=== PATIENT | male | born 1960 | race Caucasian/White ===

== ENCOUNTER 2022-07-11 04:51 | Inpatient (IN) ==
[2022-07-11] MEDS ORDERED: SODIUM CHLORIDE 0.9% 1000ML 1,000 ML IV SCH (05:15)
--- NOTE | 2022-07-11 05:26 | Emergency Department Note ---
History of Present Illness General Chief complaint: Weakness Stated complaint: BARLEY WALK, WEAK, SICK Time Seen by Provider: 07/11/22 05:01 Source: patient and family Mode of arrival: wheelchair Limitations: no limitations History of Present Illness Provider complaint: weak, "illness" Maximum Pain Intensity: 7 This is a 62-year-old male presents emergency department due to concern for incr eased weakness. Patient presents with family at bedside who helps with history. Family states he started getting sick several days ago. They did perform a home COVID test which was negative. Patient states he began with a cough and then developed fevers and body aches. He states he also had some accompanying diarrhea. He states he had increased pain in the right foot that felt similar to when he gets attacks of gout. He states he has not noticed any swelling or redness. Patient denies any vomiting although states he has not had much of an appetite but is trying to stay hydrated with fluids. He denies chest pain, trouble breathing, or abdominal pain. Patient is anticoagulated due to prior history of valve replacement back in 2015. states that they saw their PCP on the and were started on Tamiflu. She states she believes he has had 3 doses of Tamiflu. Patient brought back to A3 from triage after being found to be hypotensive. Home Medications Medication Instructions Recorded Confirmed Type atorvastatin 80 mg tablet 80 mg PO DAILY #0 tabs 11/07/15 07/11/22 History aspirin 81 mg tablet,delayed 81 mg PO DAILY ##0 01/01/16 07/11/22 History release amoxicillin 500 mg capsule 2,000 mg PO USEASDIRECTD PRN 30-60 07/20/20 07/11/22 History min prior to dental proc colchicine 0.6 mg tablet 0.6 mg PO BID 07/20/20 07/11/22 History lisinopril 5 mg tablet 10 mg PO DAILY 07/20/20 07/11/22 History metoprolol tartrate 25 mg tablet 25 mg PO BID 11/03/20 07/11/22 History warfarin 5 mg tablet 5 mg PO UD 11/03/20 07/11/22 History allopurinol 300 mg tablet 300 mg PO QAM 07/11/22 07/11/22 History oseltamivir 75 mg capsule 75 mg PO BID 07/11/22 07/11/22 History prednisone 20 mg tablet 20 mg PO DAILY 07/11/22 07/11/22 History Allergies Allergy/AdvReac Type Severity Reaction Status Date / Time No Known Allergies Allergy Mild Verified 11/03/20 08:59 Past Med/Surg History Medical History CAD (coronary artery disease) Gout History of tobacco abuse HLD (hyperlipidemia) Thoracic aortic aneurysm (TAA) Surgical History Hx of inguinal hernia repair S/P aortic valve replacement with prosthetic valve Family History Mother Hypertension Other Diabetes Stroke Social History Smoking Status: Current every day smoker Tobacco Type: Cigarettes Hx Alcohol Use: Yes Alcohol type: beer Hx Substance Use: No Preferred Language: Jamaican Communication Ability: Effective Employment Legal Assistant Required: No Beliefs That Will Affect Care: None Current Living Situation: Spouse Feels Safe at Home: Yes Assistive Devices: Denture - Lower and Glasses Review of Systems A total of 10 systems reviewed and were otherwise negative All systems reviewed & are unremarkable except as noted in HPI & below Physical Exam Vital Signs Vital Signs - 24 hr 07/11/22 04:54 07/11/22 05:27 07/11/22 05:45 Temperature 36.3 C L Temperature Source Temporal Artery Scan Pulse Rate 85 Pulse Rate [Apical] 83 Pulse Rate from SpO2 Sensor Respiratory Rate 22 16 16 Respiratory Effort / Characteristics Non-Labored Spontaneous Respiratory Depth Normal Respiratory Pattern Regular Blood Pressure 67/48 L Blood Pressure [Left Arm] 84/61 L Blood Pressure Mean 54 Blood Pressure Mean [Left Arm] 68 Pulse Oximetry 93 98 Oxygen Delivery Method Room Air Room Air Sepsis Recent Fever Within 48 Hours Yes Sepsis New/Unexplained Change in Mental Status No Sepsis Action Taken by Nursing Physician Notified 07/11/22 05:20 07/11/22 05:22 07/11/22 05:30 Temperature Temperature Source Pulse Rate 84 83 Pulse Rate [Apical] Pulse Rate from SpO2 Sensor 84 85 83 Respiratory Rate 20 20 Respiratory Effort / Characteristics Respiratory Depth Respiratory Pattern Blood Pressure 91/57 L 89/60 L Blood Pressure [Left Arm] Blood Pressure Mean 68 69 Blood Pressure Mean [Left Arm] Pulse Oximetry 99 97 100 Oxygen Delivery Method Sepsis Recent Fever Within 48 Hours Sepsis New/Unexplained Change in Mental Status Sepsis Action Taken by Nursing 07/11/22 05:45 07/11/22 06:05 07/11/22 06:06 Temperature Temperature Source Pulse Rate 83 83 83 Pulse Rate [Apical] Pulse Rate from SpO2 Sensor 83 83 85 Respiratory Rate 21 23 22 Respiratory Effort / Characteristics Respiratory Depth Respiratory Pattern Blood Pressure 84/61 L Blood Pressure [Left Arm] Blood Pressure Mean 68 Blood Pressure Mean [Left Arm] Pulse Oximetry 99 96 94 Oxygen Delivery Method Sepsis Recent Fever Within 48 Hours Sepsis New/Unexplained Change in Mental Status Sepsis Action Taken by Nursing 07/11/22 06:06 07/11/22 06:09 07/11/22 06:25 Temperature Temperature Source Pulse Rate 83 82 Pulse Rate [Apical] Pulse Rate from SpO2 Sensor 83 82 Respiratory Rate 24 22 Respiratory Effort / Characteristics Respiratory Depth Respiratory Pattern Blood Pressure 88/54 L 92/57 L 85/68 L Blood Pressure [Left Arm] Blood Pressure Mean 65 68 73 Blood Pressure Mean [Left Arm] Pulse Oximetry 98 98 Oxygen Delivery Method Sepsis Recent Fever Within 48 Hours Sepsis New/Unexplained Change in Mental Status Sepsis Action Taken by Nursing 07/11/22 06:30 07/11/22 06:45 07/11/22 07:00 Temperature Temperature Source Pulse Rate 82 81 82 Pulse Rate [Apical] Pulse Rate from SpO2 Sensor 82 82 82 Respiratory Rate 22 22 31 H Respiratory Effort / Characteristics Respiratory Depth Respiratory Pattern Blood Pressure 98/64 L 107/64 96/69 L Blood Pressure [Left Arm] Blood Pressure Mean 75 78 78 Blood Pressure Mean [Left Arm] Pulse Oximetry 97 98 98 Oxygen Delivery Method Sepsis Recent Fever Within 48 Hours Sepsis New/Unexplained Change in Mental Status Sepsis Action Taken by Nursing 07/11/22 07:15 07/11/22 07:30 07/11/22 07:42 Temperature Temperature Source Pulse Rate 81 81 Pulse Rate [Apical] Pulse Rate from SpO2 Sensor Respiratory Rate 20 18 Respiratory Effort / Characteristics Respiratory Depth Respiratory Pattern Blood Pressure 102/62 100/59 L Blood Pressure [Left Arm] Blood Pressure Mean 75 72 Blood Pressure Mean [Left Arm] Pulse Oximetry 98 97 100 Oxygen Delivery Method Room Air Room Air Room Air Sepsis Recent Fever Within 48 Hours Sepsis New/Unexplained Change in Mental Status Sepsis Action Taken by Nursing 07/11/22 07:47 07/11/22 08:00 07/11/22 08:08 Temperature Temperature Source Pulse Rate 82 82 83 Pulse Rate [Apical] Pulse Rate from SpO2 Sensor Respiratory Rate 24 20 24 Respiratory Effort / Characteristics Respiratory Depth Respiratory Pattern Blood Pressure 90/60 L 89/56 L 88/53 L Blood Pressure [Left Arm] Blood Pressure Mean 70 67 64 Blood Pressure Mean [Left Arm] Pulse Oximetry 96 95 96 Oxygen Delivery Method Room Air Room Air Room Air Sepsis Recent Fever Within 48 Hours Sepsis New/Unexplained Change in Mental Status Sepsis Action Taken by Nursing 07/11/22 08:12 07/11/22 08:15 Temperature Temperature Source Pulse Rate 83 83 Pulse Rate [Apical] Pulse Rate from SpO2 Sensor Respiratory Rate 20 19 Respiratory Effort / Characteristics Respiratory Depth Respiratory Pattern Blood Pressure 90/55 L 89/65 L Blood Pressure [Left Arm] Blood Pressure Mean 66 73 Blood Pressure Mean [Left Arm] Pulse Oximetry 98 95 Oxygen Delivery Method Room Air Room Air Sepsis Recent Fever Within 48 Hours Sepsis New/Unexplained Change in Mental Status Sepsis Action Taken by Nursing GENERAL: alert, ill appearing, well nourished, no distress, non-toxic EYE EXAM: normal conjunctiva, PERRL and EOM's grossly intact OROPHARYNX: no exudate, no erythema, lips, buccal mucosa, and tongue normal and mucous membranes are dry NECK: supple, no nuchal rigidity, no adenopathy, non-tender LUNGS: Clear to auscultation. Normal chest wall mechanics, no w/r/r HEART: no murmurs, S1 normal and S2 normal, well-healed vertical midline sternotomy scar ABDOMEN: abdomen soft, non-tender, normo-active bowel sounds, no masses, no rebound or guarding. BACK: Back is symmetrical on inspection and there is no deformity, no midline tenderness, no CVA tenderness. SKIN: no rashes and no bruising UPPER EXTREMITIES: upper extremities are grossly normal. FROM, nml pulses b/l. LOWER EXTREMITIES: No pitting edema. FROM, nml pulses b/l. NEURO EXAM: Normal sensorium, cranial nerves II-XII grossly intact, normal speech, no gross weakness of arms, no gross weakness of legs. Gross sensation intact. Course Course 05: Pt updated on POC BMP results. 0610: Blood pressure improved, MAP greater than 65, patient more alert. First liter of IV fluids still infusing. 0735: Patient continues improved. He did complete 2 L of IV fluids and order was changed for maintenance. IV magnesium still infusing. Patient does appear better and is holding blood pressures. He denies any current pain. 0805: Updated at bedside. 0812: Hospitalist now at bedside. 0832: Patient's blood pressure had briefly dropped and he was off IV fluids as additional medications and orders were being changed and started. LR was started on the patient and his pressure began to improve again. Bedside echo performed by myself showed trace pericardial effusion, no obvious wall motion abnormality, unable to fully visualize mitral valve to measure EPSS. Administered Medications Discontinued Medications Atorvastatin Calcium (Atorvastatin 40 Mg Tab) 80 mg PO NOW STA Stop: 07/11/22 22:13 Last Admin: 07/11/22 23:55 Dose: 80 mg Documented By: HERNAN Sodium Chloride (Nss 1000ml) 1,000 mls @ 999 mls/hr IV .Q1H1M [facility] Stop: 07/11/22 06:15 Last Infusion: 07/11/22 07:12 Dose: 0 mls/hr Documented By: Admin: 07/11/22 05:30 Dose: 999 mls/hr Documented By: BELA Sodium Chloride (Nss 1000ml) 1,000 mls @ 999 mls/hr IV .Q1H1M ONE Stop: 07/11/22 07:00 Last Infusion: 07/11/22 07:33 Dose: 0 mls/hr Documented By: Admin: 07/11/22 06:22 Dose: 999 mls/hr Documented By: BELA Magnesium Sulfate/Dextrose (Magnesium Sulfate / D5w) 1 gm in 100 mls @ 100 mls/hr IV Q1H [facility] Stop: 07/11/22 07:59 Last Infusion: 07/11/22 08:37 Dose: 0 mls/hr Documented By: [email or web address] Admin: 07/11/22 07:26 Dose: 100 mls/hr Documented By: Infusion: 07/11/22 07:26 Dose: 0 mls/hr Documented By: Admin: 07/11/22 06:22 Dose: 100 mls/hr Documented By: BELA Lactated Ringer's (Lr) 1,000 mls @ 150 mls/hr IV .Q6H40M [facility] Stop: 08/10/22 07:44 Last Infusion: 07/12/22 09:58 Dose: 0 mls/hr Documented By: Admin: 07/12/22 08:58 Dose: Not Given Documented By: Admin: 07/12/22 08:58 Dose: Not Given Documented By: Infusion: 07/11/22 21:32 Dose: 0 mls/hr Documented By: Infusion: 07/11/22 18:18 Dose: 100 mls/hr Documented By: [id number] Admin: 07/11/22 17:10 Dose: 150 mls/hr Documented By: [id number] Infusion: 07/11/22 14:30 Dose: 150 mls/hr Documented By: [id number] Admin: 07/11/22 07:49 Dose: 150 mls/hr Documented By: TRISTIN Cefepime HCl (Maxipime) 2,000 mg in 20 mls @ 5 mls/min IV NOW STA; Protocol Stop: 07/11/22 07:58 Last Admin: 07/11/22 08:44 Dose: 5 mls/min Documented By: TRISTIN Vancomycin HCl 2,250 mg/ (Sodium Chloride) 545 mls @ 200 mls/hr IV NOW ONE Stop: 07/11/22 10:38 Last Admin: 07/11/22 08:38 Dose: 200 mls/hr Documented By: TRISTIN Lactated Ringer's (Lr) 1,000 mls @ 999 mls/hr IV .Q1H1M [facility] Stop: 07/11/22 09:45 Last Infusion: 07/11/22 12:34 Dose: 0 mls/hr Documented By: [id number] Admin: 07/11/22 11:22 Dose: 999 mls/hr Documented By: [id number] Potassium Chloride (K Paul / Wtr) 10 meq in 100 mls @ 100 mls/hr IV Q1H [facility] Stop: 07/11/22 12:59 Last Infusion: 07/11/22 14:44 Dose: 0 mls/hr Documented By: [id number] Admin: 07/11/22 13:40 Dose: 100 mls/hr Documented By: [email or web address] Infusion: 07/11/22 13:34 Dose: 100 mls/hr Documented By: Admin: 07/11/22 12:34 Dose: 100 mls/hr Documented By: [id number] Infusion: 07/11/22 12:24 Dose: 100 mls/hr Documented By: [id number] Admin: 07/11/22 11:24 Dose: 100 mls/hr Documented By: [id number] Cefepime HCl 1,000 mg/ Syringe 10 mls @ 5 mls/min IV Q12H [facility]; Protocol Stop: 07/13/22 20:59 Last Admin: 07/11/22 20:58 Dose: 5 mls/min Documented By: Y Metronidazole (Flagyl) 500 mg in 100 mls @ 100 mls/hr IV Q8H [facility] Stop: 07/21/22 11:59 Last Infusion: 07/12/22 05:29 Dose: 0 mls/hr Documented By: Admin: 07/12/22 04:26 Dose: 100 mls/hr Documented By: Y Infusion: 07/11/22 21:31 Dose: 0 mls/hr Documented By: Y Admin: 07/11/22 19:52 Dose: 100 mls/hr Documented By: Y Infusion: 07/11/22 15:44 Dose: 0 mls/hr Documented By: [id number] Admin: 07/11/22 14:42 Dose: 100 mls/hr Documented By: [id number] Sodium Chloride (Nss 1000ml) 1,000 mls @ 75 mls/hr IV .[id number] [facility] Stop: 08/10/22 19:59 Last Infusion: 07/12/22 10:01 Dose: 75 mls/hr Documented By: Admin: 07/12/22 06:46 Dose: 100 mls/hr Documented By: Infusion: 07/12/22 06:46 Dose: 100 mls/hr Documented By: Admin: 07/11/22 21:33 Dose: 100 mls/hr Documented By: Y Potassium Chloride (K Paul / Wtr) 10 meq in 100 mls @ 100 mls/hr IV Q1H [facility] Stop: 07/11/22 21:59 Last Infusion: 07/12/22 00:17 Dose: 0 mls/hr Documented By: Admin: 07/11/22 21:43 Dose: 100 mls/hr Documented By: Infusion: 07/11/22 21:40 Dose: 100 mls/hr Documented By: Admin: 07/11/22 20:40 Dose: 100 mls/hr Documented By: BPY Heparin Sodium/Dextrose (Heparin Sodium/Dextrose) 25,000 units in 500 mls @ 33 mls/hr IV .[id number] [facility]; Protocol Stop: 08/10/22 21:29 Last Titration: 07/12/22 07:00 Dose: 0 units/hr, 0 mls/hr Documented By: WRS Co-signed By: GPF Titration: 07/12/22 01:26 Dose: 0 units/hr, 0 mls/hr Documented By: BPY Co-signed By: CF Admin: 07/11/22 22:03 Dose: 1,650 units/hr, 33 mls/hr Documented By: BPY Co-signed By: LAURA Norepinephrine Bitartrate (Levophed/D5w) 4 mg in 250 mls @ 20.288 mls/hr IV .[id number] [facility]; Protocol Stop: 08/10/22 22:44 Last Titration: 07/12/22 14:57 Dose: 0.05 mcg/kg/min, 20.3 mls/hr Documented By: Admin: 07/12/22 10:18 Dose: 0.07 mcg/kg/min, 28.4 mls/hr Documented By: WRS Co-signed By: GPF Titration: 07/12/22 10:18 Dose: 0.07 mcg/kg/min, 28.4 mls/hr Documented By: WRS Co-signed By: GPF Titration: 07/12/22 07:05 Dose: 0.07 mcg/kg/min, 28.4 mls/hr Documented By: WRS Co-signed By: BPY Titration: 07/12/22 06:16 Dose: 0.07 mcg/kg/min, 28.4 mls/hr Documented By: Admin: 07/11/22 23:46 Dose: 0.05 mcg/kg/min, 20.3 mls/hr Documented By: BPY Co-signed By: MYLA Magnesium Sulfate/Dextrose (Magnesium Sulfate / D5w) 1 gm in 100 mls @ 50 mls/hr IV Q2H [facility] Stop: 07/12/22 04:59 Last Infusion: 07/12/22 04:49 Dose: 0 mls/hr Documented By: Admin: 07/12/22 02:44 Dose: 50 mls/hr Documented By: Infusion: 07/12/22 02:44 Dose: 50 mls/hr Documented By: Admin: 07/12/22 01:05 Dose: 50 mls/hr Documented By: HERNAN Magnesium Sulfate/Dextrose (Magnesium Sulfate / D5w) 1 gm in 100 mls @ 50 mls/hr IV Q2H [facility] Stop: 07/12/22 10:59 Last Admin: 07/12/22 10:57 Dose: Not Given Documented By: Infusion: 07/12/22 10:56 Dose: 0 mls/hr Documented By: Admin: 07/12/22 08:49 Dose: 50 mls/hr Documented By: Infusion: 07/12/22 08:46 Dose: 50 mls/hr Documented By: Admin: 07/12/22 06:46 Dose: 50 mls/hr Documented By: Infusion: 07/12/22 06:46 Dose: 50 mls/hr Documented By: Admin: 07/12/22 04:50 Dose: 50 mls/hr Documented By: HERNAN Potassium Chloride (K Paul / Wtr) 10 meq in 100 mls @ 100 mls/hr IV Q1H [facility] Stop: 07/12/22 05:59 Last Infusion: 07/12/22 06:20 Dose: 0 mls/hr Documented By: Admin: 07/12/22 05:20 Dose: 100 mls/hr Documented By: Infusion: 07/12/22 05:18 Dose: 100 mls/hr Documented By: Admin: 07/12/22 04:18 Dose: 100 mls/hr Documented By: HERNAN Ceftriaxone Sodium 2,000 mg/ (Dextrose) 70 mls @ 140 mls/hr IV Q24H [facility]; Protocol Stop: 08/23/22 08:29 Last Infusion: 07/12/22 09:58 Dose: 0 mls/hr Documented By: Admin: 07/12/22 09:26 Dose: 140 mls/hr Documented By: ASHLEY Magnesium Sulfate/Dextrose (Magnesium Sulfate / D5w) 1 gm in 100 mls @ 50 mls/hr IV ONE ONE Stop: 07/12/22 11:57 Last Admin: 07/12/22 10:57 Dose: Not Given Documented By: ASHLEY Ondansetron HCl (Ondansetron Inj 2 Mg/Ml 2 Ml Vial) 4 mg IV Q4H PRN PRN Reason: Nausea And Vomiting Stop: 08/10/22 10:47 Last Admin: 07/12/22 17:04 Dose: 4 mg Documented By: Admin: 07/12/22 16:55 Dose: 4 mg Documented By: AM Sodium Bicarbonate (Sodium Bicarb 8.4% Inj 50 Meq/50 Ml Syr) 50 meq IV NOW STA Stop: 07/12/22 08:17 Last Admin: 07/12/22 08:50 Dose: 50 meq Documented By: ASHLEY Warfarin Sodium (Warfarin Sod 5 Mg Tab) 5 mg PO DAILY@1600 [facility] Stop: 08/10/22 15:59 Last Admin: 07/11/22 17:10 Dose: 5 mg Documented By: [id number] Critical Care Time Critical Care Time: Yes Total Critical Care Time: 69 Critical care of 69 min performed to assess and manage high likelihood of life- threatening hypotension, involving labs and imaging performed with assessment to evaluate hypotension diagnosis with frequent reassessment. This time includes bedside time, treatment discussions with patient/family/consultants, documentation time and excludes procedure time. Medical Decision Making Differential Diagnosis Differential Diagnosis includes but is not limited to dehydration, stroke, anemia, hypoglycemia, hyponatremia, hypernatremia, urinary tract infection, pneumonia, bronchitis, sepsis, gastroenteritis, additional abdominal pathology, metabolic abnormalities and infections. Medical Records Attestation: I reviewed the patient's medical records. Home Medications Current Medication List: was personally reviewed by me Laboratory Data Attestation: I reviewed the patient's lab results. Result diagrams: 07/12/22 02:35 07/12/22 08:35 Lab Results 07/11/22 07/11/22 07/11/22 Range/Units 05:10 05:10 05:10 WBC 13.14 H (4.8-10.8) K/ul RBC 4.51 L (4.63-6.08) M/uL Hgb 14.3 (14.0-18.0) g/dl POC Hgb (14.0-18.0) g/dl Hct 40.8 (40.1-51.0) % POC Hct (42-52) % MCV 90.5 (80.0-100.0) fL MCH 31.7 (25.0-34.0) pg MCHC 35.0 (32.0-36.0) g/dL RDW Std Deviation 43.1 (36.4-46.3) fL RDW Coeff of Jere 13.0 (11.5-14.5) % Plt Count 52 L (130-400) K/uL MPV 12.8 H (9.4-12.4) fL Immature Gran % (Auto) 0.8 % Neut % (Auto) 87.5 % Lymph % (Auto) 1.5 % [place] % (Auto) 9.1 % Eos % (Auto) 0.5 % Baso % (Auto) 0.6 % Neut # (Auto) 11.51 H (1.4-6.5) K/uL Lymph # (Auto) 0.20 L (1.2-3.4) K/uL [place] # (Auto) 1.19 H (0.24-0.82) K/uL Eos # (Auto) 0.06 (0-0.50) K/uL Baso # (Auto) 0.08 (0-0.2) K/uL Immature Gran # (Auto) 0.10 H (0.00-0.02) K/uL Toxic Vacuolation 1+ PT (9.0-12.0) Seconds INR (0.9-1.1) POC Sodium (135-144) mmol/L Sodium 126 L (136-145) mmol/L POC Potassium (3.3-5.0) mmol/L Potassium 3.6 (3.5-5.1) mmol/L POC Chloride (101-112) mmol/L Chloride 92 L (98-107) mmol/L Carbon Dioxide 17 L (21-32) mmol/L POC Total CO2 (24-31) mmol/L Anion Gap 17 H (3-11) POC Anion Gap (16-25) mmol/L POC BUN (7-18) mg/dl BUN 43 H (6-23) mg/dl Creatinine 3.78 H (0.6-1.4) mg/dl POC Creatinine (0.6-1.3) mg/dl Est Cr Clr Drug Dosing Not Reportable Est GFR ( Amer) 18.6 ml/min Est GFR (Non-Af Amer) 16.1 ml/min BUN/Creatinine Ratio 11.4 (10-20) Glucose 123 H (70-99(Fasting)) mg/dl POC Glucose (other) (70-99) mg/dl Osmolality (280-300) mOsm/kg Lactate (0.4-2.0) mmol/L Calcium 8.6 (8.5-10.1) mg/dl POC Ioniz Calcium [place] (1.12-1.32) mmol/l Phosphorus (2.5-4.9) mg/dl Magnesium 1.5 L (1.7-2.4) mg/dl Total Bilirubin 0.9 (0.2-1.0) mg/dl Direct Bilirubin 0.4 H (0-0.2) mg/dl AST 127 H (13-39) U/L ALT 76 H (7-52) U/L Alkaline Phosphatase 95 (34-104) U/L Troponin I High Sens 503.5 H* (0-20) pg/ml Total Protein 6.9 (6.0-8.3) gm/dl Albumin 3.5 (3.4-5.0) gm/dl Procalcitonin 20.79 H (0-0.5) ng/ml Adenovirus (PCR) (NotDetected) B. pertussis DNA (PCR) (NotDetected) B.parapertussis DNA PCR (NotDetected) Lyme Disease IgG Ab (Negative) Lyme Disease IgM Ab (Negative) C. pneumoniae DNA (PCR) (NotDetected) Coronavirus OC43 (PCR) (NotDetected) Coronavirus HKU1 (PCR) (NotDetected) Coronavirus 229E (PCR) (NotDetected) SARS-CoV-2 (PCR) (NotDetected) Coronavirus NL63 (PCR) (NotDetected) Human Metapneumovir PCR (NotDetected) Influenza Type A (PCR) (NotDetected) Influenza Type B (PCR) (NotDetected) M. pneumoniae (PCR) (NotDetected) Parainfluenza 1 (PCR) (NotDetected) Parainfluenza 2 (PCR) (NotDetected) Parainfluenza 3 (PCR) (NotDetected) Parainfluenza 4 (PCR) (NotDetected) RSV (PCR) (NotDetected) Entero/Rhino (PCR) (NotDetected) Streptococcus sp PCR (NotDetected) Bld Cult ID Panel PCR (NotDetected) 07/11/22 07/11/22 07/11/22 Range/Units 05:10 05:10 05:10 WBC (4.8-10.8) K/ul RBC (4.63-6.08) M/uL Hgb (14.0-18.0) g/dl POC Hgb (14.0-18.0) g/dl Hct (40.1-51.0) % POC Hct (42-52) % MCV (80.0-100.0) fL MCH (25.0-34.0) pg MCHC (32.0-36.0) g/dL RDW Std Deviation (36.4-46.3) fL RDW Coeff of Jere (11.5-14.5) % Plt Count (130-400) K/uL MPV (9.4-12.4) fL Immature Gran % (Auto) % Neut % (Auto) % Lymph % (Auto) % [place] % (Auto) % Eos % (Auto) % Baso % (Auto) % Neut # (Auto) (1.4-6.5) K/uL Lymph # (Auto) (1.2-3.4) K/uL [place] # (Auto) (0.24-0.82) K/uL Eos # (Auto) (0-0.50) K/uL Baso # (Auto) (0-0.2) K/uL Immature Gran # (Auto) (0.00-0.02) K/uL Toxic Vacuolation PT 18.2 H (9.0-12.0) Seconds INR 1.8 H (0.9-1.1) POC Sodium (135-144) mmol/L Sodium (136-145) mmol/L POC Potassium (3.3-5.0) mmol/L Potassium (3.5-5.1) mmol/L POC Chloride (101-112) mmol/L Chloride (98-107) mmol/L Carbon Dioxide (21-32) mmol/L POC Total CO2 (24-31) mmol/L Anion Gap (3-11) POC Anion Gap (16-25) mmol/L POC BUN (7-18) mg/dl BUN (6-23) mg/dl Creatinine (0.6-1.4) mg/dl POC Creatinine (0.6-1.3) mg/dl Est Cr Clr Drug Dosing Est GFR ( Amer) ml/min Est GFR (Non-Af Amer) ml/min BUN/Creatinine Ratio (10-20) Glucose (70-99(Fasting)) mg/dl POC Glucose (other) (70-99) mg/dl Osmolality 280 (280-300) mOsm/kg Lactate (0.4-2.0) mmol/L Calcium (8.5-10.1) mg/dl POC Ioniz Calcium [place] (1.12-1.32) mmol/l Phosphorus 4.7 (2.5-4.9) mg/dl Magnesium (1.7-2.4) mg/dl Total Bilirubin (0.2-1.0) mg/dl Direct Bilirubin (0-0.2) mg/dl AST (13-39) U/L ALT (7-52) U/L Alkaline Phosphatase (34-104) U/L Troponin I High Sens (0-20) pg/ml Total Protein (6.0-8.3) gm/dl Albumin (3.4-5.0) gm/dl Procalcitonin (0-0.5) ng/ml Adenovirus (PCR) (NotDetected) B. pertussis DNA (PCR) (NotDetected) B.parapertussis DNA PCR (NotDetected) Lyme Disease IgG Ab (Negative) Lyme Disease IgM Ab (Negative) C. pneumoniae DNA (PCR) (NotDetected) Coronavirus OC43 (PCR) (NotDetected) Coronavirus HKU1 (PCR) (NotDetected) Coronavirus 229E (PCR) (NotDetected) SARS-CoV-2 (PCR) (NotDetected) Coronavirus NL63 (PCR) (NotDetected) Human Metapneumovir PCR (NotDetected) Influenza Type A (PCR) (NotDetected) Influenza Type B (PCR) (NotDetected) M. pneumoniae (PCR) (NotDetected) Parainfluenza 1 (PCR) (NotDetected) Parainfluenza 2 (PCR) (NotDetected) Parainfluenza 3 (PCR) (NotDetected) Parainfluenza 4 (PCR) (NotDetected) RSV (PCR) (NotDetected) Entero/Rhino (PCR) (NotDetected) Streptococcus sp PCR (NotDetected) Bld Cult ID Panel PCR (NotDetected) 07/11/22 07/11/22 07/11/22 Range/Units 05:10 05:15 05:44 WBC (4.8-10.8) K/ul RBC (4.63-6.08) M/uL Hgb (14.0-18.0) g/dl POC Hgb 15.3 (14.0-18.0) g/dl Hct (40.1-51.0) % POC Hct 45 (42-52) % MCV (80.0-100.0) fL MCH (25.0-34.0) pg MCHC (32.0-36.0) g/dL RDW Std Deviation (36.4-46.3) fL RDW Coeff of Jere (11.5-14.5) % Plt Count (130-400) K/uL MPV (9.4-12.4) fL Immature Gran % (Auto) % Neut % (Auto) % Lymph % (Auto) % [place] % (Auto) % Eos % (Auto) % Baso % (Auto) % Neut # (Auto) (1.4-6.5) K/uL Lymph # (Auto) (1.2-3.4) K/uL [place] # (Auto) (0.24-0.82) K/uL Eos # (Auto) (0-0.50) K/uL Baso # (Auto) (0-0.2) K/uL Immature Gran # (Auto) (0.00-0.02) K/uL Toxic Vacuolation PT (9.0-12.0) Seconds INR (0.9-1.1) POC Sodium 125 L (135-144) mmol/L Sodium (136-145) mmol/L POC Potassium 3.5 (3.3-5.0) mmol/L Potassium (3.5-5.1) mmol/L POC Chloride 95 L (101-112) mmol/L Chloride (98-107) mmol/L Carbon Dioxide (21-32) mmol/L POC Total CO2 17 L (24-31) mmol/L Anion Gap (3-11) POC Anion Gap 17.0 (16-25) mmol/L POC BUN 41 H (7-18) mg/dl BUN (6-23) mg/dl Creatinine (0.6-1.4) mg/dl POC Creatinine 4.4 H (0.6-1.3) mg/dl Est Cr Clr Drug Dosing Est GFR ( Amer) ml/min Est GFR (Non-Af Amer) ml/min BUN/Creatinine Ratio (10-20) Glucose (70-99(Fasting)) mg/dl POC Glucose (other) 128 H (70-99) mg/dl Osmolality (280-300) mOsm/kg Lactate (0.4-2.0) mmol/L Calcium (8.5-10.1) mg/dl POC Ioniz Calcium [place] 1.01 L (1.12-1.32) mmol/l Phosphorus (2.5-4.9) mg/dl Magnesium (1.7-2.4) mg/dl Total Bilirubin (0.2-1.0) mg/dl Direct Bilirubin (0-0.2) mg/dl AST (13-39) U/L ALT (7-52) U/L Alkaline Phosphatase (34-104) U/L Troponin I High Sens (0-20) pg/ml Total Protein (6.0-8.3) gm/dl Albumin (3.4-5.0) gm/dl Procalcitonin (0-0.5) ng/ml Adenovirus (PCR) (NotDetected) B. pertussis DNA (PCR) (NotDetected) B.parapertussis DNA PCR (NotDetected) Lyme Disease IgG Ab Negative (Negative) Lyme Disease IgM Ab Negative (Negative) C. pneumoniae DNA (PCR) (NotDetected) Coronavirus OC43 (PCR) (NotDetected) Coronavirus HKU1 (PCR) (NotDetected) Coronavirus 229E (PCR) (NotDetected) SARS-CoV-2 (PCR) (NotDetected) Coronavirus NL63 (PCR) (NotDetected) Human Metapneumovir PCR (NotDetected) Influenza Type A (PCR) (NotDetected) Influenza Type B (PCR) (NotDetected) M. pneumoniae (PCR) (NotDetected) Parainfluenza 1 (PCR) (NotDetected) Parainfluenza 2 (PCR) (NotDetected) Parainfluenza 3 (PCR) (NotDetected) Parainfluenza 4 (PCR) (NotDetected) RSV (PCR) (NotDetected) Entero/Rhino (PCR) (NotDetected) Streptococcus sp PCR DETECTED A (NotDetected) Bld Cult ID Panel PCR See PCR Comment (NotDetected) 07/11/22 07/11/22 07/11/22 Range/Units 05:45 06:17 06:56 WBC (4.8-10.8) K/ul RBC (4.63-6.08) M/uL Hgb (14.0-18.0) g/dl POC Hgb (14.0-18.0) g/dl Hct (40.1-51.0) % POC Hct (42-52) % MCV (80.0-100.0) fL MCH (25.0-34.0) pg MCHC (32.0-36.0) g/dL RDW Std Deviation (36.4-46.3) fL RDW Coeff of Jere (11.5-14.5) % Plt Count (130-400) K/uL MPV (9.4-12.4) fL Immature Gran % (Auto) % Neut % (Auto) % Lymph % (Auto) % [place] % (Auto) % Eos % (Auto) % Baso % (Auto) % Neut # (Auto) (1.4-6.5) K/uL Lymph # (Auto) (1.2-3.4) K/uL [place] # (Auto) (0.24-0.82) K/uL Eos # (Auto) (0-0.50) K/uL Baso # (Auto) (0-0.2) K/uL Immature Gran # (Auto) (0.00-0.02) K/uL Toxic Vacuolation PT (9.0-12.0) Seconds INR (0.9-1.1) POC Sodium (135-144) mmol/L Sodium 127 L (136-145) mmol/L POC Potassium (3.3-5.0) mmol/L Potassium 3.4 L (3.5-5.1) mmol/L POC Chloride (101-112) mmol/L Chloride 96 L (98-107) mmol/L Carbon Dioxide 16 L (21-32) mmol/L POC Total CO2 (24-31) mmol/L Anion Gap 15 H (3-11) POC Anion Gap (16-25) mmol/L POC BUN (7-18) mg/dl BUN 45 H (6-23) mg/dl Creatinine 3.68 H (0.6-1.4) mg/dl POC Creatinine (0.6-1.3) mg/dl Est Cr Clr Drug Dosing 26.9 Est GFR ( Amer) 19.3 ml/min Est GFR (Non-Af Amer) 16.6 ml/min BUN/Creatinine Ratio 12.2 (10-20) Glucose 125 H (70-99(Fasting)) mg/dl POC Glucose (other) (70-99) mg/dl Osmolality (280-300) mOsm/kg Lactate 2.7 H* (0.4-2.0) mmol/L Calcium 7.4 L (8.5-10.1) mg/dl POC Ioniz Calcium [place] (1.12-1.32) mmol/l Phosphorus (2.5-4.9) mg/dl Magnesium (1.7-2.4) mg/dl Total Bilirubin (0.2-1.0) mg/dl Direct Bilirubin (0-0.2) mg/dl AST (13-39) U/L ALT (7-52) U/L Alkaline Phosphatase (34-104) U/L Troponin I High Sens (0-20) pg/ml Total Protein (6.0-8.3) gm/dl Albumin (3.4-5.0) gm/dl Procalcitonin (0-0.5) ng/ml Adenovirus (PCR) Not Detected (NotDetected) B. pertussis DNA (PCR) Not Detected (NotDetected) B.parapertussis DNA PCR Not Detected (NotDetected) Lyme Disease IgG Ab (Negative) Lyme Disease IgM Ab (Negative) C. pneumoniae DNA (PCR) Not Detected (NotDetected) Coronavirus OC43 (PCR) Not Detected (NotDetected) Coronavirus HKU1 (PCR) Not Detected (NotDetected) Coronavirus 229E (PCR) Not Detected (NotDetected) SARS-CoV-2 (PCR) Not Detected (NotDetected) Coronavirus NL63 (PCR) Not Detected (NotDetected) Human Metapneumovir PCR Not Detected (NotDetected) Influenza Type A (PCR) Not Detected (NotDetected) Influenza Type B (PCR) Not Detected (NotDetected) M. pneumoniae (PCR) Not Detected (NotDetected) Parainfluenza 1 (PCR) Not Detected (NotDetected) Parainfluenza 2 (PCR) Not Detected (NotDetected) Parainfluenza 3 (PCR) Not Detected (NotDetected) Parainfluenza 4 (PCR) Not Detected (NotDetected) RSV (PCR) Not Detected (NotDetected) Entero/Rhino (PCR) Not Detected (NotDetected) Streptococcus sp PCR (NotDetected) Bld Cult ID Panel PCR (NotDetected) 07/11/22 Range/Units 08:06 WBC (4.8-10.8) K/ul RBC (4.63-6.08) M/uL Hgb (14.0-18.0) g/dl POC Hgb (14.0-18.0) g/dl Hct (40.1-51.0) % POC Hct (42-52) % MCV (80.0-100.0) fL MCH (25.0-34.0) pg MCHC (32.0-36.0) g/dL RDW Std Deviation (36.4-46.3) fL RDW Coeff of Jere (11.5-14.5) % Plt Count (130-400) K/uL MPV (9.4-12.4) fL Immature Gran % (Auto) % Neut % (Auto) % Lymph % (Auto) % [place] % (Auto) % Eos % (Auto) % Baso % (Auto) % Neut # (Auto) (1.4-6.5) K/uL Lymph # (Auto) (1.2-3.4) K/uL [place] # (Auto) (0.24-0.82) K/uL Eos # (Auto) (0-0.50) K/uL Baso # (Auto) (0-0.2) K/uL Immature Gran # (Auto) (0.00-0.02) K/uL Toxic Vacuolation PT (9.0-12.0) Seconds INR (0.9-1.1) POC Sodium (135-144) mmol/L Sodium (136-145) mmol/L POC Potassium (3.3-5.0) mmol/L Potassium (3.5-5.1) mmol/L POC Chloride (101-112) mmol/L Chloride (98-107) mmol/L Carbon Dioxide (21-32) mmol/L POC Total CO2 (24-31) mmol/L Anion Gap (3-11) POC Anion Gap (16-25) mmol/L POC BUN (7-18) mg/dl BUN (6-23) mg/dl Creatinine (0.6-1.4) mg/dl POC Creatinine (0.6-1.3) mg/dl Est Cr Clr Drug Dosing Est GFR ( Amer) ml/min Est GFR (Non-Af Amer) ml/min BUN/Creatinine Ratio (10-20) Glucose (70-99(Fasting)) mg/dl POC Glucose (other) (70-99) mg/dl Osmolality (280-300) mOsm/kg Lactate 2.4 H* (0.4-2.0) mmol/L Calcium (8.5-10.1) mg/dl POC Ioniz Calcium [place] (1.12-1.32) mmol/l Phosphorus (2.5-4.9) mg/dl Magnesium (1.7-2.4) mg/dl Total Bilirubin (0.2-1.0) mg/dl Direct Bilirubin (0-0.2) mg/dl AST (13-39) U/L ALT (7-52) U/L Alkaline Phosphatase (34-104) U/L Troponin I High Sens (0-20) pg/ml Total Protein (6.0-8.3) gm/dl Albumin (3.4-5.0) gm/dl Procalcitonin (0-0.5) ng/ml Adenovirus (PCR) (NotDetected) B. pertussis DNA (PCR) (NotDetected) B.parapertussis DNA PCR (NotDetected) Lyme Disease IgG Ab (Negative) Lyme Disease IgM Ab (Negative) C. pneumoniae DNA (PCR) (NotDetected) Coronavirus OC43 (PCR) (NotDetected) Coronavirus HKU1 (PCR) (NotDetected) Coronavirus 229E (PCR) (NotDetected) SARS-CoV-2 (PCR) (NotDetected) Coronavirus NL63 (PCR) (NotDetected) Human Metapneumovir PCR (NotDetected) Influenza Type A (PCR) (NotDetected) Influenza Type B (PCR) (NotDetected) M. pneumoniae (PCR) (NotDetected) Parainfluenza 1 (PCR) (NotDetected) Parainfluenza 2 (PCR) (NotDetected) Parainfluenza 3 (PCR) (NotDetected) Parainfluenza 4 (PCR) (NotDetected) RSV (PCR) (NotDetected) Entero/Rhino (PCR) (NotDetected) Streptococcus sp PCR (NotDetected) Bld Cult ID Panel PCR (NotDetected) Imaging Data My Impression: X-ray: I interpreted the following studies. Chest: A single view study of the chest was reviewed and was negative for cardiomegaly, focal infiltrate, effusion, pulmonary edema, or wide mediastinum. Midline sternotomy wires noted. Radiologist's Impression: Chest X-Ray 07/11/22 05:16 XR chest 1V portable CLINICAL HISTORY: Sepsis COMPARISON STUDY: Chest radiograph November 03, 2020. FINDINGS: Lung volumes are normal. Lungs are clear. There is no pneumothorax or pleural effusion. Cardiomegaly is unchanged. There is no evidence for pulmonary edema. There are median sternotomy wires. IMPRESSION: No acute cardiopulmonary findings. Stable cardiomegaly. ACT 112: Negative or not required by law. Electronically signed by: Washington Galindo M.D. 07/11/2022 6:47 AM Abdomen/Pelvis CT 07/11/22 05:[address] WITHOUT CONTRAST CT DOSE: 2002.89 mGy.cm HISTORY: Acute fever with generalized abdominal pain and diarrhea fever, diarrhea TECHNIQUE: Multiaxial CT images of the abdomen and pelvis were performed without contrast. A dose lowering technique was utilized adhering to the principles of ALARA. COMPARISON STUDY: Chest CT 07/16/2011 FINDINGS: Cardiomegaly with prior median sternotomy. Extensive [place] coronary artery calcifications are present. Calcified mediastinal lymph nodes. Subsegmental bibasilar atelectasis versus scarring. Limited exam secondary to upper extremity positioning, respiratory motion artifact and lack of contrast. Calcified granuloma of the spleen. Mild generalized pancreatic atrophy. Unremarkable right adrenal gland. Stable complex left adrenal gland nodule with punctate calcifications, 2.5 cm. Based on stability, this is likely benign. Unremarkable gallbladder. Hepatic steatosis. No hepatic mass identified. There are a few scattered punctate nonobstructing calculi noted within the kidneys. No ureteral calculi or hydronephrosis identified. Prostamegaly. Urinary bladder wall thickening with partial distention. Atherosclerosis of the aorta without aneurysm. No lymphadenopathy identified. No bowel obstruction or bowel wall thickening identified. Normal appendix. No ascites or mesenteric inflammation. Unremarkable soft tissues. Degenerative cassandra nges of the shoulders and spine. No acute fracture. IMPRESSION: 1. No acute intra-abdominal or intrapelvic abnormality identified. 2. No bowel obstruction or bowel wall thickening. Normal appendix. 3. Punctate nonobstructing bilateral nephrolithiasis. 4. Additional findings as above. ACT 112: Negative or not required by law. The above report was generated using voice recognition software. It may contain grammatical, syntax or spelling errors. Electronically signed by: Daniel Nicole M.D. 07/11/2022 7:[address] 07/11/22 05:28 CT OF THE HEAD WITHOUT CONTRAST CLINICAL HISTORY: Intermittent confusion. COMPARISON STUDY: No previous studies for comparison. TECHNIQUE: Helical axial images of the head were obtained without IV contrast. Automated exposure control was utilized for the study. A dose lowering technique was utilized adhering to the principles of ALARA. FINDINGS: No acute intracranial hemorrhage, midline shift or mass effect is present. White matter hypodensities favor small vessel disease. The ventricular system is unremarkable. The basal cisterns are patent. No extra-axial co llections are present. There are no findings to suggest acute dural sinus thrombosis or acute territorial infarct. No significant calvarial abnormalities are present. There is minimal sinus mucosal thickening. IMPRESSION: No acute intracranial findings. ACT 112: Negative or not required by law. Electronically signed by: Washington Galindo M.D. 07/11/2022 6:30 AM ECG Data Attestation: I personally reviewed and interpreted this ECG as follows: Indication: + weakness Rate (beats per minute): 83 Rhythm: + normal sinus ECG Intervals/blocks: + First degree AV block, + Right Bundle branch block and + Prolonged QT ECG [place]: + Left axis deviation ECG ST segments: + Nonspecific ST abnormalities Comparison ECG Date: from (11/03/2020) MDM Narrative An order was placed for continuous cardiac monitoring. The monitor shows a rate of _78_ with __normal sinus_ rhythm. This is an ill appearing 62 yo male who presents to the ER with concern for weakness and recent flu like symptoms including diarrhea. Patient had been started on tamiflu by PCP. Patient found to be hypotensive and IVF started with improvement. He did appear clinically dehydration on exam. POC BMP revealed new JESSIE. No significant hyperkalemia. No hx of renal dysfunction. No tachycardia noted despite hypotension, likely from concurrent use of beta boby. No fever noted on exam. CXR unremarkable. Labs sent, cultures and biofire sent also. Patient continued to respond to IVF. BP would drift down when IVF stopped. He did receive 3 L IVF while in the ER in addition to mag and antibiotics. Antibiotics discussed with hospitalist after biofire resulted negative. Mild leukocytosis noted. His recent flu like symptoms may have been a manifestation of his JESSIE. CT head and CT abd/pelvis without any acute pathology or obvious etiology of JESSIE. Bedside echo performed when hospitalist at bedside due to elevated troponin. Initially EKG with prolonged intervals so IV mag started, repeat EKG showed improvement. IV mag may have contributed to some hypotension additionally. Trace pericardial effusion noted. Initially elevated trop thought to be from JESSIE. Fide/myocarditis also considered due to complaint of flu like symptoms recently. Prior echo with reassuring EF given prior valve replacement and complications several years ago. Patient anticoagulated. INR pending at time of discussion with hospitalist. Given JESSIE, CT angio PE not performed and discussed formal echo needed. Given thrombocytopenia, continued anticoagulation will need to be carefully considere d. No bleeding reported be patient and none noted on exam - likely reactive from infection. Unclear source of infection at time of discussion with hospitalist. Impression & Plan Hypotension, Dehydration, Generalized weakness, Elevated troponin, Acute kidney injury, Thrombocytopenia Discharge Plan Visit Data Chief Complaint: Weakness Stated Complaint: BARLEY WALK, WEAK, SICK ED Provider: Che Márquez Discharge Problem: Hypotension, Dehydration, Generalized weakness, Elevated troponin, Acute kidney injury, Thrombocytopenia Patient Disposition: Admitted As Inpatient Discharge Instructions Interventions: ED Discharge Assessment Last Done: 07/11/22 10:28
[2022-07-11 05:27] LABS: iSTAT Creatinine 4.4 mg/dl (0.6-1.3); iSTAT Hemoglobin 15.3 g/dl (14.0-18.0); iSTAT Ionized Calcium 1.01 mmol/l (1.12-1.32); iSTAT Potassium 3.5 mmol/L (3.3-5.0)
[2022-07-11 05:56] LABS: Alanine Aminotransferase 76 U/L (7-52); Albumin Level 3.5 gm/dl (3.4-5.0); Alkaline Phosphatase 95 U/L (34-104); Anion Gap 17 (3-11); Aspartate Aminotransferase 127 U/L (13-39); BUN Creatinine Ratio 11.4 (10-20); Bilirubin Direct 0.4 mg/dl (0-0.2); Bilirubin,Total 0.9 mg/dl (0.2-1.0); Blood Urea Nitrogen 43 mg/dl (6-23); Calcium 8.6 mg/dl (8.5-10.1); Carbon Dioxide 17 mmol/L (21-32); Chloride 92 mmol/L (98-107); Est GFR (African American) 18.6 ml/min; Est GFR (Non-African American) 16.1 ml/min; Glucose 123 mg/dl (70-99(Fasting)); Magnesium 1.5 mg/dl (1.7-2.4); Potassium 3.6 mmol/L (3.5-5.1); Sodium 126 mmol/L (136-145); Total Protein 6.9 gm/dl (6.0-8.3)
[2022-07-11] MEDS ORDERED: SODIUM CHLORIDE 0.9% 1000ML 1,000 ML IV ONE (06:00)
[2022-07-11 06:05] LABS: Troponin I High Sensitivity 503.5 pg/ml (0-20)
[2022-07-11] MEDS: MAGNESIUM SULFATE / D5W 1 GM/100 ML BAG IV SCH ×2 (06:22→07:26)
--- NOTE | 2022-07-11 06:31 | CT Scan Report ---
CT OF THE HEAD WITHOUT CONTRAST CLINICAL HISTORY: Intermittent confusion. COMPARISON STUDY: No previous studies for comparison. TECHNIQUE: Helical axial images of the head were obtained without IV contrast. Automated exposure con trol was utilized for the study. A dose lowering technique was utilized adhering to the principles o f ALARA. FINDINGS: No acute intracranial hemorrhage, midline shift or mass effect is present. White matter hyp odensities favor small vessel disease. The ventricular system is unremarkable. The basal cisterns are patent. No extra-axial collections are present. There are no findings to suggest acute dural sinus t hrombosis or acute territorial infarct. No significant calvarial abnormalities are present. There is minimal sinus mucosal thickening. IMPRESSION: No acute intracranial findings. ACT 112: Negative or not required by law. Electronically signed by: Washington Galindo M.D. 07/11/2022 6:30 AM
--- NOTE | 2022-07-11 06:48 | XRay Report ---
XR chest 1V portable CLINICAL HISTORY: Sepsis COMPARISON STUDY: Chest radiograph November 03, 2020. FINDINGS: Lung volumes are normal. Lungs are clear. There is no pneumothorax or pleural effusion. Car diomegaly is unchanged. There is no evidence for pulmonary edema. There are median sternotomy wires. IMPRESSION: No acute cardiopulmonary findings. Stable cardiomegaly. ACT 112: Negative or not required by law. Electronically signed by: Washington Galindo M.D. 07/11/2022 6:47 AM
[2022-07-11 06:50] LABS: Hematocrit (blood only) 40.8 % (40.1-51.0); Hemoglobin 14.3 g/dl (14.0-18.0); Mean Corpuscular Hemoglobin 31.7 pg (25.0-34.0); Mean Corpuscular Volume 90.5 fL (80.0-100.0); Mean Platelet Volume 12.8 fL (9.4-12.4); Platelet Count 52 K/uL (130-400); RDW Standard Deviation 43.1 fL (36.4-46.3); Red Blood Count 4.51 M/uL (4.63-6.08); White Blood Count 13.14 K/ul (4.8-10.8)
[2022-07-11 07:14] LABS: Basophils # (auto) 0.08 K/uL (0-0.2); Basophils % (auto) 0.6 %; Eosinophils # (auto) 0.06 K/uL (0-0.50); Eosinophils % (auto) 0.5 %; Immature Granulocytes % (auto) 0.8 %; Lymphocytes % (auto) 1.5 %; Monocytes # (auto) 1.19 K/uL (0.24-0.82); Monocytes % (auto) 9.1 %; Neutrophils # (auto) 11.51 K/uL (1.4-6.5); Neutrophils % (auto) 87.5 %; Toxic Vacuolation 1+
--- NOTE | 2022-07-11 07:21 | CT Scan Report ---
ABDOMEN AND PELVIS CT WITHOUT CONTRAST CT DOSE: 2002.89 mGy.cm HISTORY: Acute fever with generalized abdominal pain and diarrhea fever, diarrhea TECHNIQUE: Multiaxial CT images of the abdomen and pelvis were performed without contrast. A dose lo wering technique was utilized adhering to the principles of ALARA. COMPARISON STUDY: Chest CT 07/16/2011 FINDINGS: Cardiomegaly with prior median sternotomy. Extensive [place] coronary artery calcifications are present. Calcified mediastinal lymph nodes. Subsegmental bibasilar atelectasis versus scarring. L imited exam secondary to upper extremity positioning, respiratory motion artifact and lack of contras t. Calcified granuloma of the spleen. Mild generalized pancreatic atrophy. Unremarkable right adrenal gl and. Stable complex left adrenal gland nodule with punctate calcifications, 2.5 cm. Based on stabilit y, this is likely benign. Unremarkable gallbladder. Hepatic steatosis. No hepatic mass identified. There are a few scattered punctate nonobstructing calculi noted within the kidneys. No ureteral calcu li or hydronephrosis identified. Prostamegaly. Urinary bladder wall thickening with partial distentio n. Atherosclerosis of the aorta without aneurysm. No lymphadenopathy identified. No bowel obstruction or bowel wall thickening identified. Normal appendix. No ascites or mesenteric i nflammation. Unremarkable soft tissues. Degenerative changes of the shoulders and spine. No acute fra cture. IMPRESSION: 1. No acute intra-abdominal or intrapelvic abnormality identified. 2. No bowel obstruction or bowel wall thickening. Normal appendix. 3. Punctate nonobstructing bilateral nephrolithiasis. 4. Additional findings as above. ACT 112: Negative or not required by law. The above report was generated using voice recognition software. It may contain grammatical, syntax o r spelling errors. Electronically signed by: Daniel Nicole M.D. 07/11/2022 7:19 AM
[2022-07-11 07:26] LABS: Adenovirus PCR Not Detected (NotDetected); Bordetella parapertussis PCR Not Detected (NotDetected); Bordetella pertussis PCR Not Detected (NotDetected); Chlamydia pneumoniae PCR Not Detected (NotDetected); Coronavirus 229E PCR Not Detected (NotDetected); Coronavirus CoV-2 (COVID19)PCR Not Detected (NotDetected); Coronavirus HKU1 PCR Not Detected (NotDetected); Coronavirus NL63 PCR Not Detected (NotDetected); Coronavirus OC43PCR Not Detected (NotDetected); Human Metapneumovirus PCR Not Detected (NotDetected); Influenza A PCR Not Detected (NotDetected); Influenza B PCR Not Detected (NotDetected); Mycoplasma pneumoniae PCR Not Detected (NotDetected); Parainfluenza Virus 1 PCR Not Detected (NotDetected); Parainfluenza Virus 2 PCR Not Detected (NotDetected); Parainfluenza Virus 3 PCR Not Detected (NotDetected); Parainfluenza Virus 4 PCR Not Detected (NotDetected); Respiratory Syncytial VirusPCR Not Detected (NotDetected); Rhinovirus/Enterovirus PCR Not Detected (NotDetected)
[2022-07-11] MEDS: LACTATED RINGER'S 1,000 ML IV SCH ×2 (07:49→17:10)
[2022-07-11] MEDS ORDERED: CEFEPIME 2,000 MG/20 ML VIAL IV STA (07:55)
[2022-07-11] MEDS ORDERED: VANCOMYCIN HCL 2,250 MG in SODIUM CHLORIDE 0.9% 500 ML IV ONE (07:55)
[2022-07-11] MEDS ORDERED: VANCOMYCIN CONSULT ACTIVE PRN ×2 (07:55→10:48)
[2022-07-11 07:56] LABS: INR 1.8 (0.9-1.1); Prothrombin Time 18.2 Seconds (9.0-12.0)
[2022-07-11 08:04] LABS: BUN Creatinine Ratio 12.2 (10-20); Calcium 7.4 mg/dl (8.5-10.1); Creatinine Clr Calc Pharmacy 26.9 ml/min; Est GFR (African American) 19.3 ml/min; Est GFR (Non-African American) 16.6 ml/min; Potassium 3.4 mmol/L (3.5-5.1)
[2022-07-11] MEDS ORDERED: LACTATED RINGER'S 1,000 ML IV SCH (08:45)
--- NOTE | 2022-07-11 09:51 | Critical Care Consultation ---
Date of Consultation July 11, 2022 Assessment & Plan (1) Sepsis: Reason Critically Ill: 62 yo M with PMH TAA, HTN, HLD, gout, aortic valve replacement with prosthesis, paroxysmal atrial fibrillation after valve replacement currently on anticoagulation, admitted to ICU due to sepsis with JESSIE. NEURO- CAM ICU: NEGATIVE Sedation: None Analgesia: None Mentating at baseline CARDIAC - -Hypotension -BP 80s-90s / 50s-60s on admission, secondary to sepsis -Improving with fluid resuscitation to 100s/60s -Will start Levophed if stall in improvement with fluids -History of aortic valve s/p prosthetic replacement and postoperative atrial fibrillation -Currently sinus rhythm, rate-controlled at time of evaluation -EKG earlier with accelerated junctional rhythm -Pt on warfarin, INR 1.8 on admission- subtherapeutic -Echocardiogram- EF 65-70, mobile echodensity about bioprosthetic aortic valve, may represent vegetation vs retained suture- consider MICHAEL for further evaluation -Holding warfarin given thrombocytopenia -Continue metoprolol tartrate 25 mg BID -BNP pending -Elevated troponin with history of coronary artery disease -Troponin 500 on admission, EKG without acute ST change -Continue metoprolol, atorvastatin -Holding aspirin given thrombocytopenia -Likely demand ischemia, trend to peak RESPIRATORY -Currently saturating well on RA, no respiratory issues at present GI - Clear liquid diet, advance as tolerated Transaminitis -AST 127, ALT 76 on admission -Likely reactive, trend CMP RENAL/ELECTROLYTES - -JESSIE -BUN 45, Cr 3.7 -Likely pre-renal azotemia/volume depletion -Urine studies ordered- Cr, electrolytes -Holding home lisinopril in setting of JESSIE -Continue fluid repletion, LR 150 cc/hr -Anion gap metabolic acidosis -AG 15, CO2 16, lactate 2.4. Likely due to sepsis -Continue fluid repletion and treatment of underlying sepsis -Check VBG -Electrolyte derangements -Hyponatremia 127 -Hypomagnesemia 1.5, repleted in ED -Hypokalemia 3.4, repleted in ED -ICU electrolyte repletion per protocol -Trend CMP, Mg, Phos - -Stanton catheter placement ordered -Strict I's and O's ENDO - -No history of diabetes or thyroid disorder -A1C pending -ICU hyperglycemia protocol HEME - -Hgb stable at 14.3, continue to monitor -Thrombocytopenia -Plts 52, likely secondary to sepsis -PT 18.2, INR 1.8, D-dimer pending -Trend CBC ID - -Sepsis -WBC 13, lactate 2.4, procalcitonin 21- likely bacterial source, unknown at present -CXR, CTAP, head CT unremarkable. RVP negative. -F/u UA, UCx pending, BCx pending -Order MRSA nares -Continue vancomycin, cefepime empirically pending BCx results -Trend CBC, lactate + procalcitonin LINES/IV ACCESS - -PIV intact DVT PROPHYLAXIS - -Holding chemoprophylaxis due to thrombocytopenia -SCDs Thank you for allowing us to be part of this patient's care. Please refer to Dr. Rincon's documentation for any further recommendations. (2) Hypotension: (3) Generalized weakness: (4) Elevated troponin: (5) Acute kidney injury: (6) S/P aortic valve replacement with prosthetic valve: (7) Dehydration: Supervising Physician Co-Signing Physician Notes Dr. Davis Was the resident-physician during care of patient. I separately evaluated patient for head portions of the history and the exam. I was present during the critical portion of medical decision making, and I discussed the case with the resident. I generally agree with the findings and plan except for any additions/exceptions noted. 62-year-old male past medical history of aortic valve replacement, hypertension, dyslipidemia, gout, A. fib on warfarin presented to hospital with complaints of lethargy hypertension and generalized weakness In the ER patient was found to be hypotensive, with acute renal failure and lactic acidosis Patient had gotten 2 L in the ER and he was still hypotensive thus ICU was consulted for further management At the time of examinations patient's systolic blood pressure was in the 100s with MAP in the high 60s. He complained of generalized weakness. No nausea or vomiting. He has been complaining of diarrhea since last 4 days. He was not having any oral uptake fearing that he whenever he eats he has to go to the bathroom. Positive chills. Has not been urinating well since last 3 days. Complains of mild dysuria. No headache right now. Patient was also in the room to help with interrogation getting history Constitutional: No acute distress HEENT: EOMI, PERRLA Respiratory system: Good air entry bilaterally, no wheeze, no rhonchi minimal crackles bilateral lower lobes CVS: S1-S2 positive, no murmurs or gallops, distant heart sounds Abdomen: Soft, nontender, nondistended, positive bowel sounds x4 Extremities: +2 pulses bilaterally radialis/ dorsalis pedis, no cyanosis, +1 pitting edema bilateral lower extremity, right anterior lateral lower hong redness, nontender Neuro: Awake alert oriented x3 Psych: Normal mood and affect G/U: Positive Stanton --Prophylaxis VTE: Warfarin and compression boots with GI: Protonix Lines: Peripheral Diet: Clear liquids, advance as tolerated to cardiorenal Plan: Strict in and out Blood culture with urine culture. POCUS did not show any B-lines anteriorly or posteriorly. No pleural effusion. Good ejection fraction. Okay to give more fluids if need be Continue with 125 mill an hour of LR. Rapid bio fire negative for everything. Hypokalemia being replaced. Stool culture. Patient has not been on any antibiotics. Possibility of C. difficile is low EKG does not show any significant change compared to before. Patient does have incomplete right bundle branch block. Transaminitis is most likely from hypertension. Subtherapeutic INR. Resume 5 mg of warfarin today. Follow PT/INR tomorrow Compression boots I have personally spent 57 minutes of critical care time in the direct management of this patient. This is a life/limb threatening event. This includes time spent evaluating patient, direct bedside care, chart review, placing orders, interpretation of diagnostic studies, discussion with consultants, patient, and/or family members regarding treatment decisions, as well as other required patient management activities. This time is exclusive of all separately billable procedures, and teaching time and separate from and in addition to any other critical care service time. History of Present Illness Reason for Consultation: Sepsis with JESSIE, hypotension Requesting Physician: Che Márquez DO Attending Physician: Che Márquez DO History of Present Illness 62 yo M with PMH TAA, CAD, gout, HTN, HLD, aortic valve replacement with prosthesis, paroxysmal atrial fibrillation after valve replacement currently on anticoagulation, admitted to ICU due to sepsis with JESSIE. Pt states he first began feeling ill on evening of 07/07. He began experiencing dry cough and symptoms evolved to include subjective fever, chills, myalgias, fatigue, reduced appetite and watery diarrhea. Home COVID test was negative. Den ied chest pain, dyspnea, dysuria, abdominal pain. He did see his PCP on 07/09 for these symptoms and received Tamiflu without significant improvement in symptoms. In ER, pt was noted to be hypotensive 80s-90s / 50s-60s. Labs significant for WBC 13, Plts 52, INR 1.8, Na 127, K 3.4, CO2 16, AG 15, BUN 45, Cr 3.7, lactate 2.7, Mg 1.5, procalcitonin 21, troponin 500. CXR, CTAP, head CT all unremarkab le. Received 1L bolus x3 (2 NSS, 1 LR) and started on continuous IVF LR. Also received 1 dose of cefepime and started on vancomycin. Also received magnesium replacement. On evaluation, pt endorses continued fatigue and feeling unwell. Symptoms have not particularly improved or worsened. No new symptoms, denies chest pain, dyspnea, dysuria, abdominal pain. Allergies Allergy/AdvReac Type Severity Reaction Status Date / Time No Known Allergies Allergy Mild Verified 11/03/20 08:59 Home Medications Medication Instructions Recorded Confirmed Type atorvastatin 80 mg tablet 80 mg PO DAILY #0 tabs 11/07/15 07/11/22 History aspirin 81 mg tablet,delayed 81 mg PO DAILY ##0 01/01/16 07/11/22 History release amoxicillin 500 mg capsule 2,000 mg PO USEASDIRECTD PRN 30-60 07/20/20 07/11/22 History min prior to dental proc colchicine 0.6 mg tablet 0.6 mg PO BID 07/20/20 07/11/22 History lisinopril 5 mg tablet 10 mg PO DAILY 07/20/20 07/11/22 History metoprolol tartrate 25 mg tablet 25 mg PO BID 11/03/20 07/11/22 History warfarin 5 mg tablet 5 mg PO UD 11/03/20 07/11/22 History allopurinol 300 mg tablet 300 mg PO QAM 07/11/22 07/11/22 History oseltamivir 75 mg capsule 75 mg PO BID 07/11/22 07/11/22 History prednisone 20 mg tablet 20 mg PO DAILY 07/11/22 07/11/22 History Patient History Medical History (Updated 07/11/22 @ 09:43 by Natalia Davis MD) CAD (coronary artery disease) Gout History of tobacco abuse HLD (hyperlipidemia) Thoracic aortic aneurysm (TAA) Surgical History (Updated 07/11/22 @ 09:12 by Kayla Larson PA-C) Hx of inguinal hernia repair S/P aortic valve replacement with prosthetic valve Family History (Updated 07/11/22 @ 09:12 by Kayla Larson PA-C) Mother Hypertension Other Diabetes Stroke Social History Smoking Status: Current every day smoker Tobacco Type: Cigarettes Hx Alcohol Use: Yes Alcohol type: beer Hx Substance Use: No Preferred Language: Burmese Current Living Situation: Spouse Feels Safe at Home: Yes Assistive Devices: None Review of Systems Review of Systems: Per HPI Physical Exam Physical Exam: GENERAL - Appears stated age, uncomfortable, fatigued. Obese. SKIN - No rashes or ecchymoses, mottling. HEAD - NC/AT. EYES - PERRL with EOMI b/l. Anicteric sclerae NOSE - Midline. No epistaxis or purulent drainage. Septum midline without deviation. MOUTH/OROPHARYNX - Dry mucous membranes NECK - supple, FROM, no anterior/posterior cervical lymphadenopathy, no thyromegaly, no nuchal rigidity. LUNGS - Chest wall rise and fall symmetric without accessory muscle use or intercostal retractions. CTAB of all lung [place]. No wheezes, rales, or rhonchi appreciated. CARDIAC - RRR with S1/S2. No murmurs appreciated ABDOMEN - Soft, nontender, nondistended. Normal bowel sounds. No guarding or rebound. No hepatosplenomegaly or ascites. EXTREMITIES - No clubbing or peripheral cyanosis. No peripheral edema present. Cold LEs b/l, distal pulses of LE intact b/l. 5/5 strength of UE/LE b/l NEUROLOGIC - Cranial nerves II through XII grossly intact. No focal motor deficits. Sensation intact to light touch throughout. PSYCH - A&Ox3 and cooperates fully with examiner Results & Data Results & Data ([facility]) Vital Signs (Past 12 Hours) Vital Signs Temp Pulse Pulse Resp BP BP Pulse Ox 07/11/22 08:45 85 22 105/59 L 98 07/11/22 08:30 84 22 95/60 L 99 07/11/22 08:15 83 19 89/65 L 95 07/11/22 08:12 83 20 90/55 L 98 07/11/22 08:08 83 24 88/53 L 96 07/11/22 08:00 82 20 89/56 L 95 07/11/22 07:47 82 24 90/60 L 96 07/11/22 07:42 100 07/11/22 07:30 81 18 100/59 L 97 07/11/22 07:15 81 20 102/62 98 07/11/22 07:00 82 31 H 96/69 L 98 07/11/22 06:45 81 22 107/64 98 07/11/22 06:30 82 22 98/64 L 97 07/11/22 06:25 82 22 85/68 L 98 07/11/22 06:09 83 24 92/57 L 98 07/11/22 06:06 88/54 L 07/11/22 06:06 83 22 94 07/11/22 06:05 83 23 96 07/11/22 05:45 83 21 84/61 L 99 07/11/22 05:30 83 20 89/60 L 100 07/11/22 05:22 84 20 91/57 L 97 07/11/22 05:20 99 07/11/22 05:45 83 16 84/61 L 98 07/11/22 05:27 85 16 93 07/11/22 04:54 36.3 C L 22 67/48 L O2 Del Method 07/11/22 08:45 Room Air 07/11/22 08:30 Room Air 07/11/22 08:15 Room Air 07/11/22 08:12 Room Air 07/11/22 08:08 Room Air 07/11/22 08:00 Room Air 07/11/22 07:47 Room Air 07/11/22 07:42 Room Air 07/11/22 07:30 Room Air 07/11/22 07:15 Room Air 07/11/22 07:00 07/11/22 06:45 07/11/22 06:30 07/11/22 06:25 07/11/22 06:09 07/11/22 06:06 07/11/22 06:06 07/11/22 06:05 07/11/22 05:45 07/11/22 05:30 07/11/22 05:22 07/11/22 05:20 07/11/22 05:45 Room Air 07/11/22 05:27 Room Air 07/11/22 04:54 Resident Activity Tracking Resident Involvement: Resident Care Provided Care Provided: Adult Hospital Medicine
[2022-07-11] MEDS ORDERED: VANCOMYCIN HCL 2,750 MG in SODIUM CHLORIDE 0.9% 500 ML IV ONE (10:48)
[2022-07-11] MEDS ORDERED: ACETAMINOPHEN 325 MG TAB PO PRN (10:48)
[2022-07-11] MEDS ORDERED: CEFEPIME 1,000 MG in SYRINGE 0 ML IV SCH ×2 (10:48→21:00)
--- NOTE | 2022-07-11 11:19 | Billing Data ---
Date of Service July 11, 2022 Coding Level of Care Code Critical Care 1st 30-74 mins Time Spent (min) 57
--- NOTE | 2022-07-11 11:22 | Procedure Note ---
Procedure Note Date of Service July 11, 2022 Note Bedside Ultrasound: Lung: Right:-a lines anteriorly and posteriorly, no pleural effusion Left:-A lines anteriorly and posteriorly, no pleural effusion Heart: Good ejection fraction, mild pericardial effusion, RVOT mildly enlarged, Abdomen: No ascites, no hydronephrosis bilaterally. Urinary bladder compressed Please note the above document was generated using voice recognition software. It may contain grammatical, syntax or spelling errors.Any formal questions or concerns about the content, text or information contained within the body of this dictation should be directly addressed to the provider for clarification. Coding CPT Codes Pulmonary/Thoracic - Pulmonary and Thoracic: 11583 US, Chest, real time with imaging documentation ([id number]) [facility] Procedure Codes (Charges) Pulmonary/Thoracic Procedure 1: Pulmonary and Thoracic: 76244 US, Chest, real time with imaging documentation
[2022-07-11] MEDS: POTASSIUM CHLORIDE / WTR 10 MEQ/100 ML PLCT IV SCH ×5 (11:24→21:43)
[2022-07-11 11:34] LABS: Appearance Urine Cloudy (Clear); Bilirubin Urine 1+ (Negative); Blood Urine 3+ (Negative); Glucose Urine UA Trace (Negative); Ketones Urine Trace (Negative); Leukocyte Esterase Urine Negative (Negative); Nitrite Urine Negative (Negative); Protein Urine 3+ (Negative); Specific Gravity Urine >= 1.030 (1.000-1.030); Urobilinogen Urine Negative (Negative)
[2022-07-11 11:36] LABS: Color Urine Dark Yellow
--- NOTE | 2022-07-11 11:37 | Electrocardiogram Report ---
Test Reason : Blood Pressure : / mmHG Vent. Rate : 083 BPM Atrial Rate : 097 BPM P-R Int : 000 ms QRS Dur : 130 ms QT Int : 432 ms P-R-T Axes : 000 -04 048 degrees QTc Int : 507 ms Poor data quality, interpretation may be adversely affected Possible atrial flutter Right bundle branch block Inferior infarct , age undetermined Abnormal ECG When compared with ECG of 03-NOV-2020 08:10, Wide QRS rhythm has replaced Sinus rhythm Confirmed by Benton Lambert ([id number]) on 07/11/2022 11:36:50 AM Referred By: REFERRED SELF Confirmed By:Leo Lambert
[2022-07-11 11:43] LABS: Epithelial Cell Urine 20-30 /lpf (0-5)
[2022-07-11 11:44] LABS: Bacteria Urine 2+ (Negative); WBC Urine >30 /hpf (0-5)
[2022-07-11 12:22] LABS: Calcium 7.4 mg/dl (8.5-10.1); Creatinine Clr Calc Pharmacy 25.8 ml/min; Est GFR (African American) 18.4 ml/min; Est GFR (Non-African American) 15.8 ml/min; Potassium 3.5 mmol/L (3.5-5.1)
[2022-07-11 12:22] LABS: Creatinine Urine Random 236.1 mg/dl; Urine Potassium 54.6 mmol/L
[2022-07-11 12:30] LABS: Troponin I High Sensitivity 580.7 pg/ml (0-20)
--- NOTE | 2022-07-11 12:32 | Cardiology Consultation ---
Date of Consultation July 11, 2022 Assessment & Plan (1) Sepsis: (2) S/P aortic valve replacement with prosthetic valve: (3) Acute kidney injury: (4) Thrombocytopenia: (5) Elevated troponin: Plan 62-year-old patient admitted with sepsis syndrome. Source not well defined at this time. I have ordered additional Lyme's antibody test with Western blot confirmation for completeness. Viral serologies are negative. Cultures pending. Continue empiric antibiotic coverage. 2D transthoracic echocardiogram demonstrates a mobile echodensity which may be consistent with patient's history of retained suture with associated thrombus, diagnosed via transesophageal echocardiogram in 2019. Vegetation must be considered in setting of severe sepsis. The mild aortic valve regurgitation is unchanged when compared to his most recent echocardiogram in November 2021. A transesophageal echocardiogram will be considered as hospital course progresses and results of culture become available. Chronically anticoagulated due to history of intracardiac thrombus associated with retained suture. Agree with holding anticoagulation due to acute thrombocytopenia. Continue IV hydration, broad spectrum antibiotics, and supportive care as per critical care medicine. History of Present Illness Reason for Consultation: Aortic valve replacement, hypotension. Requesting Physician: Roxi Larson PA-C Attending Physician: Angel Silva MD History of Present Illness 62-year-old male admitted with weakness, lethargy, fever and chills. Evaluated by primary care nearly 1 week ago and treated with Tamiflu. Describes progressive weakness and diffuse body aches currently. Viral panel negative. Denies any urinary frequency, urgency, or dysuria. No recent cellulitis or skin breakdown. Denies sick contacts. Currently resting, however, appears uncomfortable. Able to move all extremities although this induces joint discomfort. Denies any recent tick exposure or rash. 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 Allergies Allergy/AdvReac Type Severity Reaction Status Date / Time No Known Allergies Allergy Mild Verified 11/03/20 08:59 Home Medications Medication Instructions Recorded Confirmed Type atorvastatin 80 mg tablet 80 mg PO DAILY #0 tabs 11/07/15 07/11/22 History aspirin 81 mg tablet,delayed 81 mg PO DAILY ##0 01/01/16 07/11/22 History release amoxicillin 500 mg capsule 2,000 mg PO USEASDIRECTD PRN 30-60 07/20/20 07/11/22 History min prior to dental proc colchicine 0.6 mg tablet 0.6 mg PO BID 07/20/20 07/11/22 History lisinopril 5 mg tablet 10 mg PO DAILY 07/20/20 07/11/22 History metoprolol tartrate 25 mg tablet 25 mg PO BID 11/03/20 07/11/22 History warfarin 5 mg tablet 5 mg PO UD 11/03/20 07/11/22 History allopurinol 300 mg tablet 300 mg PO QAM 07/11/22 07/11/22 History oseltamivir 75 mg capsule 75 mg PO BID 07/11/22 07/11/22 History prednisone 20 mg tablet 20 mg PO DAILY 07/11/22 07/11/22 History Patient History Medical History CAD (coronary artery disease) Gout History of tobacco abuse HLD (hyperlipidemia) Thoracic aortic aneurysm (TAA) Surgical History Hx of inguinal hernia repair S/P aortic valve replacement with prosthetic valve Family History Mother Hypertension Other Diabetes Stroke Social History Smoking Status: Current every day smoker Tobacco Type: Cigarettes Hx Alcohol Use: Yes Alcohol type: beer Hx Substance Use: No Preferred Language: Tajik Communication Ability: Effective 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 Beliefs That Will Affect Care: None Current Living Situation: Spouse Other Information That Helps Us Care for You: No Feels Safe at Home: Yes Safety Concerns: Feels Safe At This Time Assistive Devices: Denture - Lower and Glasses Review of Systems Review of Systems: All systems reviewed & are unremarkable except as noted in Subjective Physical Exam Constitutional: well nourished and + ill appearing Respiratory: normal respiratory effort; no respiratory distress, no labored breathing and no retractions Auscultation: no crackles, no rales, no rhonchi and no wheezes Cardiovascular: Rate/Rhythm: regular rate and regular rhythm Heart Sounds: normal S1, normal S2 and + murmur (1/6 systolic ejection murmur heard best at the right second intercostal spa) Vessels: radial pulses present; no JVD Extremities: no edema Gastrointestinal (Abdomen): Inspection/Auscultation: abdomen normal to inspection and normal bowel sounds; abdomen not distended Percussion/Palpation: abdomen soft; abdomen nontender, no guarding and abdomen not rigid Neurologic: moves all extremities Results & Data ([facility]) Vital Signs (Past 12 Hours) Vital Signs Temp Pulse Pulse Resp BP BP Pulse Ox 07/11/22 10:48 07/11/22 10:48 36.9 C 92 H 26 H 104/65 97 07/11/22 11:15 99 H 26 H 97 07/11/22 11:15 116/67 07/11/22 11:00 100 H 24 97 07/11/22 11:00 123/67 07/11/22 10:45 98 H 24 100 07/11/22 10:45 111/74 07/11/22 10:30 95 H 27 H 100 07/11/22 10:30 117/65 07/11/22 10:28 102/67 07/11/22 10:28 94 H 23 98 07/11/22 10:21 104/65 07/11/22 10:21 92 H 19 07/11/22 10:20 92 H 21 07/11/22 10:00 87 22 111/63 100 07/11/22 09:30 86 22 97/61 L 99 07/11/22 09:15 86 24 103/68 99 07/11/22 09:00 18 101/62 99 07/11/22 08:45 85 22 105/59 L 98 07/11/22 08:30 84 22 95/60 L 99 07/11/22 08:15 83 19 89/65 L 95 07/11/22 08:12 83 20 90/55 L 98 07/11/22 08:08 83 24 88/53 L 96 07/11/22 08:00 82 20 89/56 L 95 07/11/22 07:47 82 24 90/60 L 96 07/11/22 07:42 100 07/11/22 07:30 81 18 100/59 L 97 07/11/22 07:15 81 20 102/62 98 07/11/22 07:00 82 31 H 96/69 L 98 07/11/22 06:45 81 22 107/64 98 07/11/22 06:30 82 22 98/64 L 97 07/11/22 06:25 82 22 85/68 L 98 07/11/22 06:09 83 24 92/57 L 98 07/11/22 06:06 88/54 L 07/11/22 06:06 83 22 94 07/11/22 06:05 83 23 96 07/11/22 05:45 83 21 84/61 L 99 07/11/22 05:30 83 20 89/60 L 100 07/11/22 05:22 84 20 91/57 L 97 07/11/22 05:20 99 07/11/22 05:45 83 16 84/61 L 98 07/11/22 05:27 85 16 93 07/11/22 04:54 36.3 C L 22 67/48 L O2 Del Method 07/11/22 10:48 Room Air 07/11/22 10:48 Room Air 07/11/22 11:15 07/11/22 11:15 07/11/22 11:00 07/11/22 11:00 07/11/22 10:45 07/11/22 10:45 07/11/22 10:30 07/11/22 10:30 07/11/22 10:28 07/11/22 10:28 07/11/22 10:21 07/11/22 10:21 07/11/22 10:20 07/11/22 10:00 Room Air 07/11/22 09:30 Room Air 07/11/22 09:15 Room Air 07/11/22 09:00 Room Air 07/11/22 08:45 Room Air 07/11/22 08:30 Room Air 07/11/22 08:15 Room Air 07/11/22 08:12 Room Air 07/11/22 08:08 Room Air 07/11/22 08:00 Room Air 07/11/22 07:47 Room Air 07/11/22 07:42 Room Air 07/11/22 07:30 Room Air 07/11/22 07:15 Room Air 07/11/22 07:00 07/11/22 06:45 07/11/22 06:30 07/11/22 06:25 07/11/22 06:09 07/11/22 06:06 07/11/22 06:06 07/11/22 06:05 07/11/22 05:45 07/11/22 05:30 07/11/22 05:22 07/11/22 05:20 07/11/22 05:45 Room Air 07/11/22 05:27 Room Air 07/11/22 04:54 Laboratory Results Cardiac Enzymes 07/11/22 07/11/22 Range/Units 05:10 10:00 AST 127 H (13-39) U/L Troponin I High Sens 503.5 H* (0-20) pg/ml B-Natriuretic Peptide 435 H (0-100) pg/ml Coagulation 07/11/22 07/11/22 Range/Units 05:10 10:00 PT 18.2 H (9.0-12.0) Seconds B-Natriuretic Peptide 435 H (0-100) pg/ml CBC 07/11/22 Range/Units 05:10 WBC 13.14 H (4.8-10.8) K/ul RBC 4.51 L (4.63-6.08) M/uL Hgb 14.3 (14.0-18.0) g/dl Hct 40.8 (40.1-51.0) % Plt Count 52 L (130-400) K/uL Neut # (Auto) 11.51 H (1.4-6.5) K/uL Lymph # (Auto) 0.20 L (1.2-3.4) K/uL [place] # (Auto) 1.19 H (0.24-0.82) K/uL Eos # (Auto) 0.06 (0-0.50) K/uL Baso # (Auto) 0.08 (0-0.2) K/uL Comprehensive Metabolic Panel 07/11/22 07/11/22 07/11/22 Range/Units 05:10 06:56 11:21 Sodium 126 L 127 L 128 L (136-145) mmol/L Potassium 3.6 3.4 L 3.5 (3.5-5.1) mmol/L Chloride 92 L 96 L 98 (98-107) mmol/L Carbon Dioxide 17 L 16 L 14 L (21-32) mmol/L BUN 43 H 45 H 46 H (6-23) mg/dl Creatinine 3.78 H 3.68 H 3.83 H (0.6-1.4) mg/dl Glucose 123 H 125 H 109 H (70-99(Fasting)) mg/dl Calcium 8.6 7.4 L 7.4 L (8.5-10.1) mg/dl Direct Bilirubin 0.4 H (0-0.2) mg/dl AST 127 H (13-39) U/L ALT 76 H (7-52) U/L Alkaline Phosphatase 95 (34-104) U/L Total Protein 6.9 (6.0-8.3) gm/dl Albumin 3.5 (3.4-5.0) gm/dl Intake and Output 07/10/22 07/11/22 07/11/22 22:59 06:59 14:59 Intake Total 2200 / 2200 Balance 2200 / 2200 Intake: IV 2200 / 2200 Magnesium Sulfate / D5w 1 gm In 200 / 200 100 ml @ 100 mls/hr IV Q1H CELESTINO Rx#:[id number] Sodium Chloride 0.9% 1000ML 1, 2000 / 2000 000 ml @ 999 mls/hr IV .Q1H1M ONE Rx#:[id number] Other: Weight 109 kg 108.2 kg Weight Measurement Method Built in [facility] Built in [facility] Patient Weight 07/12/22 06:59 Weight 108.2 kg Diagnostic Findings 2D echocardiogram [facility] 11/2021: Normal LV chamber size with mild concentric LVH. Normal LV systolic function without regional wall motion abnormality, EF 60-65%. Grade I diastolic dysfunction. There is an aortic valve bioprosthetic present. The aortic valve prosthesis systolic gradients are normal for this type prosthesis. Mild intravalvular aortic regurgitation is present. Mild mitral regurgitation. Mild tricuspid regurgitation.
--- NOTE | 2022-07-11 13:27 | Pharmacy Report ---
Pharmacy PK ABX Note - Date of Service July 11, 2022 - Assessment and Plan Assessment Nik is a 62 year old M receiving Cefepime IV and a loading dose of IV vanco for empiric treatment of sepsis. Blood cultures are still pending. Unstable renal function. Day # 1 of antimicrobial therapy. Plan Vancomycin * Loading dose: 2250 mg IV x 1 * Random level ordered for: 07/11/22 due to potential for change in renal function * Will dose Vancomycin based on level Pharmacy will continue to follow and will adjust dose/frequency as necessary. Thank you. Pharmacy has transitioned to AUC monitoring for vancomycin. AUC/CHASE is the preferred PK/PD target and is associated with decreased risk of nephrotoxicity compared to traditional trough targets.
[2022-07-11 14:00] LABS: Lyme Ab IgG w/WB Rflx Negative (Negative); Lyme Ab IgM w/WB Rflx Negative (Negative)
--- NOTE | 2022-07-11 14:21 | History & Physical Report ---
Date of Service July 11, 2022 Assessment & Plan (1) Sepsis associated hypotension: (2) Acute kidney injury: (3) Generalized weakness: (4) Elevated liver enzymes: Plan: Presents from home with 4 days of fever, generalized weakness. Given empiric Tamiflu and prednisone by PCP Hypotensive on presentation; did not respond to 2 L of fluid admitted to ICU Leukocytosis present Creatinine elevated to 3.78 on admission Lactate2.8, down to 2.4 after fluid resuscitation Plan; Admitted to ICU for closer monitoring. Blood pressure on the lower side; slightly improved with aggressive fluid resuscitation -Continue Ancef and Vanco; we will follow-up on urine and blood culture -JESSIE likely secondary to sepsis/hypotension; no hydronephrosis on CT, CK mildly elevated. Urine electrolytes pending. Nephrology consulted for comanagement -GI bio fire ordered for diarrhea -Monitor LFTs daily; transaminitis likely related to hypotension. (5) Demand ischemia: (6) S/P aortic valve replacement with prosthetic valve: Plan: History of aortic valve replacement in 2016 Echo shows EF of 65- 70%; ovale echodensity in the area of bioprosthetic aortic valve sewing ring. High-sensitivity troponin 500s Cardiology on board; did not recommend proceeding with MICHAEL today as patient is acutely ill. Recommended to call continue IV hydration and supportive care (7) Thrombocytopenia: Plan: Likely due to sepsis Platelets 52; monitor for any signs of bleeding. Anticoagulation as per cardiology (8) Hyponatremia: (9) Hypomagnesemia: Plan: Likely hypovolemic hyponatremia Magnesium is 1.5; likely due to diarrhea Currently on IV isotonic fluids; will monitor BMP daily. Replete electrolytes Plan Chronic issue; Hypertensionhold lisinopril and metoprolol for now given low blood pressure and JESSIE Hyperlipidemia- Lipitor on hold given transaminitis Allopurinol on hold for now DVT on warfarin Full code updated at bedside Admission and Anticipated Discharge Date Admission Date: July 11, 2022 History of Present Illness Chief Complaint: Fever for 4 days Generalized weakness for 4 days Diarrhea for 4 days Primary Care Provider: Thomas Mcclain MD Past medical history of aortic valve replacement with bioprosthetic valve on Coumadin since 2016, hypertension, hyperlipidemia Patient reports fever with chills since last Thursday when he returned back from work. He had generalized weakness associated with fever. Saw his primary care doctor; was given Tamiflu for suspicion of influenza. He was also given short course of prednisone; has not picked up the medication yet He also reports watery diarrhea; no blood or mucus seen. Reports that his urine output has decreased since last 3 days. He also has dizziness while standing up. No complaint of chest pain, shortness of breath or palpitation. No complaint of abdominal pain or dysuria. On presentation to the ED, he was hypotensive; afebrile and was saturating well in room air. Labs were significant for leukocytosis, thrombocytopenia, JESSIE, lactic acidosis, hypomagnesemia, transaminitis and JESSIE. CT abdomen/pelvis did not show any acute abnormality; punctuate nonobstructive bilateral nephrolithiasis was reported. Chest x-ray did not show any infiltrate. CT head was negative for any acute abnormality. Patient received 2 L of IV fluids in the ED; was hypotensive despite fluid resuscitation. Critical care was consulted; patient was admitted to ICU for further care. Allergies Allergy/AdvReac Type Severity Reaction Status Date / Time No Known Allergies Allergy Mild Verified 11/03/20 08:59 Home Medications Medication Instructions Recorded Confirmed Type atorvastatin 80 mg tablet 80 mg PO DAILY #0 tabs 11/07/15 07/11/22 History aspirin 81 mg tablet,delayed 81 mg PO DAILY ##0 01/01/16 07/11/22 History release amoxicillin 500 mg capsule 2,000 mg PO USEASDIRECTD PRN 30-60 07/20/20 07/11/22 History min prior to dental proc colchicine 0.6 mg tablet 0.6 mg PO BID 07/20/20 07/11/22 History lisinopril 5 mg tablet 10 mg PO DAILY 07/20/20 07/11/22 History metoprolol tartrate 25 mg tablet 25 mg PO BID 11/03/20 07/11/22 History warfarin 5 mg tablet 5 mg PO UD 11/03/20 07/11/22 History allopurinol 300 mg tablet 300 mg PO QAM 07/11/22 07/11/22 History oseltamivir 75 mg capsule 75 mg PO BID 07/11/22 07/11/22 History prednisone 20 mg tablet 20 mg PO DAILY 07/11/22 07/11/22 History Past Med/Surg History Medical History CAD (coronary artery disease) Gout History of tobacco abuse HLD (hyperlipidemia) Thoracic aortic aneurysm (TAA) Surgical History Hx of inguinal hernia repair S/P aortic valve replacement with prosthetic valve Family History Mother Hypertension Other Diabetes Stroke Social History Smoking Status: Current every day smoker Tobacco Type: Cigarettes Hx Alcohol Use: Yes Alcohol type: beer Hx Substance Use: No Preferred Language: Bangladeshi Communication Ability: Effective 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 Beliefs That Will Affect Care: None Current Living Situation: Spouse Other Information That Helps Us Care for You: No Feels Safe at Home: Yes Safety Concerns: Feels Safe At This Time Assistive Devices: Denture - Lower and Glasses Review of Systems Review of Systems: All systems reviewed & are unremarkable except as noted in Subjective Physical Exam Physical Exam: Constitutional: Lethargic but able to have conversation Respiratory: Bilateral vesicular breath sound Cardiovascular: RRR, no murmur, no edema Vessels: no JVD or carotid bruit Chest: normal inspection of chest Abdomen: normal bowel sounds, soft, nontender, no hepatosplenomegaly Musculoskeletal: no cyanosis or clubbing, extremities motor strength 5/5 Skin: no rashes, warm and dry normal turgor Neurologic: PERRL, EOMI, accommodation nl, no face palsy, no dysarthria CN's II- XI intact bilaterally and moves all extremities Psychiatric: A+Ox3, euthymic affect : deferred Results & Data Results & Data ([facility]) Vital Signs (Past 12 Hours) Vital Signs Temp Pulse Pulse Resp BP BP Pulse Ox 07/11/22 12:30 97 H 26 H 99 07/11/22 12:30 109/69 07/11/22 12:15 97 H 25 H 98 07/11/22 12:15 105/66 07/11/22 12:00 97 H 27 H 97 07/11/22 12:00 113/68 07/11/22 11:45 98 H 26 H 96 07/11/22 11:45 110/67 07/11/22 11:30 98 H 24 96 07/11/22 11:30 112/68 07/11/22 10:48 07/11/22 10:48 36.9 C 92 H 26 H 104/65 97 07/11/22 11:15 99 H 26 H 97 07/11/22 11:15 116/67 07/11/22 11:00 100 H 24 97 07/11/22 11:00 123/67 07/11/22 10:45 98 H 24 100 07/11/22 10:45 111/74 07/11/22 10:30 95 H 27 H 100 07/11/22 10:30 117/65 07/11/22 10:28 102/67 07/11/22 10:28 94 H 23 98 07/11/22 10:21 104/65 07/11/22 10:21 92 H 19 07/11/22 10:20 92 H 21 07/11/22 10:00 87 22 111/63 100 07/11/22 09:30 86 22 97/61 L 99 07/11/22 09:15 86 24 103/68 99 07/11/22 09:00 18 101/62 99 07/11/22 08:45 85 22 105/59 L 98 07/11/22 08:30 84 22 95/60 L 99 07/11/22 08:15 83 19 89/65 L 95 07/11/22 08:12 83 20 90/55 L 98 07/11/22 08:08 83 24 88/53 L 96 07/11/22 08:00 82 20 89/56 L 95 07/11/22 07:47 82 24 90/60 L 96 07/11/22 07:42 100 07/11/22 07:30 81 18 100/59 L 97 07/11/22 07:15 81 20 102/62 98 07/11/22 07:00 82 31 H 96/69 L 98 07/11/22 06:45 81 22 107/64 98 07/11/22 06:30 82 22 98/64 L 97 07/11/22 06:25 82 22 85/68 L 98 07/11/22 06:09 83 24 92/57 L 98 07/11/22 06:06 88/54 L 07/11/22 06:06 83 22 94 07/11/22 06:05 83 23 96 07/11/22 05:45 83 21 84/61 L 99 07/11/22 05:30 83 20 89/60 L 100 07/11/22 05:22 84 20 91/57 L 97 07/11/22 05:20 99 07/11/22 05:45 83 16 84/61 L 98 07/11/22 05:27 85 16 93 07/11/22 04:54 36.3 C L 22 67/48 L O2 Del Method 07/11/22 12:30 Room Air 07/11/22 12:30 07/11/22 12:15 07/11/22 12:15 07/11/22 12:00 07/11/22 12:00 07/11/22 11:45 07/11/22 11:45 07/11/22 11:30 07/11/22 11:30 07/11/22 10:48 Room Air 07/11/22 10:48 Room Air 07/11/22 11:15 07/11/22 11:15 07/11/22 11:00 07/11/22 11:00 07/11/22 10:45 07/11/22 10:45 07/11/22 10:30 07/11/22 10:30 07/11/22 10:28 07/11/22 10:28 07/11/22 10:21 07/11/22 10:21 07/11/22 10:20 07/11/22 10:00 Room Air 07/11/22 09:30 Room Air 07/11/22 09:15 Room Air 07/11/22 09:00 Room Air 07/11/22 08:45 Room Air 07/11/22 08:30 Room Air 07/11/22 08:15 Room Air 07/11/22 08:12 Room Air 07/11/22 08:08 Room Air 07/11/22 08:00 Room Air 07/11/22 07:47 Room Air 07/11/22 07:42 Room Air 07/11/22 07:30 Room Air 07/11/22 07:15 Room Air 07/11/22 07:00 07/11/22 06:45 07/11/22 06:30 07/11/22 06:25 07/11/22 06:09 07/11/22 06:06 07/11/22 06:06 07/11/22 06:05 07/11/22 05:45 07/11/22 05:30 07/11/22 05:22 07/11/22 05:20 07/11/22 05:45 Room Air 07/11/22 05:27 Room Air 07/11/22 04:54 Laboratory Results Laboratory Results WBC 13.14 K/ul (4.8-10.8) H 07/11/22 05:10 RBC 4.51 M/uL (4.63-6.08) L 07/11/22 05:10 Hgb 14.3 g/dl (14.0-18.0) 07/11/22 05:10 POC Hgb 15.3 g/dl (14.0-18.0) 07/11/22 05:15 Hct 40.8 % (40.1-51.0) 07/11/22 05:10 POC Hct 45 % (42-52) 07/11/22 05:15 MCV 90.5 fL (80.0-100.0) 07/11/22 05:10 MCH 31.7 pg (25.0-34.0) 07/11/22 05:10 MCHC 35.0 g/dL (32.0-36.0) 07/11/22 05:10 RDW Std Deviation 43.1 fL (36.4-46.3) 07/11/22 05:10 RDW Coeff of Jere 13.0 % (11.5-14.5) 07/11/22 05:10 Plt Count 52 K/uL (130-400) L 07/11/22 05:10 MPV 12.8 fL (9.4-12.4) H 07/11/22 05:10 Immature Gran % (Auto) 0.8 % 07/11/22 05:10 Neut % (Auto) 87.5 % 07/11/22 05:10 Lymph % (Auto) 1.5 % 07/11/22 05:10 [place] % (Auto) 9.1 % 07/11/22 05:10 Eos % (Auto) 0.5 % 07/11/22 05:10 Baso % (Auto) 0.6 % 07/11/22 05:10 Neut # (Auto) 11.51 K/uL (1.4-6.5) H 07/11/22 05:10 Lymph # (Auto) 0.20 K/uL (1.2-3.4) L 07/11/22 05:10 [place] # (Auto) 1.19 K/uL (0.24-0.82) H 07/11/22 05:10 Eos # (Auto) 0.06 K/uL (0-0.50) 07/11/22 05:10 Baso # (Auto) 0.08 K/uL (0-0.2) 07/11/22 05:10 Immature Gran # (Auto) 0.10 K/uL (0.00-0.02) H 07/11/22 05:10 Toxic Vacuolation 1+ 07/11/22 05:10 PT 18.2 Seconds (9.0-12.0) H 07/11/22 05:10 INR 1.8 (0.9-1.1) H 07/11/22 05:10 POC Sodium 125 mmol/L (135-144) L 07/11/22 05:15 Sodium 128 mmol/L (136-145) L 07/11/22 11:21 POC Potassium 3.5 mmol/L (3.3-5.0) 07/11/22 05:15 Potassium 3.5 mmol/L (3.5-5.1) 07/11/22 11:21 POC Chloride 95 mmol/L (101-112) L 07/11/22 05:15 Chloride 98 mmol/L (98-107) 07/11/22 11:21 Carbon Dioxide 14 mmol/L (21-32) L 07/11/22 11:21 POC Total CO2 17 mmol/L (24-31) L 07/11/22 05:15 Anion Gap 16 (3-11) H 07/11/22 11:21 POC Anion Gap 17.0 mmol/L (16-25) 07/11/22 05:15 POC BUN 41 mg/dl (7-18) H 07/11/22 05:15 BUN 46 mg/dl (6-23) H 07/11/22 11:21 Creatinine 3.83 mg/dl (0.6-1.4) H 07/11/22 11:21 POC Creatinine 4.4 mg/dl (0.6-1.3) H 07/11/22 05:15 Est Cr Clr Drug Dosing 25.8 ml/min 07/11/22 11:21 Est GFR ( Amer) 18.4 ml/min 07/11/22 11:21 Est GFR (Non-Af Amer) 15.8 ml/min 07/11/22 11:21 BUN/Creatinine Ratio 12.0 (10-20) 07/11/22 11:21 Glucose 109 mg/dl (70-99(Fasting)) H 07/11/22 11:21 POC Glucose (other) 128 mg/dl (70-99) H 07/11/22 05:15 Osmolality 280 mOsm/kg (280-300) 07/11/22 05:10 Lactate 2.4 mmol/L (0.4-2.0) H* 07/11/22 08:06 Calcium 7.4 mg/dl (8.5-10.1) L 07/11/22 11:21 POC Ioniz Calcium [place] 1.01 mmol/l (1.12-1.32) L 07/11/22 05:15 Phosphorus 4.7 mg/dl (2.5-4.9) 07/11/22 05:10 Magnesium 1.5 mg/dl (1.7-2.4) L 07/11/22 05:10 Total Bilirubin 0.9 mg/dl (0.2-1.0) 07/11/22 05:10 Direct Bilirubin 0.4 mg/dl (0-0.2) H 07/11/22 05:10 AST 127 U/L (13-39) H 07/11/22 05:10 ALT 76 U/L (7-52) H 07/11/22 05:10 Alkaline Phosphatase 95 U/L (34-104) 07/11/22 05:10 Total Creatine Kinase 355 U/L (30-223) H 07/11/22 11:21 Troponin I High Sens 580.7 pg/ml (0-20) H* 07/11/22 11:21 B-Natriuretic Peptide 435 pg/ml (0-100) H 07/11/22 10:00 Total Protein 6.9 gm/dl (6.0-8.3) 07/11/22 05:10 Albumin 3.5 gm/dl (3.4-5.0) 07/11/22 05:10 Procalcitonin 20.79 ng/ml (0-0.5) H 07/11/22 05:10 Urine Color Dark Yellow 07/11/22 10:57 Urine Appearance Cloudy (Clear) A 07/11/22 10:57 Urine pH 5.0 (4.5-7.5) 07/11/22 10:57 Ur Specific [place] >= 1.030 (1.000-1.030) 07/11/22 10:57 Urine Protein 3+ (Negative) H 07/11/22 10:57 Urine Glucose (UA) Trace (Negative) H 07/11/22 10:57 Urine Ketones Trace (Negative) H 07/11/22 10:57 Urine Blood 3+ (Negative) H 07/11/22 10:57 Urine Nitrite Negative (Negative) 07/11/22 10:57 Urine Bilirubin 1+ (Negative) H 07/11/22 10:57 Urine Urobilinogen Negative (Negative) 07/11/22 10:57 Ur Leukocyte Esterase Negative (Negative) 07/11/22 10:57 Urine RBC 5-10 /hpf (0-4) H 07/11/22 10:57 Urine WBC >30 /hpf (0-5) H 07/11/22 10:57 Ur Epithelial Cells 20-30 /lpf (0-5) H 07/11/22 10:57 Urine Bacteria 2+ (Negative) H 07/11/22 10:57 Hyaline Casts 10-30 /lpf (0-5) H 07/11/22 10:57 Granular Casts 5-10 /lpf (0) H 07/11/22 10:57 Urine Osmolality 326 mOsm/kg (500-800) L 07/11/22 10:57 Ur Random Creatinine 236.1 mg/dl 07/11/22 10:57 Ur Random Sodium Cancelled 07/11/22 10:57 Ur Random Potassium Cancelled 07/11/22 10:57 Ur Random Chloride Cancelled 07/11/22 10:57 Urine Sodium 27 mmol/L 07/11/22 10:57 Urine Potassium 54.6 mmol/L 07/11/22 10:57 Urine Chloride 18 mmol/L 07/11/22 10:57 Adenovirus (PCR) Not Detected (NotDetected) 07/11/22 05:45 B. pertussis DNA (PCR) Not Detected (NotDetected) 07/11/22 05:45 B.parapertussis DNA PCR Not Detected (NotDetected) 07/11/22 05:45 Lyme Disease IgG Ab Negative (Negative) 07/11/22 05:10 Lyme Disease IgM Ab Negative (Negative) 07/11/22 05:10 C. pneumoniae DNA (PCR) Not Detected (NotDetected) 07/11/22 05:45 Coronavirus OC43 (PCR) Not Detected (NotDetected) 07/11/22 05:45 Coronavirus HKU1 (PCR) Not Detected (NotDetected) 07/11/22 05:45 Coronavirus 229E (PCR) Not Detected (NotDetected) 07/11/22 05:45 SARS-CoV-2 (PCR) Not Detected (NotDetected) 07/11/22 05:45 Coronavirus NL63 (PCR) Not Detected (NotDetected) 07/11/22 05:45 Human Metapneumovir PCR Not Detected (NotDetected) 07/11/22 05:45 Influenza Type A (PCR) Not Detected (NotDetected) 07/11/22 05:45 Influenza Type B (PCR) Not Detected (NotDetected) 07/11/22 05:45 M. pneumoniae (PCR) Not Detected (NotDetected) 07/11/22 05:45 Parainfluenza 1 (PCR) Not Detected (NotDetected) 07/11/22 05:45 Parainfluenza 2 (PCR) Not Detected (NotDetected) 07/11/22 05:45 Parainfluenza 3 (PCR) Not Detected (NotDetected) 07/11/22 05:45 Parainfluenza 4 (PCR) Not Detected (NotDetected) 07/11/22 05:45 RSV (PCR) Not Detected (NotDetected) 07/11/22 05:45 Entero/Rhino (PCR) Not Detected (NotDetected) 07/11/22 05:45 Streptococcus sp PCR DETECTED (NotDetected) A 07/11/22 05:44 Bld Cult ID Panel PCR See PCR Comment (NotDetected) 07/11/22 05:44 Impressions Chest X-Ray 07/11/22 05:16 XR chest 1V portable CLINICAL HISTORY: Sepsis COMPARISON STUDY: Chest radiograph November 03, 2020. FINDINGS: Lung volumes are normal. Lungs are clear. There is no pneumothorax or pleural effusion. Cardiomegaly is unchanged. There is no evidence for pulmonary edema. There are median sternotomy wires. IMPRESSION: No acute cardiopulmonary findings. Stable cardiomegaly. ACT 112: Negative or not required by law. Electronically signed by: Washington Galindo M.D. 07/11/2022 6:47 AM Abdomen/Pelvis CT 07/11/22 05:[address] WITHOUT CONTRAST CT DOSE: 2002.89 mGy.cm HISTORY: Acute fever with generalized abdominal pain and diarrhea fever, diarrhea TECHNIQUE: Multiaxial CT images of the abdomen and pelvis were performed without contrast. A dose lowering technique was utilized adhering to the principles of ALARA. COMPARISON STUDY: Chest CT 07/16/2011 FINDINGS: Cardiomegaly with prior median sternotomy. Extensive [employer] coronary artery calcifications are present. Calcified mediastinal lymph nodes. Subsegmental bibasilar atelectasis versus scarring. Limited exam secondary to upper extremity positioning, respiratory motion artifact and lack of contrast. Calcified granuloma of the spleen. Mild generalized pancreatic atrophy. Unremarkable right adrenal gland. Stable complex left adrenal gland nodule with punctate calcifications, 2.5 cm. Based on stability, this is likely benign. Unre markable gallbladder. Hepatic steatosis. No hepatic mass identified. There are a few scattered punctate nonobstructing calculi noted within the kidneys. No ureteral calculi or hydronephrosis identified. Prostamegaly. Urinary bladder wall thickening with partial distention. Atherosclerosis of the aorta without aneurysm. No lymphadenopathy identified. No bowel obstruction or bowel wall thickening identified. Normal appendix. No ascites or mesenteric inflammation. Unremarkable soft tissues. Degenerative changes of the shoulders and spine. No acute fracture. IMPRESSION: 1. No acute intra-abdominal or intrapelvic abnormality identified. 2. No bowel obstruction or bowel wall thickening. Normal appendix. 3. Punctate nonobstructing bilateral nephrolithiasis. 4. Additional findings as above. ACT 112: Negative or not required by law. The above report was generated using voice recognition software. It may contain grammatical, syntax or spelling errors. Electronically signed by: Daniel Nicole M.D. 07/11/2022 7:[address] 07/11/22 05:28 CT OF THE HEAD WITHOUT CONTRAST CLINICAL HISTORY: Intermittent confusion. COMPARISON STUDY: No previous studies for comparison. TECHNIQUE: Helical axial images of the head were obtained without IV contrast. Automated exposure control was utilized for the study. A dose lowering technique was utilized adhering to the principles of ALARA. FINDINGS: No acute intracranial hemorrhage, midline shift or mass effect is present. White matter hypodensities favor small vessel disease. The ventricular system is unremarkable. The basal cisterns are patent. No extra-axial collections are present. There are no findings to suggest acute dural sinus thrombosis or acute territorial infarct. No significant calvarial abnormalities are present. There is minimal sinus mucosal thickening. IMPRESSION: No acute intracranial findings. ACT 112: Negative or not required by law. Electronically signed by: Washington Galindo M.D. 07/11/2022 6:30 AM Code Status & VTE Plan VTE Prophylaxis Plan VTE Prophylaxis will be ordered: Yes
[2022-07-11 14:22] LABS: A calco-baum cmplx NotReported Not Detected (NotDetected); Bact fragilis Not Reported Not Detected (NotDetected); C auris Not Reported Not Detected (NotDetected); Calbicans Not Reported Not Detected (NotDetected); Candida glabrata Not Reported Not Detected (NotDetected); Candida krusei Not Reported Not Detected (NotDetected); Cneoformans/gatti Not Reported Not Detected (NotDetected); Cparapsilosis Not Reported Not Detected (NotDetected); Ctropicalis Not Reported Not Detected (NotDetected); E cloacae compx Not Reported Not Detected (NotDetected); Efaecalis Not Reported Not Detected (NotDetected); Efaecium Not Reported Not Detected (NotDetected); Enterobacterales Not Reported Not Detected (NotDetected); Escherichia coli Not Reported Not Detected (NotDetected); H influenzae Not Reported Not Detected (NotDetected); K aerogenes Not Reported Not Detected (NotDetected); Koxytoca Not Reported Not Detected (NotDetected); Kpneumoniae grp Not Reported Not Detected (NotDetected); Lmonocyt Not Reported Not Detected (NotDetected); N meningitidis Not Reported Not Detected (NotDetected); P aeruginosa Not Reported Not Detected (NotDetected); Proteus spp Not Reported Not Detected (NotDetected); Salmonella spp Not Reported Not Detected (NotDetected); Smarcescens Not Reported Not Detected (NotDetected); Staph lugdunensis Not Reported Not Detected (NotDetected); Staph spp. Not Reported Not Detected (NotDetected); Staphaureus Not Reported Not Detected (NotDetected); Staphepi Not Reported Not Detected (NotDetected); Stenmaltophilia Not Reported Not Detected (NotDetected); Strep agal(GrpB) Not Reported Not Detected (NotDetected); Strep pneum Not Reported Not Detected (NotDetected); Strep pyog (GrpA) Not Reported Not Detected (NotDetected); Strep spp Not Reported DETECTED (NotDetected)
[2022-07-11 14:26] LABS: Streptococcus spp DETECTED (NotDetected)
[2022-07-11] MEDS: metroNIDAZOLE 500 MG/100 ML BAG IV SCH ×2 (14:42→19:52)
[2022-07-11] MEDS ORDERED: WARFARIN SOD 5 MG TAB PO SCH (16:00)
[2022-07-11 17:25] LABS: BUN Creatinine Ratio 12.2 (10-20); Calcium 7.5 mg/dl (8.5-10.1); Est GFR (African American) 16.9 ml/min; Est GFR (Non-African American) 14.5 ml/min; Potassium 3.5 mmol/L (3.5-5.1)
--- NOTE | 2022-07-11 18:09 | Nephrology Consultation ---
Date of Consultation July 11, 2022 Assessment & Plan (1) Acute kidney injury: nonoliguric stage 3 JESSIE w/ presenting creatinine 3.8, up to 4.1 now. Baseline creatinine 0.9 as of 06/12/22. UA c/w ATN; however could also have GN > such as immune complex mediated from Strep infection or Libman Sacks; interstitial nephritis or other processes related to medications also possible. BP improving > not volume overloaded. chemistries notable for hyponatremia, mild hypokalemia, AGMA. he did have colchicine and advil prior to admission -f/u pending cxs -agree w/ LR current rate -recommend K riders 2 x 10 mEq IV and so ordered -bmp q 6-8 hrs > order in for 2200 -strict I/O -as much as possible dose vancomycin by level -C3, C4, ANCA, RODNEY, anti ds DNA, anti GBM, tylenol level, uric acid, repeat CBC, urine prot/creat ordered for 2200 -low threshold for ABG -no indication at this time for dialysis or renal bx but cannot rule out need (2) Streptococcemia: related possibly to dental procedure pt reports shortly before . MICHAEL when stabilized; on cefepime and flagyl currently; also had 2.2 gm vancomycin >> consider ceftriaxone/vanco pending speciation but defer to critical care/primary -w/ ? facial droop on exam > stroke alert called as I write this consultation -repeat cxs per primary service (3) Hyponatremia: normoosmolar hyponatremia w/ ketonuria > continue isotonic IVF and treat acidemia -goal sNa approx 130-132 by AM or at least maintain in current range History of Present Illness Reason for Consultation: JESSIE Requesting Physician: Dr Silva Attending Physician: Angel Silva MD History of Present Illness 62 y/o M whom I'm asked to see for JESSIE was admitted today to ICU w/ streptococcemia after presenting with 4 days of fever, generalized weakness, diarrhea. His presenting creatinine was 3.8 (up to 4.1 twelve hrs later/most recently); baseline creatinine is 0.9 as recently as 06/12/2022 and no al buminuria on that date. he saw his PCP 07/08 via telehealth for abrupt 07/07 onset of extreme fatigue, diffuse body aches, F to 102. he had negative covid testing and did not respond to tamiflu course; was also rx'd prednisone. 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 He takes lisinopril 10 mg daily, metoprolol 25 mg bid, prn colchicine 0.6 mg bid as OP. Admission w/u remarkable for Streptococcemia by [employer] and admission blood cxs 11/11 w/ GPC chains; pt afebrile since presentation. TTE done today shows mobile echodensity presumably retained suture/thrombus though vegetation cannot be excluded. MICHAEL planned when pt stable. he had 2.3 gm vancomycin and is currently on cefepime and flagyl Admission serum sodium 126 (125 at 1700 today), C02 17 (11 at 1700 today); lactate 2.4 and procal 21. Plts 52K. Admission UA as below. He is 4.8L positive since admission and has made 225 mL urine. he is on RA. Currently on LR at 100 mL/hr w/ SBP improved from 90s > 100s. Further questioning reveals that the pt had an aborted root canal a few days before [facility] in [place]. He also had a R ankle gout attack 2-3 days prior to admission and was taking advil and colchicine to manage this. Allergies Allergy/AdvReac Type Severity Reaction Status Date / Time No Known Allergies Allergy Mild Verified 11/03/20 08:59 Home Medications Medication Instructions Recorded Confirmed Type atorvastatin 80 mg tablet 80 mg PO DAILY #0 tabs 11/07/15 07/11/22 History aspirin 81 mg tablet,delayed 81 mg PO DAILY ##0 01/01/16 07/11/22 History release amoxicillin 500 mg capsule 2,000 mg PO USEASDIRECTD PRN 30-60 07/20/20 07/11/22 History min prior to dental proc colchicine 0.6 mg tablet 0.6 mg PO BID 07/20/20 07/11/22 History lisinopril 5 mg tablet 10 mg PO DAILY 07/20/20 07/11/22 History metoprolol tartrate 25 mg tablet 25 mg PO BID 11/03/20 07/11/22 History warfarin 5 mg tablet 5 mg PO UD 11/03/20 07/11/22 History allopurinol 300 mg tablet 300 mg PO QAM 07/11/22 07/11/22 History oseltamivir 75 mg capsule 75 mg PO BID 07/11/22 07/11/22 History prednisone 20 mg tablet 20 mg PO DAILY 07/11/22 07/11/22 History Patient History Medical History CAD (coronary artery disease) Gout History of tobacco abuse HLD (hyperlipidemia) Thoracic aortic aneurysm (TAA) Surgical History Hx of inguinal hernia repair S/P aortic valve replacement with prosthetic valve Family History Mother Hypertension Other Diabetes Stroke Social History Smoking Status: Current every day smoker Tobacco Type: Cigarettes Hx Alcohol Use: Yes Alcohol type: beer Hx Substance Use: No Preferred Language: Romanian Communication Ability: Effective Marketing Programs Specialist Required: No Beliefs That Will Affect Care: None Current Living Situation: Spouse Other Information That Helps Us Care for You: No Feels Safe at Home: Yes Safety Concerns: Feels Safe At This Time Assistive Devices: Denture - Lower and Glasses Review of Systems Review of Systems: All systems reviewed & are unremarkable except as noted in HPI & below Physical Exam Constitutional: well developed, well nourished and cooperative; no acute distress Eyes: EOM intact bilaterally ENMT: Ears: no external ear abnormality Nose: no external nose abnormality Mouth: + dry oral mucous membranes (very) Neck: no nuchal rigidity Respiratory: normal respiratory effort Auscultation: + diminished lung sounds Cardiovascular: Rate/Rhythm: regular rate and regular rhythm Extremities: no edema Gastrointestinal (Abdomen): Inspection/Auscultation: normal bowel sounds Percussion/Palpation: abdomen soft; abdomen nontender Musculoskeletal: Extremities: strength 5/5 throughout (patel, yet marked generalized weakness) Skin: no rashes, warm and dry Neurologic: patel, fluent speech, no tremor; ? L mouth droop Psychiatric: Orientation: oriented x 3 Speech: normal rate/rhythm/volume of speech (slight psychomotor delay) Insight: good insight (slightly diminished) Judgement: good judgement (slightly diminished) Genitourinary: goldberg w/ ample mota urine Results & Data ([facility]) Vital Signs (Past 12 Hours) Vital Signs Temp Pulse Pulse Resp BP BP Pulse Ox 07/11/22 16:15 92 H 28 H 07/11/22 16:15 108/60 07/11/22 16:00 91 H 25 H 07/11/22 16:00 99/60 L 07/11/22 15:45 91 H 27 H 07/11/22 15:45 96/57 L 07/11/22 15:30 91 H 27 H 07/11/22 15:30 97/54 L 07/11/22 15:15 94 H 28 H 07/11/22 15:15 105/62 07/11/22 15:00 93 H 27 H 07/11/22 15:00 102/57 L 07/11/22 14:45 96 H 28 H 07/11/22 14:45 119/64 07/11/22 14:30 95 H 26 H 07/11/22 14:30 102/69 07/11/22 14:15 97 H 28 H 07/11/22 14:15 105/71 07/11/22 14:00 97 H 28 H 95 07/11/22 14:00 111/69 07/11/22 13:45 96 H 29 H 97 07/11/22 13:45 96/61 L 07/11/22 13:30 97 H 28 H 98 07/11/22 13:30 109/60 07/11/22 13:15 97 H 26 H 100 07/11/22 13:15 110/61 07/11/22 13:00 98 H 30 H 98 07/11/22 13:00 109/65 07/11/22 12:45 96 H 24 99 07/11/22 12:45 108/65 07/11/22 12:30 97 H 26 H 99 07/11/22 12:30 109/69 07/11/22 12:15 97 H 25 H 98 07/11/22 12:15 105/66 07/11/22 12:00 97 H 27 H 97 07/11/22 12:00 113/68 07/11/22 11:45 98 H 26 H 96 07/11/22 11:45 110/67 07/11/22 11:30 98 H 24 96 07/11/22 11:30 112/68 07/11/22 10:48 07/11/22 10:48 36.9 C 92 H 26 H 104/65 97 07/11/22 11:15 99 H 26 H 97 07/11/22 11:15 116/67 07/11/22 11:00 100 H 24 97 07/11/22 11:00 123/67 07/11/22 10:45 98 H 24 100 07/11/22 10:45 111/74 07/11/22 10:30 95 H 27 H 100 07/11/22 10:30 117/65 07/11/22 10:28 102/67 07/11/22 10:28 94 H 23 98 07/11/22 10:21 104/65 07/11/22 10:21 92 H 19 07/11/22 10:20 92 H 21 07/11/22 10:00 87 22 111/63 100 07/11/22 09:30 86 22 97/61 L 99 07/11/22 09:15 86 24 103/68 99 07/11/22 09:00 18 101/62 99 07/11/22 08:45 85 22 105/59 L 98 07/11/22 08:30 84 22 95/60 L 99 07/11/22 08:15 83 19 89/65 L 95 07/11/22 08:12 83 20 90/55 L 98 07/11/22 08:08 83 24 88/53 L 96 07/11/22 08:00 82 20 89/56 L 95 07/11/22 07:47 82 24 90/60 L 96 07/11/22 07:42 100 07/11/22 07:30 81 18 100/59 L 97 07/11/22 07:15 81 20 102/62 98 07/11/22 07:00 82 31 H 96/69 L 98 07/11/22 06:45 81 22 107/64 98 07/11/22 06:30 82 22 98/64 L 97 07/11/22 06:25 82 22 85/68 L 98 07/11/22 06:09 83 24 92/57 L 98 07/11/22 06:06 88/54 L 07/11/22 06:06 83 22 94 07/11/22 06:05 83 23 96 O2 Del Method 07/11/22 16:15 07/11/22 16:15 07/11/22 16:00 07/11/22 16:00 07/11/22 15:45 07/11/22 15:45 07/11/22 15:30 07/11/22 15:30 07/11/22 15:15 07/11/22 15:15 07/11/22 15:00 07/11/22 15:00 07/11/22 14:45 07/11/22 14:45 07/11/22 14:30 07/11/22 14:30 07/11/22 14:15 07/11/22 14:15 07/11/22 14:00 07/11/22 14:00 07/11/22 13:45 07/11/22 13:45 07/11/22 13:30 07/11/22 13:30 07/11/22 13:15 07/11/22 13:15 07/11/22 13:00 07/11/22 13:00 07/11/22 12:45 07/11/22 12:45 07/11/22 12:30 Room Air 07/11/22 12:30 07/11/22 12:15 07/11/22 12:15 07/11/22 12:00 07/11/22 12:00 07/11/22 11:45 07/11/22 11:45 07/11/22 11:30 07/11/22 11:30 07/11/22 10:48 Room Air 07/11/22 10:48 Room Air 07/11/22 11:15 07/11/22 11:15 07/11/22 11:00 07/11/22 11:00 07/11/22 10:45 07/11/22 10:45 07/11/22 10:30 07/11/22 10:30 07/11/22 10:28 07/11/22 10:28 07/11/22 10:21 07/11/22 10:21 07/11/22 10:20 07/11/22 10:00 Room Air 07/11/22 09:30 Room Air 07/11/22 09:15 Room Air 07/11/22 09:00 Room Air 07/11/22 08:45 Room Air 07/11/22 08:30 Room Air 07/11/22 08:15 Room Air 07/11/22 08:12 Room Air 07/11/22 08:08 Room Air 07/11/22 08:00 Room Air 07/11/22 07:47 Room Air 07/11/22 07:42 Room Air 07/11/22 07:30 Room Air 07/11/22 07:15 Room Air 07/11/22 07:00 07/11/22 06:45 07/11/22 06:30 07/11/22 06:25 07/11/22 06:09 07/11/22 06:06 07/11/22 06:06 07/11/22 06:05 Laboratory Results 07/11/22 05:10 07/11/22 16:53 UA: s.g. > 1030 dark yellow cloudy urine 3+ protein/blood, trace ketones, glucose; 1+ bilirubin; > 30 WBC; 5-10 granular casts; 20-30 ur epi's; 2+ bacteria; no LE; no nitrites Blood cxs 4/4 GPC chains; biofire as above Diagnostic Findings CT a/p non con FINDINGS: Cardiomegaly with prior median sternotomy. Extensive [place] coronary artery calcifications are present. Calcified mediastinal lymph nodes. Subsegmental bibasilar atelectasis versus scarring. Limited exam secondary to upper extremity positioning, respiratory motion artifact and lack of contrast. Calcified granuloma of the spleen. Mild generalized pancreatic atrophy. Unremarkable right adrenal gland. Stable complex left adrenal gland nodule with punctate calcifications, 2.5 cm. Based on stability, this is likely benign. Unremarkable gallbladder. Hepatic steatosis. No hepatic mass identified. There are a few scattered punctate nonobstructing calculi noted within the kidneys. No ureteral calculi or hydronephrosis identified. Prostamegaly. Urinary bladder wall thickening with partial distention. Atherosclerosis of the aorta without aneurysm. No lymphadenopathy identified. No bowel obstruction or bowel wall thickening identified. Normal appendix. No ascites or mesenteric inflammation. Unremarkable soft tissues. Degenerative changes of the shoulders and spine. No acute fracture. IMPRESSION: 1. No acute intra-abdominal or intrapelvic abnormality identified. 2. No bowel obstruction or bowel wall thickening. Normal appendix. 3. Punctate nonobstructing bilateral nephrolithiasis. 4. Additional findings as above. head CT no acute i-c findings CXR no acute CP ff
[2022-07-11 18:51] LABS: Adenovirus F 40/41 PCR Not Detected (NotDetected); Astrovirus PCR Not Detected (NotDetected); Campylobacter PCR Not Detected (NotDetected); Cryptosporidium PCR Not Detected (NotDetected); Cyclospora cayetanensis PCR Not Detected (NotDetected); Entamoeba histolytica PCR Not Detected (NotDetected); Enteroaggregative E.coli(EAEC) Not Detected (NotDetected); Enteropathogenic E.coli (EPEC) Not Detected (NotDetected); Enterotoxigenic E.coli (ETEC) Not Detected (NotDetected); Giardia lamblia PCR Not Detected (NotDetected); Norovirus GI/GII PCR Not Detected (NotDetected); Plesiomonas shigelloides PCR Not Detected (NotDetected); Rotavirus A PCR Not Detected (NotDetected); Salmonella PCR Not Detected (NotDetected); Sapovirus PCR Not Detected (NotDetected); Shiga-like Toxin E.coli (STEC) Not Detected (NotDetected); Shigella/Enteroinvasive E.coli Not Detected (NotDetected); Vibrio cholerae PCR Not Detected (NotDetected); Vibrio species PCR Not Detected (NotDetected); Yersinia enterocolitica PCR Not Detected (NotDetected)
--- NOTE | 2022-07-11 20:20 | CT Scan Report ---
CT head/brain wo con CLINICAL HISTORY: L sided facial droop Technique: Contiguous axial CT images of the head were acquired from the base of the skull to the nba krish without intravenous contrast administration. Images were viewed in brain, subdural and [facility]. Automated dose lowering techniques and/or adjustment according to patient size were utilized for this exam. Comparison: Comparison is made to CT head 07/11/2022 Findings: The ventricles, basal cisterns, and cerebral sulci are normal. There is no acute intracranial hemorrh age or evidence of acute territorial infarction. Neither mass effect, shift of the midline structures , nor abnormal extra-axial fluid collections are shown. Imaged portions of the paranasal sinuses and mastoid air cells are clear. The orbits appear normal. There are no acute fractures of the calvaria or scalp swelling. Impression: No acute intracranial hemorrhage, no evidence of acute territorial infarction or other acute intracra nial disease process. ACT 112: Negative or not required by law. Electronically signed by: Kev Childress M.D. 07/11/2022 8:19 PM
[2022-07-11] MEDS ORDERED: Heparin IV Adult Wt-Based Standard *NO* Bolus Protocol IV SCH (21:14)
[2022-07-11] MEDS ORDERED: HEPARIN SODIUM/DEXTROSE 25,000 UNITS/500 ML BAG IV SCH (21:30)
[2022-07-11] MEDS: SODIUM CHLORIDE 0.9% 1000ML 1,000 ML IV SCH (21:33)
--- NOTE | 2022-07-11 22:11 | Communication Note ---
Date of Service: July 11, 2022 Was notified by the patient's nurse shortly after shift change that the patient was now having left-sided facial droop, dysarthria, and right-sided weakness in the upper and lower extremity. I did evaluate the patient and confirmed neurological changes. He remains hemodynamically stable and alert and oriented. Code stroke was then called. CT head report was negative for acute intracranial findings, although small left frontal subcortical hypodensity seen by [facility] teleneurology (unsure if this is old or new). Patient was evaluated by [facility] telemetry neurologist who recommended increasing blood pressure and will start on levo to maintain maps greater than 90. Give 80 mg atorvastatin. Patient would not be candidate for tPA given anticoagulation on Coumadin. Could not obtain CTA head and neck due to JESSIE. Recommendation for MRI, MRA head and neck no contrast and will follow up. We will continue with current medical management for sepsis, etc. CRITICAL CARE TIME - I have personally spent 40 minutes of critical care time in the direct management of this patient. This is a life/limb threatening event. This includes time spent evaluating patient, direct bedside care, chart review, placing orders, interpretation of diagnostic studies, discussion with consultants, patient, and family members, as well as other required patient management activities. This time is exclusive of all separately billable procedures, and teaching time and separate from and in addition to any other critical care service time. Coding Level of Care Code Critical Care sarthak ross'shannon 30 min
[2022-07-11] MEDS ORDERED: ATORVASTATIN 40 MG TAB PO STA (22:12)
[2022-07-11 22:19] LABS: Prothrombin Time 30.2 Seconds (9.0-12.0)
[2022-07-11 22:20] LABS: Partial Thromboplastin Time 54.7 Seconds (21.0-31.0)
[2022-07-11 22:22] LABS: Hematocrit (blood only) 29.7 % (40.1-51.0); Hemoglobin 10.9 g/dl (14.0-18.0); Mean Corpuscular Hemoglobin 32.2 pg (25.0-34.0); Mean Corpuscular Hgb Conc 36.7 g/dL (32.0-36.0); Mean Corpuscular Volume 87.9 fL (80.0-100.0); Mean Platelet Volume 12.9 fL (9.4-12.4); Platelet Count 36 K/uL (130-400); RDW Coefficient of Variation 13.2 % (11.5-14.5); Red Blood Count 3.38 M/uL (4.63-6.08)
[2022-07-11] MEDS ORDERED: STAT IV Infusion **Titration per Protocol STA (22:36)
[2022-07-11 22:43] LABS: Basophils # (auto) 0.02 K/uL (0-0.2); Basophils % (auto) 0.3 %; Dohle Bodies 2+; Echinocytes 1+; Eosinophils # (auto) 0.01 K/uL (0-0.50); Eosinophils % (auto) 0.1 %; Immature Granulocytes % (auto) 2.6 %; Lymphocytes # (auto) 0.19 K/uL (1.2-3.4); Lymphocytes % (auto) 2.5 %; Monocytes # (auto) 0.97 K/uL (0.24-0.82); Monocytes % (auto) 12.6 %; Neutrophils # (auto) 6.31 K/uL (1.4-6.5); Neutrophils % (auto) 81.9 %; Platelet Estimate Decreased (Normal); Toxic Granulation 1+; Toxic Vacuolation 1+
[2022-07-11] MEDS: NOREPINEPHRINE/D5W 4 MG/250 ML PLCT IV SCH (23:46)
--- NOTE | 2022-07-11 23:47 | Magnetic Resonance Report ---
MRI OF THE BRAIN WITHOUT IV CONTRAST CLINICAL HISTORY: Left facial droop. Right-sided weakness. COMPARISON STUDY: CT of the brain dated 07/11/2022. TECHNIQUE: MRI of the brain was performed utilizing various T1 and T2-weighted sequences in the axial , sagittal, and coronal planes. IV contrast was not administered for this examination. FINDINGS: Brain parenchyma: There are numerous foci of restricted diffusion seen in both cerebellar hemispheres , and throughout both intracranial hemispheres. The largest foci are present in left occipital lobe. The appearance is consistent with numerous acute or subacute infarcts, distribution suggests an embol ic phenomenon. There is no hemorrhage or midline shift. There is age-related involutional change noti ng mild to moderate subcortical and periventricular microangiopathic disease. No extra-axial fluid co llection is seen. The cerebellar tonsils are normal in configuration. Ventricles, sulci, and cisterns: Prominent secondary to involutional change. Pituitary and sella: Partially empty sella is incidentally noted. Intracranial vasculature: Normal flow voids are maintained at the skull base. Orbits: The bony orbits are grossly intact. Orbital contents are normal in appearance. Sinuses and mastoids: Clear. Calvarium: Unremarkable. Cervical cord: Partially visualized cervical spinal cord is normal in morphology and signal intensity . IMPRESSION: 1. There are numerous small foci of restricted diffusion seen throughout both cerebral hemispheres as well as the cerebellum consistent with acute to subacute infarcts. The distribution suggests an embo lic phenomenon. 2. There is no hemorrhage or midline shift. ACT 112: Negative or not required by law. Electronically signed by: Bryon Bautista M.D. 07/11/2022 11:45 PM
--- NOTE | 2022-07-12 00:29 | Magnetic Resonance Report ---
MR ANGIOGRAM OF THE BRAIN CLINICAL HISTORY: Change in mental status. Stroke. COMPARISON STUDY: MRI of the brain performed concurrently on 07/11/2022. TECHNIQUE: 3-D [id number] MR angiography of the intracranial circulation is performed. 3-D tumble views are created and assessed. IV contrast was not administered for this examination. The examinati on is significantly degraded by motion artifact. FINDINGS: The internal carotid arteries are patent bilaterally, as are the anterior and middle cerebr al arteries. The vertebrobasilar system and posterior cerebral arteries are patent. The vertebral art eries are codominant. There is no aneurysm, high-grade stenosis, or focal vessel cutoff seen througho ut the intracranial circulation. IMPRESSION: There is no evidence of large vessel occlusion or high-grade stenosis noting a motion com promised examination. ACT 112: Negative or not required by law. Electronically signed by: Bryon Bautista M.D. 07/12/2022 12:28 AM
--- NOTE | 2022-07-12 00:34 | Magnetic Resonance Report ---
MR ANGIOGRAM OF THE NECK WITHOUT IV CONTRAST CLINICAL HISTORY: Change in mental status. Stroke. COMPARISON STUDY: No priors. TECHNIQUE: Axial 2-D and 3-D [id number] MR angiography of the neck is performed. 3-D reformats ar e created and assessed. IV contrast was not administered for this examination. All measurements were calculated based on NASCET criteria. FINDINGS: Visualized portions of the thoracic aorta are normal in caliber. The aortic arch demonstrat es standard 3-vessel anatomy. The subclavian arteries are widely patent bilaterally. The right common carotid artery is widely patent, as are the right internal and external carotid arteries. The left c ommon carotid artery is widely patent, as are the left internal and external carotid arteries. The ve rtebral arteries are patent and codominant. The visualized intracranial vessels at the skull base baljeet ear patent. IMPRESSION: Unremarkable unenhanced MR angiogram of the neck. ACT 112: Negative or not required by law. Electronically signed by: Bryon Bautista M.D. 07/12/2022 12:31 AM
[2022-07-12] MEDS: MAGNESIUM SULFATE / D5W 1 GM/100 ML BAG IV SCH ×6 (01:05→10:57)
[2022-07-12 02:46] LABS: Hematocrit (blood only) 32.1 % (40.1-51.0); Hemoglobin 11.5 g/dl (14.0-18.0); Mean Corpuscular Hemoglobin 31.9 pg (25.0-34.0); Mean Corpuscular Hgb Conc 35.8 g/dL (32.0-36.0); Mean Corpuscular Volume 89.2 fL (80.0-100.0); RDW Coefficient of Variation 13.1 % (11.5-14.5); RDW Standard Deviation 43.2 fL (36.4-46.3); White Blood Count 9.28 K/ul (4.8-10.8)
[2022-07-12 02:59] LABS: INR 2.9 (0.9-1.1); Prothrombin Time 29.3 Seconds (9.0-12.0)
[2022-07-12 03:10] LABS: Mean Platelet Volume 13.6 fL (9.4-12.4); Platelet Count 45 K/uL (130-400)
[2022-07-12 03:25] LABS: Albumin Level 2.7 gm/dl (3.4-5.0); BUN Creatinine Ratio 13.4 (10-20); Bilirubin Direct 1.1 mg/dl (0-0.2); Bilirubin,Total 1.8 mg/dl (0.2-1.0); Calcium 7.5 mg/dl (8.5-10.1); Creatinine Clr Calc Pharmacy 23.3 ml/min; Est GFR (African American) 16.2 ml/min; Magnesium 1.8 mg/dl (1.7-2.4); Potassium 3.7 mmol/L (3.5-5.1); Total Protein 5.5 gm/dl (6.0-8.3)
[2022-07-12 03:27] LABS: Chol HDL Ratio 51.3 (0-5); Cholesterol 154 mg/dl (0-200); HDL Cholesterol 3 mg/dl; Phosphorus 4.2 mg/dl (2.5-4.9); Triglycerides 772 mg/dl (0-150)
[2022-07-12] MEDS: POTASSIUM CHLORIDE / WTR 10 MEQ/100 ML PLCT IV SCH ×2 (04:18→05:20)
[2022-07-12] MEDS: metroNIDAZOLE 500 MG/100 ML BAG IV SCH (04:26)
[2022-07-12 04:59] LABS: Troponin I High Sensitivity 1029.4 pg/ml (0-20)
[2022-07-12 05:08] LABS: HCO3 VBG 13 mmol/L; Oxygen Saturation VBG 68.4 %; PCO2 VBG 27 mmHg (38-50); PO2 VBG 41 mmHg; pH VBG 7.29 (7.36-7.41)
[2022-07-12] MEDS: SODIUM CHLORIDE 0.9% 1000ML 1,000 ML IV SCH (06:46)
--- NOTE | 2022-07-12 07:54 | Critical Care Progress Note ---
Date of Service July 12, 2022 Assessment & Plan (1) Sepsis: (2) Hypotension: (3) Generalized weakness: (4) Elevated troponin: (5) Acute kidney injury: (6) S/P aortic valve replacement with prosthetic valve: (7) Dehydration: Plan Reason Critically Ill: 62 yo M with PMH TAA, HTN, HLD, gout, aortic valve replacement with prosthesis, paroxysmal atrial fibrillation after valve replacement currently on anticoagulation, admitted to ICU due to sepsis with JESSIE. NEURO- CAM ICU: NEGATIVE Sedation: None Analgesia: None -- Acute embolic stroke appreciated on MRI 07/11/2022 Neurology has been consulted. Recommending to keep MAP around 90 Atorvastatin 80 mg Aspirin on hold because of thrombocytopenia CARDIAC - -History of aortic valve s/p prosthetic replacement and postoperative atrial fibrillation -Currently sinus rhythm, rate-controlled at time of evaluation -EKG earlier with accelerated junctional rhythm -Echocardiogram- EF 65-70, mobile echodensity about bioprosthetic aortic valve, may represent vegetation vs retained suture -Elevated troponin with history of coronary artery disease - EKG without acute ST change, likely type II DC, continue to monitor -Continue atorvastatin -Holding aspirin given thrombocytopenia - S/p Hypotension -Responded to fluids RESPIRATORY -Currently saturating well on RA, no respiratory issues at present GI - Transaminitis with bilirubinemia -Likely from shock -Continue to monitor RENAL/ELECTROLYTES - -Acute renal failure -Baseline creatinine 1 -Likely pre-renal azotemia/volume depletion, septic emboli with renal infarct also possibility -Avoid nephrotoxic medication, monitor BUNs/creatinine -Anion gap metabolic acidosis -Likely from elevated BUN and JESSIE, VBG 07/12/2022 pH 7.31 -Continue fluid repletion and treatment of underlying sepsis -Hyponatremia with hypochloremia -ICU electrolyte repletion per protocol -Trend CMP, Mg, Phos - -Stanton catheter placement ordered -Strict I's and O's ENDO - -ICU hyperglycemia protocol HEME - -Thrombocytopenia -Likely secondary to sepsis ID - -Sepsis with gram-positive bacteremia -CXR, CTAP, head CT unremarkable -UA shows +3 bacteria, no leukocyte esterase -Nasal MRSA negative --Stool culture was negative --Prophylaxis VTE: IPC's GI: Protonix Lines: Peripheral Diet: Clear liquids, advance as tolerated to cardiorenal Plan: In/out: Positive 4.6 L, urine output 700 mL Given the embolic phenomena of acute stroke along with gram-positive blood culture, possibility of endocarditis very high. Will discuss with cardiology to have MICHAEL done Given stool culture being negative. Will DC Flagyl. Streptococcus in the blood. We will change cefepime to Rocephin with endocarditis dose. Continue with vancomycin till we have sensitivities back Patient unfortunately is not making good urine. Still in early ATN picture. Saturating well on room air. CMP is pending from today. We will get it done stat to make sure potassium and electrolytes are within normal limit Patient to have repeat CT head on 12 PM today Given amp of bicarb. We will decrease the rate of IV fluids Case was discussed with cardiology, nephrology as well as neurology I have personally spent 48 minutes of critical care time in the direct management of this patient. This is a life/limb threatening event. This includes time spent evaluating patient, direct bedside care, chart review, placing orders, interpretation of diagnostic studies, discussion with consultants, patient, and/or family members regarding treatment decisions, as we ll as other required patient management activities. This time is exclusive of all separately billable procedures, and teaching time and separate from and in addition to any other critical care service time. Admission and Anticipated Discharge Date Admission Date: July 11, 2022 Subjective Patient seen and examined at bedside. No acute distress Overnight patient had left facial droop following which he had CT head which was negative MRI showed multiple infarcts bilaterally On-call neurology requested MAP to be around 90. At the time of examination his map was 99. He was on Levophed 0.07 He was able to answer all the questions appropriately He is able to move bilateral extremities left is little weaker than the right Denied any headache, no nausea, no vomiting No chest pain, no shortness of breath Review of Systems Review of Systems: All systems reviewed & are unremarkable except as noted in Subjective Physical Exam Physical Exam: Constitutional: No acute distress HEENT: EOMI, PERRLA Respiratory system: Good air entry bilaterally, no wheeze, no rhonchi, mild crackles bilateral lower lobes CVS: S1-S2 positive, no murmurs or gallops, distant heart sounds Abdomen: Soft, nontender, nondistended, positive bowel sounds x4 Extremities: +2 pulses bilaterally radialis/ dorsalis pedis, no cyanosis, +1 pitting edema bilateral lower extremity, right anterior lateral lower hong redness, nontender Neuro: Awake alert oriented x3, left-sided facial droop, generalized weakness, weaker bilingual social worker of the left arm Psych: Normal mood and affect G/U: Positive Stanton Skin: no rashes, warm and dry Lymphatic: no cervical or axillary lymphadenopathy Results & Data Results & Data ([facility]) Vital Signs (Past 12 Hours) Vital Signs Temp Pulse Resp BP Pulse Ox Pulse Ox O2 Del Method 07/12/22 06:16 130/68 07/12/22 06:16 77 21 100 07/12/22 06:00 79 24 99 07/12/22 06:00 129/67 07/12/22 05:00 131/66 07/12/22 05:00 78 28 H 100 07/12/22 05:16 100 07/12/22 05:16 77 07/12/22 04:30 77 17 100 07/12/22 04:15 78 22 100 07/12/22 04:00 77 20 100 07/12/22 04:00 127/62 07/12/22 03:45 79 21 99 Room Air 07/12/22 03:30 77 19 100 07/12/22 03:15 78 23 100 07/12/22 03:06 78 25 H 100 07/12/22 03:06 134/75 07/12/22 03:00 78 21 98 07/12/22 02:45 79 21 100 07/12/22 02:30 78 21 96 07/12/22 02:15 80 21 99 07/12/22 02:00 79 22 100 Room Air 07/12/22 02:00 136/72 07/12/22 01:45 81 25 H 99 07/12/22 01:30 79 25 H 100 07/12/22 01:15 80 23 100 07/12/22 01:00 79 21 100 07/12/22 01:00 147/80 H 07/12/22 00:45 79 22 100 07/12/22 00:45 147/85 H 07/12/22 00:30 80 26 H 07/12/22 00:30 147/73 H 07/12/22 00:15 81 27 H 100 07/12/22 00:15 145/63 H 07/12/22 00:00 78 19 100 Room Air 07/12/22 00:00 145/72 H 07/11/22 23:45 79 22 99 07/11/22 23:45 125/62 07/11/22 23:44 130/69 07/11/22 23:44 79 24 99 07/11/22 23:43 100 07/12/22 00:58 37.2 C 07/12/22 00:00 79 07/11/22 22:00 81 27 H 100 07/11/22 22:00 109/55 L 07/11/22 21:46 80 22 97 07/11/22 21:46 104/53 L 07/11/22 21:30 109/63 07/11/22 21:30 81 23 99 07/11/22 21:15 109/67 07/11/22 21:15 83 23 99 07/11/22 21:00 81 21 99 07/11/22 21:00 108/62 07/11/22 20:45 109/61 07/11/22 20:45 81 27 H 99 07/11/22 20:30 106/60 07/11/22 20:30 81 21 100 07/11/22 20:18 104/61 07/11/22 20:18 82 23 97 07/11/22 20:00 83 27 H 99 07/11/22 20:00 111/67 07/11/22 22:36 Room Air 07/11/22 22:33 36.9 C O2 Del Method 07/12/22 06:16 07/12/22 06:16 07/12/22 06:00 07/12/22 06:00 07/12/22 05:00 07/12/22 05:00 07/12/22 05:16 Room Air 07/12/22 05:16 07/12/22 04:30 07/12/22 04:15 07/12/22 04:00 07/12/22 04:00 07/12/22 03:45 07/12/22 03:30 07/12/22 03:15 07/12/22 03:06 07/12/22 03:06 07/12/22 03:00 07/12/22 02:45 07/12/22 02:30 07/12/22 02:15 07/12/22 02:00 07/12/22 02:00 07/12/22 01:45 07/12/22 01:30 07/12/22 01:15 07/12/22 01:00 07/12/22 01:00 07/12/22 00:45 07/12/22 00:45 07/12/22 00:30 07/12/22 00:30 07/12/22 00:15 07/12/22 00:15 07/12/22 00:00 07/12/22 00:00 07/11/22 23:45 07/11/22 23:45 07/11/22 23:44 07/11/22 23:44 07/11/22 23:43 07/12/22 00:58 07/12/22 00:00 07/11/22 22:00 07/11/22 22:00 07/11/22 21:46 07/11/22 21:46 07/11/22 21:30 07/11/22 21:30 07/11/22 21:15 07/11/22 21:15 07/11/22 21:00 07/11/22 21:00 07/11/22 20:45 07/11/22 20:45 07/11/22 20:30 07/11/22 20:30 07/11/22 20:18 07/11/22 20:18 07/11/22 20:00 07/11/22 20:00 07/11/22 22:36 07/11/22 22:33 Diagnostic Findings 07/12/22 02:35 07/12/22 02:35 Coding Level of Care Code Critical Care 1st 30-74 mins Diagnoses Sepsis A41.9 Hypotension I95.9 Generalized weakness R53.1 Elevated troponin R77.8 Acute kidney injury N17.9 S/P aortic valve replacement with prosthetic valve Z95.2 Dehydration E86.0 Time Spent (min) 48
[2022-07-12] MEDS ORDERED: SODIUM BICARB 8.4% INJ 50 MEQ/50 ML SYR IV STA (08:16)
[2022-07-12] MEDS ORDERED: cefTRIAXone SODIUM 2,000 MG in DEXTROSE 5% 50 ML IV SCH ×2 (08:30→08:45)
--- NOTE | 2022-07-12 08:37 | Nephrology Progress Note ---
Date of Service July 12, 2022 Assessment & Plan Admission and Anticipated Discharge Date Admission Date: July 11, 2022 Subjective Assessment & Plan (1) Acute kidney injury: nonoliguric stage 3 JESSIE w/ presenting creatinine 3.8 and still rising slowly. Baseline creatinine 0.9 as of 06/12/22. ARF is from classic ATN in the setting Of sepsis, Bacteremia. -f/u pending cxs Lower the fluid rate to avoid pulm edema - -strict I/O -as much as possible dose vancomycin by level --no indication at this time for dialysis at this time. (2) Streptococcemia: related possibly to dental procedure pt reports shortly before . MICHAEL when stabilized; on cefepime and flagyl currently; also had 2.2 gm vancomycin >> consider ceftriaxone/vanco pending speciation but defer to critical care /primary -w/ ? facial droop on exam > stroke alert called as I write this consultation -repeat cxs per primary service (3) Hyponatremia: normoosmolar hyponatremia w/ ketonuria > continue isotonic IVF and treat acidemia -goal sNa approx 130-132 by AM or at least maintain in current range S--Still in iCU. On iv fluids. Making urine. Physical Exam Constitutional: well developed, well nourished and cooperative; no acute distress Eyes: EOM intact bilaterally ENMT: Ears: no external ear abnormality Nose: no external nose abnormality Mouth: + dry oral mucous membranes (very) Neck: no nuchal rigidity Respiratory: normal respiratory effort Auscultation: + diminished lung sounds Cardiovascular: Rate/Rhythm: regular rate and regular rhythm Extremities: no edema Gastrointestinal (Abdomen): Inspection/Auscultation: normal bowel sounds Percussion/Palpation: abdomen soft; abdomen nontender Musculoskeletal: Extremities: strength 5/5 throughout (patel, yet marked generalized weakness) Skin: no rashes, warm and dry Neurologic: patel, fluent speech, no tremor; ? L mouth droop Psychiatric: Orientation: oriented x 3 Speech: normal rate/rhythm/volume of speech (slight psychomotor delay) Insight: good insight (slightly diminished) Judgement: good judgement (slightly diminished) Genitourinary: goldberg w/ ample mota urine Results & Data ([facility]) Vital Signs (Past 12 Hours) Vital Signs Temp Pulse Resp BP Pulse Ox Pulse Ox O2 Del Method 07/12/22 06:16 130/68 07/12/22 06:16 77 21 100 07/12/22 06:00 79 24 99 07/12/22 06:00 129/67 07/12/22 05:00 131/66 07/12/22 05:00 78 28 H 100 07/12/22 05:16 100 07/12/22 05:16 77 07/12/22 04:30 77 17 100 07/12/22 04:15 78 22 100 07/12/22 04:00 77 20 100 07/12/22 04:00 127/62 07/12/22 03:45 79 21 99 Room Air 07/12/22 03:30 77 19 100 07/12/22 03:15 78 23 100 07/12/22 03:06 78 25 H 100 07/12/22 03:06 134/75 07/12/22 03:00 78 21 98 07/12/22 02:45 79 21 100 07/12/22 02:30 78 21 96 07/12/22 02:15 80 21 99 07/12/22 02:00 79 22 100 Room Air 07/12/22 02:00 136/72 07/12/22 01:45 81 25 H 99 07/12/22 01:30 79 25 H 100 07/12/22 01:15 80 23 100 07/12/22 01:00 79 21 100 07/12/22 01:00 147/80 H 07/12/22 00:45 79 22 100 07/12/22 00:45 147/85 H 07/12/22 00:30 80 26 H 07/12/22 00:30 147/73 H 07/12/22 00:15 81 27 H 100 07/12/22 00:15 145/63 H 07/12/22 00:00 78 19 100 Room Air 07/12/22 00:00 145/72 H 07/11/22 23:45 79 22 99 07/11/22 23:45 125/62 07/11/22 23:44 130/69 07/11/22 23:44 79 24 99 07/11/22 23:43 100 07/12/22 00:58 37.2 C 07/12/22 00:00 79 07/11/22 22:00 81 27 H 100 07/11/22 22:00 109/55 L 07/11/22 21:46 80 22 97 07/11/22 21:46 104/53 L 07/11/22 21:30 109/63 07/11/22 21:30 81 23 99 07/11/22 21:15 109/67 07/11/22 21:15 83 23 99 07/11/22 21:00 81 21 99 07/11/22 21:00 108/62 07/11/22 20:45 109/61 07/11/22 20:45 81 27 H 99 07/11/22 22:36 Room Air 07/11/22 22:33 36.9 C O2 Del Method 07/12/22 06:16 07/12/22 06:16 07/12/22 06:00 07/12/22 06:00 07/12/22 05:00 07/12/22 05:00 07/12/22 05:16 Room Air 07/12/22 05:16 07/12/22 04:30 07/12/22 04:15 07/12/22 04:00 07/12/22 04:00 07/12/22 03:45 07/12/22 03:30 07/12/22 03:15 07/12/22 03:06 07/12/22 03:06 07/12/22 03:00 07/12/22 02:45 07/12/22 02:30 07/12/22 02:15 07/12/22 02:00 07/12/22 02:00 07/12/22 01:45 07/12/22 01:30 07/12/22 01:15 07/12/22 01:00 07/12/22 01:00 07/12/22 00:45 07/12/22 00:45 07/12/22 00:30 07/12/22 00:30 07/12/22 00:15 07/12/22 00:15 07/12/22 00:00 07/12/22 00:00 07/11/22 23:45 07/11/22 23:45 07/11/22 23:44 07/11/22 23:44 07/11/22 23:43 07/12/22 00:58 07/12/22 00:00 07/11/22 22:00 07/11/22 22:00 07/11/22 21:46 07/11/22 21:46 07/11/22 21:30 07/11/22 21:30 07/11/22 21:15 07/11/22 21:15 07/11/22 21:00 07/11/22 21:00 07/11/22 20:45 07/11/22 20:45 07/11/22 22:36 07/11/22 22:33
[2022-07-12] MEDS: LACTATED RINGER'S 1,000 ML IV SCH (08:58)
[2022-07-12 09:09] LABS: Albumin Globulin Ratio 0.9 (0.9-2); Albumin Level 2.6 gm/dl (3.4-5.0); BUN Creatinine Ratio 13.6 (10-20); Bilirubin,Total 1.7 mg/dl (0.2-1.0); Calcium 7.7 mg/dl (8.5-10.1); Creatinine Clr Calc Pharmacy 22.5 ml/min; Est GFR (African American) 15.5 ml/min; Est GFR (Non-African American) 13.4 ml/min; Potassium 3.5 mmol/L (3.5-5.1); Total Protein 5.6 gm/dl (6.0-8.3)
[2022-07-12 09:13] LABS: Base Excess VBG -11.5 mEq/L; HCO3 VBG 13 mmol/L; Oxygen Saturation VBG < 60.0 %; PCO2 VBG 26 mmHg (38-50); PO2 VBG 34 mmHg; pH VBG 7.31 (7.36-7.41)
--- NOTE | 2022-07-12 09:14 | Neurology Consultation ---
Date of Consultation July 12, 2022 Assessment & Plan (1) Embolic stroke: (2) Sepsis: (3) S/P aortic valve replacement with prosthetic valve: Plan Multifocal cardioembolic stroke, left greater than right cerebellar hemisphere, left greater than right occipital lobe, bilateral frontoparietal lobes. It is difficult to assess the full extent of patient's neurologic deficits in the context of his critical illness complicated by lethargy and inattentiveness. However, he is diffusely weak and likely has bilateral corticospinal deficit/weakness on examination, left greater than right. He does have an obvious left lower facial droop and his left shut off worker strength is weaker than the right. Although he does have a multifocal left greater than right left occipital lobe infarct, I do not appreciate a gross visual field deficit with bedside confrontation testing this morning. (He will need an outpatient visual field evaluation.) Further, although he does have a left greater than right multifocal cerebellar infarct, I am not able to evaluate for ataxia or incoordination in the context of his generalized diffuse weakness related to the bilateral frontoparietal multifocal infarcts. Patient's multifocal embolic infarcts occur in the context of a complicated cardiac history as described in the HPI. Recent echocardiogram revealed a mobile echodensity in the area of the bioprosthetic aortic valve sewing ring which has been reported previously, potentially related to retained suture although vegetation not excluded. There was no mention of intracardiac thrombus or other gross pathology on the recent echocardiogram. He has been seen by cardiology and a follow-up transesophageal echocardiogram will be considered depending on patient's medical status going forward. His anticoagulation and aspirin has been held in light of thrombocytopenia. Lipitor has been continued. He is on IV antibiotics for management of sepsis. Continue current medical care including treatment for sepsis, acute kidney injury. Would resume daily low-dose aspirin and warfarin when stable from a medical and cardiovascular standpoint. As above, transesophageal echocardiogram to be completed when patient further stabilizes medically and would be helpful to further exclude endocarditis. History of Present Illness Reason for Consultation: stroke Requesting Physician: LISA Singh Attending Physician: Angel Silva MD History of Present Illness The patient is a 62-year-old male who presented to the emergency department yesterday with a complaint of progressive weakness which has been present for several days with associated cough, fevers, and body aches. He has a complex cardiovascular history including [place] bioprosthetic AVR in November 2015, postoperative atrial fibrillation without recurrence, ascending thoracic aneurysm repair, intracardiac thrombus adherent to retained AVR suture. He has been admitted to the intensive care unit with sepsis and has been found to have multifocal embolic appearing acute ischemic infarcts on brain MRI. I did independently review these images. There are acute ischemic infarcts within the left cerebellum, minimally so for the right cerebellum, left occipital lobe greater than right, and bilateral frontoparietal lobes. Overall distribution suggestive of an embolic event. MR angiography of the head and neck negative for significant vascular lesion. An echocardiogram revealed a mobile echodensit y in the area of the bioprosthetic aortic valve sewing ring potentially consistent with previously reported retained suture. Vegetation may not be completely excluded. ECGs have revealed PVCs, possible atrial flutter. He has been seen by cardiology. Transesophageal echocardiogram to be considered although patient currently medically unstable for this procedure. His anticoagulation has been held due to acute thrombocytopenia. He has been seen by nephrology as well for acute kidney injury. Patient's sepsis is related to gram-positive bacteremia. The patient is modestly lethargic this morning. He is aware of generalized weakness, left greater than right. He is somewhat slow to answer questions and exhibits reduced attention. He is an unreliable historian at this time. Allergies Allergy/AdvReac Type Severity Reaction Status Date / Time No Known Allergies Allergy Mild Verified 11/03/20 08:59 Home Medications Medication Instructions Recorded Confirmed Type atorvastatin 80 mg tablet 80 mg PO DAILY #0 tabs 11/07/15 07/11/22 History aspirin 81 mg tablet,delayed 81 mg PO DAILY ##0 01/01/16 07/11/22 History release amoxicillin 500 mg capsule 2,000 mg PO USEASDIRECTD PRN 30-60 07/20/20 07/11/22 History min prior to dental proc colchicine 0.6 mg tablet 0.6 mg PO BID 07/20/20 07/11/22 History lisinopril 5 mg tablet 10 mg PO DAILY 07/20/20 07/11/22 History metoprolol tartrate 25 mg tablet 25 mg PO BID 11/03/20 07/11/22 History warfarin 5 mg tablet 5 mg PO UD 11/03/20 07/11/22 History allopurinol 300 mg tablet 300 mg PO QAM 07/11/22 07/11/22 History oseltamivir 75 mg capsule 75 mg PO BID 07/11/22 07/11/22 History prednisone 20 mg tablet 20 mg PO DAILY 07/11/22 07/11/22 History Patient History Medical History CAD (coronary artery disease) Gout History of tobacco abuse HLD (hyperlipidemia) Thoracic aortic aneurysm (TAA) Surgical History Hx of inguinal hernia repair S/P aortic valve replacement with prosthetic valve Family History Mother Hypertension Other Diabetes Stroke Social History Smoking Status: Current every day smoker Tobacco Type: Cigarettes Hx Alcohol Use: Yes Alcohol type: beer Hx Substance Use: No Preferred Language: Pashto Communication Ability: Effective Sports Intern Required: No Beliefs That Will Affect Care: None Current Living Situation: Spouse Other Information That Helps Us Care for You: No Feels Safe at Home: Yes Safety Concerns: Feels Safe At This Time Assistive Devices: Denture - Lower and Glasses Review of Systems Review of Systems: Other (Unreliable due to reduced attentiveness.) All systems reviewed and are unremarkable except as noted in subjective. Exam (Neuro) Constitutional: + ill appearing and + lethargic Cardiovascular: Vessels: normal carotid upstroke; no carotid bruit Neurologic: Oriented to:: Person and Place; negative Time Memory: Remote Intact; negative Short Term Intact Attention: negative Span Intact or Concentration Intact Speech Fluency: negative Dysarthria or Dysfluency Speech Aphasia: negative Aphasia Fund of Knowledge: Vocabulary; negative Current Events or Past History Cranial Nerves: Normal II, III, IV, , V, VIII, IX, X, XI and XII; Abnorm VII (Left lower facial droop noted) Motor Strength: negative Normal Lower Extremities or Normal Upper Extremities Motor Tone: Normal Lower Extremities and Normal Upper Extremities Muscle Bulk/Involuntary Movements: No Involuntary Movements; negative Muscle Atrophy Sensation: Light Touch Intact, Pain/Temperature Intact, Vibration Intact and Proprioception Intact Coordination: Finger-Nose Abnormal and Heel-Ty Abnormal Deep Tendon Reflexes: Rt Triceps: 2+, Lt Triceps: 2+, Rt Biceps: 2+, Lt Biceps: 2+, Rt Brachioradialis: 2+, Lt Brachioradialis: 2+, Rt Patellar: 2+, Lt Patellar: 2+, Rt Ankle: 1+ and Lt Ankle: 1+ Special Tests: Babinski Present (Plantar responses withdrawal) Details: Diffuse weakness noted, unable to lift limbs out of bed against gravity, bilateral, left greater than right. Gait cannot be tested. Direct ophthalmoscopic examination cannot be tested due to poor patient cooperation. Results & Data ([facility]) Vital Signs (Past 12 Hours) Vital Signs Temp Pulse Resp BP Pulse Ox Pulse Ox O2 Del Method 07/12/22 06:16 130/68 07/12/22 06:16 77 21 100 07/12/22 06:00 79 24 99 07/12/22 06:00 129/67 07/12/22 05:00 131/66 07/12/22 05:00 78 28 H 100 07/12/22 05:16 100 07/12/22 05:16 77 07/12/22 04:30 77 17 100 07/12/22 04:15 78 22 100 07/12/22 04:00 77 20 100 07/12/22 04:00 127/62 07/12/22 03:45 79 21 99 Room Air 07/12/22 03:30 77 19 100 07/12/22 03:15 78 23 100 07/12/22 03:06 78 25 H 100 07/12/22 03:06 134/75 07/12/22 03:00 78 21 98 07/12/22 02:45 79 21 100 07/12/22 02:30 78 21 96 07/12/22 02:15 80 21 99 07/12/22 02:00 79 22 100 Room Air 07/12/22 02:00 136/72 07/12/22 01:45 81 25 H 99 07/12/22 01:30 79 25 H 100 07/12/22 01:15 80 23 100 07/12/22 01:00 79 21 100 07/12/22 01:00 147/80 H 07/12/22 00:45 79 22 100 07/12/22 00:45 147/85 H 07/12/22 00:30 80 26 H 07/12/22 00:30 147/73 H 07/12/22 00:15 81 27 H 100 07/12/22 00:15 145/63 H 07/12/22 00:00 78 19 100 Room Air 07/12/22 00:00 145/72 H 07/11/22 23:45 79 22 99 07/11/22 23:45 125/62 07/11/22 23:44 130/69 07/11/22 23:44 79 24 99 07/11/22 23:43 100 07/12/22 00:58 37.2 C 07/12/22 00:00 79 07/11/22 22:00 81 27 H 100 07/11/22 22:00 109/55 L 07/11/22 21:46 80 22 97 07/11/22 21:46 104/53 L 07/11/22 21:30 109/63 07/11/22 21:30 81 23 99 07/11/22 21:15 109/67 07/11/22 21:15 83 23 99 07/11/22 21:00 81 21 99 07/11/22 21:00 108/62 07/11/22 20:45 109/61 07/11/22 20:45 81 27 H 99 07/11/22 22:36 Room Air 07/11/22 22:33 36.9 C O2 Del Method 07/12/22 06:16 07/12/22 06:16 07/12/22 06:00 07/12/22 06:00 07/12/22 05:00 07/12/22 05:00 07/12/22 05:16 Room Air 07/12/22 05:16 07/12/22 04:30 07/12/22 04:15 07/12/22 04:00 07/12/22 04:00 07/12/22 03:45 07/12/22 03:30 07/12/22 03:15 07/12/22 03:06 07/12/22 03:06 07/12/22 03:00 07/12/22 02:45 07/12/22 02:30 07/12/22 02:15 07/12/22 02:00 07/12/22 02:00 07/12/22 01:45 07/12/22 01:30 07/12/22 01:15 07/12/22 01:00 07/12/22 01:00 07/12/22 00:45 07/12/22 00:45 07/12/22 00:30 07/12/22 00:30 07/12/22 00:15 07/12/22 00:15 07/12/22 00:00 07/12/22 00:00 07/11/22 23:45 07/11/22 23:45 07/11/22 23:44 07/11/22 23:44 07/11/22 23:43 07/12/22 00:58 07/12/22 00:00 07/11/22 22:00 07/11/22 22:00 07/11/22 21:46 07/11/22 21:46 07/11/22 21:30 07/11/22 21:30 07/11/22 21:15 07/11/22 21:15 07/11/22 21:00 07/11/22 21:00 07/11/22 20:45 07/11/22 20:45 07/11/22 22:36 07/11/22 22:33 Laboratory Results WBC 9.28, hemoglobin 11.5, hematocrit 32.1, platelet count 45, sodium 125, potassium 3.5, BUN 50, creatinine 4.11, glucose 99, troponin 1029, triglycerides 772, cholesterol 154 Diagnostic Findings MRI of the brain, MRA of the head and neck as described in the history of present illness. ECG and echocardiography as described in the history of present illness. PG Care Time/CCT Total # of Minutes Spent Total Time Spent with Patient: Total time spent is greater than 50% in coordination of care (as documented) at patient's floor/unit and/or counseling patient: Coding Level of Care Code 99346 Initial Inpt Care Lvl 3 Diagnoses Embolic stroke I63.9 Sepsis A41.9 S/P aortic valve replacement with prosthetic valve Z95.2
[2022-07-12] MEDS ORDERED: MAGNESIUM SULFATE / D5W 1 GM/100 ML BAG IV ONE (09:58)
[2022-07-12] MEDS ORDERED: Nursing to Pharmacy Communication SCH (10:00)
[2022-07-12] MEDS: NOREPINEPHRINE/D5W 4 MG/250 ML PLCT IV SCH (10:18)
[2022-07-12 10:32] LABS: Estimated Average Glucose 126 mg/dl
--- NOTE | 2022-07-12 11:20 | Cardiology Progress Note ---
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 Embolic stroke overnight Cultures growing probable streptococcus. notes untreated possible dental abscess in the past 2 weeks with 2 dental visits Patient's hemodynamics are improving however renal function remains impaired. Discussed findings in detail with patient and . Prosthetic valve on initial imaging appears competent with possible vegetation noted. Patient with indications for valve replacement especially in light of acute embolic phenomena. Noted not likely to be immediate but will warrant tertiary care evaluation, CV surgery evaluation. Patient is responding to treatment for sepsis hemodynamically but renal function still impaired MICHAEL indicated but not emergent Recommendations: Continue current therapies. We will make arrangements for tert iary transfer to [facility] (Dr. Meyers accepting) Begin tapering Levophed Admission and Anticipated Discharge Date Admission Date: July 11, 2022 Subjective Patient seen and examined, chart, medications, telemetry reviewed. Events of prior evening observed. Patient developed acute neurologic worsening with left-sided weakness and facial droop. MRI reflect probable embolic stroke with multiple foci bilateral cerebrum, no large vessel occlusion Low-dose Levophed added to increase MAP for potential neurologic benefit. Hemodynamically patient is improving renal function slow to respond. He is making urine and is afebrile Mildly lethargic with mild dysarthria but answering questions appropriately Rhythm A. fib flutter with controlled ventricular rate Review of Systems Review of Systems: All systems reviewed & are unremarkable except as noted in Subjective Physical Exam Constitutional: well nourished; no acute distress ENMT: Left facial droop Neck: trachea midline, no thyromegaly Respiratory: normal respiratory effort; no respiratory distress, no labored breathing and no retractions Auscultation: no crackles, no rales, no rhonchi and no wheezes Cardiovascular: Rate/Rhythm: regular rate Heart Sounds: normal S1, normal S2 and + murmur (1/6 systolic ejection murmur heard best at the right second intercostal spa) Vessels: radial pulses present; no JVD Extremities: no edema Gastrointestinal (Abdomen): Inspection/Auscultation: abdomen normal to inspection and normal bowel sounds; abdomen not distended Percussion/ Palpation: abdomen soft; abdomen nontender, no guarding and abdomen not rigid Neurologic: Left-sided weakness with left facial droop and mild dysarthria Results & Data ([facility]) Vital Signs (Past 12 Hours) Vital Signs Temp Pulse Resp BP Pulse Ox Pulse Ox O2 Del Method 07/12/22 06:16 130/68 07/12/22 06:16 77 21 100 07/12/22 06:00 79 24 99 07/12/22 06:00 129/67 07/12/22 05:00 131/66 07/12/22 05:00 78 28 H 100 07/12/22 05:16 100 07/12/22 05:16 77 07/12/22 04:30 77 17 100 07/12/22 04:15 78 22 100 07/12/22 04:00 77 20 100 07/12/22 04:00 127/62 07/12/22 03:45 79 21 99 Room Air 07/12/22 03:30 77 19 100 07/12/22 03:15 78 23 100 07/12/22 03:06 78 25 H 100 07/12/22 03:06 134/75 07/12/22 03:00 78 21 98 07/12/22 02:45 79 21 100 07/12/22 02:30 78 21 96 07/12/22 02:15 80 21 99 07/12/22 02:00 79 22 100 Room Air 07/12/22 02:00 136/72 07/12/22 01:45 81 25 H 99 07/12/22 01:30 79 25 H 100 07/12/22 01:15 80 23 100 07/12/22 01:00 79 21 100 07/12/22 01:00 147/80 H 07/12/22 00:45 79 22 100 07/12/22 00:45 147/85 H 07/12/22 00:30 80 26 H 07/12/22 00:30 147/73 H 07/12/22 00:15 81 27 H 100 07/12/22 00:15 145/63 H 07/12/22 00:00 78 19 100 Room Air 07/12/22 00:00 145/72 H 07/11/22 23:45 79 22 99 07/11/22 23:45 125/62 07/11/22 23:44 130/69 07/11/22 23:44 79 24 99 07/11/22 23:43 100 07/12/22 00:58 37.2 C 07/12/22 00:00 79 O2 Del Method 07/12/22 06:16 07/12/22 06:16 07/12/22 06:00 07/12/22 06:00 07/12/22 05:00 07/12/22 05:00 07/12/22 05:16 Room Air 07/12/22 05:16 07/12/22 04:30 07/12/22 04:15 07/12/22 04:00 07/12/22 04:00 07/12/22 03:45 07/12/22 03:30 07/12/22 03:15 07/12/22 03:06 07/12/22 03:06 07/12/22 03:00 07/12/22 02:45 07/12/22 02:30 07/12/22 02:15 07/12/22 02:00 07/12/22 02:00 07/12/22 01:45 07/12/22 01:30 07/12/22 01:15 07/12/22 01:00 07/12/22 01:00 07/12/22 00:45 07/12/22 00:45 07/12/22 00:30 07/12/22 00:30 07/12/22 00:15 07/12/22 00:15 07/12/22 00:00 07/12/22 00:00 07/11/22 23:45 07/11/22 23:45 07/11/22 23:44 07/11/22 23:44 07/11/22 23:43 07/12/22 00:58 07/12/22 00:00 Laboratory Results Laboratory Results - last 24 hr 07/11/22 07/11/22 07/11/22 05:10 05:44 10:57 WBC RBC Hgb Hct MCV MCH MCHC RDW Std Deviation RDW Coeff of Jere Plt Count MPV Immature Gran % (Auto) Neut % (Auto) Lymph % (Auto) [place] % (Auto) Eos % (Auto) Baso % (Auto) Neut # (Auto) Lymph # (Auto) [place] # (Auto) Eos # (Auto) Baso # (Auto) Immature Gran # (Auto) Toxic Granulation Toxic Vacuolation Dohle Bodies Platelet Estimate Echinocytes PT INR APTT PTT Ratio VBG pH VBG pCO2 VBG pO2 VBG HCO3 VBG O2 Saturation VBG Base Excess Sodium Potassium Chloride Carbon Dioxide Anion Gap BUN Creatinine Est Cr Clr Drug Dosing Est GFR ( Amer) Est GFR (Non-Af Amer) BUN/Creatinine Ratio Glucose POC Glucose Estimat Average Glucose Hemoglobin A1c Osmolality Lactate Calcium Phosphorus Magnesium Total Bilirubin Direct Bilirubin AST ALT Alkaline Phosphatase Lactate Dehydrogenase Total Creatine Kinase Troponin I High Sens Total Protein Albumin Globulin Albumin/Globulin Ratio Triglycerides Cholesterol LDL Cholesterol, Calc VLDL Cholesterol, Calc HDL Cholesterol Cholesterol/HDL Ratio Lipase Urine Color Urine Appearance Urine pH Ur Specific [place] Urine Protein Urine Glucose (UA) Urine Ketones Urine Blood Urine Nitrite Urine Bilirubin Urine Urobilinogen Ur Leukocyte Esterase Urine RBC Urine WBC Ur Epithelial Cells Urine Bacteria Hyaline Casts Granular Casts Urine Osmolality 326 L Ur Random Creatinine Ur Random Sodium Ur Random Potassium Ur Random Chloride Ur Random Uric Acid Urine Sodium Urine Potassium Urine Chloride Nasal Screen MRSA (PCR) Stl C. cayetanensis PCR Stool Rotavirus A PCR Stl Adenov F 40/41 PCR Stool Astrovirus (PCR) Stool Campylobacter PCR Stool Cryptosporidium PCR Stl E.coli Shiga Tox PCR Stl Enterotoxigenic E PCR Stool EPEC (PCR) Stool EAEC (PCR) Stl E. histolytica PCR Stool Giardia Lamblia PCR Stool Salmonella PCR Stool Sapovirus (PCR) Stl P. shigelloides PCR Stl Shigella/EIEC PCR St Y.enterocolitica PCR Stool Vibrio (PCR) Stl Vibrio cholerae PCR Stl Norovirus GI/GII PCR Random Vancomycin Acetaminophen RODNEY Screen ANCA Double Strand DNA Ab Complement C3 Complement C4 Anaplasma Smear Babesia Smear Babesia microti DNA PCR Lyme Disease IgG Ab Negative Lyme Disease IgM Ab Negative Hepatitis C Ab (EIA) Hep C Ab Signal/Cutoff Streptococcus sp PCR DETECTED A Bld Cult ID Panel PCR See PCR Comment 07/11/22 07/11/22 07/11/22 10:57 10:57 10:57 WBC RBC Hgb Hct MCV MCH MCHC RDW Std Deviation RDW Coeff of Jere Plt Count MPV Immature Gran % (Auto) Neut % (Auto) Lymph % (Auto) [place] % (Auto) Eos % (Auto) Baso % (Auto) Neut # (Auto) Lymph # (Auto) [place] # (Auto) Eos # (Auto) Baso # (Auto) Immature Gran # (Auto) Toxic Granulation Toxic Vacuolation Dohle Bodies Platelet Estimate Echinocytes PT INR APTT PTT Ratio VBG pH VBG pCO2 VBG pO2 VBG HCO3 VBG O2 Saturation VBG Base Excess Sodium Potassium Chloride Carbon Dioxide Anion Gap BUN Creatinine Est Cr Clr Drug Dosing Est GFR ( Amer) Est GFR (Non-Af Amer) BUN/Creatinine Ratio Glucose POC Glucose Estimat Average Glucose Hemoglobin A1c Osmolality Lactate Calcium Phosphorus Magnesium Total Bilirubin Direct Bilirubin AST ALT Alkaline Phosphatase Lactate Dehydrogenase Total Creatine Kinase Troponin I High Sens Total Protein Albumin Globulin Albumin/Globulin Ratio Triglycerides Cholesterol LDL Cholesterol, Calc VLDL Cholesterol, Calc HDL Cholesterol Cholesterol/HDL Ratio Lipase Urine Color Dark Yellow Urine Appearance Cloudy A Urine pH 5.0 Ur Specific [place] >= 1.030 Urine Protein 3+ H Urine Glucose (UA) Trace H Urine Ketones Trace H Urine Blood 3+ H Urine Nitrite Negative Urine Bilirubin 1+ H Urine Urobilinogen Negative Ur Leukocyte Esterase Negative Urine RBC 5-10 H Urine WBC >30 H Ur Epithelial Cells 20-30 H Urine Bacteria 2+ H Hyaline Casts 10-30 H Granular Casts 5-10 H Urine Osmolality Ur Random Creatinine 236.1 Ur Random Sodium Cancelled Ur Random Potassium Cancelled Ur Random Chloride Cancelled Ur Random Uric Acid Urine Sodium 27 Urine Potassium 54.6 Urine Chloride 18 Nasal Screen MRSA (PCR) Stl C. cayetanensis PCR Stool Rotavirus A PCR Stl Adenov F 40/41 PCR Stool Astrovirus (PCR) Stool Campylobacter PCR Stool Cryptosporidium PCR Stl E.coli Shiga Tox PCR Stl Enterotoxigenic E PCR Stool EPEC (PCR) Stool EAEC (PCR) Stl E. histolytica PCR Stool Giardia Lamblia PCR Stool Salmonella PCR Stool Sapovirus (PCR) Stl P. shigelloides PCR Stl Shigella/EIEC PCR St Y.enterocolitica PCR Stool Vibrio (PCR) Stl Vibrio cholerae PCR Stl Norovirus GI/GII PCR Random Vancomycin Acetaminophen RODNEY Screen ANCA Double Strand DNA Ab Complement C3 Complement C4 Anaplasma Smear Babesia Smear Babesia microti DNA PCR Lyme Disease IgG Ab Lyme Disease IgM Ab Hepatitis C Ab (EIA) Hep C Ab Signal/Cutoff Streptococcus sp PCR Bld Cult ID Panel PCR 07/11/22 07/11/22 07/11/22 10:57 11:21 16:53 WBC RBC Hgb Hct MCV MCH MCHC RDW Std Deviation RDW Coeff of Jere Plt Count MPV Immature Gran % (Auto) Neut % (Auto) Lymph % (Auto) [place] % (Auto) Eos % (Auto) Baso % (Auto) Neut # (Auto) Lymph # (Auto) [place] # (Auto) Eos # (Auto) Baso # (Auto) Immature Gran # (Auto) Toxic Granulation Toxic Vacuolation Dohle Bodies Platelet Estimate Echinocytes PT INR APTT PTT Ratio VBG pH VBG pCO2 VBG pO2 VBG HCO3 VBG O2 Saturation VBG Base Excess Sodium 128 L 125 L Potassium 3.5 3.5 Chloride 98 97 L Carbon Dioxide 14 L 11 L Anion Gap 16 H 17 H BUN 46 H 50 H Creatinine 3.83 H 4.11 H Est Cr Clr Drug Dosing 25.8 24.0 Est GFR ( Amer) 18.4 16.9 Est GFR (Non-Af Amer) 15.8 14.5 BUN/Creatinine Ratio 12.0 12.2 Glucose 109 H 99 POC Glucose Estimat Average Glucose Hemoglobin A1c Osmolality Lactate Calcium 7.4 L 7.5 L Phosphorus Magnesium Total Bilirubin Direct Bilirubin AST ALT Alkaline Phosphatase Lactate Dehydrogenase Total Creatine Kinase 355 H Troponin I High Sens 580.7 H* Total Protein Albumin Globulin Albumin/Globulin Ratio Triglycerides Cholesterol LDL Cholesterol, Calc VLDL Cholesterol, Calc HDL Cholesterol Cholesterol/HDL Ratio Lipase Urine Color Urine Appearance Urine pH Ur Specific [place] Urine Protein Urine Glucose (UA) Urine Ketones Urine Blood Urine Nitrite Urine Bilirubin Urine Urobilinogen Ur Leukocyte Esterase Urine RBC Urine WBC Ur Epithelial Cells Urine Bacteria Hyaline Casts Granular Casts Urine Osmolality Ur Random Creatinine Ur Random Sodium Ur Random Potassium Ur Random Chloride Ur Random Uric Acid Pending Urine Sodium Urine Potassium Urine Chloride Nasal Screen MRSA (PCR) Stl C. cayetanensis PCR Stool Rotavirus A PCR Stl Adenov F 40/41 PCR Stool Astrovirus (PCR) Stool Campylobacter PCR Stool Cryptosporidium PCR Stl E.coli Shiga Tox PCR Stl Enterotoxigenic E PCR Stool EPEC (PCR) Stool EAEC (PCR) Stl E. histolytica PCR Stool Giardia Lamblia PCR Stool Salmonella PCR Stool Sapovirus (PCR) Stl P. shigelloides PCR Stl Shigella/EIEC PCR St Y.enterocolitica PCR Stool Vibrio (PCR) Stl Vibrio cholerae PCR Stl Norovirus GI/GII PCR Random Vancomycin Acetaminophen RODNEY Screen ANCA Double Strand DNA Ab Complement C3 Complement C4 Anaplasma Smear Babesia Smear Babesia microti DNA PCR Lyme Disease IgG Ab Lyme Disease IgM Ab Hepatitis C Ab (EIA) Hep C Ab Signal/Cutoff Streptococcus sp PCR Bld Cult ID Panel PCR 07/11/22 07/11/22 07/11/22 16:53 16:53 16:58 WBC RBC Hgb Hct MCV MCH MCHC RDW Std Deviation RDW Coeff of Jere Plt Count MPV Immature Gran % (Auto) Neut % (Auto) Lymph % (Auto) [place] % (Auto) Eos % (Auto) Baso % (Auto) Neut # (Auto) Lymph # (Auto) [place] # (Auto) Eos # (Auto) Baso # (Auto) Immature Gran # (Auto) Toxic Granulation Toxic Vacuolation Dohle Bodies Platelet Estimate Echinocytes PT INR APTT PTT Ratio VBG pH VBG pCO2 VBG pO2 VBG HCO3 VBG O2 Saturation VBG Base Excess Sodium Potassium Chloride Carbon Dioxide Anion Gap BUN Creatinine Est Cr Clr Drug Dosing Est GFR ( Amer) Est GFR (Non-Af Amer) BUN/Creatinine Ratio Glucose POC Glucose Estimat Average Glucose Hemoglobin A1c Osmolality Lactate Calcium Phosphorus Magnesium Total Bilirubin Direct Bilirubin AST ALT Alkaline Phosphatase Lactate Dehydrogenase Total Creatine Kinase Troponin I High Sens 840.9 H* D Total Protein Albumin Globulin Albumin/Globulin Ratio Triglycerides Cholesterol LDL Cholesterol, Calc VLDL Cholesterol, Calc HDL Cholesterol Cholesterol/HDL Ratio Lipase Urine Color Urine Appearance Urine pH Ur Specific [place] Urine Protein Urine Glucose (UA) Urine Ketones Urine Blood Urine Nitrite Urine Bilirubin Urine Urobilinogen Ur Leukocyte Esterase Urine RBC Urine WBC Ur Epithelial Cells Urine Bacteria Hyaline Casts Granular Casts Urine Osmolality Ur Random Creatinine Ur Random Sodium Ur Random Potassium Ur Random Chloride Ur Random Uric Acid Urine Sodium Urine Potassium Urine Chloride Nasal Screen MRSA (PCR) Stl C. cayetanensis PCR Not Detected Stool Rotavirus A PCR Not Detected Stl Adenov F 40/41 PCR Not Detected Stool Astrovirus (PCR) Not Detected Stool Campylobacter PCR Not Detected Stool Cryptosporidium PCR Not Detected Stl E.coli Shiga Tox PCR Not Detected Stl Enterotoxigenic E PCR Not Detected Stool EPEC (PCR) Not Detected Stool EAEC (PCR) Not Detected Stl E. histolytica PCR Not Detected Stool Giardia Lamblia PCR Not Detected Stool Salmonella PCR Not Detected Stool Sapovirus (PCR) Not Detected Stl P. shigelloides PCR Not Detected Stl Shigella/EIEC PCR Not Detected St Y.enterocolitica PCR Not Detected Stool Vibrio (PCR) Not Detected Stl Vibrio cholerae PCR Not Detected Stl Norovirus GI/GII PCR Not Detected Random Vancomycin Acetaminophen RODNEY Screen ANCA Double Strand DNA Ab Complement C3 Complement C4 Anaplasma Smear Babesia Smear Babesia microti DNA PCR Pending Lyme Disease IgG Ab Lyme Disease IgM Ab Hepatitis C Ab (EIA) Hep C Ab Signal/Cutoff Streptococcus sp PCR Bld Cult ID Panel PCR 07/11/22 07/11/22 07/11/22 16:58 17:14 18:28 WBC RBC Hgb Hct MCV MCH MCHC RDW Std Deviation RDW Coeff of Jere Plt Count MPV Immature Gran % (Auto) Neut % (Auto) Lymph % (Auto) [place] % (Auto) Eos % (Auto) Baso % (Auto) Neut # (Auto) Lymph # (Auto) [place] # (Auto) Eos # (Auto) Baso # (Auto) Immature Gran # (Auto) Toxic Granulation Toxic Vacuolation Dohle Bodies Platelet Estimate Echinocytes PT INR APTT PTT Ratio VBG pH VBG pCO2 VBG pO2 VBG HCO3 VBG O2 Saturation VBG Base Excess Sodium Potassium Chloride Carbon Dioxide Anion Gap BUN Creatinine Est Cr Clr Drug Dosing Est GFR ( Amer) Est GFR (Non-Af Amer) BUN/Creatinine Ratio Glucose POC Glucose 105 H Estimat Average Glucose Hemoglobin A1c Osmolality Lactate Calcium Phosphorus Magnesium Total Bilirubin Direct Bilirubin AST ALT Alkaline Phosphatase Lactate Dehydrogenase Total Creatine Kinase Troponin I High Sens Total Protein Albumin Globulin Albumin/Globulin Ratio Triglycerides Cholesterol LDL Cholesterol, Calc VLDL Cholesterol, Calc HDL Cholesterol Cholesterol/HDL Ratio Lipase Urine Color Urine Appearance Urine pH Ur Specific [place] Urine Protein Urine Glucose (UA) Urine Ketones Urine Blood Urine Nitrite Urine Bilirubin Urine Urobilinogen Ur Leukocyte Esterase Urine RBC Urine WBC Ur Epithelial Cells Urine Bacteria Hyaline Casts Granular Casts Urine Osmolality Ur Random Creatinine Ur Random Sodium Ur Random Potassium Ur Random Chloride Ur Random Uric Acid Urine Sodium Urine Potassium Urine Chloride Nasal Screen MRSA (PCR) Stl C. cayetanensis PCR Stool Rotavirus A PCR Stl Adenov F 40/41 PCR Stool Astrovirus (PCR) Stool Campylobacter PCR Stool Cryptosporidium PCR Stl E.coli Shiga Tox PCR Stl Enterotoxigenic E PCR Stool EPEC (PCR) Stool EAEC (PCR) Stl E. histolytica PCR Stool Giardia Lamblia PCR Stool Salmonella PCR Stool Sapovirus (PCR) Stl P. shigelloides PCR Stl Shigella/EIEC PCR St Y.enterocolitica PCR Stool Vibrio (PCR) Stl Vibrio cholerae PCR Stl Norovirus GI/GII PCR Random Vancomycin 20.9 H Acetaminophen RODNEY Screen ANCA Double Strand DNA Ab Complement C3 Complement C4 Anaplasma Smear See Comment Babesia Smear See Comment Babesia microti DNA PCR Lyme Disease IgG Ab Lyme Disease IgM Ab Hepatitis C Ab (EIA) Hep C Ab Signal/Cutoff Streptococcus sp PCR Bld Cult ID Panel PCR 07/11/22 07/11/22 07/11/22 19:58 21:39 21:39 WBC 7.70 RBC 3.38 L Hgb 10.9 L D Hct 29.7 L MCV 87.9 MCH 32.2 MCHC 36.7 H RDW Std Deviation 43.0 RDW Coeff of Jere 13.2 Plt Count 36 L MPV 12.9 H Immature Gran % (Auto) 2.6 Neut % (Auto) 81.9 Lymph % (Auto) 2.5 [place] % (Auto) 12.6 Eos % (Auto) 0.1 Baso % (Auto) 0.3 Neut # (Auto) 6.31 Lymph # (Auto) 0.19 L [place] # (Auto) 0.97 H Eos # (Auto) 0.01 Baso # (Auto) 0.02 Immature Gran # (Auto) 0.20 H Toxic Granulation 1+ Toxic Vacuolation 1+ Dohle Bodies 2+ Platelet Estimate Decreased L Echinocytes 1+ PT INR APTT PTT Ratio VBG pH VBG pCO2 VBG pO2 VBG HCO3 VBG O2 Saturation VBG Base Excess Sodium Potassium Chloride Carbon Dioxide Anion Gap BUN Creatinine Est Cr Clr Drug Dosing Est GFR ( Amer) Est GFR (Non-Af Amer) BUN/Creatinine Ratio Glucose POC Glucose 99 Estimat Average Glucose Hemoglobin A1c Osmolality Lactate Calcium Phosphorus Magnesium Total Bilirubin Direct Bilirubin AST ALT Alkaline Phosphatase Lactate Dehydrogenase Total Creatine Kinase Troponin I High Sens 992.7 H* Total Protein Albumin Globulin Albumin/Globulin Ratio Triglycerides Cholesterol LDL Cholesterol, Calc VLDL Cholesterol, Calc HDL Cholesterol Cholesterol/HDL Ratio Lipase Urine Color Urine Appearance Urine pH Ur Specific [place] Urine Protein Urine Glucose (UA) Urine Ketones Urine Blood Urine Nitrite Urine Bilirubin Urine Urobilinogen Ur Leukocyte Esterase Urine RBC Urine WBC Ur Epithelial Cells Urine Bacteria Hyaline Casts Granular Casts Urine Osmolality Ur Random Creatinine Ur Random Sodium Ur Random Potassium Ur Random Chloride Ur Random Uric Acid Urine Sodium Urine Potassium Urine Chloride Nasal Screen MRSA (PCR) Stl C. cayetanensis PCR Stool Rotavirus A PCR Stl Adenov F 40/ PCR Stool Astrovirus (PCR) Stool Campylobacter PCR Stool Cryptosporidium PCR Stl E.coli Shiga Tox PCR Stl Enterotoxigenic E PCR Stool EPEC (PCR) Stool EAEC (PCR) Stl E. histolytica PCR Stool Giardia Lamblia PCR Stool Salmonella PCR Stool Sapovirus (PCR) Stl P. shigelloides PCR Stl Shigella/EIEC PCR St Y.enterocolitica PCR Stool Vibrio (PCR) Stl Vibrio cholerae PCR Stl Norovirus GI/GII PCR Random Vancomycin Acetaminophen RODNEY Screen ANCA Double Strand DNA Ab Complement C3 Complement C4 Anaplasma Smear Babesia Smear Babesia microti DNA PCR Lyme Disease IgG Ab Lyme Disease IgM Ab Hepatitis C Ab (EIA) Hep C Ab Signal/Cutoff Streptococcus sp PCR Bld Cult ID Panel PCR 07/11/22 07/11/22 07/11/22 21:39 21:39 21:39 WBC RBC Hgb Hct MCV MCH MCHC RDW Std Deviation RDW Coeff of Jere Plt Count MPV Immature Gran % (Auto) Neut % (Auto) Lymph % (Auto) [place] % (Auto) Eos % (Auto) Baso % (Auto) Neut # (Auto) Lymph # (Auto) [place] # (Auto) Eos # (Auto) Baso # (Auto) Immature Gran # (Auto) Toxic Granulation Toxic Vacuolation Dohle Bodies Platelet Estimate Echinocytes PT INR APTT PTT Ratio VBG pH VBG pCO2 VBG pO2 VBG HCO3 VBG O2 Saturation VBG Base Excess Sodium Cancelled Potassium Cancelled Chloride Cancelled Carbon Dioxide Cancelled Anion Gap Cancelled BUN Cancelled Creatinine Cancelled Est Cr Clr Drug Dosing Cancelled Est GFR ( Amer) Cancelled Est GFR (Non-Af Amer) Cancelled BUN/Creatinine Ratio Cancelled Glucose Cancelled POC Glucose Estimat Average Glucose Hemoglobin A1c Osmolality Lactate Calcium Cancelled Phosphorus Magnesium Total Bilirubin Cancelled Direct Bilirubin Cancelled AST Cancelled ALT Cancelled Alkaline Phosphatase Cancelled Lactate Dehydrogenase 321 H Total Creatine Kinase Troponin I High Sens Total Protein Cancelled Albumin Cancelled Globulin Albumin/Globulin Ratio Triglycerides Cholesterol LDL Cholesterol, Calc VLDL Cholesterol, Calc HDL Cholesterol Cholesterol/HDL Ratio Lipase Urine Color Urine Appearance Urine pH Ur Specific [place] Urine Protein Urine Glucose (UA) Urine Ketones Urine Blood Urine Nitrite Urine Bilirubin Urine Urobilinogen Ur Leukocyte Esterase Urine RBC Urine WBC Ur Epithelial Cells Urine Bacteria Hyaline Casts Granular Casts Urine Osmolality Ur Random Creatinine Ur Random Sodium Ur Random Potassium Ur Random Chloride Ur Random Uric Acid Urine Sodium Urine Potassium Urine Chloride Nasal Screen MRSA (PCR) Stl C. cayetanensis PCR Stool Rotavirus A PCR Stl Adenov F 40/ PCR Stool Astrovirus (PCR) Stool Campylobacter PCR Stool Cryptosporidium PCR Stl E.coli Shiga Tox PCR Stl Enterotoxigenic E PCR Stool EPEC (PCR) Stool EAEC (PCR) Stl E. histolytica PCR Stool Giardia Lamblia PCR Stool Salmonella PCR Stool Sapovirus (PCR) Stl P. shigelloides PCR Stl Shigella/EIEC PCR St Y.enterocolitica PCR Stool Vibrio (PCR) Stl Vibrio cholerae PCR Stl Norovirus GI/GII PCR Random Vancomycin Acetaminophen < 3 L RODNEY Screen ANCA Double Strand DNA Ab Complement C3 Complement C4 Anaplasma Smear Babesia Smear Babesia microti DNA PCR Lyme Disease IgG Ab Lyme Disease IgM Ab Hepatitis C Ab (EIA) Hep C Ab Signal/Cutoff Streptococcus sp PCR Bld Cult ID Panel PCR 07/11/22 07/11/22 07/11/22 21:39 21:39 21:39 WBC RBC Hgb Hct MCV MCH MCHC RDW Std Deviation RDW Coeff of Jere Plt Count MPV Immature Gran % (Auto) Neut % (Auto) Lymph % (Auto) [place] % (Auto) Eos % (Auto) Baso % (Auto) Neut # (Auto) Lymph # (Auto) [place] # (Auto) Eos # (Auto) Baso # (Auto) Immature Gran # (Auto) Toxic Granulation Toxic Vacuolation Dohle Bodies Platelet Estimate Echinocytes PT INR APTT PTT Ratio VBG pH VBG pCO2 VBG pO2 VBG HCO3 VBG O2 Saturation VBG Base Excess Sodium Cancelled Potassium Cancelled Chloride Cancelled Carbon Dioxide Cancelled Anion Gap Cancelled BUN Cancelled Creatinine Cancelled Est Cr Clr Drug Dosing Cancelled Est GFR ( Amer) Cancelled Est GFR (Non-Af Amer) Cancelled BUN/Creatinine Ratio Cancelled Glucose Cancelled POC Glucose Estimat Average Glucose Hemoglobin A1c Osmolality Lactate Calcium Cancelled Phosphorus Magnesium Cancelled Total Bilirubin Cancelled Direct Bilirubin Cancelled AST Cancelled ALT Cancelled Alkaline Phosphatase Cancelled Lactate Dehydrogenase Total Creatine Kinase Troponin I High Sens Total Protein Cancelled Albumin Cancelled Globulin Albumin/Globulin Ratio Triglycerides Cholesterol LDL Cholesterol, Calc VLDL Cholesterol, Calc HDL Cholesterol Cholesterol/HDL Ratio Lipase Urine Color Urine Appearance Urine pH Ur Specific [place] Urine Protein Urine Glucose (UA) Urine Ketones Urine Blood Urine Nitrite Urine Bilirubin Urine Urobilinogen Ur Leukocyte Esterase Urine RBC Urine WBC Ur Epithelial Cells Urine Bacteria Hyaline Casts Granular Casts Urine Osmolality Ur Random Creatinine Ur Random Sodium Ur Random Potassium Ur Random Chloride Ur Random Uric Acid Urine Sodium Urine Potassium Urine Chloride Nasal Screen MRSA (PCR) Stl C. cayetanensis PCR Stool Rotavirus A PCR Stl Adenov F PCR Stool Astrovirus (PCR) Stool Campylobacter PCR Stool Cryptosporidium PCR Stl E.coli Shiga Tox PCR Stl Enterotoxigenic E PCR Stool EPEC (PCR) Stool EAEC (PCR) Stl E. histolytica PCR Stool Giardia Lamblia PCR Stool Salmonella PCR Stool Sapovirus (PCR) Stl P. shigelloides PCR Stl Shigella/EIEC PCR St Y.enterocolitica PCR Stool Vibrio (PCR) Stl Vibrio cholerae PCR Stl Norovirus GI/GII PCR Random Vancomycin Acetaminophen RODNEY Screen Pending ANCA Pending Double Strand DNA Ab Pending Complement C3 Pending Complement C4 Pending Anaplasma Smear Babesia Smear Babesia microti DNA PCR Lyme Disease IgG Ab Lyme Disease IgM Ab Hepatitis C Ab (EIA) Hep C Ab Signal/Cutoff Streptococcus sp PCR Bld Cult ID Panel PCR 07/11/22 07/12/22 07/12/22 21:40 00:41 02:35 WBC RBC Hgb Hct MCV MCH MCHC RDW Std Deviation RDW Coeff of Jere Plt Count MPV Immature Gran % (Auto) Neut % (Auto) Lymph % (Auto) [place] % (Auto) Eos % (Auto) Baso % (Auto) Neut # (Auto) Lymph # (Auto) [place] # (Auto) Eos # (Auto) Baso # (Auto) Immature Gran # (Auto) Toxic Granulation Toxic Vacuolation Dohle Bodies Platelet Estimate Echinocytes PT 30.2 H INR 3.0 H APTT 54.7 H* PTT Ratio 2.0 VBG pH VBG pCO2 VBG pO2 VBG HCO3 VBG O2 Saturation VBG Base Excess Sodium Cancelled Potassium Cancelled Chloride Cancelled Carbon Dioxide Cancelled Anion Gap Cancelled BUN Cancelled Creatinine Cancelled Est Cr Clr Drug Dosing Cancelled Est GFR ( Amer) Cancelled Est GFR (Non-Af Amer) Cancelled BUN/Creatinine Ratio Cancelled Glucose Cancelled POC Glucose 94 Estimat Average Glucose Hemoglobin A1c Osmolality Lactate Calcium Cancelled Phosphorus 4.2 Magnesium Cancelled Total Bilirubin Cancelled Direct Bilirubin AST Cancelled ALT Cancelled Alkaline Phosphatase Cancelled Lactate Dehydrogenase Total Creatine Kinase Troponin I High Sens Total Protein Cancelled Albumin Cancelled Globulin Cancelled Albumin/Globulin Ratio Cancelled Triglycerides 772 H Cholesterol 154 LDL Cholesterol, Calc TNP VLDL Cholesterol, Calc TNP HDL Cholesterol 3 Cholesterol/HDL Ratio 51.3 H Lipase Urine Color Urine Appearance Urine pH Ur Specific Eugene Urine Protein Urine Glucose (UA) Urine Ketones Urine Blood Urine Nitrite Urine Bilirubin Urine Urobilinogen Ur Leukocyte Esterase Urine RBC Urine WBC Ur Epithelial Cells Urine Bacteria Hyaline Casts Granular Casts Urine Osmolality Ur Random Creatinine Ur Random Sodium Ur Random Potassium Ur Random Chloride Ur Random Uric Acid Urine Sodium Urine Potassium Urine Chloride Nasal Screen MRSA (PCR) Stl C. cayetanensis PCR Stool Rotavirus A PCR Stl Adenov F 40/41 PCR Stool Astrovirus (PCR) Stool Campylobacter PCR Stool Cryptosporidium PCR Stl E.coli Shiga Tox PCR Stl Enterotoxigenic E PCR Stool EPEC (PCR) Stool EAEC (PCR) Stl E. histolytica PCR Stool Giardia Lamblia PCR Stool Salmonella PCR Stool Sapovirus (PCR) Stl P. shigelloides PCR Stl Shigella/EIEC PCR St Y.enterocolitica PCR Stool Vibrio (PCR) Stl Vibrio cholerae PCR Stl Norovirus GI/GII PCR Random Vancomycin Acetaminophen RODNEY Screen ANCA Double Strand DNA Ab Complement C3 Complement C4 Anaplasma Smear Babesia Smear Babesia microti DNA PCR Lyme Disease IgG Ab Lyme Disease IgM Ab Hepatitis C Ab (EIA) Hep C Ab Signal/Cutoff Streptococcus sp PCR Bld Cult ID Panel PCR 07/12/22 07/12/22 07/12/22 02:35 02:35 02:35 WBC 9.28 RBC 3.60 L Hgb 11.5 L Hct 32.1 L MCV 89.2 MCH 31.9 MCHC 35.8 RDW Std Deviation 43.2 RDW Coeff of Jere 13.1 Plt Count 45 L MPV 13.6 H Immature Gran % (Auto) Neut % (Auto) Lymph % (Auto) [place] % (Auto) Eos % (Auto) Baso % (Auto) Neut # (Auto) Lymph # (Auto) [place] # (Auto) Eos # (Auto) Baso # (Auto) Immature Gran # (Auto) Toxic Granulation Toxic Vacuolation Dohle Bodies Platelet Estimate Echinocytes PT 29.3 H INR 2.9 H APTT PTT Ratio VBG pH VBG pCO2 VBG pO2 VBG HCO3 VBG O2 Saturation VBG Base Excess Sodium 125 L Potassium 3.7 Chloride 97 L Carbon Dioxide 12 L Anion Gap 16 H BUN 57 H Creatinine 4.25 H Est Cr Clr Drug Dosing 23.3 Est GFR ( Amer) 16.2 Est GFR (Non-Af Amer) 14.0 BUN/Creatinine Ratio 13.4 Glucose 111 H POC Glucose Estimat Average Glucose Hemoglobin A1c Osmolality Lactate Calcium 7.5 L Phosphorus Magnesium 1.8 Total Bilirubin 1.8 H D Direct Bilirubin 1.1 H AST 260 H ALT 143 H Alkaline Phosphatase 82 Lactate Dehydrogenase Total Creatine Kinase Troponin I High Sens Total Protein 5.5 L D Albumin 2.7 L Globulin Albumin/Globulin Ratio Triglycerides Cholesterol LDL Cholesterol, Calc VLDL Cholesterol, Calc HDL Cholesterol Cholesterol/HDL Ratio Lipase Urine Color Urine Appearance Urine pH Ur Specific Eugene Urine Protein Urine Glucose (UA) Urine Ketones Urine Blood Urine Nitrite Urine Bilirubin Urine Urobilinogen Ur Leukocyte Esterase Urine RBC Urine WBC Ur Epithelial Cells Urine Bacteria Hyaline Casts Granular Casts Urine Osmolality Ur Random Creatinine Ur Random Sodium Ur Random Potassium Ur Random Chloride Ur Random Uric Acid Urine Sodium Urine Potassium Urine Chloride Nasal Screen MRSA (PCR) Stl C. cayetanensis PCR Stool Rotavirus A PCR Stl Adenov F 40/41 PCR Stool Astrovirus (PCR) Stool Campylobacter PCR Stool Cryptosporidium PCR Stl E.coli Shiga Tox PCR Stl Enterotoxigenic E PCR Stool EPEC (PCR) Stool EAEC (PCR) Stl E. histolytica PCR Stool Giardia Lamblia PCR Stool Salmonella PCR Stool Sapovirus (PCR) Stl P. shigelloides PCR Stl Shigella/EIEC PCR St Y.enterocolitica PCR Stool Vibrio (PCR) Stl Vibrio cholerae PCR Stl Norovirus GI/GII PCR Random Vancomycin Acetaminophen RODNEY Screen ANCA Double Strand DNA Ab Complement C3 Complement C4 Anaplasma Smear Babesia Smear Babesia microti DNA PCR Lyme Disease IgG Ab Lyme Disease IgM Ab Hepatitis C Ab (EIA) Hep C Ab Signal/Cutoff Streptococcus sp PCR Bld Cult ID Panel PCR 07/12/22 07/12/22 07/12/22 02:35 02:35 02:35 WBC RBC Hgb Hct MCV MCH MCHC RDW Std Deviation RDW Coeff of Jere Plt Count MPV Immature Gran % (Auto) Neut % (Auto) Lymph % (Auto) [place] % (Auto) Eos % (Auto) Baso % (Auto) Neut # (Auto) Lymph # (Auto) [place] # (Auto) Eos # (Auto) Baso # (Auto) Immature Gran # (Auto) Toxic Granulation Toxic Vacuolation Dohle Bodies Platelet Estimate Echinocytes PT INR APTT PTT Ratio VBG pH VBG pCO2 VBG pO2 VBG HCO3 VBG O2 Saturation VBG Base Excess Sodium Potassium Chloride Carbon Dioxide Anion Gap BUN Creatinine Est Cr Clr Drug Dosing Est GFR ( Amer) Est GFR (Non-Af Amer) BUN/Creatinine Ratio Glucose POC Glucose Estimat Average Glucose 126 Hemoglobin A1c 6.0 H Osmolality Lactate Calcium Phosphorus Magnesium Total Bilirubin Direct Bilirubin AST ALT Alkaline Phosphatase Lactate Dehydrogenase Total Creatine Kinase Troponin I High Sens Total Protein Albumin Globulin Albumin/Globulin Ratio Triglycerides Cholesterol LDL Cholesterol, Calc VLDL Cholesterol, Calc HDL Cholesterol Cholesterol/HDL Ratio Lipase Urine Color Urine Appearance Urine pH Ur Specific [place] Urine Protein Urine Glucose (UA) Urine Ketones Urine Blood Urine Nitrite Urine Bilirubin Urine Urobilinogen Ur Leukocyte Esterase Urine RBC Urine WBC Ur Epithelial Cells Urine Bacteria Hyaline Casts Granular Casts Urine Osmolality Ur Random Creatinine Ur Random Sodium Ur Random Potassium Ur Random Chloride Ur Random Uric Acid Urine Sodium Urine Potassium Urine Chloride Nasal Screen MRSA (PCR) Stl C. cayetanensis PCR Stool Rotavirus A PCR Stl Adenov F 40/41 PCR Stool Astrovirus (PCR) Stool Campylobacter PCR Stool Cryptosporidium PCR Stl E.coli Shiga Tox PCR Stl Enterotoxigenic E PCR Stool EPEC (PCR) Stool EAEC (PCR) Stl E. histolytica PCR Stool Giardia Lamblia PCR Stool Salmonella PCR Stool Sapovirus (PCR) Stl P. shigelloides PCR Stl Shigella/EIEC PCR St Y.enterocolitica PCR Stool Vibrio (PCR) Stl Vibrio cholerae PCR Stl Norovirus GI/GII PCR Random Vancomycin 15.6 Acetaminophen RODNEY Screen ANCA Double Strand DNA Ab Complement C3 Complement C4 Anaplasma Smear Babesia Smear Babesia microti DNA PCR Lyme Disease IgG Ab Lyme Disease IgM Ab Hepatitis C Ab (EIA) Pending Hep C Ab Signal/Cutoff Pending Streptococcus sp PCR Bld Cult ID Panel PCR 07/12/22 07/12/22 07/12/22 02:35 04:45 04:45 WBC RBC Hgb Hct MCV MCH MCHC RDW Std Deviation RDW Coeff of Jere Plt Count MPV Immature Gran % (Auto) Neut % (Auto) Lymph % (Auto) [place] % (Auto) Eos % (Auto) Baso % (Auto) Neut # (Auto) Lymph # (Auto) [place] # (Auto) Eos # (Auto) Baso # (Auto) Immature Gran # (Auto) Toxic Granulation Toxic Vacuolation Dohle Bodies Platelet Estimate Echinocytes PT INR APTT PTT Ratio VBG pH 7.29 L VBG pCO2 27 L VBG pO2 41 VBG HCO3 13 VBG O2 Saturation 68.4 VBG Base Excess -12.0 Sodium Potassium Chloride Carbon Dioxide Anion Gap BUN Creatinine Est Cr Clr Drug Dosing Est GFR ( Amer) Est GFR (Non-Af Amer) BUN/Creatinine Ratio Glucose POC Glucose Estimat Average Glucose Hemoglobin A1c Osmolality Lactate 2.4 H* Calcium Phosphorus Magnesium Total Bilirubin Direct Bilirubin AST ALT Alkaline Phosphatase Lactate Dehydrogenase Total Creatine Kinase Troponin I High Sens 1029.4 H* Total Protein Albumin Globulin Albumin/Globulin Ratio Triglycerides Cholesterol LDL Cholesterol, Calc VLDL Cholesterol, Calc HDL Cholesterol Cholesterol/HDL Ratio Lipase 18 Urine Color Urine Appearance Urine pH Ur Specific [place] Urine Protein Urine Glucose (UA) Urine Ketones Urine Blood Urine Nitrite Urine Bilirubin Urine Urobilinogen Ur Leukocyte Esterase Urine RBC Urine WBC Ur Epithelial Cells Urine Bacteria Hyaline Casts Granular Casts Urine Osmolality Ur Random Creatinine Ur Random Sodium Ur Random Potassium Ur Random Chloride Ur Random Uric Acid Urine Sodium Urine Potassium Urine Chloride Nasal Screen MRSA (PCR) Stl C. cayetanensis PCR Stool Rotavirus A PCR Stl Adenov F 40/41 PCR Stool Astrovirus (PCR) Stool Campylobacter PCR Stool Cryptosporidium PCR Stl E.coli Shiga Tox PCR Stl Enterotoxigenic E PCR Stool EPEC (PCR) Stool EAEC (PCR) Stl E. histolytica PCR Stool Giardia Lamblia PCR Stool Salmonella PCR Stool Sapovirus (PCR) Stl P. shigelloides PCR Stl Shigella/EIEC PCR St Y.enterocolitica PCR Stool Vibrio (PCR) Stl Vibrio cholerae PCR Stl Norovirus GI/GII PCR Random Vancomycin Acetaminophen RODNEY Screen ANCA Double Strand DNA Ab Complement C3 Complement C4 Anaplasma Smear Babesia Smear Babesia microti DNA PCR Lyme Disease IgG Ab Lyme Disease IgM Ab Hepatitis C Ab (EIA) Hep C Ab Signal/Cutoff Streptococcus sp PCR Bld Cult ID Panel PCR 07/12/22 07/12/22 07/12/22 06:10 08:35 08:35 WBC RBC Hgb Hct MCV MCH MCHC RDW Std Deviation RDW Coeff of Jere Plt Count MPV Immature Gran % (Auto) Neut % (Auto) Lymph % (Auto) [place] % (Auto) Eos % (Auto) Baso % (Auto) Neut # (Auto) Lymph # (Auto) [place] # (Auto) Eos # (Auto) Baso # (Auto) Immature Gran # (Auto) Toxic Granulation Toxic Vacuolation Dohle Bodies Platelet Estimate Echinocytes PT INR APTT PTT Ratio VBG pH VBG pCO2 VBG pO2 VBG HCO3 VBG O2 Saturation VBG Base Excess Sodium 125 L Potassium 3.5 Chloride 98 Carbon Dioxide 13 L Anion Gap 14 H BUN 60 H Creatinine 4.41 H Est Cr Clr Drug Dosing 22.5 Est GFR ( Amer) 15.5 Est GFR (Non-Af Amer) 13.4 BUN/Creatinine Ratio 13.6 Glucose 122 H POC Glucose 141 H Estimat Average Glucose Hemoglobin A1c Osmolality Pending Lactate Calcium 7.7 L Phosphorus Magnesium Total Bilirubin 1.7 H Direct Bilirubin AST 235 H ALT 134 H Alkaline Phosphatase 88 Lactate Dehydrogenase Total Creatine Kinase Troponin I High Sens Total Protein 5.6 L Albumin 2.6 L Globulin 3.0 Albumin/Globulin Ratio 0.9 Triglycerides Cholesterol LDL Cholesterol, Calc VLDL Cholesterol, Calc HDL Cholesterol Cholesterol/HDL Ratio Lipase Urine Color Urine Appearance Urine pH Ur Specific [place] Urine Protein Urine Glucose (UA) Urine Ketones Urine Blood Urine Nitrite Urine Bilirubin Urine Urobilinogen Ur Leukocyte Esterase Urine RBC Urine WBC Ur Epithelial Cells Urine Bacteria Hyaline Casts Granular Casts Urine Osmolality Ur Random Creatinine Ur Random Sodium Ur Random Potassium Ur Random Chloride Ur Random Uric Acid Urine Sodium Urine Potassium Urine Chloride Nasal Screen MRSA (PCR) Stl C. cayetanensis PCR Stool Rotavirus A PCR Stl Adenov F 40/41 PCR Stool Astrovirus (PCR) Stool Campylobacter PCR Stool Cryptosporidium PCR Stl E.coli Shiga Tox PCR Stl Enterotoxigenic E PCR Stool EPEC (PCR) Stool EAEC (PCR) Stl E. histolytica PCR Stool Giardia Lamblia PCR Stool Salmonella PCR Stool Sapovirus (PCR) Stl P. shigelloides PCR Stl Shigella/EIEC PCR St Y.enterocolitica PCR Stool Vibrio (PCR) Stl Vibrio cholerae PCR Stl Norovirus GI/GII PCR Random Vancomycin Acetaminophen RODNEY Screen ANCA Double Strand DNA Ab Complement C3 Complement C4 Anaplasma Smear Babesia Smear Babesia microti DNA PCR Lyme Disease IgG Ab Lyme Disease IgM Ab Hepatitis C Ab (EIA) Hep C Ab Signal/Cutoff Streptococcus sp PCR Bld Cult ID Panel PCR 07/12/22 07/12/22 07/12/22 08:55 10:25 Unknown WBC RBC Hgb Hct MCV MCH MCHC RDW Std Deviation RDW Coeff of Jere Plt Count MPV Immature Gran % (Auto) Neut % (Auto) Lymph % (Auto) [place] % (Auto) Eos % (Auto) Baso % (Auto) Neut # (Auto) Lymph # (Auto) [place] # (Auto) Eos # (Auto) Baso # (Auto) Immature Gran # (Auto) Toxic Granulation Toxic Vacuolation Dohle Bodies Platelet Estimate Echinocytes PT INR APTT PTT Ratio VBG pH 7.31 L VBG pCO2 26 L VBG pO2 34 VBG HCO3 13 VBG O2 Saturation < 60.0 VBG Base Excess -11.5 Sodium Potassium Chloride Carbon Dioxide Anion Gap BUN Creatinine Est Cr Clr Drug Dosing Est GFR ( Amer) Est GFR (Non-Af Amer) BUN/Creatinine Ratio Glucose POC Glucose Estimat Average Glucose Hemoglobin A1c Osmolality Lactate Calcium Phosphorus Magnesium Total Bilirubin Direct Bilirubin AST ALT Alkaline Phosphatase Lactate Dehydrogenase Total Creatine Kinase Troponin I High Sens Total Protein Albumin Globulin Albumin/Globulin Ratio Triglycerides Cholesterol LDL Cholesterol, Calc VLDL Cholesterol, Calc HDL Cholesterol Cholesterol/HDL Ratio Lipase Urine Color Urine Appearance Urine pH Ur Specific [place] Urine Protein Urine Glucose (UA) Urine Ketones Urine Blood Urine Nitrite Urine Bilirubin Urine Urobilinogen Ur Leukocyte Esterase Urine RBC Urine WBC Ur Epithelial Cells Urine Bacteria Hyaline Casts Granular Casts Urine Osmolality Ur Random Creatinine Ur Random Sodium Ur Random Potassium Ur Random Chloride Ur Random Uric Acid Urine Sodium Urine Potassium Urine Chloride Nasal Screen MRSA (PCR) Pending Negative Stl C. cayetanensis PCR Stool Rotavirus A PCR Stl Adenov F 40/41 PCR Stool Astrovirus (PCR) Stool Campylobacter PCR Stool Cryptosporidium PCR Stl E.coli Shiga Tox PCR Stl Enterotoxigenic E PCR Stool EPEC (PCR) Stool EAEC (PCR) Stl E. histolytica PCR Stool Giardia Lamblia PCR Stool Salmonella PCR Stool Sapovirus (PCR) Stl P. shigelloides PCR Stl Shigella/EIEC PCR St Y.enterocolitica PCR Stool Vibrio (PCR) Stl Vibrio cholerae PCR Stl Norovirus GI/GII PCR Random Vancomycin Acetaminophen RODNEY Screen ANCA Double Strand DNA Ab Complement C3 Complement C4 Anaplasma Smear Babesia Smear Babesia microti DNA PCR Lyme Disease IgG Ab Lyme Disease IgM Ab Hepatitis C Ab (EIA) Hep C Ab Signal/Cutoff Streptococcus sp PCR Bld Cult ID Panel PCR
--- NOTE | 2022-07-12 12:35 | Discharge Summary ---
Date of Service July 12, 2022 Admission HPI Per Admitting Provider Past medical history of aortic valve replacement with bioprosthetic valve on Coumadin since 2016, hypertension, hyperlipidemia Patient reports fever with chills since last Thursday when he returned back from work. He had generalized weakness associated with fever. Saw his primary care doctor; was given Tamiflu for suspicion of influenza. He was also given short course of prednisone; has not picked up the medication yet He also reports watery diarrhea; no blood or mucus seen. Reports that his urine output has decreased since last 3 days. He also has dizziness while standing up. No complaint of chest pain, shortness of breath or palpitation. No complaint of abdominal pain or dysuria. On presentation to the ED, he was hypotensive; afebrile and was saturating well in room air. Labs were significant for leukocytosis, thrombocytopenia, JESSIE, lactic acidosis, hypomagnesemia, transaminitis and JESSIE. CT abdomen/pelvis did not show any acute abnormality; punctuate nonobstructive bilateral nephrolithiasis was reported. Chest x-ray did not show any infiltrate. CT head was negative for any acute abnormality. Patient received 2 L of IV fluids in the ED; was hypotensive despite fluid resuscitation. Critical care was consulted; patient was admitted to ICU for further care. Admission Exam Per Admitting Provider Constitutional: Lethargic but able to have conversation Respiratory: Bilateral vesicular breath sound Cardiovascular: RRR, no murmur, no edema Vessels: no JVD or carotid bruit Chest: normal inspection of chest Abdomen: normal bowel sounds, soft, nontender, no hepatosplenomegaly Musculoskeletal: no cyanosis or clubbing, extremities motor strength 5/5 Skin: no rashes, warm and dry normal turgor Neurologic: PERRL, EOMI, accommodation nl, no face palsy, no dysarthria CN's II- XI intact bilaterally and moves all extremities Psychiatric: A+Ox3, euthymic affect : deferred Principal Diagnosis Bacteremia Embolic stroke Possible infective endocarditis Acute kidney injury Thrombocytopenia Discharge Exam Constitutional: Awake; lethargic. Respiratory: Bilateral vesicular breath sound Cardiovascular: RRR, no murmur, no edema Vessels: no JVD or carotid bruit Chest: normal inspection of chest Abdomen: normal bowel sounds, soft, nontender, no hepatosplenomegaly Musculoskeletal: no cyanosis or clubbing, extremities motor strength 5/5 Skin: no rashes, warm and dry normal turgor Neurologic: Left-sided facial droop. 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 Psychiatric: A+Ox3, euthymic affect : deferred Discharge Data Allergies Allergy/AdvReac Type Severity Reaction Status Date / Time No Known Allergies Allergy Mild Verified 11/03/20 08:59 Consultations 07/11/22 08:42 Consult Hospice Office Coordinator Routine 07/11/22 08:43 Consult Nephrology Routine 07/11/22 08:44 Consult Cardiology Routine 07/11/22 08:56 ED Decision to Admit Stat 07/12/22 00:40 Consult Neurology Routine Ordered Studies 07/11/22 05:28 CT abd pelvis wo con Stat CT head/brain wo con Stat 07/11/22 08:43 US point of care ultrasound Urgent 07/11/22 19:50 CT head/brain wo con Stat 07/11/22 19:52 MRI Brain [MR brain wo con] Stat 07/11/22 22:18 MR angio neck wo con Stat MRI Angio Brain [MR angio head wo con] Stat 07/12/22 12:00 CT head/brain wo con Stat Hospital Course (1) Sepsis associated hypotension: (2) Acute kidney injury: (3) Generalized weakness: (4) Elevated liver enzymes: (5) Demand ischemia: (6) S/P aortic valve replacement with prosthetic valve: (7) Thrombocytopenia: (8) Hyponatremia: (9) Hypomagnesemia: Plan Patient is a 62-year-old male with past medical history of aortic valve replacement on warfarin, hypertension who presented from home with 4 days of fever, generalized weakness. On presentation to the ED, patient was hypotensive; other vitals were stable. His lactate was elevated 2.7. He was found to have acute kidney injury, elevated liver enzymes, hyponatremia, thrombocytopenia, hypomagnesemia and elevated troponin. He received 2 L of NS in the ED; continued to be hypotensive. He also received cefepime and vancomycin. He was then admitted to ICU for further care. His blood culture were positive for gram-positive cocci in chains. One of the blood culture was identified to be group G beta Streptococcus. On the night of July 11, patient was found to have left-sided facial weakness and left-sided arm weakness. Stroke alert was called. MRI brain showed numerous small foci of ischemic stroke; suggestive of embolic phenomena. Patient was started on Levophed to maintain MAP of greater than 85 mm Hg given his stroke as per recommendation by neurology. Transthoracic echo was done; EF of 65 to 70% was seen. A possible mobile echodensity in the area of bioprosthetic valve seen ring was seen. Cardiology was consulted given patient's history of bioprosthetic valve, echo findings and ischemic stroke. Patient to be transferred to [facility] under Dr. Meyers given his complex medical condition and possible cardiothoracic evaluation. Her was updated at the bedside and is in agreement. Total Time Total Time Spent Total Time Spent (In Minutes): 45 Total Time Includes: Examination of the Patient, Discharge Planning, Medication Reconciliation, Communication With Other Providers and Other Discharge Plan Discharge Items Reason For Visit: SEPSIS Discharge Diagnosis: Bacteremia Possible infective endocarditis Embolic stroke Acute kidney injury History of bioprosthetic valve on warfarin Activity: Resume your previous activity Non-emergency contact: Primary Care Provider Call non-emergency contact if: you have any medication questions Follow-up/Referrals: Thomas Mcclain MD [Primary Care Provider] - Diet: Regular Addtl Attending Provider Instructions: Current Inpatient Medications Acetaminophen (Acetaminophen 325 Mg Tab) 650 mg PO Q4H PRN PRN Reason: Moderate Pain Stop: 08/10/22 10:47 Atorvastatin Calcium (Atorvastatin 40 Mg Tab) 80 mg PO QAM [facility] Stop: 08/12/22 08:59 Sodium Chloride (Nss 1000ml) 1,000 mls @ 75 mls/hr IV .[id number] [facility] Stop: 08/10/22 19:59 Last Infusion: 07/12/22 10:01 Dose: 75 mls/hr Norepinephrine Bitartrate (Levophed/D5w) 4 mg in 250 mls @ 20.288 mls/hr IV .[id number] [facility]; Protocol Stop: 08/10/22 22:44 Last Admin: 07/12/22 10:18 Dose: 0.07 mcg/kg/min, 28.4 mls/hr Ceftriaxone Sodium 2,000 mg/ (Dextrose) 70 mls @ 140 mls/hr IV Q24H [facility]; Protocol Stop: 08/23/22 08:29 Last Infusion: 07/12/22 09:58 Dose: Infused Ondansetron HCl (Ondansetron Inj 2 Mg/Ml 2 Ml Vial) 4 mg IV Q4H PRN PRN Reason: Nausea And Vomiting Stop: 08/10/22 10:47 Pending Studies at Discharge: No Stand-Alone Forms: My [facility] Skilled Items Patient informed of condition?: Yes DNR: No Discharge Level of Care: Other Communicable Disease: No Discharge Prognosis: Deteriorating Lines: Peripheral IV Urinary Catheter: Yes Medications and DC Order Prescriptions: Continued atorvastatin 80 mg Tablet 80 mg PO DAILY Qty: 0 aspirin [Aspirin Low-Strength] 81 mg Tablet,Delayed Release (Dr/Ec) 81 mg PO DAILY Qty: 0 amoxicillin 500 mg Capsule 2,000 mg PO USEASDIRECTD PRN (Reason: 30-60 min prior to dental proc) lisinopril 5 mg Tablet 10 mg PO DAILY colchicine 0.6 mg Tablet 0.6 mg PO BID allopurinol 300 mg tablet 300 mg PO QAM prednisone 20 mg tablet 20 mg PO DAILY Rx Instructions: Take taper as directed for 6 day course 2 tabs for 2 days, 1.5 tabs for 2 days, and 1 tab for 2 days then stop. oseltamivir 75 mg capsule 75 mg PO BID Rx Instructions: Take for 5 days metoprolol tartrate 25 mg tablet 25 mg PO BID warfarin 5 mg tablet 5 mg PO UD Rx Instructions: PT TAKE 5MG ON MON AND FRI TAKES 7.5MG OTHER DAYS Admission Data Admit Date/Time: 07/11/22 08:41 Attending Provider: Angel Silva Admit Provider: Angel Silva Primary Care Provider: Thomas Mcclain Other Providers: Jess Rincon ; Sayda Garcia ; Chauncey Maki ; Angel Silva ; Robbie Maldonado Emile ; Dori Valera ; Margarito Coulter ; Dori Deal ; Lenny Soriano ; Eduardo Robles ; Lyssa Calderon ; Margarito Martinez
--- NOTE | 2022-07-12 13:16 | CT Scan Report ---
CT SCAN OF THE BRAIN WITHOUT IV CONTRAST CLINICAL HISTORY: Follow-up stroke. COMPARISON STUDY: CT and MRI of the brain dated 07/11/2022. TECHNIQUE: Unenhanced axial CT scan of the brain is performed from the vertex to the skull base. A d ose lowering technique was utilized adhering to the principles of ALARA. CT DOSE: 614.27 mGy.cm FINDINGS: Brain parenchyma: There are several small foci showing loss of garsia-white matter differentiation iden tified in the right parietal lobe, the occipital lobes, and the cerebellum. This corresponds to the n umerous tiny infarcts seen on yesterday's MRI. There is no hemorrhage or mass effect. No extra-axial fluid collection is seen. Ventricles, sulci, cisterns: Normal in configuration. Intracranial vasculature: There is atherosclerotic calcification of the cavernous carotid arteries. Calvarium: Unremarkable. Sinuses and mastoids: There is trace mucosal thickening in the left maxillary antrum. The remaining p aranasal sinuses are clear. The mastoid air cells are well pneumatized. Orbits: The bony orbits are grossly intact. IMPRESSION: 1. There are several small foci showing loss of garsia-white matter differentiation as above. These are consistent with tiny evolving infarcts when correlated with yesterday's MRI. 2. There is no hemorrhage or mass effect. ACT 112: Negative or not required by law. Electronically signed by: Bryon Bautista M.D. 07/12/2022 1:13 PM
--- NOTE | 2022-07-12 14:31 | Electrocardiogram Report ---
Test Reason : Blood Pressure : / mmHG Vent. Rate : 080 BPM Atrial Rate : 039 BPM P-R Int : 000 ms QRS Dur : 088 ms QT Int : 402 ms P-R-T Axes : 000 -09 046 degrees QTc Int : 463 ms Possible Atrial flutter with frequent Premature ventricular complexes Low voltage QRS Inferior infarct , age undetermined Abnormal ECG When compared with ECG of 11-JUL-2022 05:06, (unconfirmed) No significant change Confirmed by Brian Polanco ([id number]) on 07/12/2022 2:30:56 PM Referred By: REFERRED SELF Confirmed By:Brian Polanco
[2022-07-12] MEDS: ONDANSETRON INJ 2 MG/ML 2 ML VIAL IV PRN ×2 (16:55→17:04)
[2022-07-13] MEDS ORDERED: ATORVASTATIN 40 MG TAB PO SCH (09:00)
[2022-07-14 13:11] LABS: Complement C3 147 mg/dL (82-185)
[2022-07-14 18:02] LABS: Uric Acid, Random Urine 17 mg/dL
[2022-07-16 08:28] LABS: Babesia microti DNA Not Detected (Not Detected)
[2022-07-17 00:58] LABS: ANCA Screen Negative (Negative); Anti Nuclear Antibody Screen POSITIVE (NEGATIVE); Anti-dsDNA Recombinant <1 IU/mL
[2022-07-17 13:29] LABS: ANA Pattern Nuclear, Homogeneous
== END 2022-07-12 17:15 | disposition short-term general hospital (02) | DRG 871 ==
LOC: ED 04:51 → 1E 08:41

== ENCOUNTER 2022-08-01 14:56 | Inpatient (IN) ==
--- NOTE | 2022-08-01 15:19 | Emergency Department Note ---
Impression & Plan Third degree heart block, Streptococcemia, S/P AVR, Intermittent complete heart block, Anemia ED Provider Note NAME: DENISA LEHMAN AGE: 62 SEX: M : 1960 ARRIVES VIA: Ambulance INFORMANT: Patient ED PROVIDER(S): Hermelindo Scott DO CHIEF COMPLAINT: heart block HPI: Patient is a 62-year-old male with past medical history of embolic stroke, bacteremia secondary to strep, possible endocarditis, demand ischemia, JESSIE, aortic valve replacement on Coumadin who was just discharged from [facility] today about two hours ago. He had an EKG done prior to being discharged. It was read as a sinus rhythm by the hospitalist. Cardiology read this as a Mobitz 2 and he was called and instructed to come into the ER for pacemaker. He notes that he is feeling better overall. He does have pitting edema in lower extremities. No headache or change in vision. No chest pain or shortness of breath. No belly pain, nausea, vomiting, or diarrhea. No other exacerbating or remitting factors. ROS: See above HPI for pertinent positives & negatives. A total of 10 systems reviewed and were otherwise negative. PAST MEDICAL HISTORY:See Below PAST SURGICAL HISTORY:See Below FAMILY HISTORY:See Below SOCIAL HISTORY:See Below HOME MEDICATIONS:See Below ALLERGIES:See Below VITALS:See Below PHYSICAL EXAMINATION: GENERAL: Sitting up in bed, alert, well appearing, well nourished, no distress, non-toxic EYE EXAM: normal conjunctiva. OROPHARYNX: no exudate, no erythema, lips, buccal mucosa, and tongue normal and mucous membranes are moist NECK: supple, no nuchal rigidity, no adenopathy, non-tender LUNGS: Clear to auscultation. Normal chest wall mechanics HEART: S1 normal and S2 normal ABDOMEN: abdomen soft, non-tender, normo-active bowel sounds, no masses, no rebound or guarding. UPPER EXTREMITIES: upper extremities are grossly normal. LOWER EXTREMITIES: Pitting edema of the lower extremities NEURO EXAM: Normal sensorium, cranial nerves II-XII grossly intact, normal speech, no gross weakness of arms, no gross weakness of legs. MEDICAL DECISION MAKING: Patient is a 62-year-old male with extensive past medical history of bacteremia secondary to strep, embolic stroke, possible endocarditis with an aortic valve replacement on Coumadin who was just discharged from [facility] 2 hours ago following a missed read of an EKG by the hospitalist. Patient was referred in to the ER due to the Mobitz 2. Upon presentation he has an intermittent complete heart block. IV was established blood work was obtained. Labs show no significant leukocytosis. Hemoglobin with mild anemia at 8.4. BMP with mild hypokalemia at 3.4. Troponin elevated at 45. Lipase was unremarkable. COVID was negative. Patient is hemodynamically stable at this time. Consulted cardiology as we have the ability to place pacemakers here. He was seen evaluated by Dr. Pandya. He recommended transfer. Contacted [facility] and discussed with the transfer center. They accepted him and will call us back with a bed. After this I was informed that there were 2 patients 1 of which has a subarachnoid that is waiting to be transferred and there is no ambulances at this time. Discussed with Dr. Rios, Dr. Ya Rincon as this patient will not be transferred until the morning as there is 2 transfers ahead of him. They are agreeable with going to the ICU and we are still waiting a bed at this time. Patient was updated in regards to this. Triage Nursing notes reviewed. Limited review of prior medical records performed Vital Signs: reviewed and remarkable for ketty Differential diagnosis: Infection, dehydration, metabolic abnormality, hypo/hyperglycemia, electrolyte disturbance, anemia, hypoxia, cardiac sources, intracerebral event, toxicologic, neurologic, as well as other pathologies. ER treatment provided: See below Diagnostics interpreted by me: ECG: Heart block rate of 42 Left axis Right bundle branch block T wave inversions V1 through V3 QTC 447 Cardiac Monitoring: An order was placed for continuous cardiac monitoring. The monitor shows a rate of 50 with sinus rhythm. Laboratory studies: As stated above and show below. Imaging studies: Portable AP upright 1 view of the chest was unremarkable Consultation(s): As described above Procedures: none Critical Care: None Past Med/Surg History Medical History CAD (coronary artery disease) CVA (cerebral vascular accident) Gout History of tobacco abuse HLD (hyperlipidemia) HTN (hypertension) Thoracic aortic aneurysm (TAA) Surgical History Hx of inguinal hernia repair S/P aortic valve replacement with prosthetic valve S/P AVR Family History Mother Hypertension Other Diabetes Stroke Social History Smoking Status: Former smoker Tobacco Type: Cigarettes Hx Alcohol Use: Yes Alcohol type: beer Hx Substance Use: No Preferred Language: Swedish Communication Ability: Effective Manager Validation Required: No Beliefs That Will Affect Care: None Current Living Situation: Spouse Feels Safe at Home: Yes Assistive Devices: Denture - Lower and Glasses Allergies Allergies Allergy/AdvReac Type Severity Reaction Status Date / Time No Known Allergies Allergy Mild Verified 08/01/22 16:36 Home Meds Home Medications Medication Instructions Recorded Confirmed amoxicillin 500 mg capsule 2,000 mg PO USEASDIRECTD PRN 30-60 07/20/20 08/01/22 min prior to dental proc colchicine 0.6 mg tablet 0.6 mg PO BID 07/20/20 08/01/22 warfarin 5 mg tablet 5 mg PO QPM 11/03/20 08/01/22 acetaminophen 325 mg tablet 650 mg PO Q6H PRN PAIN/FEVER 08/01/22 08/01/22 (Tylenol) allopurinol 100 mg tablet 100 mg PO QAM 08/01/22 08/01/22 ampicillin sodium 2 gram 2 g IV Q4H 08/01/22 08/01/22 intravenous solution ascorbic acid (vitamin C) 250 mg 250 mg PO BIDM 08/01/22 08/01/22 tablet (Vitamin C) aspirin 81 mg chewable tablet 81 mg PO DAILY 08/01/22 08/01/22 enoxaparin 120 mg/0.8 mL 110 mg subcut DAILY 08/01/22 08/01/22 subcutaneous syringe (Lovenox) ferrous sulfate 325 mg (65 mg 325 mg PO BIDM 08/01/22 08/01/22 iron) tablet (Feosol) metoprolol tartrate 25 mg tablet 12.5 mg PO BID 08/01/22 08/01/22 omeprazole 40 mg capsule,delayed 40 mg PO DAILY 08/01/22 08/01/22 release Results & Data (ED) Vital Signs Vital Signs - 24 hr 08/01/22 15:00 08/01/22 15:05 08/01/22 15:05 Temperature 37.5 C Temperature Source Oral Pulse Rate 75 Pulse Rate [Apical] Pulse Rate from SpO2 Sensor Pulse Rhythm Pulse Rhythm [Apical] Pulse Strength Normal Pulse Strength [Apical] Respiratory Rate 20 Respiratory Effort / Characteristics Non-Labored Spontaneous SOB on Exertion Respiratory Depth Normal Shallow Respiratory Pattern Regular Blood Pressure 134/76 Blood Pressure [Right Arm] Blood Pressure Mean 95 Blood Pressure Mean [Right Arm] Blood Pressure Position [Right Arm] Pulse Oximetry 98 98 Oxygen Delivery Method Room Air Room Air Room Air Sepsis Recent Fever Within 48 Hours No Sepsis New/Unexplained Change in Mental Status No Sepsis Action Taken by Nursing No Action Required 08/01/22 15:05 08/01/22 15:12 08/01/22 15:06 Temperature Temperature Source Pulse Rate 44 L 69 Pulse Rate [Apical] 44 L Pulse Rate from SpO2 Sensor 66 Pulse Rhythm Regular Pulse Rhythm [Apical] Regular Pulse Strength Pulse Strength [Apical] Normal Respiratory Rate 19 17 23 Respiratory Effort / Characteristics SOB on Exertion Respiratory Depth Respiratory Pattern Blood Pressure Blood Pressure [Right Arm] 123/74 Blood Pressure Mean Blood Pressure Mean [Right Arm] 90 Blood Pressure Position [Right Arm] Lying Pulse Oximetry 98 100 99 Oxygen Delivery Method Room Air Room Air Sepsis Recent Fever Within 48 Hours Sepsis New/Unexplained Change in Mental Status Sepsis Action Taken by Nursing 08/01/22 15:10 08/01/22 15:11 08/01/22 15:11 Temperature Temperature Source Pulse Rate 61 46 L Pulse Rate [Apical] Pulse Rate from SpO2 Sensor 48 L Pulse Rhythm Pulse Rhythm [Apical] Pulse Strength Pulse Strength [Apical] Respiratory Rate 24 16 Respiratory Effort / Characteristics Respiratory Depth Respiratory Pattern Blood Pressure 123/74 Blood Pressure [Right Arm] Blood Pressure Mean 90 Blood Pressure Mean [Right Arm] Blood Pressure Position [Right Arm] Pulse Oximetry 100 Oxygen Delivery Method Sepsis Recent Fever Within 48 Hours Sepsis New/Unexplained Change in Mental Status Sepsis Action Taken by Nursing 08/01/22 15:15 08/01/22 15:15 08/01/22 15:20 Temperature Temperature Source Pulse Rate 43 L 42 L Pulse Rate [Apical] Pulse Rate from SpO2 Sensor 43 L 42 L Pulse Rhythm Pulse Rhythm [Apical] Pulse Strength Pulse Strength [Apical] Respiratory Rate 17 15 Respiratory Effort / Characteristics Respiratory Depth Respiratory Pattern Blood Pressure 142/68 H Blood Pressure [Right Arm] Blood Pressure Mean 92 Blood Pressure Mean [Right Arm] Blood Pressure Position [Right Arm] Pulse Oximetry 100 99 Oxygen Delivery Method Sepsis Recent Fever Within 48 Hours Sepsis New/Unexplained Change in Mental Status Sepsis Action Taken by Nursing 08/01/22 15:30 08/01/22 15:31 08/01/22 15:31 Temperature Temperature Source Pulse Rate 44 L 42 L Pulse Rate [Apical] Pulse Rate from SpO2 Sensor 46 L 43 L Pulse Rhythm Pulse Rhythm [Apical] Pulse Strength Pulse Strength [Apical] Respiratory Rate 22 17 Respiratory Effort / Characteristics Respiratory Depth Respiratory Pattern Blood Pressure 128/67 Blood Pressure [Right Arm] Blood Pressure Mean 87 Blood Pressure Mean [Right Arm] Blood Pressure Position [Right Arm] Pulse Oximetry 98 99 Oxygen Delivery Method Sepsis Recent Fever Within 48 Hours Sepsis New/Unexplained Change in Mental Status Sepsis Action Taken by Nursing 08/01/22 15:40 08/01/22 15:45 08/01/22 15:45 Temperature Temperature Source Pulse Rate 69 43 L Pulse Rate [Apical] Pulse Rate from SpO2 Sensor 66 43 L Pulse Rhythm Pulse Rhythm [Apical] Pulse Strength Pulse Strength [Apical] Respiratory Rate 19 16 Respiratory Effort / Characteristics Respiratory Depth Respiratory Pattern Blood Pressure 123/61 Blood Pressure [Right Arm] Blood Pressure Mean 81 Blood Pressure Mean [Right Arm] Blood Pressure Position [Right Arm] Pulse Oximetry 98 98 Oxygen Delivery Method Sepsis Recent Fever Within 48 Hours Sepsis New/Unexplained Change in Mental Status Sepsis Action Taken by Nursing 08/01/22 15:50 08/01/22 16:00 08/01/22 16:00 Temperature Temperature Source Pulse Rate 48 L 47 L Pulse Rate [Apical] Pulse Rate from SpO2 Sensor 44 L 49 L Pulse Rhythm Pulse Rhythm [Apical] Pulse Strength Pulse Strength [Apical] Respiratory Rate 15 17 Respiratory Effort / Characteristics Respiratory Depth Respiratory Pattern Blood Pressure 129/65 Blood Pressure [Right Arm] Blood Pressure Mean 86 Blood Pressure Mean [Right Arm] Blood Pressure Position [Right Arm] Pulse Oximetry 99 98 Oxygen Delivery Method Sepsis Recent Fever Within 48 Hours Sepsis New/Unexplained Change in Mental Status Sepsis Action Taken by Nursing 08/01/22 16:10 08/01/22 16:16 08/01/22 16:16 Temperature Temperature Source Pulse Rate 43 L 41 L Pulse Rate [Apical] Pulse Rate from SpO2 Sensor 48 L 44 L Pulse Rhythm Pulse Rhythm [Apical] Pulse Strength Pulse Strength [Apical] Respiratory Rate 24 17 Respiratory Effort / Characteristics Respiratory Depth Respiratory Pattern Blood Pressure 130/61 Blood Pressure [Right Arm] Blood Pressure Mean 84 Blood Pressure Mean [Right Arm] Blood Pressure Position [Right Arm] Pulse Oximetry 98 97 Oxygen Delivery Method Sepsis Recent Fever Within 48 Hours Sepsis New/Unexplained Change in Mental Status Sepsis Action Taken by Nursing 08/01/22 16:20 08/01/22 16:30 08/01/22 16:30 Temperature Temperature Source Pulse Rate 42 L 43 L Pulse Rate [Apical] Pulse Rate from SpO2 Sensor 42 L 48 L Pulse Rhythm Pulse Rhythm [Apical] Pulse Strength Pulse Strength [Apical] Respiratory Rate 17 21 Respiratory Effort / Characteristics Respiratory Depth Respiratory Pattern Blood Pressure 131/72 Blood Pressure [Right Arm] Blood Pressure Mean 91 Blood Pressure Mean [Right Arm] Blood Pressure Position [Right Arm] Pulse Oximetry 96 97 Oxygen Delivery Method Sepsis Recent Fever Within 48 Hours Sepsis New/Unexplained Change in Mental Status Sepsis Action Taken by Nursing 08/01/22 16:40 08/01/22 16:45 08/01/22 16:45 Temperature Temperature Source Pulse Rate 41 L 41 L Pulse Rate [Apical] Pulse Rate from SpO2 Sensor 42 L 45 L Pulse Rhythm Pulse Rhythm [Apical] Pulse Strength Pulse Strength [Apical] Respiratory Rate 12 20 Respiratory Effort / Characteristics Respiratory Depth Respiratory Pattern Blood Pressure 149/70 H Blood Pressure [Right Arm] Blood Pressure Mean 96 Blood Pressure Mean [Right Arm] Blood Pressure Position [Right Arm] Pulse Oximetry 98 99 Oxygen Delivery Method Sepsis Recent Fever Within 48 Hours Sepsis New/Unexplained Change in Mental Status Sepsis Action Taken by Nursing 08/01/22 16:50 08/01/22 17:00 08/01/22 17:00 Temperature Temperature Source Pulse Rate 42 L 42 L Pulse Rate [Apical] Pulse Rate from SpO2 Sensor 42 L 42 L Pulse Rhythm Pulse Rhythm [Apical] Pulse Strength Pulse Strength [Apical] Respiratory Rate 22 21 Respiratory Effort / Characteristics Respiratory Depth Respiratory Pattern Blood Pressure 157/82 H Blood Pressure [Right Arm] Blood Pressure Mean 107 Blood Pressure Mean [Right Arm] Blood Pressure Position [Right Arm] Pulse Oximetry 99 97 Oxygen Delivery Method Sepsis Recent Fever Within 48 Hours Sepsis New/Unexplained Change in Mental Status Sepsis Action Taken by Nursing 08/01/22 17:10 08/01/22 17:15 08/01/22 17:15 Temperature Temperature Source Pulse Rate 42 L 42 L Pulse Rate [Apical] Pulse Rate from SpO2 Sensor 45 L 44 L Pulse Rhythm Pulse Rhythm [Apical] Pulse Strength Pulse Strength [Apical] Respiratory Rate 24 23 Respiratory Effort / Characteristics Respiratory Depth Respiratory Pattern Blood Pressure 142/76 H Blood Pressure [Right Arm] Blood Pressure Mean 98 Blood Pressure Mean [Right Arm] Blood Pressure Position [Right Arm] Pulse Oximetry 98 96 Oxygen Delivery Method Sepsis Recent Fever Within 48 Hours Sepsis New/Unexplained Change in Mental Status Sepsis Action Taken by Nursing 08/01/22 17:20 08/01/22 17:30 08/01/22 17:30 Temperature Temperature Source Pulse Rate 45 L 41 L Pulse Rate [Apical] Pulse Rate from SpO2 Sensor 53 L 41 L Pulse Rhythm Pulse Rhythm [Apical] Pulse Strength Pulse Strength [Apical] Respiratory Rate 24 21 Respiratory Effort / Characteristics Respiratory Depth Respiratory Pattern Blood Pressure 143/68 H Blood Pressure [Right Arm] Blood Pressure Mean 93 Blood Pressure Mean [Right Arm] Blood Pressure Position [Right Arm] Pulse Oximetry 98 97 Oxygen Delivery Method Sepsis Recent Fever Within 48 Hours Sepsis New/Unexplained Change in Mental Status Sepsis Action Taken by Nursing 08/01/22 17:40 08/01/22 17:45 08/01/22 17:45 Temperature Temperature Source Pulse Rate 43 L 41 L Pulse Rate [Apical] Pulse Rate from SpO2 Sensor 47 L 42 L Pulse Rhythm Pulse Rhythm [Apical] Pulse Strength Pulse Strength [Apical] Respiratory Rate 21 21 Respiratory Effort / Characteristics Respiratory Depth Respiratory Pattern Blood Pressure 130/65 Blood Pressure [Right Arm] Blood Pressure Mean 86 Blood Pressure Mean [Right Arm] Blood Pressure Position [Right Arm] Pulse Oximetry 97 95 Oxygen Delivery Method Sepsis Recent Fever Within 48 Hours Sepsis New/Unexplained Change in Mental Status Sepsis Action Taken by Nursing 08/01/22 17:50 08/01/22 18:00 08/01/22 18:00 Temperature Temperature Source Pulse Rate 53 L 42 L Pulse Rate [Apical] Pulse Rate from SpO2 Sensor 50 L 42 L Pulse Rhythm Pulse Rhythm [Apical] Pulse Strength Pulse Strength [Apical] Respiratory Rate 24 21 Respiratory Effort / Characteristics Respiratory Depth Respiratory Pattern Blood Pressure 141/75 H Blood Pressure [Right Arm] Blood Pressure Mean 97 Blood Pressure Mean [Right Arm] Blood Pressure Position [Right Arm] Pulse Oximetry 96 96 Oxygen Delivery Method Sepsis Recent Fever Within 48 Hours Sepsis New/Unexplained Change in Mental Status Sepsis Action Taken by Nursing 08/01/22 18:10 08/01/22 18:15 08/01/22 18:15 Temperature Temperature Source Pulse Rate 42 L 45 L Pulse Rate [Apical] Pulse Rate from SpO2 Sensor 42 L 45 L Pulse Rhythm Pulse Rhythm [Apical] Pulse Strength Pulse Strength [Apical] Respiratory Rate 23 21 Respiratory Effort / Characteristics Respiratory Depth Respiratory Pattern Blood Pressure 143/76 H Blood Pressure [Right Arm] Blood Pressure Mean 98 Blood Pressure Mean [Right Arm] Blood Pressure Position [Right Arm] Pulse Oximetry 97 97 Oxygen Delivery Method Sepsis Recent Fever Within 48 Hours Sepsis New/Unexplained Change in Mental Status Sepsis Action Taken by Nursing 08/01/22 18:20 08/01/22 18:30 08/01/22 18:30 Temperature Temperature Source Pulse Rate 42 L 43 L Pulse Rate [Apical] Pulse Rate from SpO2 Sensor 42 L 49 L Pulse Rhythm Pulse Rhythm [Apical] Pulse Strength Pulse Strength [Apical] Respiratory Rate 22 21 Respiratory Effort / Characteristics Respiratory Depth Respiratory Pattern Blood Pressure 133/69 Blood Pressure [Right Arm] Blood Pressure Mean 90 Blood Pressure Mean [Right Arm] Blood Pressure Position [Right Arm] Pulse Oximetry 93 94 Oxygen Delivery Method Sepsis Recent Fever Within 48 Hours Sepsis New/Unexplained Change in Mental Status Sepsis Action Taken by Nursing 08/01/22 18:40 08/01/22 18:45 08/01/22 18:45 Temperature Temperature Source Pulse Rate 41 L 41 L Pulse Rate [Apical] Pulse Rate from SpO2 Sensor 41 L 41 L Pulse Rhythm Pulse Rhythm [Apical] Pulse Strength Pulse Strength [Apical] Respiratory Rate 19 21 Respiratory Effort / Characteristics Respiratory Depth Respiratory Pattern Blood Pressure 140/70 Blood Pressure [Right Arm] Blood Pressure Mean 93 Blood Pressure Mean [Right Arm] Blood Pressure Position [Right Arm] Pulse Oximetry 95 96 Oxygen Delivery Method Sepsis Recent Fever Within 48 Hours Sepsis New/Unexplained Change in Mental Status Sepsis Action Taken by Nursing 08/01/22 18:50 08/01/22 19:00 08/01/22 19:00 Temperature Temperature Source Pulse Rate 41 L 51 L Pulse Rate [Apical] Pulse Rate from SpO2 Sensor 42 L 67 Pulse Rhythm Pulse Rhythm [Apical] Pulse Strength Pulse Strength [Apical] Respiratory Rate 22 24 Respiratory Effort / Characteristics Respiratory Depth Respiratory Pattern Blood Pressure 154/64 H Blood Pressure [Right Arm] Blood Pressure Mean 94 Blood Pressure Mean [Right Arm] Blood Pressure Position [Right Arm] Pulse Oximetry 97 97 Oxygen Delivery Method Sepsis Recent Fever Within 48 Hours Sepsis New/Unexplained Change in Mental Status Sepsis Action Taken by Nursing 08/01/22 19:10 08/01/22 19:15 08/01/22 19:15 Temperature Temperature Source Pulse Rate 41 L 62 Pulse Rate [Apical] Pulse Rate from SpO2 Sensor 48 L 55 L Pulse Rhythm Pulse Rhythm [Apical] Pulse Strength Pulse Strength [Apical] Respiratory Rate 24 19 Respiratory Effort / Characteristics Respiratory Depth Respiratory Pattern Blood Pressure 121/71 Blood Pressure [Right Arm] Blood Pressure Mean 87 Blood Pressure Mean [Right Arm] Blood Pressure Position [Right Arm] Pulse Oximetry 95 97 Oxygen Delivery Method Sepsis Recent Fever Within 48 Hours Sepsis New/Unexplained Change in Mental Status Sepsis Action Taken by Nursing 08/01/22 19:20 08/01/22 19:30 08/01/22 19:30 Temperature Temperature Source Pulse Rate 42 L 42 L Pulse Rate [Apical] Pulse Rate from SpO2 Sensor 43 L 42 L Pulse Rhythm Pulse Rhythm [Apical] Pulse Strength Pulse Strength [Apical] Respiratory Rate 15 18 Respiratory Effort / Characteristics Respiratory Depth Respiratory Pattern Blood Pressure 139/64 Blood Pressure [Right Arm] Blood Pressure Mean 89 Blood Pressure Mean [Right Arm] Blood Pressure Position [Right Arm] Pulse Oximetry 94 98 Oxygen Delivery Method Sepsis Recent Fever Within 48 Hours Sepsis New/Unexplained Change in Mental Status Sepsis Action Taken by Nursing 08/01/22 19:40 08/01/22 19:45 08/01/22 19:45 Temperature Temperature Source Pulse Rate 41 L 41 L Pulse Rate [Apical] Pulse Rate from SpO2 Sensor 42 L 42 L Pulse Rhythm Pulse Rhythm [Apical] Pulse Strength Pulse Strength [Apical] Respiratory Rate 22 19 Respiratory Effort / Characteristics Respiratory Depth Respiratory Pattern Blood Pressure 150/76 H Blood Pressure [Right Arm] Blood Pressure Mean 100 Blood Pressure Mean [Right Arm] Blood Pressure Position [Right Arm] Pulse Oximetry 98 97 Oxygen Delivery Method Sepsis Recent Fever Within 48 Hours Sepsis New/Unexplained Change in Mental Status Sepsis Action Taken by Nursing 08/01/22 19:50 08/01/22 20:00 08/01/22 20:00 Temperature Temperature Source Pulse Rate 41 L 55 L Pulse Rate [Apical] Pulse Rate from SpO2 Sensor 42 L 61 Pulse Rhythm Pulse Rhythm [Apical] Pulse Strength Pulse Strength [Apical] Respiratory Rate 24 21 Respiratory Effort / Characteristics Respiratory Depth Respiratory Pattern Blood Pressure 155/82 H Blood Pressure [Right Arm] Blood Pressure Mean 106 Blood Pressure Mean [Right Arm] Blood Pressure Position [Right Arm] Pulse Oximetry 96 98 Oxygen Delivery Method Sepsis Recent Fever Within 48 Hours Sepsis New/Unexplained Change in Mental Status Sepsis Action Taken by Nursing 08/01/22 20:10 08/01/22 20:16 08/01/22 20:16 Temperature Temperature Source Pulse Rate 64 66 Pulse Rate [Apical] Pulse Rate from SpO2 Sensor 57 L 54 L Pulse Rhythm Pulse Rhythm [Apical] Pulse Strength Pulse Strength [Apical] Respiratory Rate 18 20 Respiratory Effort / Characteristics Respiratory Depth Respiratory Pattern Blood Pressure 154/69 H Blood Pressure [Right Arm] Blood Pressure Mean 97 Blood Pressure Mean [Right Arm] Blood Pressure Position [Right Arm] Pulse Oximetry 94 98 Oxygen Delivery Method Sepsis Recent Fever Within 48 Hours Sepsis New/Unexplained Change in Mental Status Sepsis Action Taken by Nursing 08/01/22 20:20 Temperature Temperature Source Pulse Rate 42 L Pulse Rate [Apical] Pulse Rate from SpO2 Sensor 47 L Pulse Rhythm Pulse Rhythm [Apical] Pulse Strength Pulse Strength [Apical] Respiratory Rate 22 Respiratory Effort / Characteristics Respiratory Depth Respiratory Pattern Blood Pressure Blood Pressure [Right Arm] Blood Pressure Mean Blood Pressure Mean [Right Arm] Blood Pressure Position [Right Arm] Pulse Oximetry 98 Oxygen Delivery Method Sepsis Recent Fever Within 48 Hours Sepsis New/Unexplained Change in Mental Status Sepsis Action Taken by Nursing Laboratory Data Result diagrams: 08/01/22 15:19 08/01/22 15:19 Lab Results 08/01/22 08/01/22 08/01/22 Range/Units 15:19 15:19 16:44 WBC 9.53 (4.8-10.8) K/ul RBC 2.71 L (4.63-6.08) M/uL Hgb 8.4 L (14.0-18.0) g/dl Hct 25.5 L (40.1-51.0) % MCV 94.1 (80.0-100.0) fL MCH 31.0 (25.0-34.0) pg MCHC 32.9 (32.0-36.0) g/dL RDW Std Deviation 52.6 H (36.4-46.3) fL RDW Coeff of Jere 15.4 H (11.5-14.5) % Plt Count 363 (130-400) K/uL MPV 11.3 (9.4-12.4) fL Immature Gran % (Auto) 0.3 % Neut % (Auto) 75.8 % Lymph % (Auto) 9.7 % [place] % (Auto) 12.1 % Eos % (Auto) 1.6 % Baso % (Auto) 0.5 % Neut # (Auto) 7.23 H (1.4-6.5) K/uL Lymph # (Auto) 0.92 L (1.2-3.4) K/uL [place] # (Auto) 1.15 H (0.24-0.82) K/uL Eos # (Auto) 0.15 (0-0.50) K/uL Baso # (Auto) 0.05 (0-0.2) K/uL Immature Gran # (Auto) 0.03 H (0.00-0.02) K/uL Sodium 135 L (136-145) mmol/L Potassium 3.4 L (3.5-5.1) mmol/L Chloride 105 (98-107) mmol/L Carbon Dioxide 21 (21-32) mmol/L Anion Gap 9 (3-11) BUN 13 (6-23) mg/dl Creatinine 1.28 (0.6-1.4) mg/dl Est Cr Clr Drug Dosing 77.6 ml/min Est GFR ( Amer) 69.1 ml/min Est GFR (Non-Af Amer) 59.6 ml/min BUN/Creatinine Ratio 10.2 (10-20) Glucose 106 H (70-99(Fasting)) mg/dl Calcium 7.8 L (8.5-10.1) mg/dl Total Bilirubin 0.7 (0.2-1.0) mg/dl AST 36 (13-39) U/L ALT 40 (7-52) U/L Alkaline Phosphatase 259 H (34-104) U/L Troponin I High Sens 42.5 H (0-20) pg/ml Total Protein 7.2 (6.0-8.3) gm/dl Albumin 2.9 L (3.4-5.0) gm/dl Globulin 4.3 H (2.5-4.0) gm/dl Albumin/Globulin Ratio 0.7 L (0.9-2) Lipase 20 (11-82) U/L SARS-CoV-2, RNA, NAAT NEGATIVE (NEGATIVE) Administered Medications Ampicillin Sodium 2,000 mg/ (Sodium Chloride) 100 mls @ 200 mls/hr IV Q4H CELESTINO Stop: 08/15/22 15:44 Last Infusion: 08/01/22 17:20 Dose: 0 mls/hr Documented By: Admin: 08/01/22 16:48 Dose: 200 mls/hr Documented By: [facility] Imaging Data Radiologist's Impression: Chest X-Ray 08/01/22 15:02 XR chest 1V portable HISTORY: Atypical Chest pain, nonspecific COMPARISON: Chest 07/11/2022. FINDINGS: No pneumothorax. No pleural effusions. The cardiac silhouette remains mildly enlarged. There are poststernotomy changes. There is a left PICC which terminates at the SVC. No acute fractures identified. IMPRESSION: Stable cardiomegaly. Otherwise, no acute process within the chest. ACT 112: Negative or not required by law. Electronically signed by: Damien Barclay M.D. 08/01/2022 3:38 PM Discharge Plan Visit Data Chief Complaint: Cardiac Assessment Stated Complaint: Cardiac assessment ED Provider: Hermelindo Scott Discharge Problem: Third degree heart block, Streptococcemia, S/P AVR, Intermittent complete heart block, Anemia Forms Stand Alone Forms: [facility] Prescriptions Prescriptions: No Action amoxicillin 500 mg Capsule 2,000 mg PO USEASDIRECTD PRN (Reason: 30-60 min prior to dental proc) colchicine 0.6 mg Tablet 0.6 mg PO BID acetaminophen [Tylenol] 325 mg Tablet 650 mg PO Q6H PRN (Reason: PAIN/FEVER) allopurinol 100 mg Tablet 100 mg PO QAM omeprazole 40 mg Capsule,Delayed Release(Dr/Ec) 40 mg PO DAILY ampicillin sodium 2 gram Recon Soln 2 g IV Q4H ascorbic acid (vitamin C) [Vitamin C] 250 mg Tablet 250 mg PO BIDM Rx Instructions: TAKES WITH LUNCH AND DINNER ferrous sulfate [Feosol] 325 mg (65 mg iron) Tablet 325 mg PO BIDM Rx Instructions: TAKES WITH LUNCH AND DINNER aspirin 81 mg Tablet,Chewable 81 mg PO DAILY enoxaparin [Lovenox] 120 mg/0.8 mL Syringe 110 mg SUBCUT DAILY Rx Instructions: GIVEN AT 1000 & 2200 metoprolol tartrate 25 mg Tablet 12.5 mg PO BID Rx Instructions: START 08/01/22 AT 2100. HOLD FOR HR < 60 OR SBP < 100. NOTIFY SERVICE IF HELD. warfarin 5 mg tablet 5 mg PO QPM Rx Instructions: 5mg tue, thur, fri. 7.5mg sun, mon, wed, sat Referrals Referrals: Thomas Mcclain MD [Primary Care Provider] -
[2022-08-01 15:29] LABS: Basophils # (auto) 0.05 K/uL (0-0.2); Basophils % (auto) 0.5 %; Eosinophils # (auto) 0.15 K/uL (0-0.50); Eosinophils % (auto) 1.6 %; Hematocrit (blood only) 25.5 % (40.1-51.0); Hemoglobin 8.4 g/dl (14.0-18.0); Immature Granulocytes # (auto) 0.03 K/uL (0.00-0.02); Immature Granulocytes % (auto) 0.3 %; Lymphocytes # (auto) 0.92 K/uL (1.2-3.4); Lymphocytes % (auto) 9.7 %; Mean Corpuscular Hgb Conc 32.9 g/dL (32.0-36.0); Mean Corpuscular Volume 94.1 fL (80.0-100.0); Mean Platelet Volume 11.3 fL (9.4-12.4); Monocytes # (auto) 1.15 K/uL (0.24-0.82); Monocytes % (auto) 12.1 %; Neutrophils # (auto) 7.23 K/uL (1.4-6.5); Neutrophils % (auto) 75.8 %; Platelet Count 363 K/uL (130-400); RDW Coefficient of Variation 15.4 % (11.5-14.5); RDW Standard Deviation 52.6 fL (36.4-46.3); Red Blood Count 2.71 M/uL (4.63-6.08); White Blood Count 9.53 K/ul (4.8-10.8)
--- NOTE | 2022-08-01 15:39 | XRay Report ---
XR chest 1V portable HISTORY: Atypical Chest pain, nonspecific COMPARISON: Chest 07/11/2022. FINDINGS: No pneumothorax. No pleural effusions. The cardiac silhouette remains mildly enlarged. Ther e are poststernotomy changes. There is a left PICC which terminates at the SVC. No acute fractures id entified. IMPRESSION: Stable cardiomegaly. Otherwise, no acute process within the chest. ACT 112: Negative or not required by law. Electronically signed by: Damien Barclay M.D. 08/01/2022 3:38 PM
[2022-08-01 15:50] LABS: Albumin Globulin Ratio 0.7 (0.9-2); Albumin Level 2.9 gm/dl (3.4-5.0); BUN Creatinine Ratio 10.2 (10-20); Bilirubin,Total 0.7 mg/dl (0.2-1.0); Calcium 7.8 mg/dl (8.5-10.1); Creatinine Clr Calc Pharmacy 77.6 ml/min; Est GFR (African American) 69.1 ml/min; Est GFR (Non-African American) 59.6 ml/min; Globulin 4.3 gm/dl (2.5-4.0); Potassium 3.4 mmol/L (3.5-5.1); Total Protein 7.2 gm/dl (6.0-8.3)
[2022-08-01 15:57] LABS: Troponin I High Sensitivity 42.5 pg/ml (0-20)
[2022-08-01] MEDS: AMPICILLIN 2,000 MG in SODIUM CHLOR 0.9% AD-VAN 100 ML IV SCH ×2 (16:48→22:02)
--- NOTE | 2022-08-01 17:32 | Communication Note ---
Date of Service: August 01, 2022 I saw this patient in the emergency department. I reviewed the medical record including the medical record from [facility]. The patient is in intermittent heart block and has bradycardia. He is currently hemodynamically stable but will obviously need a pacemaker. I spoke with the hospitalist who discharged the patient earlier today. And they are agreeable to take the patient back. In this situation, I think that is the best choice as we do not have an EP physician on this weekend, plus with the patient's history, cardiothoracic surgery may be needed due to an abscess around his prosthetic valve presenting as heart block. Also the patient was seen by infectious disease at [facility] who will make recommendations. The long and short of it is the patient needs to go back to [facility] for his care and we will make those arrangements.
--- NOTE | 2022-08-01 19:18 | History & Physical Report ---
Date of Service August 01, 2022 Assessment & Plan (1) Intermittent complete heart block: Plan: Patient is 62 y/o M with PMH AVR in 2016, intracardiac thrombus anticoagulated on Coumadin, paroxysmal atrial fibrillation, CAD, HTN, HLD, gout presented to ER from [facility] today for abnormal EKG from [facility]. Patient d/c from [facility] today. Was noted to be bradycardic while there. Today's EKG later read by cardiology after patient already discharged was read as type II second-degree block and it was recommended patient be evaluated by EP cardiology for pacemaker consideration. In ER patient found to be bradycardic and in intermittent heart block. HR in 40's-50's. Cardiology - Dr Pandya was consulted and recommends patients be transferred back to [facility]. ER physician, Dr Scott contacted [facility]. Dr Culp Cardiology at [facility]. Dr Lorri Stokes accepting. Patient accepted for transfer however no immediate bed available. Patient without dizziness, syncope or current CP. 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 Patient's INR improved and when he was subtherapeutic IV heparin was started however hemoglobin decreased and IV heparin was stopped and was given blood transfusion. 07/28/22: EGD: Gastritis. Colonoscopy with normal-appearing terminal ileum, 2 localized areas of mildly friable mucosa with contact bleeding found in the cecum with 2 hemostatic clips placed. Internal hemorrhoids noted. IV heparin resumed on 07/28/2022 and was transitioned to Lovenox on 07/29/2022 with hemoglobin remaining stable at 8. Today Hgb: 8.4. Was 8.1 yesterday On iron supplement Monitor H&H (7) Intracardiac thrombosis: Plan: History intracardiac thrombosis. Anticoagulated on Coumadin INR pending Recently on Lovenox until INR therapeutic on Coumadin (8) Acute kidney injury: Plan: Recent JESSIE Cr: 1.28. Cr: 1.3 on 07/31/22 Monitor renal functions (9) Gout: Plan: During hospitalization patient also developed right elbow, right ankle pain and swelling. Ortho and rheumatology consult without suspected septic arthritis. Arthrocentesis completed and diagnosed with acute gout flare. Was treated with Anakinra. On allopurinol, colchicine (10) Gastritis: Plan: Recent gastritis noted on EGD On PPI RECENT LIVER INJURY likely secondary to septic shock Liver functions have improved. Alk Phos: 259 (was 279 on 07/25/22) Pt was seen and care coordinated with Dr Rios. See addendum History of Present Illness Chief Complaint: Abnormal EKG Primary Care Provider: Thomas Mcclain MD Patient is 62 y/o M with PMH AVR in 2016, intracardiac thrombus anticoagulated on Coumadin, paroxysmal atrial fibrillation, CAD, HTN, HLD, gout presented to ER from [facility] today. Patient with complicated recent medical history. Initially presented to [facility] on 07/11/2022 found to have JESSIE and streptococcal bacteremia with suspected endocarditis. Unfortunately patient had onset left face and left arm weakness and stroke alert was called with MRI brain showing numerous small foci of ischemic stroke. Patient was started on Levophed to maintain MAP of greater than 85mmHg per neurology recommendations. On 07/12/2022 patient was transferred to [facility]. Patient was seen by cardiology and ID, TTE and MICHAEL without noted vegetations but suspected to have endocarditis. ID recommended IV ampicillin until 08/16/2022. Patient has PICC line in place. Patient had noted persistent supratherapeutic INR and diagnosed with DIC, was given cryoprecipitate. Patient's INR improved and when he was subtherapeutic IV heparin was started however hemoglobin decreased and IV heparin was stopped and was given blood transfusion. 07/28/22: EGD: Gastritis. Colonoscopy with normal-appearing terminal ileum, 2 localized areas of mildly friable mucosa with contact bleeding found in the cecum with 2 hemostatic clips placed. Internal hemorrhoids noted. IV heparin resumed on 07/28/2022 and was transitioned to Lovenox on 07/29/2022 with hemoglobin remaining stable at 8. During hospitalization patient also developed right elbow, right ankle pain and swelling. Ortho and rheumatology consult without suspected septic arthritis. Arthrocentesis completed and diagnosed with acute gout flare. Was treated with Anakinra. It originally was planned that patient be discharged to acute rehab on 07/29/2022 however patient developed fever 101F. Repeat blood culture preliminary negative. Patient had CT chest negative for PE, left lower lobe infiltrate thought atypical for pneumonia. Patient without reported recurrent fever. Case was discussed with ID and recommended no further work-up or change in antibiotic course. It is reported that patient had been noted to be bradycardic in the 40s, mostly at night while sleeping. Reported patient was asymptomatic. EKG was read by hospitalist as first-degree AV block and patient discharged to acute rehab today 08/01/2022 with Lopressor being decreased from 25 mg twice daily to 12.5 mg twice daily. EKG was further reviewed by cardiology who read as type II second- degree block and it was recommended patient be evaluated by EP cardiology for pacemaker consideration. [facility] rehab was contacted this afternoon by [facility] alerting of second-degree heart block noted on EKG with recommendations of patient to go to ER. [facility] ER. In ER patient found to be bradycardic and in intermittent heart block. Cardiology - Dr Pandya was consulted and recommends patients be transferred back to [facility]. ER physician, Dr Scott contacted [facility]. Dr Culp Cardiology at [facility]. Dr Lorri Stokes accepting. Patient accepted for transfer however no immediate bed available. Currently patient reports feeling "ok". He states past 2 days has been having intermittent sensation in his chest that he needs to take a deep breath. Denies other CP, dizziness, syncope. States has been having lower leg edema and right arm edema while hospitalized at [facility]. No further fevers/chills. Denies N/V/D/C, PETTIT, vision changes, neck pain, orthopnea, palpitations, cough, sore throat, choking, otalgia, rhinorrhea, abdominal pain, paresthesias, weakness, extremity weakness, rashes, urinary symptoms. Allergies Allergy/AdvReac Type Severity Reaction Status Date / Time No Known Allergies Allergy Mild Verified 08/01/22 16:36 Home Medications Medication Instructions Recorded Confirmed Type amoxicillin 500 mg capsule 2,000 mg PO USEASDIRECTD PRN 30-60 07/20/20 08/01/22 History min prior to dental proc colchicine 0.6 mg tablet 0.6 mg PO BID 07/20/20 08/01/22 History warfarin 5 mg tablet 5 mg PO QPM 11/03/20 08/01/22 History acetaminophen 325 mg tablet 650 mg PO Q6H PRN PAIN/FEVER 08/01/22 08/01/22 History (Tylenol) allopurinol 100 mg tablet 100 mg PO QAM 08/01/22 08/01/22 History ampicillin sodium 2 gram 2 g IV Q4H 08/01/22 08/01/22 History intravenous solution ascorbic acid (vitamin C) 250 mg 250 mg PO BIDM 08/01/22 08/01/22 History tablet (Vitamin C) aspirin 81 mg chewable tablet 81 mg PO DAILY 08/01/22 08/01/22 History enoxaparin 120 mg/0.8 mL 110 mg subcut DAILY 08/01/22 08/01/22 History subcutaneous syringe (Lovenox) ferrous sulfate 325 mg (65 mg 325 mg PO BIDM 08/01/22 08/01/22 History iron) tablet (Feosol) metoprolol tartrate 25 mg tablet 12.5 mg PO BID 08/01/22 08/01/22 History omeprazole 40 mg capsule,delayed 40 mg PO DAILY 08/01/22 08/01/22 History release Past Med/Surg History Medical History (Updated 08/01/22 @ 21:01 by LISA Jo) Bacteremia CAD (coronary artery disease) CVA (cerebral vascular accident) Gout History of tobacco abuse HLD (hyperlipidemia) HTN (hypertension) Intermittent complete heart block Sepsis Thoracic aortic aneurysm (TAA) Surgical History (Updated 08/01/22 @ 20:30 by Hermelindo Scott DO) Hx of inguinal hernia repair S/P aortic valve replacement with prosthetic valve S/P AVR Family History Mother Hypertension Other Diabetes Stroke Social History Smoking Status: Former smoker Tobacco Type: Cigarettes Hx Alcohol Use: Yes Alcohol type: beer Hx Substance Use: No Preferred Language: Portuguese Communication Ability: Effective Shaper Setter Required: No Beliefs That Will Affect Care: None Current Living Situation: Spouse Feels Safe at Home: Yes Assistive Devices: Denture - Lower and Glasses Review of Systems Review of Systems: All systems reviewed & are unremarkable except as noted in HPI & below Physical Exam Physical Exam: General: no acute distress, ill appearing, WDWN Head: normocephalic, atraumatic Eyes: conjunctiva non-injected, anicteric ENT: normal inspection external ears, nose, mucous membranes moist Neck: supple, trachea midline Lungs: clear, no respiratory distress, no wheezing/rhonchi/rales CV: bradycardia, rate 40's-50's, regular rhythm, 2+ pretibial edema Abd: normal BS, soft, non-tender Ext: no cyanosis, no calf tenderness; RUE: +edema forearm, Right ankle with slight erythema, + edema Neuro: A&O x 3, no focal deficits noted, normal affect Skin: warm, dry Results & Data Results & Data ([facility]) Vital Signs (Past 12 Hours) Vital Signs Temp Pulse Pulse Resp BP BP Pulse Ox 08/01/22 18:30 43 L 21 94 08/01/22 18:30 133/69 08/01/22 18:20 42 L 22 93 08/01/22 18:15 45 L 21 97 08/01/22 18:15 143/76 H 08/01/22 18:10 42 L 23 97 08/01/22 18:00 42 L 21 96 08/01/22 18:00 141/75 H 08/01/22 17:50 53 L 24 96 08/01/22 17:45 130/65 08/01/22 17:45 41 L 21 95 08/01/22 17:40 43 L 21 97 08/01/22 17:30 41 L 21 97 08/01/22 17:30 143/68 H 08/01/22 17:20 45 L 24 98 08/01/22 17:15 142/76 H 08/01/22 17:15 42 L 23 96 08/01/22 17:10 42 L 24 98 08/01/22 17:00 42 L 21 97 08/01/22 17:00 157/82 H 08/01/22 16:50 42 L 22 99 08/01/22 16:45 41 L 20 99 08/01/22 16:45 149/70 H 08/01/22 16:40 41 L 12 98 08/01/22 16:30 131/72 08/01/22 16:30 43 L 21 97 08/01/22 16:20 42 L 17 96 08/01/22 16:16 41 L 17 97 08/01/22 16:16 130/61 08/01/22 16:10 43 L 24 98 08/01/22 16:00 47 L 17 98 08/01/22 16:00 129/65 08/01/22 15:50 48 L 15 99 08/01/22 15:45 123/61 08/01/22 15:45 43 L 16 98 08/01/22 15:40 69 19 98 08/01/22 15:31 128/67 08/01/22 15:31 42 L 17 99 08/01/22 15:30 44 L 22 98 08/01/22 15:20 42 L 15 99 08/01/22 15:15 142/68 H 08/01/22 15:15 43 L 17 100 08/01/22 15:11 46 L 16 100 08/01/22 15:11 123/74 08/01/22 15:10 61 24 08/01/22 15:06 69 23 99 08/01/22 15:12 44 L 17 100 08/01/22 15:05 44 L 19 123/74 98 08/01/22 15:05 98 08/01/22 15:05 08/01/22 15:00 37.5 C 75 20 134/76 98 O2 Del Method 08/01/22 18:30 08/01/22 18:30 08/01/22 18:20 08/01/22 18:15 08/01/22 18:15 08/01/22 18:10 08/01/22 18:00 08/01/22 18:00 08/01/22 17:50 08/01/22 17:45 08/01/22 17:45 08/01/22 17:40 08/01/22 17:30 08/01/22 17:30 08/01/22 17:20 08/01/22 17:15 08/01/22 17:15 08/01/22 17:10 08/01/22 17:00 08/01/22 17:00 08/01/22 16:50 08/01/22 16:45 08/01/22 16:45 08/01/22 16:40 08/01/22 16:30 08/01/22 16:30 08/01/22 16:20 08/01/22 16:16 08/01/22 16:16 08/01/22 16:10 08/01/22 16:00 08/01/22 16:00 08/01/22 15:50 08/01/22 15:45 08/01/22 15:45 08/01/22 15:40 08/01/22 15:31 08/01/22 15:31 08/01/22 15:30 08/01/22 15:20 08/01/22 15:15 08/01/22 15:15 08/01/22 15:11 08/01/22 15:11 08/01/22 15:10 08/01/22 15:06 08/01/22 15:12 Room Air 08/01/22 15:05 Room Air 08/01/22 15:05 Room Air 08/01/22 15:05 Room Air 08/01/22 15:00 Room Air Laboratory Results Short CBC 08/01/22 Range/Units 15:19 WBC 9.53 (4.8-10.8) K/ul Hgb 8.4 L (14.0-18.0) g/dl Hct 25.5 L (40.1-51.0) % Plt Count 363 (130-400) K/uL BMP 08/01/22 15:19 Sodium 135 L Potassium 3.4 L Chloride 105 Carbon Dioxide 21 BUN 13 Creatinine 1.28 Glucose 106 H Calcium 7.8 L Liver Function 08/01/22 Range/Units 15:19 Total Bilirubin 0.7 (0.2-1.0) mg/dl AST 36 (13-39) U/L ALT 40 (7-52) U/L Alkaline Phosphatase 259 H (34-104) U/L Albumin 2.9 L (3.4-5.0) gm/dl Diagnostic Findings Chest X-Ray 08/01/22 15:02 XR chest 1V portable HISTORY: Atypical Chest pain, nonspecific COMPARISON: Chest 07/11/2022. FINDINGS: No pneumothorax. No pleural effusions. The cardiac silhouette remains mildly enlarged. There are poststernotomy changes. There is a left PICC which terminates at the SVC. No acute fractures identified. IMPRESSION: Stable cardiomegaly. Otherwise, no acute process within the chest. ACT 112: Negative or not required by law. Electronically signed by: Damien Barclay M.D. 08/01/2022 3:38 PM Code Status & VTE Plan VTE Prophylaxis Plan VTE Prophylaxis will be ordered: Yes Supervising Physician Co-Signing Physician Notes Attending addendum: The patient was seen and examined in emergency room 62-year old male with significant past medical history as mentioned in H&P notably AVR this is with recent infective endocarditis was discharged from [facility] for rehab this morning. He was noted to have Mobitz type II block and was advised to go back to ER at [place] The patient ended up in emergency room at [facility] Does not have any chest pain and no palpitation noted to have heart rate ranging from 40-55 in the emergency room His only complaint was occasional deep breathing without any chest pain Denies any other significant complaints in the emergency room On examination Lying in bed without any acute distress Heart rate was 41 and ranging from 40-55 during examination Chestminimal crackles at the bases HeartS1-S2, 2/6 ESM over precordium Abdomenbenign Extremities1+ edema bilaterally CNSalert, awake and oriented x3. No focal sensory or motor deficit appreciated His admission labs, EKG and imaging studies reviewed EKG revealed Mobitz type II heart block with intermittent complete heart block He was accepted back to [facility] and was evaluated by hay stacker at [facility] Due to the delay in transport to go to [facility] due to the bad weather, Pro-AAS cake etc. quickly regained quick-acting, he was admitted to ICU with due notification to on-call transformation analyst Discussed with the patient in detail and he was agreeable with the management plan His current medications are continued except beta-boby Agree with assessment and plan as outlined above by BRIANNA Henley Dr
--- NOTE | 2022-08-01 20:38 | Critical Care Consultation ---
Date of Consultation August 01, 2022 Assessment & Plan (1) Intermittent complete heart block: (2) Anemia: (3) Gout: (4) Acute on chronic anemia: (5) HTN (hypertension): (6) Thoracic aortic aneurysm (TAA): (7) S/P aortic valve replacement with prosthetic valve: Plan Reason Critically Ill: Bradycardia with intermittent high degree AV block, admitted for following of hemodynamics and rhythm while awaiting transfer to [facility]. Dr Culp Cardiology at [facility]. Dr Lorri Stokes accepting at [facility]. 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) [facility] ICU: Negative - Continue ASA - Continue does not appear to be on statin Cardiac - systolic murmur with moderate aortic regurge, Hx of bioprosthetic AVR (2015), HTN, Intermittent AV block, concern for endocarditis/abscess of AVR, Thrombus of AVR - TTE performed 07/23 as per HPI - For his intermittent heart block - Mobitz type II 2:1 and intermittent 3rd with: currently his blood pressure is stable without evidence of end organ dysfunction- will hold any blood pressure or rate controlling medications (i.e BB) - Transcutaneous pads in place attempt if needed - if block increases with hemodynamic compromise we do have interventional cardiology to place transvenous pacer- follow for escape/ventricular ectopy - Support hemodynamics as warranted with IV epinephrine/Atropine - can trial dopamine if just rate response is needed, if cardiogenic shock develops will use epinephrines infusion - HCO3 is normal, not on SAM/ARB, and renal function improved- so doubt BRASH syndrome as cause - Hold colchicine - no neurological deficits so doubt intracranial catastrophe causing bradycardia - Lyme reported as negative from 07/12 - Glucose is normal - Will add TSH - Concern remains for AVR abscess- continue with transfer to tertiary care center where cardiothoracic surgery is present - No reports of angina or chest pain symptoms- HScTNI - 42.5 on EMD - continue to trend Respiratory - Previous smoker - No acute needs GI - GERD - continue with PPI RENAL/LYTES - Hypokalemia, Electrolyte protocol JESSIE from previous admission resolved - No acute needs ENDO - No acute needs Check TSH as above ICU hyperglycemia/hypoglycemia protocol HEME - Gout flare, Thrombus of AVR-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 - 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 - hold colchicine at this time- low suspicion of toxicity - however with his bradycardia will hold - INR 1.4 on admission/PTT/34.23/PT14.6 - will stop Lovenox injections and Coumadin- transition to low dose heparin infusion with bolus as his recent bleeding- follow for any bleeding ID - Group B strep septicemia - PICC line in place and clean in appearance to left brachial- in good position on CXR - Continue ampicillin - Will obtain blood cultures - repeat were obtained per discharge summary on 07/29 at [facility] LINES/IV ACCESS - PIV, PICC Continue use of these lines DVT PROPHYLAXIS - SCDs, Heparin Infusion DISPO: ICU while in intermittent block or until transfer I have personally spent 45 minutes of critical care time in the direct management of this patient. This is a life/limb threatening event. This includes time spent evaluating patient, direct bedside care, chart review, placing orders, interpretation of diagnostic studies, discussion with consultants, patient, and family members, as well as other required patient management activities. This time is exclusive of all separately billable procedures, and separate from and in addition to any other critical care service time. Thank you for allowing us to participate in the care of this patient. Please refer to my attending physician's documentation for any further recommendations. History of Present Illness Reason for Consultation: heart block Requesting Physician: Dr. Rios Attending Physician: Dr. Rios History of Present Illness 62 YOM with medical history of: Bioprosthetic Heart Valve in 2016 ([place] Ep ic 27mm), Thrombus around AVR, Anemia, CVA (07/13/22), PAF. Patient presents to EMD today for increase in fatigue, dyspnea, he was noted to be bradycardic in the EMD with second degree AV block. Cardiology was consulted and evaluated the patient. Recommends pacemaker and transfer to [facility]. Due to inclement weather while awaiting transfer Patient admitted to Hospitalist service to the ICU. Do have emergent/urgent availability to place transvenous pacer if needed. Overall the patient was discharged from [facility] earlier today where he was originally hospitalized since the 12 of July. Patient was transferred on July 12 from [facility] where he was admitted for septic shock following root canal. This was associated with JESSIE and SIC/DIC. He also suffered an embolic CVA at this time with sub-therapuetic INR. His CVA was multifocal effecting left greater than right cerebellar hemisphere, left greater than right occipital lobe, bilateral frontoparietal lobes. He had a repeat ECHO at that time which, continued to note echodensity in the area of his AVR. He was transferred for septic shock in the setting of possible endocarditis for evaluation for AVR replacement. At [facility] the patient blood cultures reported as Group B strep, he had a PICC line placed which he continues to receive Ampicillin for and will continue this until 08/16/2022. He had a MICHAEL performed on 07/15/22 that was interpreted as no thrombus, vegetation, or mass and noting moderate Aortic Regurge and mild Mitral Regurge. He continued sepsis care, developed inflammation of elbow and ankle and was subsequently treated for gout flare as well. He was also noted to have continued decrease in his HGB as well as epistaxis, was administered cryoprecipitate and blood transfusion. He underwent EGD and Colonoscopy on 07/28 without bleeding and was eventually bridged from heparin infusion to 100mg Lovenox BID and Coumadin. Also of note with edema to right leg greater than left and also had vascular duplex performed on 07/28/22 that was reported as negative for DVT. Negative CTA of the chest on 07/29/22. Was discharged to acute rehab facility. Lyme IgG and IGM reported as negative, Babesia and anaplasmosis were also reported as negative on 07/12. Blood cultures were also reportedly repeated on 07/29. COVID: NEGATIVE on admission CODE: FULL Allergies Allergy/AdvReac Type Severity Reaction Status Date / Time No Known Allergies Allergy Mild Verified 08/01/22 16:36 Home Medications Medication Instructions Recorded Confirmed Type amoxicillin 500 mg capsule 2,000 mg PO USEASDIRECTD PRN 30-60 07/20/20 08/01/22 History min prior to dental proc colchicine 0.6 mg tablet 0.6 mg PO BID 07/20/20 08/01/22 History warfarin 5 mg tablet 5 mg PO QPM 11/03/20 08/01/22 History acetaminophen 325 mg tablet 650 mg PO Q6H PRN PAIN/FEVER 08/01/22 08/01/22 Hist ory (Tylenol) allopurinol 100 mg tablet 100 mg PO QAM 08/01/22 08/01/22 History ampicillin sodium 2 gram 2 g IV Q4H 08/01/22 08/01/22 History intravenous solution ascorbic acid (vitamin C) 250 mg 250 mg PO BIDM 08/01/22 08/01/22 History tablet (Vitamin C) aspirin 81 mg chewable tablet 81 mg PO DAILY 08/01/22 08/01/22 History enoxaparin 120 mg/0.8 mL 110 mg subcut DAILY 08/01/22 08/01/22 History subcutaneous syringe (Lovenox) ferrous sulfate 325 mg (65 mg 325 mg PO BIDM 08/01/22 08/01/22 History iron) tablet (Feosol) metoprolol tartrate 25 mg tablet 12.5 mg PO BID 08/01/22 08/01/22 History omeprazole 40 mg capsule,delayed 40 mg PO DAILY 08/01/22 08/01/22 History release Patient History Medical History (Updated 08/01/22 @ 21:01 by LISA Jo) Bacteremia CAD (coronary artery disease) CVA (cerebral vascular accident) Gout History of tobacco abuse HLD (hyperlipidemia) HTN (hypertension) Intermittent complete heart block Sepsis Thoracic aortic aneurysm (TAA) Surgical History (Updated 08/01/22 @ 20:30 by Hermelindo Scott DO) Hx of inguinal hernia repair S/P aortic valve replacement with prosthetic valve S/P AVR Family History Mother Hypertension Other Diabetes Stroke Social History Smoking Status: Former smoker Tobacco Type: Cigarettes Second Hand Exposure: No; Do You Dip or Chew Tobacco: No; Tobacco Cessation Education Requested by Patient: No Hx Alcohol Use: Yes Alcohol type: beer Hx Substance Use: No Preferred Language: Kinyarwanda Communication Ability: Effective Supervisor [employer] Required: No Beliefs That Will Affect Care: None Current Living Situation: Spouse Feels Safe at Home: Yes Safety Concerns: Feels Safe At This Time Assistive Devices: None Review of Systems Review of Systems: REVIEW OF SYSTEMS: Constitutional: No fever, sweats or chills Eyes: No diplopia, no worsening or blurred vision ENT: normal hearing, no trouble swallowing Respiratory: (+) dyspnea on exertion, No cough, sputum, rest or on exertion Cardiovascular: (+) palpitations, No chest pain, tightness Abdomen: No pain, nausea, vomiting, diarrhea or constipation Musculoskeletal: (+) right lower leg swelling, Neurologic: No weakness, numbness/tingling, or balance problems Psychiatric: No anxiety or depression Physical Exam Physical Exam: PHYSICAL EXAM: General: awake, alert, no apparent distress Head: Normocephalic, atraumatic ENT: PERRLA, EOMI, no pharyngeal exudate, mucous membranes mois, noted cap to right mollar Neuro: AAO x 3, speech clear and appropriate, strength intact bilaterally 5/5, sensation intact and equal all extremities and dermatomes, no pronator drift Chest: equal rise and fall of the chest, no accessory muscle use, no heaves or thrills, Clear to auscultation, on room air, Cardiac: Regular rate and rhythm, telelmetry reviewed- bradycardia intermitten block, skin warm dry, cap refill <3 seconds, peripheral pulses +2 no JVD, Systolic murmur Grade II right sternal border and left mid clavicular, edema 2+ to right lower leg GI: NABS x 4 quadrants, soft, nontender to palpation, no rebound, guarding or tenderness : Spontaneously voiding, no pain, no CVA tenderness, Psych: Normal mood and affect Skin: erythema to right lower leg, peeling skin around fingers and poor nail care Results & Data Results & Data ([facility]) Vital Signs (Past 12 Hours) Vital Signs Temp Pulse Pulse Resp BP BP Pulse Ox 08/01/22 20:20 42 L 22 98 08/01/22 20:16 66 20 98 08/01/22 20:16 154/69 H 08/01/22 20:10 64 18 94 08/01/22 20:00 55 L 21 98 08/01/22 20:00 155/82 H 08/01/22 19:50 41 L 24 96 08/01/22 19:45 150/76 H 08/01/22 19:45 41 L 19 97 08/01/22 19:40 41 L 22 98 08/01/22 19:30 42 L 18 98 08/01/22 19:30 139/64 08/01/22 19:20 42 L 15 94 08/01/22 19:15 62 19 97 08/01/22 19:15 121/71 08/01/22 19:10 41 L 24 95 08/01/22 19:00 51 L 24 97 08/01/22 19:00 154/64 H 08/01/22 18:50 41 L 22 97 08/01/22 18:45 140/70 08/01/22 18:45 41 L 21 96 08/01/22 18:40 41 L 19 95 08/01/22 18:30 43 L 21 94 08/01/22 18:30 133/69 08/01/22 18:20 42 L 22 93 08/01/22 18:15 45 L 21 97 08/01/22 18:15 143/76 H 08/01/22 18:10 42 L 23 97 08/01/22 18:00 42 L 21 96 08/01/22 18:00 141/75 H 08/01/22 17:50 53 L 24 96 08/01/22 17:45 130/65 08/01/22 17:45 41 L 21 95 08/01/22 17:40 43 L 21 97 08/01/22 17:30 41 L 21 97 08/01/22 17:30 143/68 H 08/01/22 17:20 45 L 24 98 08/01/22 17:15 142/76 H 08/01/22 17:15 42 L 23 96 08/01/22 17:10 42 L 24 98 08/01/22 17:00 42 L 21 97 08/01/22 17:00 157/82 H 08/01/22 16:50 42 L 22 99 08/01/22 16:45 41 L 20 99 08/01/22 16:45 149/70 H 08/01/22 16:40 41 L 12 98 08/01/22 16:30 131/72 08/01/22 16:30 43 L 21 97 08/01/22 16:20 42 L 17 96 08/01/22 16:16 41 L 17 97 08/01/22 16:16 130/61 08/01/22 16:10 43 L 24 98 08/01/22 16:00 47 L 17 98 08/01/22 16:00 129/65 08/01/22 15:50 48 L 15 99 08/01/22 15:45 123/61 08/01/22 15:45 43 L 16 98 08/01/22 15:40 69 19 98 08/01/22 15:31 128/67 08/01/22 15:31 42 L 17 99 08/01/22 15:30 44 L 22 98 08/01/22 15:20 42 L 15 99 08/01/22 15:15 142/68 H 08/01/22 15:15 43 L 17 100 08/01/22 15:11 46 L 16 100 08/01/22 15:11 123/74 08/01/22 15:10 61 24 08/01/22 15:06 69 23 99 08/01/22 15:12 44 L 17 100 08/01/22 15:05 44 L 19 123/74 98 08/01/22 15:05 98 08/01/22 15:05 08/01/22 15:00 37.5 C 75 20 134/76 98 O2 Del Method 08/01/22 20:20 08/01/22 20:16 08/01/22 20:16 08/01/22 20:10 08/01/22 20:00 08/01/22 20:00 08/01/22 19:50 08/01/22 19:45 08/01/22 19:45 08/01/22 19:40 08/01/22 19:30 08/01/22 19:30 08/01/22 19:20 08/01/22 19:15 08/01/22 19:15 08/01/22 19:10 08/01/22 19:00 08/01/22 19:00 08/01/22 18:50 08/01/22 18:45 08/01/22 18:45 08/01/22 18:40 08/01/22 18:30 08/01/22 18:30 08/01/22 18:20 08/01/22 18:15 08/01/22 18:15 08/01/22 18:10 08/01/22 18:00 08/01/22 18:00 08/01/22 17:50 08/01/22 17:45 08/01/22 17:45 08/01/22 17:40 08/01/22 17:30 08/01/22 17:30 08/01/22 17:20 08/01/22 17:15 08/01/22 17:15 08/01/22 17:10 08/01/22 17:00 08/01/22 17:00 08/01/22 16:50 08/01/22 16:45 08/01/22 16:45 08/01/22 16:40 08/01/22 16:30 08/01/22 16:30 08/01/22 16:20 08/01/22 16:16 08/01/22 16:16 08/01/22 16:10 08/01/22 16:00 08/01/22 16:00 08/01/22 15:50 08/01/22 15:45 08/01/22 15:45 08/01/22 15:40 08/01/22 15:31 08/01/22 15:31 08/01/22 15:30 08/01/22 15:20 08/01/22 15:15 08/01/22 15:15 08/01/22 15:11 08/01/22 15:11 08/01/22 15:10 08/01/22 15:06 08/01/22 15:12 Room Air 08/01/22 15:05 Room Air 08/01/22 15:05 Room Air 08/01/22 15:05 Room Air 08/01/22 15:00 Room Air Laboratory Results Abnormal lab results 08/01/22 08/01/22 Range/Units 15:19 15:19 RBC 2.71 L (4.63-6.08) M/uL Hgb 8.4 L (14.0-18.0) g/dl Hct 25.5 L (40.1-51.0) % RDW Std Deviation 52.6 H (36.4-46.3) fL RDW Coeff of Jere 15.4 H (11.5-14.5) % Neut # (Auto) 7.23 H (1.4-6.5) K/uL Lymph # (Auto) 0.92 L (1.2-3.4) K/uL [place] # (Auto) 1.15 H (0.24-0.82) K/uL Immature Gran # (Auto) 0.03 H (0.00-0.02) K/uL Sodium 135 L (136-145) mmol/L Potassium 3.4 L (3.5-5.1) mmol/L Glucose 106 H (70-99(Fasting)) mg/dl Calcium 7.8 L (8.5-10.1) mg/dl Alkaline Phosphatase 259 H (34-104) U/L Troponin I High Sens 42.5 H (0-20) pg/ml Albumin 2.9 L (3.4-5.0) gm/dl Globulin 4.3 H (2.5-4.0) gm/dl Albumin/Globulin Ratio 0.7 L (0.9-2) Diagnostic Findings Chest X-Ray 08/01/22 15:02 XR chest 1V portable HISTORY: Atypical Chest pain, nonspecific COMPARISON: Chest 07/11/2022. FINDINGS: No pneumothorax. No pleural effusions. The cardiac silhouette remains mildly enlarged. There are poststernotomy changes. There is a left PICC which terminates at the SVC. No acute fractures identified. IMPRESSION: Stable cardiomegaly. Otherwise, no acute process within the chest. ACT 112: Negative or not required by law. Electronically signed by: Damien Barclay M.D. 08/01/2022 3:38 PM Medications Administered Home Medications amoxicillin 500 mg capsule 2,000 mg PO USEASDIRECTD PRN 30-60 min prior to dental proc 07/20/20 [History Confirmed 08/01/22] colchicine 0.6 mg tablet 0.6 mg PO BID 07/20/20 [History Confirmed 08/01/22] warfarin 5 mg tablet 5 mg PO QPM 11/03/20 [History Confirmed 08/01/22] acetaminophen 325 mg tablet (Tylenol) 650 mg PO Q6H PRN PAIN/FEVER 08/01/22 [History Confirmed 08/01/22] allopurinol 100 mg tablet 100 mg PO QAM 08/01/22 [History Confirmed 08/01/22] ampicillin sodium 2 gram intravenous solution 2 g IV Q4H 08/01/22 [History Confirmed 08/01/22] ascorbic acid (vitamin C) 250 mg tablet (Vitamin C) 250 mg PO BIDM 08/01/22 [History Confirmed 08/01/22] aspirin 81 mg chewable tablet 81 mg PO DAILY 08/01/22 [History Confirmed 08/01/22] enoxaparin 120 mg/0.8 mL subcutaneous syringe (Lovenox) 110 mg subcut DAILY 08/01/22 [History Confirmed 08/01/22] ferrous sulfate 325 mg (65 mg iron) tablet (Feosol) 325 mg PO BIDM 08/01/22 [History Confirmed 08/01/22] metoprolol tartrate 25 mg tablet 12.5 mg PO BID 08/01/22 [History Confirmed 08/01/22] omeprazole 40 mg capsule,delayed release 40 mg PO DAILY 08/01/22 [History Confirmed 08/01/22] Active Medications Ampicillin Sodium 2,000 mg/ (Sodium Chloride) 100 mls @ 200 mls/hr IV Q4H CELESTINO Stop: 08/15/22 15:44 Last Infusion: 08/01/22 17:20 Dose: Infused ECG Additional Comments: Wide QRS rhythm Right bundle branch block T wave abnormality, consider inferolateral ischemia Abnormal ECG When compared with ECG of 11-JUL-2022 07:10, Wide QRS rhythm has replaced Atrial flutter Vent. rate has decreased BY 38 BPM Coding Level of Care Code Critical Care 1st 30-74 mins Diagnoses Intermittent complete heart block I44.2 Anemia D64.9 Gout M10.9 Acute on chronic anemia D64.9 HTN (hypertension) I10 Thoracic aortic aneurysm (TAA) I71.20 S/P aortic valve replacement with prosthetic valve Z95.2
[2022-08-01 21:17] LABS: INR 1.4 (0.9-1.1); Partial Thromboplastin Ratio 1.2; Partial Thromboplastin Time 34.3 Seconds (21.0-31.0); Prothrombin Time 14.6 Seconds (9.0-12.0)
[2022-08-01] MEDS ORDERED: ACETAMINOPHEN 325 MG TAB PO PRN (21:23)
[2022-08-01] MEDS ORDERED: COLCHICINE 0.6 MG TAB PO SCH (21:23)
[2022-08-01] MEDS ORDERED: AMPICILLIN SODIUM 2 GM IV SCH (21:23)
[2022-08-01] MEDS ORDERED: Heparin IV Adult Wt-Based Low-Dose WITH Bolus Protocol IV SCH (21:29)
[2022-08-01] MEDS ORDERED: POTASSIUM CHLORIDE CRTAB 20 MEQ TABCR PO STA (21:55)
[2022-08-01] MEDS: ICU Protocol for HYPERglycemia SCH (22:15)
[2022-08-01] MEDS ORDERED: HEPARIN SODIUM/DEXTROSE 25,000 UNITS/500 ML BAG IV SCH (22:15)
[2022-08-01] MEDS ORDERED: HEPARIN SOD (PORCINE) 1000 UNIT/ML IV ONE (22:15)
[2022-08-01 23:20] LABS: INR 1.5 (0.9-1.1); Prothrombin Time 15.6 Seconds (9.0-12.0)
[2022-08-02] MEDS: MAGNESIUM SULFATE / D5W 1 GM/100 ML BAG IV SCH ×3 (00:20→03:46)
[2022-08-02] MEDS: AMPICILLIN 2,000 MG in SODIUM CHLOR 0.9% AD-VAN 100 ML IV SCH ×3 (01:48→11:39)
[2022-08-02 05:04] LABS: Basophils # (auto) 0.03 K/uL (0-0.2); Basophils % (auto) 0.3 %; Eosinophils # (auto) 0.15 K/uL (0-0.50); Eosinophils % (auto) 1.7 %; Hematocrit (blood only) 24.3 % (40.1-51.0); Hemoglobin 7.9 g/dl (14.0-18.0); Immature Granulocytes # (auto) 0.02 K/uL (0.00-0.02); Immature Granulocytes % (auto) 0.2 %; Lymphocytes # (auto) 0.93 K/uL (1.2-3.4); Lymphocytes % (auto) 10.4 %; Mean Corpuscular Hemoglobin 30.3 pg (25.0-34.0); Mean Corpuscular Hgb Conc 32.5 g/dL (32.0-36.0); Mean Corpuscular Volume 93.1 fL (80.0-100.0); Mean Platelet Volume 11.3 fL (9.4-12.4); Monocytes # (auto) 1.03 K/uL (0.24-0.82); Monocytes % (auto) 11.5 %; Neutrophils # (auto) 6.79 K/uL (1.4-6.5); Neutrophils % (auto) 75.9 %; Platelet Count 333 K/uL (130-400); RDW Coefficient of Variation 15.6 % (11.5-14.5); RDW Standard Deviation 52.7 fL (36.4-46.3); Red Blood Count 2.61 M/uL (4.63-6.08); White Blood Count 8.95 K/ul (4.8-10.8)
[2022-08-02 05:21] LABS: Partial Thromboplastin Ratio 1.2; Partial Thromboplastin Time 32.5 Seconds (21.0-31.0)
[2022-08-02 05:34] LABS: Polychromasia 1+
[2022-08-02 05:38] LABS: Albumin Globulin Ratio 0.7 (0.9-2); Albumin Level 2.7 gm/dl (3.4-5.0); BUN Creatinine Ratio 10.3 (10-20); Bilirubin,Total 0.6 mg/dl (0.2-1.0); Calcium 7.8 mg/dl (8.5-10.1); Creatinine Clr Calc Pharmacy 84.6 ml/min; Est GFR (African American) 77.8 ml/min; Est GFR (Non-African American) 67.1 ml/min; Magnesium 1.9 mg/dl (1.7-2.4); Phosphorus 4.3 mg/dl (2.5-4.9); Potassium 3.7 mmol/L (3.5-5.1); Total Protein 6.7 gm/dl (6.0-8.3)
[2022-08-02 05:40] LABS: Troponin I High Sensitivity 46.1 pg/ml (0-20)
[2022-08-02] MEDS ORDERED: HEPARIN SOD (PORCINE) 1000 UNIT/ML IV ONE (06:00)
[2022-08-02] MEDS ORDERED: ICU ELECTROLYTE REPLACEMENT PROTOCOL SCH (06:00)
--- NOTE | 2022-08-02 07:29 | Electrocardiogram Report ---
Test Reason : Blood Pressure : / mmHG Vent. Rate : 042 BPM Atrial Rate : 043 BPM P-R Int : 000 ms QRS Dur : 130 ms QT Int : 536 ms P-R-T Axes : 000 128 -24 degrees QTc Int : 447 ms Poor data quality, interpretation may be adversely affected Sinus rhythm with A-V dissociation Right bundle branch block Abnormal ECG When compared with ECG of 11-JUL-2022 07:10, Sinus rhythm with complete heart block has replaced Atrial flutter Vent. rate has decreased BY 38 BPM Confirmed by Mateo Reynolds ([id number]) on 08/02/2022 7:28:46 AM Referred By: REFERRED SELF Confirmed By:Mateo Reynolds
[2022-08-02] MEDS ORDERED: FERROUS SULFATE 325 MG TAB PO SCH (08:00)
[2022-08-02] MEDS: POTASSIUM CHLORIDE CRTAB 20 MEQ TABCR PO SCH ×2 (08:18→11:46)
[2022-08-02] MEDS: MAGNESIUM OXIDE 400 MG TAB PO SCH ×2 (08:19→11:46)
--- NOTE | 2022-08-02 08:20 | Critical Care Progress Note ---
Date of Service August 02, 2022 Assessment & Plan (1) Sepsis: (2) Mobitz (type) II atrioventricular block: (3) Bacteremia: (4) Intermittent complete heart block: (5) Acute on chronic anemia: (6) Intracardiac thrombosis: (7) HTN (hypertension): (8) CVA (cerebral vascular accident): (9) Demand ischemia: Plan Reason Critically Ill: Bradycardia with intermittent high degree AV block, admitted for following of hemodynamics and rhythm while awaiting transfer to [facility]. Dr Culp Cardiology at [facility]. Dr Lorri Stokes accepting at [facility]. NEURO- CAM ICU: NEGATIVE Sedation: None Analgesia: None --History of CVA appreciated on MRI 07/11/2022 Continue with aspirin and Atorvastatin 80 mg CARDIAC - -Mobitz type II block with intermittent complete heart block -Given the history of bacteremia likely aortic root abscess -Maintaining his blood pressure right now, Interventional cardiology has been consulted for intravenous pacemaker - Lyme reported as negative from 07/12 -TSH within normal limit -History of aortic valve s/p prosthetic replacement and postoperative atrial f ibrillation -Echocardiogram- EF 65-70, mobile echodensity about bioprosthetic aortic valve, may represent vegetation vs retained suture -Follow-up repeat 2D echo -Elevated troponin with history of coronary artery disease - EKG without acute ST change, likely type II LA, continue to monitor -Continue atorvastatin RESPIRATORY -Currently saturating well on RA, no respiratory issues at present GI - Elevated alk phos with normal AST/ALT Follow-up GGT, continue to monitor RENAL/ELECTROLYTES - -Monitor BUNs/creatinine Avoid nephrotoxic medications - -Strict I's and O's ENDO - -ICU hyperglycemia protocol HEME - --Normocytic anemia S/p EGD on 07/28/2022 with friable mucosa -Monitor H&H --History of gout Hold colchicine for the time being ID - -Sepsis with group B strep bacteremia, pansensitive -Has been on antibiotics since the start of the July 2022 -Continue with antibiotics Follow repeat blood cultures done 08/01/2022 --Prophylaxis VTE: Heparin drip GI: Protonix Lines: Peripheral, left arm PICC Diet: Cardiac Plan: In/out: +618, urine output 325 Potassium and magnesium being replaced Patient to get temporary intravenous pacemaker now. Transcutaneous pacer pads in place if there is any worsening. Continue with ampicillin Case was discussed with Dr. Vaughan I have personally spent 43 minutes of critical care time in the direct management of this patient. This is a life/limb threatening event. This includes time spent evaluating patient, direct bedside care, chart review, placing orders, interpretation of diagnostic studies, discussion with consulta nts, patient, and/or family members regarding treatment decisions, as well as other required patient management activities. This time is exclusive of all separately billable procedures, and teaching time and separate from and in addition to any other critical care service time. Admission and Anticipated Discharge Date Admission Date: August 01, 2022 Subjective Patient seen and examined at bedside. No acute distress, no adverse events overnight Patient heart rate was in the low to mid 40s at the time of examination with systolic blood pressure in the 150s. He denied any dizziness, no headache, no nausea, no vomiting. He does have chronic right-sided blurry vision which is not new. Denies any difficulty swallowing. No shortness of breath, no chest pain right now Review of Systems Review of Systems: All systems reviewed & are unremarkable except as noted in Subjective Physical Exam Physical Exam: Constitutional: No acute distress HEENT: EOMI, PERRLA Respiratory system:Good air entry bilaterally, no wheeze, no rhonchi, mild crackles bilateral lower lobes CVS: S1-S2 positive, positive 2 out of 6 systolic murmur appreciated best at aorta, distant heart sounds Abdomen: Soft, nontender, nondistended, positive bowel sounds x4 Extremities: +2 pulses bilaterally radialis/ dorsalis pedis, no cyanosis,+2 pitting edema bilateral lower extremity Neuro:Awake alert oriented x3, left upper extremity strength 4 out of 5 Psych:Normal mood and affect G/U:No Stanton Skin: no rashes, warm and dry Lymphatic: no cervical or axillary lymphadenopathy Results & Data Results & Data ([facility]) Vital Signs (Past 12 Hours) Vital Signs Temp Pulse Pulse Resp BP BP Pulse Ox 08/02/22 07:16 138/66 08/02/22 07:16 46 L 24 97 08/02/22 07:10 44 L 24 95 08/02/22 07:00 40 L 19 97 08/02/22 07:00 127/59 L 08/02/22 06:50 37 L 19 97 08/02/22 06:45 113/61 08/02/22 06:45 46 L 19 95 08/02/22 06:40 38 L 20 96 08/02/22 06:31 50 L 13 91 08/02/22 06:31 124/57 L 08/02/22 06:30 41 L 16 98 08/02/22 06:20 38 L 17 98 08/02/22 06:15 127/57 L 08/02/22 06:15 40 L 22 96 08/02/22 06:10 42 L 23 98 08/02/22 06:01 116/68 08/02/22 06:01 49 L 18 99 08/02/22 06:00 40 L 16 98 08/02/22 05:50 45 L 21 99 08/02/22 05:46 51 L 22 100 08/02/22 05:46 137/62 08/02/22 05:40 39 L 21 95 08/02/22 05:30 43 L 19 89 L 08/02/22 05:30 119/63 08/02/22 05:20 38 L 17 98 08/02/22 05:16 105/61 08/02/22 05:16 39 L 16 08/02/22 05:10 44 L 24 94 08/02/22 05:00 41 L 23 91 08/02/22 05:00 114/66 08/02/22 04:50 39 L 19 97 08/02/22 04:45 124/61 08/02/22 04:45 42 L 16 97 08/02/22 04:40 40 L 18 96 08/02/22 04:30 39 L 25 H 92 08/02/22 04:30 113/67 08/02/22 06:00 40 L 20 116/68 96 08/02/22 05:00 37.0 C 40 L 18 114/66 97 08/02/22 04:20 39 L 15 99 08/02/22 04:15 122/59 L 08/02/22 04:15 40 L 16 99 08/02/22 04:10 41 L 16 98 08/02/22 04:01 111/52 L 08/02/22 04:01 40 L 21 98 08/02/22 04:00 44 L 20 95 08/02/22 03:50 42 L 22 95 08/02/22 03:45 143/63 H 08/02/22 03:45 52 L 19 93 08/02/22 03:40 46 L 21 92 08/02/22 03:30 40 L 21 98 08/02/22 03:30 134/65 08/02/22 03:20 43 L 21 95 08/02/22 03:17 111/49 L 08/02/22 03:17 41 L 18 100 08/02/22 03:10 51 L 16 93 08/02/22 03:01 101/63 08/02/22 03:01 39 L 18 94 08/02/22 03:00 38 L 12 97 08/02/22 02:50 49 L 23 90 08/02/22 02:45 139/60 08/02/22 02:45 39 L 19 92 08/02/22 02:40 48 L 24 93 08/02/22 02:30 39 L 19 97 08/02/22 02:30 120/61 08/02/22 02:20 42 L 23 96 08/02/22 02:15 133/63 08/02/22 02:15 39 L 23 96 08/02/22 02:10 40 L 20 98 08/02/22 02:01 58 L 23 99 08/02/22 02:01 143/56 H 08/02/22 02:00 39 L 21 98 08/02/22 01:50 39 L 20 97 08/02/22 01:46 40 L 21 96 08/02/22 01:46 136/63 08/02/22 01:40 41 L 12 91 08/02/22 01:31 138/62 08/02/22 01:31 45 L 24 100 08/02/22 01:30 45 L 26 H 96 08/02/22 01:20 62 29 H 96 08/02/22 01:15 136/56 L 08/02/22 01:15 49 L 23 91 08/02/22 01:10 39 L 22 98 08/02/22 01:00 46 L 20 96 08/02/22 01:00 148/58 H 08/02/22 00:50 42 L 23 93 08/02/22 00:45 127/57 L 08/02/22 00:45 39 L 21 99 08/02/22 04:15 122/59 L 08/02/22 03:45 143/63 H 08/02/22 00:40 39 L 20 98 08/02/22 00:30 40 L 22 98 08/02/22 00:30 152/55 H 08/02/22 00:20 57 L 22 92 08/02/22 00:16 133/58 L 08/02/22 00:16 41 L 23 97 08/02/22 00:10 65 21 93 08/02/22 00:00 41 L 20 98 08/02/22 00:00 111/64 08/01/22 23:50 40 L 21 92 08/01/22 23:45 126/64 08/01/22 23:45 40 L 21 93 08/01/22 23:40 41 L 20 95 08/02/22 00:00 54 L 08/01/22 23:30 41 L 20 97 08/01/22 23:30 139/72 08/01/22 23:20 51 L 22 96 08/01/22 23:16 50 L 20 95 08/01/22 23:16 129/62 08/01/22 23:10 47 L 21 98 08/01/22 23:01 37 L 23 08/01/22 23:01 130/72 08/01/22 23:00 43 L 19 89 L 08/01/22 22:50 43 L 22 95 08/01/22 22:46 63 24 97 08/01/22 22:46 139/66 08/01/22 22:40 62 27 H 97 08/01/22 22:31 43 L 20 95 08/01/22 22:31 156/62 H 08/01/22 22:30 52 L 23 97 08/01/22 22:20 41 L 19 97 08/01/22 22:15 42 L 21 99 08/01/22 22:15 157/61 H 08/01/22 22:10 50 L 15 97 08/01/22 22:00 67 17 95 08/01/22 22:00 136/63 08/01/22 21:50 55 L 24 97 08/01/22 21:40 59 L 21 98 08/01/22 21:30 71 21 98 08/01/22 21:38 37.1 C 51 L 22 163/61 H 98 08/01/22 21:37 08/01/22 21:20 52 L 20 97 08/01/22 21:13 163/61 H 08/01/22 21:13 46 L 18 98 12/23/22 21:11 37 L 16 08/01/22 20:50 41 L 23 08/01/22 20:40 42 L 21 08/01/22 20:30 51 L 19 97 08/01/22 20:30 146/70 H 08/01/22 20:20 42 L 22 98 08/01/22 20:16 66 20 98 08/01/22 20:16 154/69 H O2 Del Method 08/02/22 07:16 08/02/22 07:16 08/02/22 07:10 08/02/22 07:00 08/02/22 07:00 08/02/22 06:50 08/02/22 06:45 08/02/22 06:45 08/02/22 06:40 08/02/22 06:31 08/02/22 06:31 08/02/22 06:30 08/02/22 06:20 08/02/22 06:15 08/02/22 06:15 08/02/22 06:10 08/02/22 06:01 08/02/22 06:01 08/02/22 06:00 08/02/22 05:50 08/02/22 05:46 08/02/22 05:46 08/02/22 05:40 08/02/22 05:30 08/02/22 05:30 08/02/22 05:20 08/02/22 05:16 08/02/22 05:16 08/02/22 05:10 08/02/22 05:00 08/02/22 05:00 08/02/22 04:50 08/02/22 04:45 08/02/22 04:45 08/02/22 04:40 08/02/22 04:30 08/02/22 04:30 08/02/22 06:00 Room Air 08/02/22 05:00 Room Air 08/02/22 04:20 08/02/22 04:15 08/02/22 04:15 08/02/22 04:10 08/02/22 04:01 08/02/22 04:01 08/02/22 04:00 08/02/22 03:50 08/02/22 03:45 08/02/22 03:45 08/02/22 03:40 08/02/22 03:30 08/02/22 03:30 08/02/22 03:20 08/02/22 03:17 08/02/22 03:17 08/02/22 03:10 08/02/22 03:01 08/02/22 03:01 08/02/22 03:00 08/02/22 02:50 08/02/22 02:45 08/02/22 02:45 08/02/22 02:40 08/02/22 02:30 08/02/22 02:30 08/02/22 02:20 08/02/22 02:15 08/02/22 02:15 08/02/22 02:10 08/02/22 02:01 08/02/22 02:01 08/02/22 02:00 08/02/22 01:50 08/02/22 01:46 08/02/22 01:46 08/02/22 01:40 08/02/22 01:31 08/02/22 01:31 08/02/22 01:30 08/02/22 01:20 08/02/22 01:15 08/02/22 01:15 08/02/22 01:10 08/02/22 01:00 08/02/22 01:00 08/02/22 00:50 08/02/22 00:45 08/02/22 00:45 08/02/22 04:15 08/02/22 03:45 08/02/22 00:40 08/02/22 00:30 08/02/22 00:30 08/02/22 00:20 08/02/22 00:16 08/02/22 00:16 08/02/22 00:10 08/02/22 00:00 08/02/22 00:00 08/01/22 23:50 08/01/22 23:45 08/01/22 23:45 08/01/22 23:40 08/02/22 00:00 08/01/22 23:30 08/01/22 23:30 08/01/22 23:20 08/01/22 23:16 08/01/22 23:16 08/01/22 23:10 08/01/22 23:01 08/01/22 23:01 08/01/22 23:00 08/01/22 22:50 08/01/22 22:46 08/01/22 22:46 08/01/22 22:40 08/01/22 22:31 08/01/22 22:31 08/01/22 22:30 08/01/22 22:20 08/01/22 22:15 08/01/22 22:15 08/01/22 22:10 08/01/22 22:00 08/01/22 22:00 08/01/22 21:50 08/01/22 21:40 08/01/22 21:30 08/01/22 21:38 Room Air 08/01/22 21:37 Room Air 08/01/22 21:20 08/01/22 21:13 08/01/22 21:13 08/01/22 21:11 08/01/22 20:50 08/01/22 20:40 08/01/22 20:30 08/01/22 20:30 08/01/22 20:20 08/01/22 20:16 08/01/22 20:16 Laboratory Results 08/02/22 04:34 08/02/22 04:34 Coding Level of Care Code Critical Care 1st 30-74 mins Diagnoses Sepsis A41.9 Mobitz (type) II atrioventricular block I44.1 Bacteremia R78.81 Intermittent complete heart block I44.2 Acute on chronic anemia D64.9 Intracardiac thrombosis I51.3 HTN (hypertension) I10 CVA (cerebral vascular accident) I63.9 Demand ischemia I24.8 Time Spent (min) 43
[2022-08-02] MEDS: ASPIRIN 81 MG CHEW PO SCH ×2 (08:22→08:44)
[2022-08-02] MEDS ORDERED: allopurinoL 100 MG TAB PO SCH (09:00)
[2022-08-02] MEDS ORDERED: PANTOprazole 40 MG TAB PO SCH (09:00)
[2022-08-02] MEDS: ICU Protocol for HYPERglycemia SCH ×2 (09:24→11:46)
--- NOTE | 2022-08-02 09:39 | Cardiology Consultation ---
Date of Consultation August 02, 2022 Assessment & Plan (1) High-grade atrioventricular block: (2) Endocarditis: Plan -It is is noted the patient has a history of severe bicuspid aortic stenosis and ascending aortopathy prompting surgical aortic valve replacement with placement of a bioprosthesis in the aortic valve position, as well as ascending aorta graft. In 2019 he had been found to have an echodensity on transthoracic echocardiogram, further evaluated with transesophageal echocardiogram and it was felt to be a ruptured suture with adherent thrombus prompting initiation of warfarin with subsequent resolution. Although the patient has a history of postoperative atrial fibrillation, he had been in sinus rhythm up until his presentation in early July 2022 when he was found to be in atrial fibrillation/flutter with ventricular rates in the 90s. Per further review of his record, an EKG performed 12/19/2021 did reveal evidence of underlying conduction system disease, with sinus rhythm, and long first- degree AV block, AR interval 328 ms noted at that time. Given the patient's recent history of streptococcal bacteremia, his presentation is concerning for possible development of perivalvular abscess with resultant development of worsening conduction system disease. Repeat blood cultures have been obtained, and a transthoracic echocardiogram is in process at present. Temporary pacemaker indicated at present rather than a permanent pacemaker until concerns with regards to infection are evaluated to a further degree. Blood pressure remains stable, but patient is symptomatic With shortness of breath, diaphoresis, and appears to be hypoperfused on physical examination and I think that this is likely related to his bradycardia. Recommend proceeding with a temporary transvenous pacemaker, prior to transfer to tertiary center for consideration of repeat transesophageal echocardiogram and CT surgery consultation. The patient does have a known iron deficiency anemia. Hemoglobin relatively stable compared to other recent measurements. Per review of his recent discharge summary, he did have a DIC picture at 1 point during his stay at [facility]. Platelet count has recovered. Heparin infusion placed on hold as of 8:35 am. I have discussed the patient's case with Dr Moseley of Interventional Cardiology , who agrees that temporary transvenous pacemaker is indicated. The cardiac catheterization laboratory has been activated as per the "Code Heart Alert" procotol. I discussed case with Dr Rincon of critical care medicine and Dr Silva of the [facility] service at [facility]. I plan to update the [facility] transfer center after the temporary pacemaker is in place with regards to upgrading pt to ICU status. I spoke to the patient's spouse, Jen. History of Present Illness Attending Physician: Angel Silva MD History of Present Illness Ernesto Zaragoza is a 62 year old male seen in cardiology consultation for the evaluation of symptomatic bradycardia , intermittent high grade atrioventricular block. The patient had initially presented in early July, to the [facility] with left-sided weakness, facial droop, was found to have MRI abnormalities consistent with bilateral embolic stroke foci. He had also been found to have a preceding dental infection 1 to 2 weeks prior, and was found to have streptococcal bacteremia. 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 The patient went on to have a transthoracic echocardiogram performed there on 07/13/2022 and a transesophageal echocardiogram performed there on 07/15/2022 with no findings of vegetation, abscess, or or thrombus. Moderate intra valvular prosthetic aortic regurgitation noted, LVEF 65 to 69% at that time. The patient remained hospitalized, and was treated with IV ampicillin as per the advice of infectious disease. The patient describes having had shortness of breath of 2 days duration. He underwent a CT angiogram performed at [facility] on 07/29/2022 for evaluation of fever and shortness of breath. The study was negative for pulmonary embolism, he was found to have interstitial edema with trace pleural effusions, and findings concerning for a left lower lobe consolidation. Maximum dimension of the ascending aorta was 4.6 cm. The patient was discharged and transferred to [facility] yesterday , 08/01/22. An EKG was actually performed the morning of discharge, yesterday, 08/01/2022 for evaluation of bradycardia, and ultimately, the final cardiology interpretation of the EKG was that findings were consistent with a Mobitz type II second-degree AV block, with ventricular rate of 45 bpm, with premature ventricular contractions. Patient was contacted and arrangements were made for him to come from [facility] to the ED at [facility]. Arrangements were made for transfer, but delayed due to weather with a severe winter weather event in process, prompting admission to the ICU overnight at [place]. The patient's blood pressure has remained stable overnight at [facility] with systolic blood pressures mostly in the 130s to 150 mmHg range. Upon my evaluation this morning however the patient was noted to be diaphoretic and complained of subjective shortness of breath, he states the symptoms been present for 2 days. Telemetry reveals Mobitz type II atrioventricular block with 2-1 AV conduction, ventricular rate in the range of 37 to 50 bpm, with occasional PVCs. Two tracings were performed overnight last night, one of which suggests intermittent high-grade AV block with atrial ventricular disassociatio n. Past Medical History: Severe bicuspid valve aortic stenosis with ascending aortic aneurysm for which patient underwent surgical aortic valve replacement receiving a [address] [employer] bioprosthesis and 32 mm Gelweave graft at [facility] 11/22/15. Nonobstructive coronary artery disease on preoperative cardiac catheterization, 2015 Postoperative paroxysmal atrial fibrillation Intracardiac thrombus secondary to presumed ruptured bioprosthetic valve suture noted, 2020, resolved on previous imaging performed October, and November, Allergies Allergy/AdvReac Type Severity Reaction Status Date / Time No Known Allergies Allergy Mild Verified 08/01/22 16:36 Home Medications Medication Instructions Recorded Confirmed Type amoxicillin 500 mg capsule 2,000 mg PO USEASDIRECTD PRN 30-60 07/20/20 08/01/22 History min prior to dental proc colchicine 0.6 mg tablet 0.6 mg PO BID 07/20/20 08/01/22 History warfarin 5 mg tablet 5 mg PO QPM 11/03/20 08/01/22 History acetaminophen 325 mg tablet 650 mg PO Q6H PRN PAIN/FEVER 08/01/22 08/01/22 History (Tylenol) allopurinol 100 mg tablet 100 mg PO QAM 08/01/22 08/01/22 History ampicillin sodium 2 gram 2 g IV Q4H 08/01/22 08/01/22 History intravenous solution ascorbic acid (vitamin C) 250 mg 250 mg PO BIDM 08/01/22 08/01/22 History tablet (Vitamin C) aspirin 81 mg chewable tablet 81 mg PO DAILY 08/01/22 08/01/22 History enoxaparin 120 mg/0.8 mL 110 mg subcut DAILY 08/01/22 08/01/22 History subcutaneous syringe (Lovenox) ferrous sulfate 325 mg (65 mg 325 mg PO BIDM 08/01/22 08/01/22 History iron) tablet (Feosol) metoprolol tartrate 25 mg tablet 12.5 mg PO BID 08/01/22 08/01/22 History omeprazole 40 mg capsule,delayed 40 mg PO DAILY 08/01/22 08/01/22 History release Patient History Medical History Bacteremia CAD (coronary artery disease) CVA (cerebral vascular accident) Gout History of tobacco abuse HLD (hyperlipidemia) HTN (hypertension) Intermittent complete heart block Sepsis Thoracic aortic aneurysm (TAA) Surgical History Hx of inguinal hernia repair S/P aortic valve replacement with prosthetic valve S/P AVR Family History Mother Hypertension Other Diabetes Stroke Social History Smoking Status: Former smoker Tobacco Type: Cigarettes Second Hand Exposure: No; Do You Dip or Chew Tobacco: No; Tobacco Cessation Education Requested by Patient: No Hx Alcohol Use: Yes Alcohol type: beer Hx Substance Use: No Preferred Language: Kiswahili Communication Ability: Effective Manager Generation Required: No Beliefs That Will Affect Care: None Current Living Situation: Spouse Feels Safe at Home: Yes Safety Concerns: Feels Safe At This Time Assistive Devices: None Review of Systems Review of Systems: All systems reviewed & are unremarkable except as noted in HPI & below Physical Exam Physical Exam: Temp Pulse Resp BP Pulse Ox O2 Del Method 37.0 C 56 L 29 H 118/60 95 08/02/22 05:00 08/02/22 09:16 08/02/22 09:16 08/02/22 09:16 08/02/22 09:16 08/02/22 06:00 Constitutional: + ill appearing Respiratory: normal respiratory effort, lungs clear to auscultation Cardiovascular: Rate/Rhythm: regular rate Heart Sounds: + murmur (1/6 systolic , and diastolic murmur ) Gastrointestinal (Abdomen): normal bowel sounds, soft, nontender, no hepatosplenomegaly Neurologic: left sided weakness , mentating well Results & Data ([facility]) Laboratory Results Cardiac Enzymes 12/23/22 12/23/22 12/24/22 Range/Units 15:19 22:55 04:34 AST 36 30 (13-39) U/L Troponin I High Sens 42.5 H 51.6 H* 46.1 H (0-20) pg/ml Coagulation 08/01/22 08/01/22 08/02/22 Range/Units 19:19 22:55 04:34 PT 14.6 H 15.6 H (9.0-12.0) Seconds APTT 34.3 H 32.5 H (21.0-31.0) Seconds CBC 08/01/22 08/02/22 Range/Units 15:19 04:34 WBC 9.53 8.95 (4.8-10.8) K/ul RBC 2.71 L 2.61 L (4.63-6.08) M/uL Hgb 8.4 L 7.9 L (14.0-18.0) g/dl Hct 25.5 L 24.3 L (40.1-51.0) % Plt Count 363 333 (130-400) K/uL Neut # (Auto) 7.23 H 6.79 H (1.4-6.5) K/uL Lymph # (Auto) 0.92 L 0.93 L (1.2-3.4) K/uL Winkler # (Auto) 1.15 H 1.03 H (0.24-0.82) K/uL Eos # (Auto) 0.15 0.15 (0-0.50) K/uL Baso # (Auto) 0.05 0.03 (0-0.2) K/uL Comprehensive Metabolic Panel 08/01/22 08/02/22 Range/Units 15:19 04:34 Sodium 135 L 136 (136-145) mmol/L Potassium 3.4 L 3.7 (3.5-5.1) mmol/L Chloride 105 107 (98-107) mmol/L Carbon Dioxide 21 21 (21-32) mmol/L BUN 13 12 (6-23) mg/dl Creatinine 1.28 1.16 (0.6-1.4) mg/dl Glucose 106 H 104 H (70-99(Fasting)) mg/dl Calcium 7.8 L 7.8 L (8.5-10.1) mg/dl AST 36 30 (13-39) U/L ALT 40 37 (7-52) U/L Alkaline Phosphatase 259 H 231 H (34-104) U/L Total Protein 7.2 6.7 (6.0-8.3) gm/dl Albumin 2.9 L 2.7 L (3.4-5.0) gm/dl Diagnostic Findings Most recent EKG performed 08/02/2022 at 5:48 AM reveals sinus bradycardia with AV disassociation, right bundle branch block, occasional PVCs. 2 of 2 blood cultures drawn 07/11/2022 revealed sensitive group G beta strep Patient had multiple blood cultures in the meantime performed at [facility] the most recent of which took place on 07/29/2022 that were negative.
[2022-08-02 10:20] LABS: Partial Thromboplastin Ratio 0.9; Partial Thromboplastin Time 25.3 Seconds (21.0-31.0)
--- NOTE | 2022-08-02 10:31 | Discharge Summary ---
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 Patient with complicated recent medical history. 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 Unfortunately patient had onset left face and left arm weakness and stroke alert was called with MRI brain showing numerous small foci of ischemic stroke. Patient was started on Levophed to maintain MAP of greater than 85mmHg per neurology recommendations. On 07/12/2022 patient was transferred to [facility]. Patient was seen by cardiology and ID, TTE and MICHAEL without noted vegetations but suspected to have endocarditis. ID recommended IV ampicillin until 08/16/2022. Patient has PICC line in place. Patient had noted persistent supratherapeutic INR and diagnosed with DIC, was given cryoprecipitate. Patient's INR improved and when he was subtherapeutic IV heparin was started however hemoglobin decreased and IV heparin was stopped and was given blood transfusion. 07/28/22: EGD: Gastritis. Colonoscopy with normal-appearing terminal ileum, 2 localized areas of mildly friable mucosa with contact bleeding found in the cecum with 2 hemostatic clips placed. Internal hemorrhoids noted. IV heparin resumed on 07/28/2022 and was transitioned to Lovenox on 07/29/2022 with hemoglobin remaining stable at 8. During hospitalization patient also developed right elbow, right ankle pain and swelling. Ortho and rheumatology consult without suspected septic arthritis. Arthrocentesis completed and diagnosed with acute gout flare. Was treated with Anakinra. It originally was planned that patient be discharged to acute rehab on 07/29/2022 however patient developed fever 101F. Repeat blood culture preliminary negative. Patient had CT chest negative for PE, left lower lobe infiltrate thought atypical for pneumonia. Patient without reported recurrent fever. Case was discussed with ID and recommended no further work-up or change in antibiotic course. It is reported that patient had been noted to be bradycardic in the 40s, mostly at night while sleeping. Reported patient was asymptomatic. EKG was read by hospitalist as first-degree AV block and patient discharged to acute rehab today 08/01/2022 with Lopressor being decreased from 25 mg twice daily to 12.5 mg twice daily. EKG was further reviewed by cardiology who read as type II second- degree block and it was recommended patient be evaluated by EP cardiology for pacemaker consideration. [facility] rehab was contacted this afternoon by [facility] alerting of second-degree heart block noted on EKG with recommendations of patient to go to ER. Patient was transferred from [facility] rehab to [facility] ER. In ER patient found to be bradycardic and in intermittent heart block. Cardiology - Dr Pandya was consulted and recommends patients be transferred back to [facility]. ER physician, Dr Scott contacted [facility]. Dr Culp Cardiology at [facility]. Dr Lorri Stokes accepting. Patient accepted for transfer however no immediate bed available. Currently patient reports feeling "ok". He states past 2 days has been having intermittent sensation in his chest that he needs to take a deep breath. Denies other CP, dizziness, syncope. States has been having lower leg edema and right arm edema while hospitalized at [facility]. No further fevers/chills. Denies N/V/D/C, PETTIT, vision changes, neck pain, orthopnea, palpitations, cough, sore throat, choking, otalgia, rhinorrhea, abdominal pain, paresthesias, weakness, extremity weakness, rashes, urinary symptoms. Admission Exam Per Admitting Provider General: no acute distress, ill appearing, WDWN Head: normocephalic, atraumatic Eyes: conjunctiva non-injected, anicteric ENT: normal inspection external ears, nose, mucous membranes moist Neck: supple, trachea midline Lungs: clear, no respiratory distress, no wheezing/rhonchi/rales CV: bradycardia, rate 40's-50's, regular rhythm, 2+ pretibial edema Abd: normal BS, soft, non-tender Ext: no cyanosis, no calf tenderness; RUE: +edema forearm, Right ankle with slight erythema, + edema Neuro: A&O x 3, no focal deficits noted, normal affect Skin: warm, dry Principal Diagnosis High-grade atrioventricular block Endocarditis Discharge Exam Constitutional: Appears tired and lethargic, mild respiratory distress. AOx3 Respiratory: Bilateral clear breath sound Cardiovascular: Irregular systolic, diastolic murmur. Chest: normal inspection of chest Abdomen: normal bowel sounds, soft, nontender, no hepatosplenomegaly Musculoskeletal: no cyanosis or clubbing, extremities motor strength 5/5 Skin: no rashes, warm and dry normal turgor Neurologic: Slightly left-sided weakness. Psychiatric: A+Ox3, euthymic affect Lymphatic: no cervical or axillary lymphadenopathy : deferred Discharge Data Allergies Allergy/AdvReac Type Severity Reaction Status Date / Time No Known Allergies Allergy Mild Verified 08/01/22 16:36 Consultations 08/01/22 18:22 ED Decision to Admit Stat 08/01/22 20:31 Consult Sponsorship Coordinator Routine 08/01/22 21:23 Consult Sponsorship Coordinator Routine Procedures Performed Operation Date: 08/02/22 10:30 <No data on this case meets the specified criteria> Ordered Studies 08/02/22 10:10 CL Cath Imgs for PACS use only Stat Hospital Course (1) Bacteremia: (2) S/P AVR: (3) Endocarditis: (4) CVA (cerebral vascular accident): (5) Acute on chronic anemia: (6) Intracardiac thrombosis: (7) Acute kidney injury: (8) Gout: (9) Gastritis: (10) High-grade atrioventricular block: Plan Patient was discharged on to [facility] from [facility]. During his hospitalization in [facility] from 07/12-08/01; he was treated for streptococcal bacteremia with endocarditis (currently on ampicillin until 08/16/2022), embolic CVA, possible DIC and acute kidney injury. He was transferred to [facility] ED after he was found to have EKG consistent with Mobitz type II second-degree AV block. The EKG was done prior to patient's discharge in [facility]. Patient was evaluated by cardiology after presentation to the ED. Patient was recommended to be transferred to [facility] for possible permanent pacemaker placement and cardiothoracic surgery evaluation. Patient was admitted overnight in the ICU for close observation. Over the course of the night, patient systolic blood pressure was in the range of 130 to 150 mmHg. Telemetry reveals Mobitz type II AV block with 2 is to 1 AV conduction. On the morning of 08/02, Heart alert was called as patient appeared to be diaphoretic and short of breath. Patient had temporary pacemaker placement here prior to transfer to [facility]. His heparin was stopped at 8:30 AM today morning. Ampicillin was continued throughout the hospitalization as scheduled. Total Time Total Time Spent Total Time Spent (In Minutes): 35 Total Time Includes: Examination of the Patient, Discharge Planning, Medication Reconciliation, Communication With Other Providers and Other Discharge Plan Discharge Items Reason For Visit: HEART BLOCK Discharge Diagnosis: (1) High-grade atrioventricular block: (2) Endocarditi Activity: Resume your previous activity Non-emergency contact: Primary Care Provider Call non-emergency contact if: you have any medication questions and your symptoms worsen Follow-up/Referrals: Thomas Mcclain MD [Primary Care Provider] - Diet: Regular Addtl Attending Provider Instructions: Patient was discharged on to [facility] from [facility]. During his hospitalization in [facility] from 07/12-08/01; he was treated for streptococcal bacteremia with endocarditis (currently on ampicillin until 08/16/2022), embolic CVA, possible DIC and acute kidney injury. He was transferred to [facility] ED after he was found to have EKG consistent with Mobitz type II second-degree AV block. The EKG was done prior to patient's discharge in [facility]. Patient was evaluated by cardiology after presentation to the ED. Patient was recommended to be transferred to [facility] for possible permanent pacemaker placement and cardiothoracic surgery evaluation. Patient was admitted overnight in the ICU for close observation. Over the course of the night, patient systolic blood pressure was in the range of 130 to 150 mmHg. Telemetry reveals Mobitz type II AV block with 2 is to 1 AV conduction. On the morning of 08/02, Heart alert was called as patient appeared to be diaphoretic and short of breath. Patient is to undergo temporary pacemaker placement in the hospital prior to transfer to [facility]. His heparin was stopped at 8:30 AM today morning. Ampicillin was continued throughout the hospitalization as instructed. Pending Studies at Discharge: No Stand-Alone Forms: My [facility] Skilled Items Patient informed of condition?: Yes DNR: No Discharge Level of Care: Other Communicable Disease: No Discharge Prognosis: Stable Lines: PICC Urinary Catheter: No Medications and DC Order Prescriptions: Continued amoxicillin 500 mg Capsule 2,000 mg PO USEASDIRECTD PRN (Reason: 30-60 min prior to dental proc) colchicine 0.6 mg Tablet 0.6 mg PO BID acetaminophen [Tylenol] 325 mg Tablet 650 mg PO Q6H PRN (Reason: PAIN/FEVER) allopurinol 100 mg Tablet 100 mg PO QAM omeprazole 40 mg Capsule,Delayed Release(Dr/Ec) 40 mg PO DAILY ampicillin sodium 2 gram Recon Soln 2 g IV Q4H ascorbic acid (vitamin C) [Vitamin C] 250 mg Tablet 250 mg PO BIDM Rx Instructions: TAKES WITH LUNCH AND DINNER ferrous sulfate [Feosol] 325 mg (65 mg iron) Tablet 325 mg PO BIDM Rx Instructions: TAKES WITH LUNCH AND DINNER aspirin 81 mg Tablet,Chewable 81 mg PO DAILY enoxaparin [Lovenox] 120 mg/0.8 mL Syringe 110 mg SUBCUT DAILY Rx Instructions: GIVEN AT 1000 & 2200 warfarin 5 mg tablet 5 mg PO QPM Rx Instructions: 5mg tue, , fri. 7.5mg sun, mon, wed, sat Discontinued metoprolol tartrate 25 mg Tablet 12.5 mg PO BID Rx Instructions: START 08/01/22 AT 2100. HOLD FOR HR < 60 OR SBP < 100. NOTIFY SERVICE IF HELD. Admission Data Admit Date/Time: 08/01/22 19:14 Attending Provider: Angel Silva Admit Provider: Miesha Rios Primary Care Provider: Thomas Mcclain Other Providers: [facility] ; Jess Rincon ; Miesha Rios
[2022-08-02] MEDS ORDERED: fentaNYL citrate 100 MCG/2 ML VIAL ONE (10:37)
[2022-08-02] MEDS ORDERED: MIDAZOLAM HCL 1 MG/ML 2ML VIAL ONE (10:38)
--- NOTE | 2022-08-02 10:55 | Electrocardiogram Report ---
Test Reason : Blood Pressure : / mmHG Vent. Rate : 080 BPM Atrial Rate : 234 BPM P-R Int : 254 ms QRS Dur : 156 ms QT Int : 526 ms P-R-T Axes : 270 025 145 degrees QTc Int : 606 ms Tremendous baseline artifact Based on Prior EKG probably NSR with CHB with possible alternating bundles Left bundle branch block and RBBB Abnormal ECG When compared with ECG of 01-AUG-2022 15:06, (unconfirmed) Confirmed by Rogelio Ceja ([id number]) on 08/02/2022 10:55:18 AM Referred By: REFERRED SELF Confirmed By:Rogelio Ceja
--- NOTE | 2022-08-02 10:59 | Communication Note ---
Date of Service: August 02, 2022 I updated the [facility] [place] with regards to the change in the patient's status with placement of temporary pacemaker. Case discussed with Dr Jesus Moffett of cardiology who accepts patient in transfer.
--- NOTE | 2022-08-02 11:03 | Electrocardiogram Report ---
Test Reason : Blood Pressure : / mmHG Vent. Rate : 045 BPM Atrial Rate : 046 BPM P-R Int : 000 ms QRS Dur : 126 ms QT Int : 664 ms P-R-T Axes : 000 -29 035 degrees QTc Int : 574 ms Sinus bradycardia with A-V dissociation Premature ventricular complexes Right bundle branch block Inferior infarct , age undetermined Abnormal ECG When compared with ECG of 01-AUG-2022 21:45, (unconfirmed) No significant change was found Confirmed by Rogelio Ceja ([id number]) on 08/02/2022 11:03:28 AM Referred By: REFERRED SELF Confirmed By:Rogelio Ceja
--- NOTE | 2022-08-02 11:31 | Post Anesthesia Assessment ---
Date of Service August 02, 2022 Post Sedation Assessment Vital Signs Temp Pulse Pulse Resp BP BP Pulse Ox 08/02/22 10:16 47 L 22 100 08/02/22 10:16 161/67 H 08/02/22 10:05 162/63 H 08/02/22 10:05 38 L 18 99 08/02/22 10:02 168/93 H 08/02/22 10:02 54 L 28 H 92 08/02/22 10:00 47 L 20 90 08/02/22 09:46 113/92 08/02/22 09:46 41 L 15 95 08/02/22 09:31 161/58 H 08/02/22 09:31 52 L 20 96 08/02/22 08:30 36.6 C 08/02/22 09:00 08/02/22 09:16 118/60 08/02/22 09:16 56 L 29 H 95 08/02/22 09:01 137/67 08/02/22 09:01 48 L 25 H 93 08/02/22 09:00 42 L 23 90 08/02/22 08:46 144/87 H 08/02/22 08:46 40 L 19 90 08/02/22 08:35 52 L 14 97 08/02/22 08:35 151/62 H 08/02/22 08:31 57 L 18 99 08/02/22 08:31 147/60 H 08/02/22 08:16 142/63 H 08/02/22 08:16 44 L 19 95 08/02/22 08:01 131/63 08/02/22 08:01 43 L 17 99 08/02/22 08:00 43 L 18 97 08/02/22 07:46 147/61 H 08/02/22 07:46 40 L 13 99 08/02/22 07:31 45 L 19 98 08/02/22 07:31 158/60 H 08/02/22 07:16 138/66 08/02/22 07:16 46 L 24 97 08/02/22 07:10 44 L 24 95 08/02/22 07:00 40 L 19 97 08/02/22 07:00 127/59 L 08/02/22 06:50 37 L 19 97 08/02/22 06:45 113/61 08/02/22 06:45 46 L 19 95 08/02/22 06:40 38 L 20 96 08/02/22 06:31 50 L 13 91 08/02/22 06:31 124/57 L 08/02/22 06:30 41 L 16 98 08/02/22 06:20 38 L 17 98 08/02/22 06:15 127/57 L 08/02/22 06:15 40 L 22 96 08/02/22 06:10 42 L 23 98 08/02/22 06:01 116/68 08/02/22 06:01 49 L 18 99 08/02/22 06:00 40 L 16 98 08/02/22 05:50 45 L 21 99 08/02/22 05:46 51 L 22 100 08/02/22 05:46 137/62 08/02/22 05:40 39 L 21 95 08/02/22 05:30 43 L 19 89 L 08/02/22 05:30 119/63 08/02/22 05:20 38 L 17 98 08/02/22 05:16 105/61 08/02/22 05:16 39 L 16 08/02/22 05:10 44 L 24 94 08/02/22 05:00 41 L 23 91 08/02/22 05:00 114/66 08/02/22 04:50 39 L 19 97 08/02/22 04:45 124/61 08/02/22 04:45 42 L 16 97 08/02/22 04:40 40 L 18 96 08/02/22 04:30 39 L 25 H 92 08/02/22 04:30 113/67 08/02/22 06:00 40 L 20 116/68 96 08/02/22 05:00 37.0 C 40 L 18 114/66 97 08/02/22 04:20 39 L 15 99 08/02/22 04:15 122/59 L 08/02/22 04:15 40 L 16 99 08/02/22 04:10 41 L 16 98 08/02/22 04:01 111/52 L 08/02/22 04:01 40 L 21 98 08/02/22 04:00 44 L 20 95 08/02/22 03:50 42 L 22 95 08/02/22 03:45 143/63 H 08/02/22 03:45 52 L 19 93 08/02/22 03:40 46 L 21 92 08/02/22 03:30 40 L 21 98 08/02/22 03:30 134/65 08/02/22 03:20 43 L 21 95 08/02/22 03:17 111/49 L 08/02/22 03:17 41 L 18 100 08/02/22 03:10 51 L 16 93 08/02/22 03:01 101/63 08/02/22 03:01 39 L 18 94 08/02/22 03:00 38 L 12 97 08/02/22 02:50 49 L 23 90 08/02/22 02:45 139/60 08/02/22 02:45 39 L 19 92 08/02/22 02:40 48 L 24 93 08/02/22 02:30 39 L 19 97 08/02/22 02:30 120/61 08/02/22 02:20 42 L 23 96 08/02/22 02:15 133/63 08/02/22 02:15 39 L 23 96 08/02/22 02:10 40 L 20 98 08/02/22 02:01 58 L 23 99 08/02/22 02:01 143/56 H 08/02/22 02:00 39 L 21 98 08/02/22 01:50 39 L 20 97 08/02/22 01:46 40 L 21 96 08/02/22 01:46 136/63 08/02/22 01:40 41 L 12 91 08/02/22 01:31 138/62 08/02/22 01:31 45 L 24 100 08/02/22 01:30 45 L 26 H 96 08/02/22 01:20 62 29 H 96 08/02/22 01:15 136/56 L 08/02/22 01:15 49 L 23 91 08/02/22 01:10 39 L 22 98 08/02/22 01:00 46 L 20 96 08/02/22 01:00 148/58 H 08/02/22 00:50 42 L 23 93 08/02/22 00:45 127/57 L 08/02/22 00:45 39 L 21 99 08/02/22 04:15 122/59 L 08/02/22 03:45 143/63 H 08/02/22 00:40 39 L 20 98 08/02/22 00:30 40 L 22 98 08/02/22 00:30 152/55 H 08/02/22 00:20 57 L 22 92 08/02/22 00:16 133/58 L 08/02/22 00:16 41 L 23 97 08/02/22 00:10 65 21 93 08/02/22 00:00 41 L 20 98 08/02/22 00:00 111/64 08/01/22 23:50 40 L 21 92 08/01/22 23:45 126/64 08/01/22 23:45 40 L 21 93 08/01/22 23:40 41 L 20 95 08/02/22 00:00 54 L 08/01/22 23:30 41 L 20 97 08/01/22 23:30 139/72 08/01/22 23:20 51 L 22 96 08/01/22 23:16 50 L 20 95 08/01/22 23:16 129/62 08/01/22 23:10 47 L 21 98 08/01/22 23:01 37 L 23 08/01/22 23:01 130/72 08/01/22 23:00 43 L 19 89 L 08/01/22 22:50 43 L 22 95 08/01/22 22:46 63 24 97 08/01/22 22:46 139/66 08/01/22 22:40 62 27 H 97 08/01/22 22:31 43 L 20 95 08/01/22 22:31 156/62 H 08/01/22 22:30 52 L 23 97 08/01/22 22:20 41 L 19 97 08/01/22 22:15 42 L 21 99 08/01/22 22:15 157/61 H 08/01/22 22:10 50 L 15 97 08/01/22 22:00 67 17 95 08/01/22 22:00 136/63 08/01/22 21:50 55 L 24 97 08/01/22 21:40 59 L 21 98 08/01/22 21:30 71 21 98 08/01/22 21:38 37.1 C 51 L 22 163/61 H 98 08/01/22 21:37 08/01/22 21:20 52 L 20 97 08/01/22 21:13 163/61 H 12/23/22 21:13 46 L 18 98 12/23/22 21:11 37 L 16 08/01/22 20:50 41 L 23 08/01/22 20:40 42 L 21 08/01/22 20:30 51 L 19 97 08/01/22 20:30 146/70 H 08/01/22 20:20 42 L 22 98 08/01/22 20:16 66 20 98 08/01/22 20:16 154/69 H 08/01/22 20:10 64 18 94 08/01/22 20:00 55 L 21 98 08/01/22 20:00 155/82 H 08/01/22 19:50 41 L 24 96 08/01/22 19:45 150/76 H 08/01/22 19:45 41 L 19 97 08/01/22 19:40 41 L 22 98 08/01/22 19:30 42 L 18 98 08/01/22 19:30 139/64 08/01/22 19:20 42 L 15 94 08/01/22 19:15 62 19 97 08/01/22 19:15 121/71 08/01/22 19:10 41 L 24 95 08/01/22 19:00 51 L 24 97 08/01/22 19:00 154/64 H 08/01/22 18:50 41 L 22 97 08/01/22 18:45 140/70 08/01/22 18:45 41 L 21 96 08/01/22 18:40 41 L 19 95 08/01/22 18:30 43 L 21 94 08/01/22 18:30 133/69 08/01/22 18:20 42 L 22 93 08/01/22 18:15 45 L 21 97 08/01/22 18:15 143/76 H 08/01/22 18:10 42 L 23 97 08/01/22 18:00 42 L 21 96 08/01/22 18:00 141/75 H 08/01/22 17:50 53 L 24 96 08/01/22 17:45 130/65 08/01/22 17:45 41 L 21 95 08/01/22 17:40 43 L 21 97 08/01/22 17:30 41 L 21 97 08/01/22 17:30 143/68 H 08/01/22 17:20 45 L 24 98 08/01/22 17:15 142/76 H 08/01/22 17:15 42 L 23 96 08/01/22 17:10 42 L 24 98 08/01/22 17:00 42 L 21 97 08/01/22 17:00 157/82 H 08/01/22 16:50 42 L 22 99 08/01/22 16:45 41 L 20 99 08/01/22 16:45 149/70 H 08/01/22 16:40 41 L 12 98 08/01/22 16:30 131/72 08/01/22 16:30 43 L 21 97 08/01/22 16:20 42 L 17 96 08/01/22 16:16 41 L 17 97 08/01/22 16:16 130/61 08/01/22 16:10 43 L 24 98 08/01/22 16:00 47 L 17 98 08/01/22 16:00 129/65 08/01/22 15:50 48 L 15 99 08/01/22 15:45 123/61 08/01/22 15:45 43 L 16 98 08/01/22 15:40 69 19 98 08/01/22 15:31 128/67 08/01/22 15:31 42 L 17 99 08/01/22 15:30 44 L 22 98 08/01/22 15:20 42 L 15 99 08/01/22 15:15 142/68 H 08/01/22 15:15 43 L 17 100 08/01/22 15:11 46 L 16 100 08/01/22 15:11 123/74 08/01/22 15:10 61 24 08/01/22 15:06 69 23 99 08/01/22 15:12 44 L 17 100 08/01/22 15:05 44 L 19 123/74 98 08/01/22 15:05 98 08/01/22 15:05 08/01/22 15:00 37.5 C 75 20 134/76 98 O2 Del Method O2 Flow Rate 08/02/22 10:16 08/02/22 10:16 08/02/22 10:05 08/02/22 10:05 08/02/22 10:02 08/02/22 10:02 08/02/22 10:00 08/02/22 09:46 08/02/22 09:46 08/02/22 09:31 08/02/22 09:31 08/02/22 08:30 08/02/22 09:00 Nasal Cannula 2 08/02/22 09:16 08/02/22 09:16 08/02/22 09:01 08/02/22 09:01 08/02/22 09:00 08/02/22 08:46 08/02/22 08:46 08/02/22 08:35 08/02/22 08:35 08/02/22 08:31 08/02/22 08:31 08/02/22 08:16 08/02/22 08:16 08/02/22 08:01 08/02/22 08:01 08/02/22 08:00 08/02/22 07:46 08/02/22 07:46 08/02/22 07:31 08/02/22 07:31 08/02/22 07:16 08/02/22 07:16 08/02/22 07:10 08/02/22 07:00 08/02/22 07:00 08/02/22 06:50 08/02/22 06:45 08/02/22 06:45 08/02/22 06:40 08/02/22 06:31 08/02/22 06:31 08/02/22 06:30 08/02/22 06:20 08/02/22 06:15 08/02/22 06:15 08/02/22 06:10 08/02/22 06:01 08/02/22 06:01 08/02/22 06:00 08/02/22 05:50 08/02/22 05:46 08/02/22 05:46 08/02/22 05:40 08/02/22 05:30 08/02/22 05:30 08/02/22 05:20 08/02/22 05:16 08/02/22 05:16 08/02/22 05:10 08/02/22 05:00 08/02/22 05:00 08/02/22 04:50 08/02/22 04:45 08/02/22 04:45 08/02/22 04:40 08/02/22 04:30 08/02/22 04:30 08/02/22 06:00 Room Air 08/02/22 05:00 Room Air 08/02/22 04:20 08/02/22 04:15 08/02/22 04:15 08/02/22 04:10 08/02/22 04:01 08/02/22 04:01 08/02/22 04:00 08/02/22 03:50 08/02/22 03:45 08/02/22 03:45 08/02/22 03:40 08/02/22 03:30 08/02/22 03:30 08/02/22 03:20 08/02/22 03:17 08/02/22 03:17 08/02/22 03:10 08/02/22 03:01 08/02/22 03:01 08/02/22 03:00 08/02/22 02:50 08/02/22 02:45 08/02/22 02:45 08/02/22 02:40 08/02/22 02:30 08/02/22 02:30 08/02/22 02:20 08/02/22 02:15 08/02/22 02:15 08/02/22 02:10 08/02/22 02:01 08/02/22 02:01 08/02/22 02:00 08/02/22 01:50 08/02/22 01:46 08/02/22 01:46 08/02/22 01:40 08/02/22 01:31 08/02/22 01:31 08/02/22 01:30 08/02/22 01:20 08/02/22 01:15 08/02/22 01:15 08/02/22 01:10 08/02/22 01:00 08/02/22 01:00 08/02/22 00:50 08/02/22 00:45 08/02/22 00:45 08/02/22 04:15 08/02/22 03:45 08/02/22 00:40 08/02/22 00:30 08/02/22 00:30 08/02/22 00:20 08/02/22 00:16 08/02/22 00:16 08/02/22 00:10 08/02/22 00:00 08/02/22 00:00 08/01/22 23:50 08/01/22 23:45 08/01/22 23:45 08/01/22 23:40 08/02/22 00:00 08/01/22 23:30 08/01/22 23:30 08/01/22 23:20 08/01/22 23:16 08/01/22 23:16 08/01/22 23:10 08/01/22 23:01 08/01/22 23:01 08/01/22 23:00 08/01/22 22:50 08/01/22 22:46 08/01/22 22:46 08/01/22 22:40 08/01/22 22:31 08/01/22 22:31 08/01/22 22:30 08/01/22 22:20 08/01/22 22:15 08/01/22 22:15 08/01/22 22:10 08/01/22 22:00 08/01/22 22:00 08/01/22 21:50 08/01/22 21:40 08/01/22 21:30 08/01/22 21:38 Room Air 08/01/22 21:37 Room Air 08/01/22 21:20 08/01/22 21:13 08/01/22 21:13 08/01/22 21:11 08/01/22 20:50 08/01/22 20:40 08/01/22 20:30 08/01/22 20:30 08/01/22 20:20 08/01/22 20:16 08/01/22 20:16 08/01/22 20:10 08/01/22 20:00 08/01/22 20:00 08/01/22 19:50 08/01/22 19:45 08/01/22 19:45 08/01/22 19:40 08/01/22 19:30 08/01/22 19:30 08/01/22 19:20 08/01/22 19:15 08/01/22 19:15 08/01/22 19:10 08/01/22 19:00 08/01/22 19:00 08/01/22 18:50 08/01/22 18:45 08/01/22 18:45 08/01/22 18:40 08/01/22 18:30 08/01/22 18:30 08/01/22 18:20 08/01/22 18:15 08/01/22 18:15 08/01/22 18:10 08/01/22 18:00 08/01/22 18:00 08/01/22 17:50 08/01/22 17:45 08/01/22 17:45 08/01/22 17:40 08/01/22 17:30 08/01/22 17:30 08/01/22 17:20 08/01/22 17:15 08/01/22 17:15 08/01/22 17:10 08/01/22 17:00 08/01/22 17:00 08/01/22 16:50 08/01/22 16:45 08/01/22 16:45 08/01/22 16:40 08/01/22 16:30 08/01/22 16:30 08/01/22 16:20 08/01/22 16:16 08/01/22 16:16 08/01/22 16:10 08/01/22 16:00 08/01/22 16:00 08/01/22 15:50 08/01/22 15:45 08/01/22 15:45 08/01/22 15:40 08/01/22 15:31 08/01/22 15:31 08/01/22 15:30 08/01/22 15:20 08/01/22 15:15 08/01/22 15:15 08/01/22 15:11 08/01/22 15:11 08/01/22 15:10 08/01/22 15:06 08/01/22 15:12 Room Air 08/01/22 15:05 Room Air 08/01/22 15:05 Room Air 08/01/22 15:05 Room Air 08/01/22 15:00 Room Air Discharge Sedation Level of Care: Phase I Post Sedation Plan On clinical assessment, the patient appears to have tolerated the sedation without complications. Patient is recovering as anticipated. Patient will continue to be monitored by nursing and may be discharged when sedation discharge criteria are met per below protocol. Upon Completions of procedure up to 15 minutes continue every 5 minute vital signs and the P.A.R. score; then discharge to a Phase I or Fast Track to Phase II per the following guidelines: * Discharge Patient to appropriate Phase II area if PAR is 8 or greater or return to pre- procedure baseline. The post - procedure orders will be as directed. * If PAR score is less than 8 or not return to pre-procedure baseline then patient will follow Phase I monitoring till PAR is reached for Phase II. The Phase I may be done in procedure room or may call to secure a Phase I area. * If naloxone or flumazenil are used for reversal, hold in Phase I for continued monitoring from when last reversal dose was given for a minimum of 60 minutes or longer pending the nurse and/or physician discretion of patient condition before discharge to Phase II. Please call the Sedation Physician to re-evaluate and complete post-note for discharge to Phase II area. Do NOT discharge from procedure sedation or Phase 1 until post- sedation evaluation note is complete by procedure /sedation MD Sedation Discharge Instructions to be given to the patient at discharge to home. [facility] Procedure Codes (Charges) Indication for Procedure Indication for procedure: symptomatic bradycardia Sedation/Anesthesia Procedure 1: Sedation/Anesthesia: 08139 Mod Sedation by the same physician;Init15 Min Child Age 5 & Up (13 mins) Total Sedation Time (minutes): 13
--- NOTE | 2022-08-02 11:43 | Electrophysiology Report ---
Date of Service August 02, 2022 Electrophysiology Procedure Electrophysiology Procedure Report Brief description: Patient was brought to the cardiac catheterization suite where he was shaved and prepped in a sterile fashion. Sedated using IV Versed and fentanyl. Soft ti ssues of the right neck were anesthetized using 2 mL of 1% Xylocaine. Using ultrasound for guidance, the right internal jugular vein was identified and then accessed using a micropuncture kit. The micropuncture sheath was then exchanged over a 0.035 J-tip wire for a 7 [place] venous sheath. This was sutured in place. Under fluoroscopic guidance the temporary pacing wire was inserted and advanced to the right ventricle. The balloon was deflated and transvenous pacer was initiated at 100 bpm and 10 mA output. The output was reduced to 2 mA but we had occasional loss of capture. Therefore, final setting was at 5 mA output and heart rate was reduced to 75 bpm. The transvenous pacing wire was then secured in place. Patient was then returned to the recovery area. This ended the case. Findings: Patient with consistently paced rhythm at 75 bpm with output setting of 5 mA. Patient will continue with transvenous pacing until after he has been transferred to the tertiary referral center regarding probable endocarditis (prosthetic valve) as well as likely permanent pacemaker implantation. Summary: Successful placement of a temporary pacing wire in the RV using a right IJ approach. No complications Estimated blood loss less than 2 mL Total sedation: 1 mg IV Versed, 25 mcg IV fentanyl Radiation: 169 mGy, fluoroscopy time 2.0 minutes [facility] Electrophysiology codes Indication for Procedure (1) High-grade atrioventricular block: Miscellaneous Procedures Procedure 1: EP Miscellaneous: 66699 Pacing temp percut, single Procedure 2: EP Miscellaneous: 43190 Cental venous cath placement (19523 (Ultrasound guided vascular access)) PG Moderate Sedation Codes Moderate Sedation Codes Procedure 1: Sedation/Anesthesia: 67097 Mod Sedation by the same physician;Init15 Min Child Age 5 & Up (13 mins)
[2022-08-02] MEDS ORDERED: ASCORBIC ACID 500 MG TAB PO SCH (12:00)
--- NOTE | 2022-08-02 13:00 | Electrocardiogram Report ---
Test Reason : Blood Pressure : / mmHG Vent. Rate : 039 BPM Atrial Rate : 039 BPM P-R Int : 568 ms QRS Dur : 116 ms QT Int : 636 ms P-R-T Axes : 082 -25 029 degrees QTc Int : 511 ms Normal sinus rhythm with CHB and Ventricular escape rhythm Right bundle branch block Cannot rule out Anterior infarct , age undetermined Abnormal ECG When compared with ECG of 02-AUG-2022 05:48, Minimal criteria for Anterior infarct are now Present QT has shortened Confirmed by Rogelio Ceja ([id number]) on 08/02/2022 12:59:43 PM Referred By: REFERRED SELF Confirmed By:Rogelio Ceja
--- NOTE | 2022-08-03 10:17 | Electrocardiogram Report ---
Test Reason : Blood Pressure : / mmHG Vent. Rate : 076 BPM Atrial Rate : 071 BPM P-R Int : 000 ms QRS Dur : 184 ms QT Int : 536 ms P-R-T Axes : 000 -44 101 degrees QTc Int : 603 ms Normal sinus rhythm with CHB Ventricular-paced rhythm Abnormal ECG When compared with ECG of 02-AUG-2022 09:48, Electronic ventricular pacemaker has replaced ventricular escape rhythm Vent. rate has increased BY 37 BPM Confirmed by Rogelio Ceja ([id number]) on 08/03/2022 10:16:54 AM Referred By: REFERRED SELF Confirmed By:Rogelio Ceja
== END 2022-08-02 13:29 | disposition short-term general hospital (02) | DRG 260 ==
LOC: ED 14:56 → 1E 19:14 → SUATTDRO 19:14 → 1E 20:54
DX: M10.9 Gout, unspecified; R60.0 Localized edema; I10 Essential (primary) hypertension; Z95.3 Presence of xenogenic heart valve; E78.5 Hyperlipidemia, unspecified; Z79.899 Other long term (current) drug therapy; K29.70 Gastritis, unspecified, without bleeding; Z79.82 Long term (current) use of aspirin; A40.1 Sepsis due to streptococcus, group B; I48.0 Paroxysmal atrial fibrillation; I25.10 Atherosclerotic heart disease of native coronary artery without angina pectoris; B95.1 Streptococcus, group B, as the cause of diseases classified elsewhere; R00.1 Bradycardia, unspecified; I51.3 Intracardiac thrombosis, not elsewhere classified; Z87.891 Personal history of nicotine dependence; I44.2 Atrioventricular block, complete; I33.0 Acute and subacute infective endocarditis; I24.8 Other forms of acute ischemic heart disease; Z79.01 Long term (current) use of anticoagulants; I44.1 Atrioventricular block, second degree; Z86.73 Personal history of transient ischemic attack (TIA), and cerebral infarction without residual deficits; D50.9 Iron deficiency anemia, unspecified; Z20.822 Contact with and (suspected) exposure to COVID-19; I71.20 Thoracic aortic aneurysm, without rupture, unspecified; Z75.1 Person awaiting admission to adequate facility elsewhere

== ENCOUNTER 2025-04-28 15:48 | Observation (INO) ==
[2025-04-28 16:16] LABS: Hematocrit (blood only) 41.2 % (42.0-52.0); Hemoglobin 13.9 g/dl (14.0-18.0); Immature Granulocytes # (auto) 0.01 K/uL (0.01-0.20); Immature Granulocytes % (auto) 0.1 %; Mean Corpuscular Hemoglobin 31.6 pg (25.0-34.0); Mean Corpuscular Volume 93.6 fL (80.0-100.0); Platelet Count 177 K/uL (130-400); RDW Standard Deviation 47.2 fL (36.4-46.3); Red Blood Count 4.40 M/uL (4.70-6.10); White Blood Count 6.82 K/ul (4.8-10.8)
[2025-04-28 16:37] LABS: Alanine Aminotransferase 34.0 U/L (7-52); Albumin Globulin Ratio 1.6 (0.9-2); Alkaline Phosphatase 95.0 U/L (34-104); Anion Gap 6.0 (3-11); Bilirubin,Total 0.7 mg/dl (0.2-1.0); Blood Urea Nitrogen 22.0 mg/dl (6-23); Calcium 8.9 mg/dl (8.6-10.3); Carbon Dioxide 25.0 mmol/L (21-32); Chloride 105.0 mmol/L (98-107); Creatinine Clr Calc Pharmacy 81.9 ml/min; Globulin 2.7 gm/dl (2.5-4.0); Glucose 95.0 mg/dl (70-99(Fasting)); Potassium 4.9 mmol/L (3.5-5.1); Sodium 136.0 mmol/L (136-145); Total Protein 7.1 gm/dl (6.0-8.3)
[2025-04-28 16:44] LABS: INR 2.2 (0.9-1.1); Partial Thromboplastin Time 34 Seconds (21-31); Prothrombin Time 21.9 Seconds (9.0-12.0)
--- NOTE | 2025-04-28 17:02 | Emergency Department Note ---
Impression & Plan Chest pain, Abnormal chest CT, Elevated INR ED Provider Note NAME: DENISA LEHMAN AGE: 64 SEX: M : 1960 ARRIVES VIA: Walk-In INFORMANT: Patient ED PROVIDER(S): Hermelindo Scott DO CHIEF COMPLAINT: Chest discomfort HPI: Patient is a 64-year-old male with a past medical history of aortic valve replacement x 2, septic emboli causing a CVA, hypertension, complete heart block with [employer] pacer in place who presents to the ER for discomfort along the left side of his chest which has been present for the past week and a half. Does not change with exertion. Notes it has been constant throughout the whole week and a half. Does go to his left upper shoulder. Feels some discomfort in his scapula posteriorly. Denies any belly pain, nausea, vomiting or diarrhea. No dysuria, urgency or frequency. No other exacerbating or remitting factors. ADDITIONAL HISTORY OBTAINED: Per HPI Chronic Medical/Social Conditions Affecting Care: Per HPI PAST MEDICAL HISTORY:See Below PAST SURGICAL HISTORY:See Below FAMILY HISTORY:See Below SOCIAL HISTORY:See Below HOME MEDICATIONS:See Below ALLERGIES:See Below VITALS:See Below PHYSICAL EXAMINATION: GENERAL: Sitting up in bed, alert, well appearing, well nourished, no distress, non-toxic EYE EXAM: normal conjunctiva. PERRL and EOM's grossly intact. OROPHARYNX: no exudate, no erythema, lips, buccal mucosa, and tongue normal and mucous membranes are moist NECK: supple, no nuchal rigidity, no adenopathy, non-tender LUNGS: Clear to auscultation. Normal chest wall mechanics HEART: no murmurs, S1 normal and S2 normal ABDOMEN: abdomen soft, non-tender, normo-active bowel sounds, no masses, no rebound or guarding. UPPER EXTREMITIES: upper extremities are grossly normal. Radial pulse equal bilaterally LOWER EXTREMITIES: No pitting edema. NEURO EXAM: Normal sensorium, cranial nerves II-XII grossly intact, normal speech, no gross weakness of arms, no gross weakness of legs. MEDICAL DECISION MAKING: Patient is a 64-year-old male with a past medical history as described above who presents ER for abnormal feeling throughout his chest which has been present for the past week. IV was established and blood work was obtained. Labs show no significant leukocytosis or anemia. INR was therapeutic at 2.2. BMP along LFTs bilirubin and troponin was negative. Troponin was negative her symptoms have been present for greater than 6 hours. Chest x-ray was obtained and was unremarkable. CT dissection showed a left ventricle [place]. I did call and discussed with the radiologist in regards to the findings in regards to the coronary arteries and aortic valve. He believes that this is likely secondary to the the surgeries that his had before in the past. I discussed with [facility] cardiology and they recommended observation overnight. Discussed the case with the hospitalist for further evaluation management treatment. Pacemaker was interrogated and was unremarkable per [employer] rep Consults/Care Managements Discussions: Per [facility] Triage Nursing notes reviewed. Limited review of prior medical records performed Vital Signs: reviewed and remarkable for HTN Differential diagnosis: Cardiac ischemia, aortic dissection, pulmonary embolism, pneumothorax, pneumonia, pericarditis, myocarditis, esophageal rupture, GERD, cholecystitis, pancreatitis, musculoskeletal, as well as other pathologies. ER treatment provided: See below Diagnostics interpreted by me include EKG and cardiac monitoring as listed below: -Cardiac Monitoring: An order was placed for continuous cardiac monitoring. The monitor shows a rate of 70 with sinus rhythm. -ECG: Ventricularly paced at a rate of 71 Normal axis PVC present QTc 454 -Laboratory studies:Interpreted by me as stated above in MDM and shown below. Imaging studies: Xrays: As interpreted by me: Portable AP upright 1 view of the chest shows no focal Lutrate CTs show: CT dissection study as described above Procedures:none Critical Care: None Past Med/Surg History Problem List (Updated 04/28/25 @ 22:19 by Hermelindo Scott DO) Elevated INR (Acute) Abnormal chest CT (Acute) Chest pain (Acute) Chest pain High-grade atrioventricular block Mobitz (type) II atrioventricular block Sepsis Intermittent complete heart block (Acute) Bacteremia Third degree heart block (Acute) Anemia (Acute) Gastritis Intracardiac thrombosis Gout Acute on chronic anemia CVA (cerebral vascular accident) Endocarditis HTN (hypertension) S/P AVR (Acute) Embolic stroke Streptococcemia (Acute) Hypomagnesemia Hyponatremia Demand ischemia Elevated liver enzymes Sepsis associated hypotension Thrombocytopenia (Acute) Acute kidney injury (Acute) Thoracic aortic aneurysm (TAA) HLD (hyperlipidemia) S/P aortic valve replacement with prosthetic valve COVID-19 (Acute) Hypotension (Acute) Dehydration (Acute) Generalized weakness (Acute) Elevated troponin (Acute) Medical History History of tobacco abuse CAD (coronary artery disease) Surgical History Hx of inguinal hernia repair Family History Mother Hypertension Other Diabetes Stroke Social History Smoking Status: Current every day smoker Tobacco Type: Cigarettes Cigarettes Per Day: 10; Second Hand Exposure: No; Do You Dip or Chew Tobacco: No; Hx Alcohol Use: Yes Alcohol type: beer Hx Substance Use: No Preferred Language: Trinidadian Communication Ability: Effective Stress Test Technician Required: No Beliefs That Will Affect Care: None Current Living Situation: Spouse current occupation: Works at [employer] Feels Safe at Home: Yes Assistive Devices: None Allergies Allergies Allergy/AdvReac Type Severity Reaction Status Date / Time No Known Allergies Allergy Mild Verified 04/28/25 18:46 Home Meds Home Medications Medication Instructions Recorded Confirmed amoxicillin 500 mg capsule 2,000 mg PO USEASDIRECTD PRN 30-60 07/20/20 04/28/25 min prior to dental proc colchicine 0.6 mg tablet 0.6 mg PO BID PRN GOUT FLARE UP 07/20/20 04/28/25 warfarin 5 mg tablet 5 mg PO QPM 11/03/20 04/28/25 acetaminophen 325 mg tablet 650 mg PO Q6H PRN PAIN/FEVER 08/01/22 04/28/25 (Tylenol) allopurinol 100 mg tablet 200 mg PO QAM 08/01/22 04/28/25 aspirin 81 mg chewable tablet 81 mg PO DAILY 08/01/22 04/28/25 atorvastatin 80 mg tablet 80 mg PO QAM 04/28/25 04/28/25 ezetimibe 10 mg tablet 10 mg PO QAM 04/28/25 04/28/25 losartan 50 mg tablet 50 mg PO QAM 04/28/25 04/28/25 metoprolol succinate 25 mg 25 mg PO BID 04/28/25 04/28/25 tablet,extended release 24 hr terazosin 1 mg capsule 1 mg PO HS 04/28/25 04/28/25 Results & Data (ED) Vital Signs Vital Signs - 24 hr 04/28/25 15:54 04/28/25 15:54 04/28/25 18:10 Temperature 36.2 C L Temperature Source Temporal Artery Scan Pulse Rate 72 100 H Pulse Rate [Apical] Pulse Rate from SpO2 Sensor Pulse Rhythm [Apical] Respiratory Rate 17 Respiratory Effort / Characteristics SOB on Exertion Respiratory Depth Respiratory Pattern Blood Pressure 152/84 H Blood Pressure [Right Arm] Blood Pressure Mean 106 Blood Pressure Mean [Right Arm] Pulse Oximetry 97 Oxygen Delivery Method Room Air Sepsis Recent Fever Within 48 Hours No Sepsis New/Unexplained Change in Mental Status N/A Sepsis Action Taken by Nursing No Action Required 04/28/25 18:12 04/28/25 19:30 04/28/25 19:36 Temperature Temperature Source Pulse Rate 80 Pulse Rate [Apical] 75 Pulse Rate from SpO2 Sensor 68 Pulse Rhythm [Apical] Regular Respiratory Rate 18 21 Respiratory Effort / Characteristics Non-Labored Spontaneous Respiratory Depth Normal Respiratory Pattern Regular Blood Pressure 123/83 Blood Pressure [Right Arm] 168/90 H Blood Pressure Mean 102 Blood Pressure Mean [Right Arm] 116 Pulse Oximetry 99 97 Oxygen Delivery Method Room Air Room Air Sepsis Recent Fever Within 48 Hours Sepsis New/Unexplained Change in Mental Status Sepsis Action Taken by Nursing 04/28/25 21:30 04/28/25 22:03 Temperature Temperature Source Pulse Rate 82 68 Pulse Rate [Apical] Pulse Rate from SpO2 Sensor 70 Pulse Rhythm [Apical] Respiratory Rate 16 22 Respiratory Effort / Characteristics Respiratory Depth Respiratory Pattern Blood Pressure Blood Pressure [Right Arm] Blood Pressure Mean Blood Pressure Mean [Right Arm] Pulse Oximetry 96 96 Oxygen Delivery Method Room Air Room Air Sepsis Recent Fever Within 48 Hours Sepsis New/Unexplained Change in Mental Status Sepsis Action Taken by Nursing Laboratory Data 04/28/25 16:05 04/28/25 16:05 Lab Results 04/28/25 Range/Units 16:05 WBC 6.82 (4.8-10.8) K/ul RBC 4.40 L (4.70-6.10) M/uL Hgb 13.9 L (14.0-18.0) g/dl Hct 41.2 L (42.0-52.0) % MCV 93.6 (80.0-100.0) fL MCH 31.6 (25.0-34.0) pg MCHC 33.7 (32.0-36.0) g/dL RDW Std Deviation 47.2 H (36.4-46.3) fL RDW Coeff of Jere 13.7 (11.5-14.5) % Plt Count 177 (130-400) K/uL MPV 10.5 (9.4-12.4) fL Immature Gran % (Auto) 0.1 % Neut % (Auto) 62.5 % Lymph % (Auto) 20.7 % [place] % (Auto) 13.8 % Eos % (Auto) 2.3 % Baso % (Auto) 0.6 % Neut # (Auto) 4.26 (1.40-6.50) K/uL Lymph # (Auto) 1.41 (1.20-3.40) K/uL [place] # (Auto) 0.94 H (0.11-0.59) K/uL Eos # (Auto) 0.16 (0.00-0.50) K/uL Baso # (Auto) 0.04 (0.00-0.20) K/uL Immature Gran # (Auto) 0.01 (0.01-0.20) K/uL PT 21.9 H (9.0-12.0) Seconds INR 2.2 H (0.9-1.1) APTT 34 H (21-31) Seconds PTT Ratio 1.3 Sodium 136 (136-145) mmol/L Potassium 4.9 (3.5-5.1) mmol/L Chloride 105 (98-107) mmol/L Carbon Dioxide 25 (21-32) mmol/L Anion Gap 6 (3-11) BUN 22 (6-23) mg/dl Creatinine 1.00 (0.6-1.4) mg/dl Est Cr Clr Drug Dosing 81.9 ml/min eGFR 84.05 BUN/Creatinine Ratio 22.0 H (10-20) Glucose 95 (70-99(Fasting)) mg/dl Calcium 8.9 (8.6-10.3) mg/dl Total Bilirubin 0.7 (0.2-1.0) mg/dl AST 31 (13-39) U/L ALT 34 (7-52) U/L Alkaline Phosphatase 95 (34-104) U/L Troponin I High Sens 6.9 (0-20) pg/ml Total Protein 7.1 (6.0-8.3) gm/dl Albumin 4.4 (3.4-5.0) gm/dl Globulin 2.7 (2.5-4.0) gm/dl Albumin/Globulin Ratio 1.6 (0.9-2) Administered Medications Discontinued Medications Ioversol (Optiray 320 125ml) 115 ml IV ONCE ONE Stop: 04/28/25 17:56 Last Admin: 04/28/25 17:56 Dose: 115 ml Documented By: [place] [facility] Data Radiologist's Impression: Chest X-Ray 04/28/25 15:58 EXAM: Portable AP chest radiograph TECHNIQUE: AP portable radiograph of the chest was obtained. INDICATION: Shortness of breath Comparison: Chest radiograph FINDINGS: LINES and TUBES: Left-sided cardiac pacemaker with leads projecting over the right atrium and the right ventricle heart. CARDIOVASCULAR: Cardiac silhouette is stably enlarged in size. Atherosclerosis of the thoracic aorta. AVR. LUNGS/PLEURA: No focal consolidation identified. Mild pulmonary vascular congestion is similar to previous no significant pleural fluid. No discernible pneumothorax. OSSEOUS/OTHER: No displaced acute osseous process identified. Median sternotomy wires IMPRESSION: Left-sided cardiac pacemaker. Similar mild congestive changes of the cardiovascular system. Electronically signed by Lawrence Cabral 04-28-2025 6:40 PM Chest CTA 04/28/25 17:02 CT ANGIOGRAM CHEST WITH AND WITHOUT CONTRAST. HISTORY: Chest pain TECHNIQUE: Enhanced CT examination of the chest was performed using CT ANGIOGRAM protocol with and without contrast. IV CONTRAST: 100 mL of OMNIPAQUE 300 COMPARISON: Chest radiograph from same day. FINDINGS: AORTA: No acute aortic process is identified. PULMONARY ARTERIES: No filling defect identified to the segmental level. LYMPH NODES: No lymphadenopathy by size criteria. There are calcified lymph nodes suggesting prior granulomatous process exposure CARDIOVASCULAR: Enlarged cardiac size. AVR. No pericardial effusion. There extensive are coronary artery calcifications in keeping with coronary artery disease. There is a focal thinning of the myocardium of the left ventricular apex (series 8, image 159). There are morphological irregularities near the aortic root surrounding the prosthetic aortic valve. Also prominent coronary artery supplying the left anterior descending and circumflex artery are seen arising from the anterior aspect of the aortic root. MEDIASTINUM: No solid or cystic mediastinal masses. The esophagus is normally decompressed. LUNGS/PLEURA: The central tracheo-bronchial tree is patent. No mass or consolidation identified. No pleural effusion or pneumothorax. No suspicious pulmonary nodules. BONES: No suspicious osseous lesions. VISUALIZED LOWER NECK: Thyroid nodules measuring up to 1.5 cm. VISUALIZED UPPER ABDOMEN: 1.9 cm left adrenal nodule may be an adenoma IMPRESSION: No definite acute aortic process is identified. No pulmonary embolism identified to the segmental level. Cardiomegaly with AVR. Extensive coronary calcifications. Age-indeterminate myocardial infarction in the left ventricular apex There are morphological irregularities near the aortic root surrounding the prosthetic aortic valve. Also prominent coronary artery supplying the left anterior descending and circumflex artery are seen arising from the anterior aspect of the aortic root. This may be a congenital variant or postprocedural finding. If indicated correlation with echocardiogram may be obtained. Electronically signed by Lawrence Cabral 04-28-2025 6:40 PM Discharge Plan Visit Data Chief Complaint: Chest Pain Stated Complaint: CHEST PAIN ED Provider: Hermelindo Scott Discharge Problem: Chest pain, Abnormal chest CT, Elevated INR Condition: Fair Forms Stand Alone [facility] Pres[facility] Prescriptions: No Action amoxicillin 500 mg Capsule 2,000 mg PO USEASDIRECTD PRN (Reason: 30-60 min prior to dental proc) colchicine 0.6 mg Tablet 0.6 mg PO BID PRN (Reason: GOUT FLARE UP) acetaminophen [Tylenol] 325 mg Tablet 650 mg PO Q6H PRN (Reason: PAIN/FEVER) allopurinol 100 mg Tablet 200 mg PO QAM aspirin 81 mg Tablet,Chewable 81 mg PO DAILY warfarin 5 mg tablet 5 mg PO QPM losartan 50 mg tablet 50 mg PO QAM atorvastatin 80 mg tablet 80 mg PO QAM terazosin 1 mg capsule 1 mg PO HS metoprolol succinate 25 mg tablet extended release 24 hr 25 mg PO BID ezetimibe 10 mg tablet 10 mg PO QAM Referrals Referrals: Thomas Mcclain MD [Primary Care Provider] - Discharge Problem: Chest pain Qualifiers: Chest pain type: unspecified Qualified Code(s): R07.9 - Chest pain, unspecified
[2025-04-28] MEDS: OPTIRAY 320 125ml IV ONE (17:56)
--- NOTE | 2025-04-28 18:40 | XRay Report ---
EXAM: Portable AP chest radiograph TECHNIQUE: AP portable radiograph of the chest was obtained. INDICATION: Shortness of breath Comparison: Chest radiograph FINDINGS: LINES and TUBES: Left-sided cardiac pacemaker with leads projecting over the right atrium and the right ventricle heart. CARDIOVASCULAR: Cardiac silhouette is stably enlarged in size. Atherosclerosis of the thoracic aorta. AVR. LUNGS/PLEURA: No focal consolidation identified. Mild pulmonary vascular congestion is similar to previous no significant pleural fluid. No discernible pneumothorax. OSSEOUS/OTHER: No displaced acute osseous process identified. Median sternotomy wires IMPRESSION: Left-sided cardiac pacemaker. Similar mild congestive changes of the cardiovascular system. Electronically signed by Lawrence Cabral 04-28-2025 6:40 PM
--- NOTE | 2025-04-28 18:43 | CT Scan Report ---
CT ANGIOGRAM CHEST WITH AND WITHOUT CONTRAST. HISTORY: Chest pain TECHNIQUE: Enhanced CT examination of the chest was performed using CT ANGIOGRAM protocol with and without contrast. IV CONTRAST: 100 mL of OMNIPAQUE 300 COMPARISON: Chest radiograph from same day. FINDINGS: AORTA: No acute aortic process is identified. PULMONARY ARTERIES: No filling defect identified to the segmental level. LYMPH NODES: No lymphadenopathy by size criteria. There are calcified lymph nodes suggesting prior granulomatous process exposure CARDIOVASCULAR: Enlarged cardiac size. AVR. No pericardial effusion. There extensive are coronary artery calcifications in keeping with coronary artery disease. There is a focal thinning of the myocardium of the left ventricular apex (series 8, image 159). There are morphological irregularities near the aortic root surrounding the prosthetic aortic valve. Also prominent coronary artery supplying the left anterior descending and circumflex artery are seen arising from the anterior aspect of the aortic root. MEDIASTINUM: No solid or cystic mediastinal masses. The esophagus is normally decompressed. LUNGS/PLEURA: The central tracheo-bronchial tree is patent. No mass or consolidation identified. No pleural effusion or pneumothorax. No suspicious pulmonary nodules. BONES: No suspicious osseous lesions. VISUALIZED LOWER NECK: Thyroid nodules measuring up to 1.5 cm. VISUALIZED UPPER ABDOMEN: 1.9 cm left adrenal nodule may be an adenoma IMPRESSION: No definite acute aortic process is identified. No pulmonary embolism identified to the segmental level. Cardiomegaly with AVR. Extensive coronary calcifications. Age-indeterminate myocardial infarction in the left ventricular apex There are morphological irregularities near the aortic root surrounding the prosthetic aortic valve. Also prominent coronary artery supplying the left anterior descending and circumflex artery are seen arising from the anterior aspect of the aortic root. This may be a congenital variant or postprocedural finding. If indicated correlation with echocardiogram may be obtained. Electronically signed by Lawrence Cabral 04-28-2025 6:40 PM
--- NOTE | 2025-04-28 20:13 | History & Physical Report ---
Date of Service April 28, 2025 Assessment & Plan (1) Chest pain: Plan 64-year-old male PMHx s/p AVR 2016, intracardiac thrombus anticoagulated on Coumadin, PAF, CAD, HTN, HLD, gout, and history of endocarditis presenting for chest pain. His ED evaluation does not reveal evidence of pulmonary process resulting in chest pain, and with H&H just slightly below baseline. His PT/INR is roughly at goal, just mildly subtherapeutic. Troponin is normal on 1 occasion, pending repeat. CXR does have some congestive changes of cardiovascular system, and chest CTA does not reveal any acute findings but does address extensive calcification, morphological irregularities, and age indete rminant AR to LV apex. Admission for further evaluation of chest pain. #Chest pain Presenting with chest discomfort radiating to the left arm and left shoulder blade with associated SOB, x 1.5 weeks. History of endocarditis and valve replacement x 2. Pacemaker summary report obtained 04/28/2025. Symptoms manageable at present. Will admit for further cardiac workup. - CBC without leukocytosis, H&H 13.9/41.2; PT/INR 21.9/2.2, APTT 34; troponin 6.9, pending repeat - CBC am - EKG ventricular paced rhythm with frequent PVCs at 71 bpm, no ischemic changes - CXR L sided cardiac pacemaker, similar mild congestive changes of cardiovascular system - Chest CTA no acute aortic process, no PE, cardiomegaly with AVR and extensive coronary calcifications, morphological irregularities aortic root surrounding prosthetic aortic valve as well as prominent coronary artery supplying L anterior descending and circumflex near anterior aspect of aortic root, age indeterminant AR to LV apex - Echo 2021 EF greater than 70%, moderate MR - pending repeat - Lipid panel 2021 TG 772, otherwise stable - repeta in am - Continue home medications - ASA, atorvastatin, ezetimibe, losartan, metoprolol, terazosin, warfarin - Consider cardiology consult #Gout- Allopurinol, colchicine prn - continue #HLD- Pending lipid panel; Ezetimibe, atorvastatin - continue #HTN- Losartan, metoprolol, terazosin - continue #PAF- PT/INR 21.9/2.2; Warfarin - continue Dispo: Obs, med/tele VTE Prophylaxis: On warfarin - continue This document was dictated utilizing [employer]. Please excuse any grammatical errors that may be secondary to use of this software. Admission and Anticipated Discharge Date Admission Date: 04/28/2025 History of Present Illness Chief Complaint: Chest pain Primary Care Provider: Thomas Mcclain MD 64-year-old male PMHx s/p AVR 2015, intracardiac thrombus anticoagulated on Coumadin, PAF, CAD, HTN, HLD, gout, and history of endocarditis presenting for chest pain. Pt reports that the pain started ~ 1.5 weeks ago, with no triggering symptoms. He reports that the "pain" is more so a discomfort and he initially thought it was shingles that was causing him the discomfort. He reports that the discomfort is mainly localized to the L side of his chest, with some radiation into his L arm and L shoulder blade. He does not have any radiation into his neck. He reports occasional SOB but also states he has baseline "breathing problems", but no formal diagnosis such as asthma or COPD. He does not recall an episode that would have triggered the onset of the pain. Denies diaphoresis. Not worse with exertion. Does not notice a change of symptoms with food intake, but does have a history of acid reflux per patient's report. He denies palpations, abdominal pain, N/V/D/C, numbness/tingling, F/C, URI symptoms, LUTS, rashes, weakness, syncope, or falls. The discomfort is manageable at present per patient and has not worsened since the onset. He wanted to be evaluated because the symptoms were consistent and his was concerned. ED evaluation reveals CBC without leukocytosis, H&H 13.9/41.2; PT/INR 21.9/2.2, APTT 34; CMP BUN/creatinine ratio 22; troponin 6.9, pending repeat; CXR L sided cardiac pacemaker, similar mild congestive changes of cardiovascular system; chest CTA no acute aortic process, no PE, cardiomegaly with AVR and extensive coronary calcifications, morphological irregularities no aortic root surrounding prosthetic aortic valve as well as prominent coronary artery supplying L anterior descending and circumflex near anterior aspect of aortic root, age indeterminant AR to LV apex; EKG ventricular paced rhythm with frequent PVCs at [address] Gilliland's attestation for adjustments/additions to treatment plan. Allergies Allergy/AdvReac Type Severity Reaction Status Date / Time No Known Allergies Allergy Mild Verified 04/28/25 18:46 Home Medications Medication Instructions Recorded Confirmed Type amoxicillin 500 mg capsule 2,000 mg PO USEASDIRECTD PRN 30-60 07/20/20 04/28/25 History min prior to dental proc colchicine 0.6 mg tablet 0.6 mg PO BID PRN GOUT FLARE UP 07/20/20 04/28/25 History warfarin 5 mg tablet 5 mg PO QPM 11/03/20 04/28/25 History acetaminophen 325 mg tablet 650 mg PO Q6H PRN PAIN/FEVER 08/01/22 04/28/25 History (Tylenol) allopurinol 100 mg tablet 200 mg PO QAM 08/01/22 04/28/25 History aspirin 81 mg chewable tablet 81 mg PO DAILY 08/01/22 04/28/25 History atorvastatin 80 mg tablet 80 mg PO QAM 04/28/25 04/28/25 History ezetimibe 10 mg tablet 10 mg PO QAM 04/28/25 04/28/25 History losartan 50 mg tablet 50 mg PO QAM 04/28/25 04/28/25 History metoprolol succinate 25 mg 25 mg PO BID 04/28/25 04/28/25 History tablet,extended release 24 hr terazosin 1 mg capsule 1 mg PO HS 04/28/25 04/28/25 History Past Med/Surg History Problem List Elevated INR (Acute) Abnormal chest CT (Acute) Chest pain (Acute) Chest pain High-grade atrioventricular block Mobitz (type) II atrioventricular block Sepsis Intermittent complete heart block (Acute) Bacteremia Third degree heart block (Acute) Anemia (Acute) Gastritis Intracardiac thrombosis Gout Acute on chronic anemia CVA (cerebral vascular accident) Endocarditis HTN (hypertension) S/P AVR (Acute) Embolic stroke Streptococcemia (Acute) Hypomagnesemia Hyponatremia Demand ischemia Elevated liver enzymes Sepsis associated hypotension Thrombocytopenia (Acute) Acute kidney injury (Acute) Thoracic aortic aneurysm (TAA) HLD (hyperlipidemia) S/P aortic valve replacement with prosthetic valve COVID-19 (Acute) Hypotension (Acute) Dehydration (Acute) Generalized weakness (Acute) Elevated troponin (Acute) Medical History History of tobacco abuse CAD (coronary artery disease) Surgical History Hx of inguinal hernia repair Family History Mother Hypertension Other Diabetes Stroke Social History Smoking Status: Light tobacco smoker Tobacco Type: Cigarettes Cigarettes Per Day: "several per week"; Second Hand Exposure: No; Do You Dip or Chew Tobacco: No; Hx Alcohol Use: No Hx Substance Use: No Preferred Language: Syriac Communication Ability: Effective Hall Tender Required: No Beliefs That Will Affect Care: None Current Living Situation: Spouse current occupation: Works at [employer] Feels Safe at Home: Yes Assistive Devices: None Review of Systems Review of Systems: All systems reviewed & are unremarkable except as noted in Subjective Physical Exam Physical Exam: General: No acute distress Skin: Warm and dry; No rashes noted specifically to back/L chest Head: Normocephalic, atraumatic Eyes: PERRL, conjunctivae clear, sclera non-icteric ENT: External ear and ear canal without swelling; nose atraumatic; good dentition, tongue normal appearance, pharynx normal Neck: Supple, no LAD Cardio: RRR, murmur noted, no G/R, S1 and S2 normal; No tenderness to palpation of chest wall Resp: No respiratory distress, Lungs CTA in all lobes bilaterally, no wheezes, rales, or rhonchi Abdomen: Soft, symmetric, nontender; No masses or hepatosplenomegaly; Bowel sounds normoactive MSK: No deformities; pulses palpable and equal; no edema; no tenderness to palpation of LUE, normal ROM Neuro: Awake, alert; Sensation intact bilaterally; CN grossly intact Psych: Appropriate mood and affect; good judgement and insight. Results & Data Results & Data Vital Signs (Past 12 Hours) Vital Signs Temp Pulse Pulse Resp BP BP Pulse Ox 04/28/25 18:12 75 18 168/90 H 99 04/28/25 18:10 100 H 04/28/25 15:54 36.2 C L 72 17 152/84 H 97 O2 Del Method 04/28/25 18:12 Room Air 04/28/25 18:10 04/28/25 15:54 Room Air Laboratory Results 04/28/25 16:05 WBC 6.82 RBC 4.40 L Hgb 13.9 L Hct 41.2 L MCV 93.6 MCH 31.6 MCHC 33.7 RDW Std Deviation 47.2 H RDW Coeff of Jere 13.7 Plt Count 177 MPV 10.5 Immature Gran % (Auto) 0.1 Neut % (Auto) 62.5 Lymph % (Auto) 20.7 Jenkins % (Auto) 13.8 Eos % (Auto) 2.3 Baso % (Auto) 0.6 Neut # (Auto) 4.26 Lymph # (Auto) 1.41 Jenkins # (Auto) 0.94 H Eos # (Auto) 0.16 Baso # (Auto) 0.04 Immature Gran # (Auto) 0.01 PT 21.9 H INR 2.2 H APTT 34 H PTT Ratio 1.3 Sodium 136 Potassium 4.9 Chloride 105 Carbon Dioxide 25 Anion Gap 6 BUN 22 Creatinine 1.00 Est Cr Clr Drug Dosing 81.9 eGFR 84.05 BUN/Creatinine Ratio 22.0 H Glucose 95 Calcium 8.9 Total Bilirubin 0.7 AST 31 ALT 34 Alkaline Phosphatase 95 Troponin I High Sens 6.9 Total Protein 7.1 Albumin 4.4 Globulin 2.7 Albumin/Globulin Ratio 1.6 Diagnostic Findings Chest X-Ray 04/28/25 15:58 EXAM: Portable AP chest radiograph TECHNIQUE: AP portable radiograph of the chest was obtained. INDICATION: Shortness of breath Comparison: Chest radiograph FINDINGS: LINES and TUBES: Left-sided cardiac pacemaker with leads projecting over the right atrium and the right ventricle heart. CARDIOVASCULAR: Cardiac silhouette is stably enlarged in size. Atherosclerosis of the thoracic aorta. AVR. LUNGS/PLEURA: No focal consolidation identified. Mild pulmonary vascular congestion is similar to previous no significant pleural fluid. No discernible pneumothorax. OSSEOUS/OTHER: No displaced acute osseous process identified. Median sternotomy wires IMPRESSION: Left-sided cardiac pacemaker. Similar mild congestive changes of the cardiovascular system. Electronically signed by Lawrence Cabral 04-28-2025 6:40 PM Chest CTA 04/28/25 17:02 CT ANGIOGRAM CHEST WITH AND WITHOUT CONTRAST. HISTORY: Chest pain TECHNIQUE: Enhanced CT examination of the chest was performed using CT ANGIOGRAM protocol with and without contrast. IV CONTRAST: 100 mL of OMNIPAQUE 300 COMPARISON: Chest radiograph from same day. FINDINGS: AORTA: No acute aortic process is identified. PULMONARY ARTERIES: No filling defect identified to the segmental level. LYMPH NODES: No lymphadenopathy by size criteria. There are calcified lymph nodes suggesting prior granulomatous process exposure CARDIOVASCULAR: Enlarged cardiac size. AVR. No pericardial effusion. There extensive are coronary artery calcifications in keeping with coronary artery disease. There is a focal thinning of the myocardium of the left ventricular apex (series 8, image 159). There are morphological irregularities near the aortic root surrounding the prosthetic aortic valve. Also prominent coronary artery supplying the left anterior descending and circumflex artery are seen arising from the anterior aspect of the aortic root. MEDIASTINUM: No solid or cystic mediastinal masses. The esophagus is normally decompressed. LUNGS/PLEURA: The central tracheo-bronchial tree is patent. No mass or consolidation identified. No pleural effusion or pneumothorax. No suspicious pulmonary nodules. BONES: No suspicious osseous lesions. VISUALIZED LOWER NECK: Thyroid nodules measuring up to 1.5 cm. VISUALIZED UPPER ABDOMEN: 1.9 cm left adrenal nodule may be an adenoma IMPRESSION: No definite acute aortic process is identified. No pulmonary embolism identified to the segmental level. Cardiomegaly with AVR. Extensive coronary calcifications. Age-indeterminate myocardial infarction in the left ventricular apex There are morphological irregularities near the aortic root surrounding the prosthetic aortic valve. Also prominent coronary artery supplying the left anterior descending and circumflex artery are seen arising from the anterior aspect of the aortic root. This may be a congenital variant or postprocedural finding. If indicated correlation with echocardiogram may be obtained. Electronically signed by Lawrence Cabral 04-28-2025 6:40 PM ECG Additional Comments: Ventricular paced rhythm with frequent PVCs 71 bpm, QRS 106, QT/QTc 418/454, PRT*/82/-7 Code Status & VTE Plan Code Status Full Supervising Physician Co-Signing Physician Notes Patient seen and examined, chart reviewed, case discussed with BRIANNA Brasher and I agree with the assessment and plan as above. Patient is a 64yo male with history of AVR, intracardiac thrombus on Coumadin anticoagulation, PAF, CAD, HTN, HLP and endocarditis presenting with ongoing chest pain for the last week. On exam he is resting comfortably, NAD Skin - no rash HEENT - MMM, neck supple Heart - +S1/S2, regular, pacer in place Lungs - CTA Abd - soft, NT/ND Labs and images reviewed Trop = 6.9 --> 7.8 CT findings with age-indeterminate myocardial infarction in the LV apex as well as morphologic irregularities near th eaortic root surrounding the prosthetic valve Assessment/Plan -Will obtain 2D echo to further examine CT findings. -Repeat troponin -Remainder as above PG Care Time/CCT Total # of Minutes Spent Total Time Spent with Patient: Total time spent is greater than 50% in coordination of care (as documented) at patient's floor/unit and/or counseling patient: Coding Level of Care Code 64904 INT INP/OBS CARE 3/75MIN Diagnoses Chest pain R07.9
[2025-04-28] MEDS: WARFARIN SOD 5 MG TAB PO ONE (22:18)
[2025-04-28] MEDS: TERAZOSIN HCL 1 MG CAP PO ONE (22:18)
[2025-04-28] MEDS ORDERED: ONDANSETRON INJ 2 MG/ML 2 ML VIAL IV PRN (23:06)
[2025-04-28] MEDS ORDERED: POLYETHYLENE (MIRALAX) 17 GM PACK PO PRN (23:06)
[2025-04-28] MEDS ORDERED: ACETAMINOPHEN 325 MG TAB PO PRN (23:06)
[2025-04-28] MEDS ORDERED: COLCHICINE 0.6 MG TAB PO PRN (23:06)
[2025-04-28] MEDS ORDERED: MELATONIN 3 MG TAB PO PRN (23:06)
[2025-04-28 23:23] VITALS: TEMP 98.1
[2025-04-28] MEDS: TERAZOSIN HCL 1 MG CAP PO SCH (23:27)
[2025-04-28] MEDS: WARFARIN SOD 5 MG TAB PO SCH (23:27)
[2025-04-28 23:33] LABS: Thyroid Stimulating Hormone 1.552 uIu/ml (0.300-4.500)
[2025-04-28] MEDS: METOPROLOL SUCC 25MG EXT REL TAB PO SCH (23:54)
[2025-04-29 06:12] LABS: Hematocrit (blood only) 39.7 % (42.0-52.0); Hemoglobin 13.1 g/dl (14.0-18.0); Mean Corpuscular Hemoglobin 31.3 pg (25.0-34.0); Mean Corpuscular Volume 95.0 fL (80.0-100.0); Platelet Count 155 K/uL (130-400); RDW Standard Deviation 48.1 fL (36.4-46.3); Red Blood Count 4.18 M/uL (4.70-6.10); White Blood Count 6.78 K/ul (4.8-10.8)
[2025-04-29 06:26] LABS: Anion Gap 6.0 (3-11); Blood Urea Nitrogen 17.0 mg/dl (6-23); Calcium 8.8 mg/dl (8.6-10.3); Carbon Dioxide 26.0 mmol/L (21-32); Chloride 107.0 mmol/L (98-107); Cholesterol 97.0 mg/dl (0-200); Creatinine Clr Calc Pharmacy 98.7 ml/min; Glucose 92.0 mg/dl (70-99(Fasting)); HDL Cholesterol 42.0 mg/dl; Potassium 4.5 mmol/L (3.5-5.1); Sodium 139.0 mmol/L (136-145); Triglycerides 110.0 mg/dl (0-150)
[2025-04-29 06:38] LABS: INR 1.8 (0.9-1.1); Prothrombin Time 18.3 Seconds (9.0-12.0)
[2025-04-29] MEDS: PERFLUTREN LIPID MICROSPHERE (DEFINITY) IV ONE (06:56)
[2025-04-29 08:14] VITALS: PULSE 76; RESP 20; O2SAT 93
[2025-04-29] MEDS: LOSARTAN POTASSIUM 50 MG TAB PO SCH (09:17)
[2025-04-29] MEDS: ASPIRIN 81 MG ECTAB PO SCH (09:17)
[2025-04-29] MEDS: ATORVASTATIN 40 MG TAB PO SCH (09:17)
[2025-04-29] MEDS: EZETIMIBE 10 MG TAB PO SCH (09:18)
--- NOTE | 2025-04-29 10:50 | Discharge Summary ---
<Statement entered by Anaid Salas MD - 04/29/25 15:16> Reviewed echo report from today - reassuring - normal LVEF, normal wall motion, septal motion cw postop state, prosthetic aortic valve functioning well, RV normal Discharge Summary Date of Service April 29, 2025 Principal Dx & Hospital Course #1 = Principal Diagnosis (1) Chest pain: Plan 64-year-old male PMHx s/p AVR 2016, intracardiac thrombus anticoagulated on Coumadin, PAF, CAD, HTN, HLD, gout, and history of endocarditis presenting for chest pain. His ED evaluation does not reveal evidence of pulmonary process resulting in chest pain, and with H&H just slightly below baseline. His PT/INR is roughly at goal, just mildly subtherapeutic. Troponin is normal on 1 occasion, pending repeat. CXR does have some congestive changes of ca rdiovascular system, and chest CTA does not reveal any acute findings but does address extensive calcification, morphological irregularities, and age indeterminant OR to LV apex. Admission for further evaluation of chest pain. #Chest pain Presenting with chest discomfort radiating to the left arm and left shoulder blade with associated SOB, x 1.5 weeks. History of endocarditis and valve replacement x 2. Pacemaker summary report obtained 04/28/2025. Symptoms manageable at present. Will admit for further cardiac workup. - CBC without leukocytosis, H&H 13.9/41.2; PT/INR 21.9/2.2, APTT 34; troponin 6.9 --> 7.8 --> 7.6 - EKG ventricular paced rhythm with frequent PVCs at 71 bpm, no ischemic changes - CXR L sided cardiac pacemaker, similar mild congestive changes of cardiovascular system - Chest CTA no acute aortic process, no PE, cardiomegaly with AVR and extensive coronary calcifications, morphological irregularities aortic root surrounding prosthetic aortic valve as well as prominent coronary artery supplying L anterior descending and circumflex near anterior aspect of aortic root, age indeterminant OR to LV apex - Echo 2021 EF greater than 70%, moderate MR - echo repeated and results are pending read by cardiology. - Lipid panel 2021 TG 772, otherwise stable - repeat this AM LDL 33, TG 10, HDL 42 - Continue home medications - ASA, atorvastatin, ezetimibe, losartan, metoprolol, terazosin, warfarin - #Gout- Allopurinol, colchicine prn - continue #HLD- Pending lipid panel; Ezetimibe, atorvastatin - continue #HTN- Losartan, metoprolol, terazosin - continue #PAF- INR 1.8 today, was 2.2 yesterday, continue current dose of Warfarin and f/u with coag clinic as scheduled for repeat Patient indicates that this discomfort has been going on for over a week and a half, is associated with movement of his left arm and shoulder. Is worst/exacer bated with use of his left arm. No associated dyspnea, diaphoresis, numbness/tingling, chest heaviness. Troponins negative and EKG nonacute. Suspect discomfort is MSK in nature. Recommended lidocaine patch or heating pad. Tylenol as needed and rest/avoiding strenuous activity/lifting. He should f/u with his PCP within 1 week of discharge. He is medically and hemodynamically stable for discharge home today. Admission HPI Per Admitting Provider 64-year-old male PMHx s/p AVR 2015, intracardiac thrombus anticoagulated on Coumadin, PAF, CAD, HTN, HLD, gout, and history of endocarditis presenting for chest pain. Pt reports that the pain started ~ 1.5 weeks ago, with no triggering symptoms. He reports that the "pain" is more so a discomfort and he initially thought it was shingles that was causing him the discomfort. He reports that the discomfort is mainly localized to the L side of his chest, with some radiation into his L arm and L shoulder blade. He does not have any radiation into his neck. He reports occasional SOB but also states he has baseline "breathing problems", but no formal diagnosis such as asthma or COPD. He does not recall an episode that would have triggered the onset of the pain. Denies diaphoresis. Not worse with exertion. Does not notice a change of symptoms with food intake, but does have a history of acid reflux per patient's report. He denies palpations, abdominal pain, N/V/D/C, numbness/tingling, F/C, URI symptoms, LUTS, rashes, weakness, syncope, or falls. The discomfort is manageable at present per patient and has not worsened since the onset. He wanted to be evaluated because the symptoms were consistent and his was concerned. ED evaluation reveals CBC without leukocytosis, H&H 13.9/41.2; PT/INR 21.9/2.2, APTT 34; CMP BUN/creatinine ratio 22; troponin 6.9, pending repeat; CXR L sided cardiac pacemaker, similar mild congestive changes of cardiovascular system; chest CTA no acute aortic process, no PE, cardiomegaly with AVR and extensive coronary calcifications, morphological irregularities no aortic root surrounding prosthetic aortic valve as well as prominent coronary artery supplying L anterior descending and circumflex near anterior aspect of aortic root, age indeterminant OR to LV apex; EKG ventricular paced rhythm with frequent PVCs at [address] Gilliland's attestation for adjustments/additions to treatment plan. Discharge Exam GENERAL: 64 yo Well-developed, well-nourished WM. NAD. LUNGS: Clear to auscultation bilaterally. No accessory muscle use. No W/R/R. CARDIOVASCULAR: Regular rate and rhythm. +systolic murmur EXTREMITIES: No edema. Non-tender. Peripheral pulses +2/4. NEUROLOGIC: A&O x3. No focal neurological deficits. CN II-XII grossly intact. PSYCHIATRIC: Cooperative. Appropriate mood and affect. SKIN: Warm, dry, intact. No rashes or lesions. Discharge Plan Discharge Items Patient Disposition: Home - Self-Care Reason For Visit: CHEST PAIN Discharge Diagnosis: Chest pain, likely musculoskeletal, acute coronary syndrome ruled out Condition on Discharge: Fair Activity: Resume your previous activity Activity Comment: Avoid heavy lifting/strenuous activity Non-emergency contact: Primary Care Provider and Leaf [employer]er Call non-emergency contact if: you have any medication questions and your symptoms worsen Follow-up/Referrals: Thomas Mcclain MD [Primary Care Provider] - Diet: Heart Healthy Addtl Attending Provider Instructions: You were hospitalized due to chest pain with concerns given your heart history for possible cardiac source of your discomfort. Your heart markers were ne gative, EKG does not show any concerning abnormalities, and the scan of your chest did not show any new or concerning abnormalities. It is suggested that your pain/discomfort is related more to a musculoskeletal strain. I would recommend that you utilize a Lidocaine patch to the area of discomfort. You can also utilize a heating pad to the area. I would advise rest and avoidance of heavy lifting or strenuous activity. Follow up on Thursday to have your Coumadin levels drawn as scheduled. Follow up with your family doctor within 1 week of discharge. In the event of a medical emergency, call 911 or return to the ER. Pending Studies at Discharge: No Stand-Alone Forms: My [facility], Smoking Cessation Medications and DC Order Prescriptions: Continued amoxicillin 500 mg Capsule 2,000 mg PO USEASDIRECTD PRN (Reason: 30-60 min prior to dental proc) colchicine 0.6 mg Tablet 0.6 mg PO BID PRN (Reason: GOUT FLARE UP) acetaminophen [Tylenol] 325 mg Tablet 650 mg PO Q6H PRN (Reason: PAIN/FEVER) allopurinol 100 mg Tablet 200 mg PO QAM aspirin 81 mg Tablet,Chewable 81 mg PO DAILY warfarin 5 mg tablet 5 mg PO QPM losartan 50 mg tablet 50 mg PO QAM atorvastatin 80 mg tablet 80 mg PO QAM terazosin 1 mg capsule 1 mg PO HS metoprolol succinate 25 mg tablet extended release 24 hr 25 mg PO BID ezetimibe 10 mg tablet 10 mg PO QAM Discharge Orders: Discharge Order (Routine); Ordered 04/29/25 Ordered By: Gloria Freed Admission Data Admit Date/Time: 04/28/25 20:38 Attending Provider: Anaid Salas Admit Provider: Bel Gilliland Primary Care Provider: Thomas Mcclain Other Providers: Bel Gilliland Hospital Stay Data Consultations 04/28/25 19:35 ED Decision to Admit Stat Diagnostic Imagining Performed 04/28/25 17:02 CT angio chest dissec wo/w con Stat Pending Results Patient Have Any Pending Studies at Discharge: No Discharge Instructions Given to Patient (Per Discharging Provider) You were hospitalized due to chest pain with concerns given your heart history for possible cardiac source of your discomfort. Your heart markers were negative, EKG does not show any concerning abnormalities, and the scan of your chest did not show any new or concerning abnormalities. It is suggested that your pain/discomfort is related more to a musculoskeletal strain. I would vielka mmend that you utilize a Lidocaine patch to the area of discomfort. You can also utilize a heating pad to the area. I would advise rest and avoidance of heavy lifting or strenuous activity. Follow up on Thursday to have your Coumadin levels drawn as scheduled. Follow up with your family doctor within 1 week of discharge. In the event of a medical emergency, call 911 or return to the ER. Total Time Total Time Spent Total Time Spent (In Minutes): 35 minutes Coding Level of Care Code 66047 INP/OBS DISCH >30 MIN Diagnoses Chest pain R07.9
[2025-04-29 10:54] VITALS: BP 112/68
--- NOTE | 2025-04-29 11:17 | Electrocardiogram Report ---
Test Reason : Blood Pressure : */* mmHG Vent. Rate : 71 BPM Atrial Rate : 86 BPM P-R Int : * ms QRS Dur : 106 ms QT Int : 418 ms P-R-T Axes : * 82 -7 degrees QTcB Int : 454 ms Ventricular-paced rhythm with frequent Premature ventricular complexes Abnormal ECG When compared with ECG of 02-Aug-2022 11:22, Premature ventricular complexes are now Present Vent. rate has decreased by 5 bpm Confirmed by Jing Rosales (Radha) on 04/29/2025 11:17:17 AM Referred By: Confirmed By: Jing Rosales
== END 2025-04-29 11:15 | disposition home or self-care (01) ==
LOC: ED 15:48 → 2N 15:48 → SUATTDRO 20:38 → 2N 22:19